=== PATIENT | male | born 1955 | race Caucasian/White ===

== ENCOUNTER 2017-08-23 06:45 | Emergency (ER) | payer MEDICARE, MEDICAID ==
[~2017-08-23] VITALS: Ht 172.7 cm; Wt 96.6 kg
[~2017-08-23 06:45] MED LIST: CLOPIDOGREL 75 MG TABLET; HYDROCODONE-ACETAMIN 7.5-325; LORAZEPAM 1 MG TABLET
[2017-08-23] MEDS ORDERED: TETANUS,DIPTH,PERTUSS P/F (BOOSTRIX) 0.5 ML VIAL IM STA (07:02)
--- NOTE | 2017-08-23 07:38 | ED Fall/Injury ---
General Chief Complaint: Trauma-Non Activation Stated Complaint: FALL Nursing Triage Note: FALL Source: patient Exam Limitations: no limitations History of Present Illness Date Seen by Provider: Aug 23, 2017 Time Seen by Provider: 06:55 Initial Comments Here with abrasions to the forehead after falling forward out of his chair and hitting his head. Unsure of loss of consciousness. Patient is on Coumadin. jail staff were able to get him back up. He complained of some left leg pain initially but is doing better afterwards. Denies nausea or vomiting. Unsure of tetanus status. Location Injury Occurred: VCV Occurred: this morning Severity: moderate Injuries/Pain Location: head, lower extremity Context: lost balance Loss of Consciousness: unsure Associated Symptoms (Fall): No Chest Pain, No Lightheadedness, No Nausea/ Vomiting; Neck Pain; No Shortness of Air, No Slurred Speech Allergies and Home Medications Allergies Coded Allergies: No Known Drug Allergies (Unverified , 08/01/17) Patient Home Medication List Home Medication List Reviewed: Yes Review of Systems Constitutional: see HPI; No chills, No fever Eyes: No Symptoms Reported Ears, Nose, Mouth, Throat: no symptoms reported Respiratory: no symptoms reported; No cough, No short of breath Cardiovascular: No chest pain, No edema Gastrointestinal: No abdominal pain, No nausea, No vomiting Musculoskeletal: No joint pain, No joint swelling; neck pain Skin: change in color (bruising to the top of the head), lesions (abrasions to forehead) Psychiatric/Neurological: Denies Headache, Denies Numbness, Denies Paresthesia Past Lnqoygy-Bhjrmc-Hksalg Hx Past Med/Social Hx: Reviewed Nursing Past Med/Soc Hx Patient Social History Alcohol Use: Denies Use Recreational Drug Use: No Smoking Status: Never a Smoker Type Used: Smokeless Tobacco Recent Foreign Travel: No Contact w/Someone Who Travel: No Recent Infectious Disease Expo: No Recent Hopitalizations: No Immunizations Up To Date Tetanus Booster (TDap): Unknown Seasonal Allergies Seasonal Allergies: No Past Medical History Surgeries: Yes Arteriovenous Shunt, Cardiac, CABG, Dialysis, Eye Surgery (right eye enucleation ), Orthopedic, Vascular Surgery Respiratory: No Cardiac: Yes Chronic Edema/Swelling, Coronary Artery Disease, Heart Attack, High Cholesterol , Hypertension Neurological: Yes Neuropathy Genitourinary: Yes Renal Failure, Dialysis Gastrointestinal: Yes Gastroesophageal Reflux Musculoskeletal: Yes (BILATERAL SHOULDER SURGERIES) Arthritis Endocrine: Yes (IDDM --DX AGE 38, ON DIALYSIS SINCE 2016) Diabetes, Non-Insulin dep HEENT: Yes (RIGHT EYE REMOVED FOR CANCER) Cancer: Yes (RIGHT EYE REMOVED FOR CANCER) Did You Recieve Any Treatments: Yes What Type of Treatment Did You: Surgical Intervention Psychosocial: Yes Anxiety, Depression Integumentary: No Blood Disorders: Yes (ANEMIA) Family Medical History Reviewed Nursing Family Hx Physical Exam Vital Signs Vital Signs - First Documented 08/23/17 06:50 Temp 97.9 Pulse 81 Resp 18 B/P (MAP) 157/91 (113) Pulse Ox 95 O2 Delivery Room Air Capillary Refill : Less Than 3 Seconds Height, Weight, BMI Height: 5'8.00" Weight: 213lbs. oz. 96.443385xf; BMI Method:Stated General Appearance: WD/WN, no apparent distress HEENT: TMs normal, pharynx normal, other (of pupil reactive. Right eye enucleation.) Neck: non-tender, full range of motion, supple Cardiovascular: regular rate, rhythm, no murmur Respiratory: lungs clear, normal breath sounds Gastrointestinal: non tender, soft Back: normal inspection, no CVA tenderness, no vertebral tenderness Extremities: non-tender, normal inspection Neurologic/Psychiatric: alert, oriented x 3 Skin: warm/dry, other (ecchymosis and abrasion to the top of the head and to the right side of the forehead. Superficial wounds that do not require laceration repair.) [place] Coma Score Best Eye Response: (4) Open Spontaneously Best Verbal Response: (5) Oriented Best Motor Response: (6) Obeys Commands Progress/Results/Core Measures Results/Orders Lab Results Laboratory Tests Test 08/23/17 07:25 08/23/17 08:31 Range/Units Prothrombin Time 24.3 H 12.2-14.7 SEC INR Comment 2.2 H 0.8-1.4 White Blood Count 7.6 4.3-11.0 10^3/uL Red Blood Count 3.50 L 4.35-5.85 10^6/uL Hemoglobin 10.6 L 13.3-17.7 G/DL Hematocrit 33 L 40-54 % Mean Corpuscular Volume 94 80-99 FL Mean Corpuscular Hemoglobin 30 25-34 PG Mean Corpuscular Hemoglobin Concent 32 32-36 G/DL Red Cell Distribution Width 16.4 H 10.0-14.5 % Platelet Count 175 130-400 10^3/uL Mean Platelet Volume 9.1 7.4-10.4 FL Neutrophils (%) (Auto) 64 42-75 % Lymphocytes (%) (Auto) 15 12-44 % Monocytes (%) (Auto) 17 H 0-12 % Eosinophils (%) (Auto) 3 0-10 % Basophils (%) (Auto) 0 0-10 % Neutrophils # (Auto) 4.9 1.8-7.8 X 10^3 Lymphocytes # (Auto) 1.2 1.0-4.0 X 10^3 Monocytes # (Auto) 1.3 H 0.0-1.0 X 10^3 Eosinophils # (Auto) 0.2 0.0-0.3 10^3/uL Basophils # (Auto) 0.0 0.0-0.1 10^3/uL Sodium Level 136 135-145 MMOL/L Potassium Level 4.3 3.6-5.0 MMOL/L Chloride Level 95 L 98-107 MMOL/L Carbon Dioxide Level 29 21-32 MMOL/L Anion Gap 12 5-14 MMOL/L Blood Urea Nitrogen 47 H 7-18 MG/DL Creatinine 6.17 H 0.60-1.30 MG/DL Estimat Glomerular Filtration Rate 9 BUN/Creatinine Ratio 8 Glucose Level 153 H 70-105 MG/DL Calcium Level 9.4 8.5-10.1 MG/DL Total Bilirubin 0.6 0.1-1.0 MG/DL Aspartate Amino Transf (AST/SGOT) 23 5-34 U/L Alanine Aminotransferase (ALT/SGPT) 27 0-55 U/L Alkaline Phosphatase 200 H 40-136 U/L Total Protein 6.4 6.4-8.2 GM/DL Albumin 3.1 L 3.2-4.5 GM/DL My Orders Orders - SUBHASH BARRY MD Dipht,Hannah(Acell),Tet Adult (Boostrix (08/23/17 07:02) Ct Head/Cervical Spine Wo (08/23/17 07:02) Protime With Inr (08/23/17 07:02) Ct Chest Wo (08/23/17 08:23) Cbc With Automated Diff (08/23/17 08:23) Comprehensive Metabolic Panel (08/23/17 08:23) Vital Signs/I&O 08/23/17 08/23/17 08/23/17 06:50 08:42 09:11 Temp 97.9 Pulse 81 81 81 Resp 18 18 18 B/P (MAP) 157/91 (113) 129/114 (119) 130/80 (97) Pulse Ox 95 93 94 O2 Delivery Room Air Room Air Room Air Blood Pressure Mean: 113 Progress Progress Note : Progress Note Seen and evaluated. CT head and neck ordered. Tetanus updated. We will check , supple. Wound cleaned by nursing. Covered with antibiotic ointment and dressing. 0820: I did discuss the CT findings with the radiologist regarding the head and neck. These do not show any areas specifically of concern but on the C-spine films you can visualize left pleural effusion and question of first , second and third rib fractures bring up concern for hemothorax. Is recommending CT of the chest. We would like to do that with contrast the patient is a dialysis patient and has significant kidney dysfunction. We will do a noncontrast scan at this point. IV and labs ordered. Findings and concerns discussed with the patient he agrees with plan to this point. Monitor patient. 1014: Have discussed the case with Dr. Dos Santos at [facility] in [facility]. Patient does have findings of first through fifth rib fractures as noted on the CT below with acute fractures on the first and second rib. This would require monitoring. Patient also has findings of the need for dialysis and volume overload. We do not have dialysis capabilities here and will require transfer to a center with that capability. Patient usually goes to [facility]. They have accepted the patient for transfer. Patient agrees to transfer. Current vital signs heart rate 78 with O2 sat of 93 percent on room air and blood pressure 142/78. Patient will go by ground ambulance. Patient agrees to plan. Diagnostic Imaging Diagonstic Imaging: CT Plain Films/CT/US/NM/MRI: c-spine, head Comments VIA [facility]. [place], [place] NAME: GRACE ORELLANA Kyler [facility] REC#: [id number] PT STATUS: REG ER : 1955 PHYSICIAN: SUBHASH BARRY MD ADMIT DATE: 08/23/17/ER Draft Date of Exam:08/23/17 CT HEAD/CERVICAL SPINE WO PROCEDURE: CT head and CT cervical spine without contrast. TECHNIQUE: Multiple contiguous axial images were obtained through the brain and cervical spine without the use of intravenous contrast. Sagittal and coronal reformations through the cervical spine were then performed. INDICATION: Fall, striking the head. No priors. FINDINGS: There is supraorbital right frontal scalp soft tissue swelling and soft tissue hematoma present. The underlying calvarium revealed no fracture deformity. There is no hemo-sinus. Chronic findings to the right globe noted. The left orbit unremarkable. There is no paranasal sinus air-fluid level. There is intracranial atherosclerotic vascular calcifications. There is chronic cerebral cortical atrophy and periventricular white matter small vessel sequelae. There is an old infarct and encephalomalacia in the posterior medial left occipital lobe. There is no acute extra-axial fluid collection. There is no intracranial hemorrhage. No focal or generalized cerebral edema. No mass or mass effect. Incidental vascular and soft tissue calcifications in the scalp, chronic. CT cervical spine: There is straightening of cervical lordosis but no perching or dislocation of the facets. Vertebral statures are within normal limits. No acute or suspicious endplate irregularity. There is a fracture of the left first and second rib at the costovertebral junction which showed no evidence for healing presumed acute. There is some new bone formation associated with likely subacute fracture to the left third posterior rib just lateral to its costovertebral junction. There is a moderate to large amount of left-sided pleural fluid partially visualized and at least a small amount of right apical dependent posterior pleural fluid. In the setting of trauma the presence of pleural fluid and acute rib fractures superiorly warrants a chest CT as further evaluation. Skull base appeared intact and no cervical spinal fracture is evident. There are degenerative changes involving the distant endplates, uncovertebral joints and facets. IMPRESSION: CT head: A scalp hematoma, chronic senescent changes with atrophy, atherosclerotic disease and old encephalomalacia in the left occipital lobe. However, no intracranial hemorrhage or acute-appearing intracerebral pathology. No hemo-sinus. CT cervical spine: Spondylosis and facet arthrosis without cervical spinal fracture or dislocation. Note is made of acute appearing left first and second rib fractures and likely subacute left third rib fracture. Left greater than right pleural fluid volumes of uncertain etiology but in the setting of trauma, upper rib fractures warrants further evaluation with chest CT. Pneumothoraces could not be excluded. Results phoned to the ER physician. Dictated on workstation # [id number] Dict: 08/23/17 0813 Trans: 08/23/17 0836 [facility] [id number] Interpreted by: NEHEMIAS MARTINEZ Electronically signed by: [place] Imaging: CT Plain Films/CT/US/NM/MRI: chest Comments Date of Exam:08/23/17 CT CHEST WO PROCEDURE: CT chest without contrast. TECHNIQUE: Multiple contiguous axial images were obtained through the chest without the use of intravenous contrast. INDICATION: Fall, chest pain. When correlated with earlier CT cervical spine, there has been likely redistribution of the left-sided pleural fluid now predominantly at the posterior sulcus and subpulmonic base. Left pleural fluid has a homogenous low density and Hounsfield units consistent with serous fluid without a fluid/fluid level obvious complexity or convincing features of a hemothorax. There is a tiny right pleural effusion without loculation or evidence for its complexity. There are postsurgical changes of likely recent sternotomy without evidence for a dehiscence. There is some presternal subcutaneous edema which may reflect recent postsurgical changes or a soft tissue contusion. No discrete fluid collection or abscess. No retrosternal fluid collection. Coronary arterial atherosclerosis and bypass vascular patency cannot be addressed owing to the absence of contrast media. There are acute fractures of the left first and second ribs posteriorly and subacute healing fractures of the left third, fourth and fifth ribs at their costovertebral junctions. The right ribs appeared intact. Reconstruction views revealed thoracic spondylosis without fracture deformity or traumatic malalignment. There is no pneumothorax. There is no pneumomediastinum. Some very mild curvilinear discoid subsegmental atelectasis in the left upper lobe as well as perifissural atelectasis, dependent lingula and moderate to dependent atelectasis in the left lower lobe posteriorly adjacent to the predominance of the of nonloculated pleural fluid. Evaluation for adenopathy limited by the absence of vascular contrast no suspicious hilar abnormality, shotty small paratracheal and pericarinal mediastinal nodes likely incidental. Visualized upper abdomen reveals a least trace free fluid with extensive atherosclerotic disease, no upper abdominal free air. Impression: Acute left first and second rib fractures posteriorly at the costovertebral junction. Third, fourth and fifth posterior left rib fractures are healing and are nonacute. Left pleural fluid shows no evidence for its loculation and shows no complexity or suggestion of hemothorax. Its predominately posteriorly and at the subpulmonic base and accompanied by subjacent atelectasis. There is no pneumothorax. Likely recent sternotomy without dehiscence. No parasternal fluid collection. Trace abdominal free fluid in the visualized upper abdomen. No other significant finding. Dictated on workstation # [id number] Dict: 08/23/17 0926 Trans: 08/23/17 0944 [facility] [phone] Interpreted by: NEHEMIAS MARTINEZ Electronically signed by: Departure Impression Primary Impression: Head injury due to trauma Qualified Codes: S09.90XA - Unspecified injury of head, initial encounter Additional Impressions: Multiple fractures of ribs, left side, initial encounter for closed fracture End stage renal disease on dialysis Volume overload Qualified Codes: E87.79 - Other fluid overload Disposition: 02 XFER SHT-TRM HOSP Condition: Stable Transfer Transfer Time: 10:14 Transfer Facility: [place], [place], Dr. Dos Santos accepting. Method of Transfer: EMS Departure-Patient Inst. Referrals: NO,LOCAL PHYSICIAN (PCP/Family) Primary Care Physician Images Head/Face 1 - Mild, Abrasion, Contusion 2 - Mild, Abrasion SUBHASH BARRY MD Aug 23, 2017 07:38
[2017-08-23 07:56] LABS: INR 2.2 (0.8-1.4); PROTHROMBIN TIME PATIENT 24.3 SEC (12.2-14.7)
--- NOTE | 2017-08-23 08:36 | Diagnostic Imaging Report ---
PROCEDURE: CT head and CT cervical spine without contrast. TECHNIQUE: Multiple contiguous axial images were obtained through the brain and cervical spine without the use of intravenous contrast. Sagittal and coronal reformations through the cervical spine were then performed. INDICATION: Fall, striking the head. No priors. FINDINGS: There is supraorbital right frontal scalp soft tissue swelling and soft tissue hematoma present. The underlying calvarium revealed no fracture deformity. There is no hemo-sinus. Chronic findings to the right globe noted. The left orbit unremarkable. There is no paranasal sinus air-fluid level. There is intracranial atherosclerotic vascular calcifications. There is chronic cerebral cortical atrophy and periventricular white matter small vessel sequelae. There is an old infarct and encephalomalacia in the posterior medial left occipital lobe. There is no acute extra-axial fluid collection. There is no intracranial hemorrhage. No focal or generalized cerebral edema. No mass or mass effect. Incidental vascular and soft tissue calcifications in the scalp, chronic. CT cervical spine: There is straightening of cervical lordosis but no perching or dislocation of the facets. Vertebral statures are within normal limits. No acute or suspicious endplate irregularity. There is a fracture of the left first and second rib at the costovertebral junction which showed no evidence for healing presumed acute. There is some new bone formation associated with likely subacute fracture to the left third posterior rib just lateral to its costovertebral junction. There is a moderate to large amount of left-sided pleural fluid partially visualized and at least a small amount of right apical dependent posterior pleural fluid. In the setting of trauma the presence of pleural fluid and acute rib fractures superiorly warrants a chest CT as further evaluation. Skull base appeared intact and no cervical spinal fracture is evident. There are degenerative changes involving the distant endplates, uncovertebral joints and facets. IMPRESSION: CT head: A scalp hematoma, chronic senescent changes with atrophy, atherosclerotic disease and old encephalomalacia in the left occipital lobe. However, no intracranial hemorrhage or acute-appearing intracerebral pathology. No hemo-sinus. CT cervical spine: Spondylosis and facet arthrosis without cervical spinal fracture or dislocation. Note is made of acute appearing left first and second rib fractures and likely subacute left third rib fracture. Left greater than right pleural fluid volumes of uncertain etiology but in the setting of trauma, upper rib fractures warrants further evaluation with chest CT. Pneumothoraces could not be excluded. Results phoned to the ER physician. Dictated by: Dictated on workstation # [id number]
[2017-08-23 08:37] LABS: BASOPHILS % (AUTO) 0 % (0-10); EOSINOPHILS # (AUTO) 0.2 10^3/uL (0.0-0.3); EOSINOPHILS % (AUTO) 3 % (0-10); HEMATOCRIT 33 % (40-54); HEMOGLOBIN 10.6 G/DL (13.3-17.7); LYMPHOCYTES # (AUTO) 1.2 X 10^3 (1.0-4.0); LYMPHOCYTES % (AUTO) 15 % (12-44); MEAN CORPUSCULAR HEMOGLOBIN 30 PG (25-34); MEAN CORPUSCULAR HGB CONC 32 G/DL (32-36); MEAN CORPUSCULAR VOLUME 94 FL (80-99); MEAN PLATELET VOLUME 9.1 FL (7.4-10.4); MONOCYTES # (AUTO) 1.3 X 10^3 (0.0-1.0); MONOCYTES % (AUTO) 17 % (0-12); NEUTROPHILS # (AUTO) 4.9 X 10^3 (1.8-7.8); NEUTROPHILS % (AUTO) 64 % (42-75); PLATELET COUNT 175 10^3/uL (130-400); RED CELL DISTRIBUTION WIDTH 16.4 % (10.0-14.5); WHITE BLOOD COUNT 7.6 10^3/uL (4.3-11.0)
[2017-08-23 08:42] VITALS: BP 129/114
[2017-08-23] MEDS ORDERED: FLDR.1T (08:52)
[2017-08-23] MEDS ORDERED: GABA-486 (08:52)
[2017-08-23] MEDS ORDERED: AMIO200T4 (08:52)
[2017-08-23] MEDS ORDERED: INSU100I14 (08:52)
[2017-08-23] MEDS ORDERED: LORA1TAB (08:52)
[2017-08-23 08:57] LABS: ALBUMIN 3.1 GM/DL (3.2-4.5); BILIRUBIN,TOTAL 0.6 MG/DL (0.1-1.0); CALCIUM 9.4 MG/DL (8.5-10.1); CREATININE SERUM 6.17 MG/DL (0.60-1.30); POTASSIUM 4.3 MMOL/L (3.6-5.0); TOTAL PROTEIN 6.4 GM/DL (6.4-8.2)
[2017-08-23 09:11] VITALS: BP 130/80
--- NOTE | 2017-08-23 09:44 | Diagnostic Imaging Report ---
PROCEDURE: CT chest without contrast. TECHNIQUE: Multiple contiguous axial images were obtained through the chest without the use of intravenous contrast. INDICATION: Fall, chest pain. When correlated with earlier CT cervical spine, there has been likely redistribution of the left-sided pleural fluid now predominantly at the posterior sulcus and subpulmonic base. Left pleural fluid has a homogenous low density and Hounsfield units consistent with serous fluid without a fluid/fluid level obvious complexity or convincing features of a hemothorax. There is a tiny right pleural effusion without loculation or evidence for its complexity. There are postsurgical changes of likely recent sternotomy without evidence for a dehiscence. There is some presternal subcutaneous edema which may reflect recent postsurgical changes or a soft tissue contusion. No discrete fluid collection or abscess. No retrosternal fluid collection. Coronary arterial atherosclerosis and bypass vascular patency cannot be addressed owing to the absence of contrast media. There are acute fractures of the left first and second ribs posteriorly and subacute healing fractures of the left third, fourth and fifth ribs at their costovertebral junctions. The right ribs appeared intact. Reconstruction views revealed thoracic spondylosis without fracture deformity or traumatic malalignment. There is no pneumothorax. There is no pneumomediastinum. Some very mild curvilinear discoid subsegmental atelectasis in the left upper lobe as well as perifissural atelectasis, dependent lingula and moderate to dependent atelectasis in the left lower lobe posteriorly adjacent to the predominance of the of nonloculated pleural fluid. Evaluation for adenopathy limited by the absence of vascular contrast no suspicious hilar abnormality, shotty small paratracheal and pericarinal mediastinal nodes likely incidental. Visualized upper abdomen reveals a least trace free fluid with extensive atherosclerotic disease, no upper abdominal free air. Impression: Acute left first and second rib fractures posteriorly at the costovertebral junction. Third, fourth and fifth posterior left rib fractures are healing and are nonacute. Left pleural fluid shows no evidence for its loculation and shows no complexity or suggestion of hemothorax. Its predominately posteriorly and at the subpulmonic base and accompanied by subjacent atelectasis. There is no pneumothorax. Likely recent sternotomy without dehiscence. No parasternal fluid collection. Trace abdominal free fluid in the visualized upper abdomen. No other significant finding. Dictated by: Dictated on workstation # [id number]
[2017-08-23 10:35] VITALS: BP 154/78
[2017-08-23 10:57] VITALS: BP 149/76
== END 2017-08-23 11:14 | disposition short-term general hospital (02) ==
LOC: EDUNIT# 06:45 → ER 06:48
DX: S09.90XA Unspecified injury of head, initial encounter (principal); S22.42XA Multiple fractures of ribs, left side, initial encounter for closed fracture; N18.6 End stage renal disease; E87.79 Other fluid overload; I25.10 Atherosclerotic heart disease of native coronary artery without angina pectoris; I25.2 Old myocardial infarction; E78.00 Pure hypercholesterolemia, unspecified; I12.0 Hypertensive chronic kidney disease with stage 5 chronic kidney disease or end stage renal disease; E11.40 Type 2 diabetes mellitus with diabetic neuropathy, unspecified; K21.9 Gastro-esophageal reflux disease without esophagitis; E11.22 Type 2 diabetes mellitus with diabetic chronic kidney disease; F41.9 Anxiety disorder, unspecified; F32.9 Major depressive disorder, single episode, unspecified; Z99.2 Dependence on renal dialysis; Z95.1 Presence of aortocoronary bypass graft; Z79.01 Long term (current) use of anticoagulants; W07.XXXA Fall from chair, initial encounter
CPT/HCPCS: 36415; 70450; 71250; 72125; 80053; 85025; 85610; 90471; 90715

== ENCOUNTER → 2017-09-02 | Outpatient (CLI) | payer MEDICARE, MEDICAID ==
[~2017-09-02] MED LIST changes: +AMIO200T4; +FLDR.1T; +GABA-486; +INSU100I14; +LORA1TAB
[2017-09-02 18:39] LABS: BILIRUBIN,URINE NEGATIVE (NEGATIVE); CLARITY,URINE VERY CLOUDY; COLOR,URINE RED; GLUCOSE, URINE (UA) 1+ (NEGATIVE); KETONES,URINE 1+ (NEGATIVE); LEUKOCYTE ESTERASE ,URINE 3+ (NEGATIVE); NITRITE,URINE NEGATIVE (NEGATIVE); PH,URINE 5 (5-9); PROTEIN,URINE 4+ (NEGATIVE); UROBILINOGEN,URINE NORMAL (NORMAL)
[2017-09-02 18:51] LABS: BACTERIA,URINE MODERATE /HPF; RBC,URINE TNTC /HPF; WBC,URINE TNTC /HPF
== END ==
LOC: CVS 18:32
PROVIDERS: ATTEND Internal Medicine
DX: N18.6 End stage renal disease (principal); R31.9 Hematuria, unspecified; Z99.2 Dependence on renal dialysis; Z79.01 Long term (current) use of anticoagulants
CPT/HCPCS: 81000; 87077; 87088; 87186

== ENCOUNTER → 2017-09-11 | Outpatient (CLI) | payer MEDICARE, MEDICAID ==
[2017-09-11 11:57] LABS: CLARITY,URINE BLOODY; COLOR,URINE RED; GLUCOSE, URINE (UA) 1+ (NEGATIVE); KETONES,URINE 1+ (NEGATIVE); LEUKOCYTE ESTERASE ,URINE 2+ (NEGATIVE); NITRITE,URINE NEGATIVE (NEGATIVE); PH,URINE 5 (5-9); PROTEIN,URINE 4+ (NEGATIVE); UROBILINOGEN,URINE NORMAL (NORMAL)
[2017-09-11 12:08] LABS: BACTERIA,URINE TRACE /HPF; BILIRUBIN,URINE 1+ (NEGATIVE); RBC,URINE TNTC /HPF
== END ==
LOC: LABNPT 11:52 → MERGE 11:52
PROVIDERS: ATTEND Internal Medicine
DX: N39.0 Urinary tract infection, site not specified (principal); R31.9 Hematuria, unspecified
CPT/HCPCS: 81000; 87088

== ENCOUNTER → 2017-09-19 | Outpatient (CLI) | payer MEDICARE, MEDICAID ==
--- NOTE | 2017-09-19 14:25 | Diagnostic Imaging Report ---
PROCEDURE: CT abdomen and pelvis without contrast. TECHNIQUE: Multiple contiguous axial images were obtained through the abdomen and pelvis without the use of intravenous contrast. INDICATION: Gross hematuria. COMPARISON: No prior studies are available for comparison. FINDINGS: Imaging through the lung bases does show [id number] left pleural effusion with some associated left basilar consolidation. The right lung base is clear. No discrete liver mass is identified. The gallbladder is unremarkable. Pancreas appears atrophic. The spleen is unremarkable. No adrenal mass is identified. There are extensive vascular calcifications throughout the abdomen including the aorta, renal arteries, as well as the hepatic and splenic arteries. No hydronephrosis is seen. No central retroperitoneal or mesenteric lymphadenopathy is seen. The small and large bowel loops are normal in caliber. There is no ascites apart from trace fluid in the pelvis. Partially filled urinary bladder is unremarkable. There is some air within the bladder, perhaps owing to recent instrumentation. Clinical correlation is recommended. Prostate gland is unremarkable. Bony structures are nonacute. IMPRESSION: 1. Moderate left pleural effusion with left basilar infiltrate or atelectasis. 2. Extensive vascular calcifications throughout the abdomen and pelvis, perhaps owing to diabetes. Clinical correlation is recommended. No urinary tract calculi or obstruction is seen. Dictated by: Dictated on workstation # [id number]
== END ==
LOC: RAD 13:50 → MERGE 14:15
PROVIDERS: ATTEND Urology
DX: J90 Pleural effusion, not elsewhere classified (principal); R31.0 Gross hematuria
CPT/HCPCS: 74176

== ENCOUNTER 2017-11-03 13:11 | Emergency (ER) | payer MEDICARE, MEDICAID ==
[~2017-11-03] VITALS: Ht 172.7 cm; Wt 96.6 kg
[2017-11-03] MEDS ORDERED: fentaNYL INJECTION 100 MCG/2 ML AMP IVP STA ×2 (13:28→15:23)
--- NOTE | 2017-11-03 14:21 | Diagnostic Imaging Report ---
INDICATION: Fall with pelvic and left hip pain. AP view of the pelvis is obtained with coned AP and frog-leg views of the left hip. FINDINGS: There is mildly displaced fracture through the left femoral neck. There is no associated dislocation. Remainder of the pelvis is intact. There is atherosclerotic calcification noted. Very mild lower lumbar spondylosis is present. IMPRESSION: Mildly displaced fracture through the left femoral neck without dislocation or other acute abnormality seen in the pelvis. Dictated by: Dictated on workstation # [id number]
--- NOTE | 2017-11-03 14:26 | ED Lower Extremity ---
General Chief Complaint: Trauma-Non Activation Stated Complaint: FALL;L HIP Nursing Triage Note: TO ED PER EMS FROM [facility] HAD DIALYSIS TODAY FELL GETTING INTO W/C WAS TAKEN BACK TO [facility] C/O L HIP PAIN ON ADMIT. Nursing Sepsis Screen: No Definite Risk History of Present Illness Date Seen by Provider: Nov 03, 2017 Time Seen by Provider: 13:20 Initial Comments 62-year-old male fell getting into his wheelchair after dialysis. He is now complaining of left hip pain. He denies any other injuries at the time of the fall, no loss of consciousness or head trauma. Onset: just prior to arrival Pain/Injury Location: left hip Method of Injury: fell Modifying Factors: Improves With Rest Allergies and Home Medications Allergies Coded Allergies: No Known Drug Allergies (Unverified , 08/01/17) Patient Home Medication List Home Medication List Reviewed: Yes Review of Systems Constitutional: no symptoms reported, see HPI Musculoskeletal: see HPI, joint pain (Left hip pain) All Other Systems Reviewed Negative Unless Noted: Yes Past Edsalxa-Gmkisy-Jrnhsu Hx Past Med/Social Hx: Reviewed Nursing Past Med/Soc Hx Patient Social History Alcohol Use: Denies Use Recreational Drug Use: No Type Used: Smokeless Tobacco Recent Foreign Travel: No Contact w/Someone Who Travel: No Recent Infectious Disease Expo: No Recent Hopitalizations: No Immunizations Up To Date Tetanus Booster (TDap): Unknown Seasonal Allergies Seasonal Allergies: No Past Medical History Surgeries: Yes Arteriovenous Shunt, Cardiac, CABG, Dialysis, Eye Surgery, Orthopedic, Vascular Surgery Respiratory: No Cardiac: Yes Chronic Edema/Swelling, Coronary Artery Disease, Heart Attack, High Cholesterol , Hypertension Neurological: Yes Neuropathy Genitourinary: Yes Renal Failure, Dialysis Gastrointestinal: Yes Gastroesophageal Reflux Musculoskeletal: Yes (BILATERAL SHOULDER SURGERIES) Arthritis Endocrine: Yes (IDDM --DX AGE 38, ON DIALYSIS SINCE 2016) Diabetes, Non-Insulin dep HEENT: Yes (RIGHT EYE REMOVED FOR CANCER) Cancer: Yes (RIGHT EYE REMOVED FOR CANCER) Did You Recieve Any Treatments: Yes What Type of Treatment Did You: Surgical Intervention Psychosocial: Yes Anxiety, Depression Integumentary: No Blood Disorders: Yes (ANEMIA) Physical Exam Vital Signs Vital Signs - First Documented 11/03/17 13:14 Temp 98.0 Pulse 87 Resp 18 B/P (MAP) 161/86 (111) Pulse Ox 98 O2 Delivery Room Air Capillary Refill : Less Than 3 Seconds Height, Weight, BMI Height: 5'8.00" Weight: 213lbs. oz. 96.296660xs; BMI Method:Stated General Appearance: WD/WN, no apparent distress HEENT: TMs normal, pharynx normal Neck: non-tender, full range of motion, supple, normal inspection Cardiovascular: normal peripheral pulses, regular rate, rhythm, other (Pedal pulses 2+ and symmetric. Neurovascular status intact left lower extremity symmetric with the right.) Respiratory: chest non-tender, lungs clear, normal breath sounds Gastrointestinal: normal bowel sounds, non tender, soft Hips: right hip non-tender, right hip normal inspection, right hip normal range of motion; left hip bone tenderness, left hip limited range of motion ( Secondary to pain, mild external rotation and shortening of the left leg. Unable to perform straight leg raise.), left hip pain, left hip soft tissue tenderness Ankles: bilateral ankle non-tender, bilateral ankle normal inspection, bilateral ankle normal range of motion Neurologic/Tendon: normal sensation, normal motor functions, normal tendon functions Neurologic/Psychiatric: no motor/sensory deficits, alert, normal mood/affect, oriented x 3 Skin: normal color, warm/dry Progress/Results/Core Measures Results/Orders My Orders Orders - MARQUITA VIDAL Pelvis With Left Hip 2-3 Views (11/03/17 13:28) Fentanyl Injection (Sublimaze Injection (11/03/17 13:28) Fentanyl Injection (Sublimaze Injection (11/03/17 15:23) Vital Signs/I&O 11/03/17 11/03/17 13:14 15:55 Temp 98.0 Pulse 87 86 Resp 18 18 B/P (MAP) 161/86 (111) 150/82 Pulse Ox 98 98 O2 Delivery Room Air Blood Pressure Mean: 111 Progress Progress Note : Time: 13:20 Progress Note Patient seen and evaluated. Recommended fentanyl 50 g for pain and x-ray of the pelvis and left hip. 1430 patient reports pain has improved. Discussed findings of his x-ray. Explained that his dialysis needs will necessitate transfer to a facility that can complete this. He understands this and wishes to go to [place]. [address] White at [facility] emergency department he accepts the patient for transfer. 1530 patient reports pain /10, will repeat fentanyl 50 g for pain. Transfer planning in progress. Diagnostic Imaging Diagonstic Imaging: Xray Plain Films/CT/US/NM/MRI: pelvis, hip Comments NAME: GRACE ORELLANA [facility] REC#: [id number] PT STATUS: REG ER : 1955 PHYSICIAN: MARQUITA VDIAL ADMIT DATE: 11/03/17/ER Draft Date of Exam:11/03/17 PELVIS WITH LEFT HIP 2-3 VIEWS INDICATION: Fall with pelvic and left hip pain. AP view of the pelvis is obtained with coned AP and frog-leg views of the left hip. FINDINGS: There is mildly displaced fracture through the left femoral neck. There is no associated dislocation. Remainder of the pelvis is intact. There is atherosclerotic calcification noted. Very mild lower lumbar spondylosis is present. IMPRESSION: Mildly displaced fracture through the left femoral neck without dislocation or other acute abnormality seen in the pelvis. Dictated on workstation # [id number] Dict: 11/03/17 1417 Trans: 11/03/17 1420 [facility] [id number] Interpreted by: NEHEMIAS BECKMAN MD Electronically signed by: Reviewed: Reviewed by Me Departure Impression Primary Impression: Fracture of femoral neck, left, closed Qualified Codes: S72.002A - Fracture of unspecified part of neck of left femur , initial encounter for closed fracture Additional Impression: Chronic kidney disease Qualified Codes: N18.6 - End stage renal disease; Z99.2 - Dependence on renal dialysis Disposition: 02 XFER SHT-TRM HOSP Condition: Stable Transfer Time Spoke to Accepting Phy: 15:10 Transfer Progress Notes Spoke to Chucho Adams, [facility]. will accept patient for transfer to ED. Method of Transfer: EMS Departure-Patient Inst. Decision time for Depature: 15:15 Referrals: CHERYL LANDRY MD (PCP/Family) Primary Care Physician Add. Discharge Instructions: All discharge instructions reviewed with patient and/or family. Voiced understanding. Copy Copies To 1: CHERYL LANDRY MD, AMY ARNP Nov 03, 2017 14:26
[2017-11-03 15:55] VITALS: BP 150/82
--- OUTSIDE RECORDS SUMMARY | 2017-11-03 17:07 | XMS REPORT ---
Author Author SHERWIN CARVAJAL [facility] Address [address] [place] [address] Care Team Providers Care Belt Knife Feeder Name Role Phone SHERWIN CARVAJAL Unavailable PROBLEMS Type Condition ICD9-CM Code IJD10-AP Code Onset Dates Condition Status SNOMED Code Problem Anxiety F41.9 Active 73813410 Problem Rheumatoid arthritis, involving unspecified site, unspecified rheumatoid factor presence M06.9 Active 71743772 Problem Dialysis patient Z99.2 Active 396047721 Problem Gastroesophageal reflux disease without esophagitis K21.9 Active 468716975 Problem Essential hypertension I10 Active 72299364 Problem Type 2 diabetes mellitus with hyperglycemia, without long-term current use of insulin E11.65 Active 07569729 Problem End stage kidney disease N18.6 Active 91334668 Problem Coronary artery disease involving coronary bypass graft of [place] heart without angina 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 Active 374435176 Problem Hyperlipidemia, unspecified hyperlipidemia type E78.5 Active 60582882 ALLERGIES No Information ENCOUNTERS Encounter Location Date Diagnosis [place] [address] [place] [address] Oct, Encounter for examination for admission to correction Z02.2 [address] [place] [address] [place] [id number] Oct, Weakness R53.1 ; Dialysis patient Z99.2 ; Essential hypertension I10 ; Rheumatoid arthritis, involving unspecified site, unspecified rheumatoid factor presence M06.9 and Gastroesophageal reflux disease without esophagitis K21.9 [place] [address] [place] [address]- 8520 Sep, [place] [address] [place] [address] 80905- 7838 Sep, [place] [address] [place] [id number] [place] [address]25[address] Sep, [facility] [address] [id number] [address] Sep, Encounter for examination for admission to correction Z02.2 and Anxiety F41.9 Via [facility] [address] [place] [id number] Sep, Gross hematuria R31.0 ; Coronary artery disease involving coronary bypass graft of [place] heart without angina 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 ; Arthralgia, unspecified joint M25.50 ; Essential hypertension I10 ; Rheumatoid arthritis, involving unspecified site, unspecified rheumatoid factor presence M06.9 ; Type 2 diabetes mellitus with hyperglycemia, without long-term current use of insulin E11.65 and Dialysis patient Z99.2 [place] [address] [id number] [address] Sep, [place] [address] [id number] [address] Sep, Encounter for examination for admission to correction Z02.2 Via [employer] [facility] [address] [place] [id number] Sep, Gross hematuria R31.0 [facility] [address] [id number] [place] [address] Aug, [facility] [address] [facility] [id number] [address] Aug, [facility] [address] [place] [id number] Aug, Fall, subsequent encounter W19.XXXD and Dialysis patient Z99.2 [facility] [address] [id number] [place] [address] Aug, [place] [address] [facility] [id number] [address] Aug, [facility] [employer] [address] [place] [id number] Aug, Encounter for examination for admission to correction Z02.2 ; Other acute pulmonary embolism without acute cor pulmonale I26.99 ; Arthralgia, unspecified joint M25.50 ; Coronary artery disease involving coronary bypass graft of [place] heart without angina 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 ; Essential hypertension I10 and Hyperlipidemia, unspecified hyperlipidemia type E78.5 [place] [address] [address] [place] [id number] [place] [address] Aug, Rheumatoid arthritis, involving unspecified site, unspecified rheumatoid factor presence M06.9 [place] [address] [address] [place] [id number] [place] [address] 6[address]- [address] Aug, [place] [address] [address] Aug, Encounter for examination for admission to correction Z02.2 [place] [address] [place] [id number] [place] [address] Jul, [place] [address] [place] [id number] [place] [address] 98529- 2533 Jul, [place] [address] [place] [id number] [place] [address] 96[address] Jul, Anxiety F41.9 [place] [address] [address] Jul, IMMUNIZATIONS No Known Immunizations SOCIAL HISTORY Never Assessed REASON FOR VISIT Long-Term PLAN OF CARE Activity Details Follow Up prn Reason: VITAL SIGNS MEDICATIONS Medication Instructions Dosage Frequency Start Date End Date Duration Status Senna Plus 8.6-50 MG Orally twice a day 1 tablet as needed 12h Active Plavix 75 MG Orally Once a day 1 tablet 24h Active Gabapentin 100 MG Orally Three times a day 1 capsule 8h Active Coumadin 4 MG Orally Once a day 1 tablet 24h Active Prevacid 30 MG Orally Once a day 1 capsule 24h Active Lasix 80 MG Orally twice a day 1 tablet 12h Active Hydrocodone-Acetaminophen 5-325 MG Orally every 8 hrs 1 tablet as needed 8h Sep, Active Sodium Bicarbonate 325 MG Orally 2 times a day 1 tablet 12h Active Artificial Tear to right eye 3 times a day 2 gtts 8h Active Dulaglutide 0.75 MG/0.5ML Subcutaneous once weekly 0.75mg Jul, Active Ativan 0.5 MG Orally 3 times a day 1 tablet 8h Jul, 28 days Active Ipratropium-Albuterol 0.5-2.5 (3) MG/3ML Inhalation every 6 hrs 3 ml as needed 6h Active Fludrocortisone Acetate 0.1 MG Orally Three times a Week 1 tablet Active Aspirin EC 81 MG Orally Once a day 1 tablet 24h Active Isosorbide Mononitrate ER 30 MG Orally Once a day 1 tablet in the morning 24h Active Carvedilol 12.5 MG Orally 2 times a day 1 tablet 12h Active Renvela 800 MG Orally Three times a day 1 tablet with meals 8h Active Venlafaxine HCl ER 150 MG Orally Once a day 1 capsule with food 24h Active Dulcolax 10 MG Rectal Once a day 1 suppository as needed 24h Active Aricept 10 MG Orally Once a day 1 tablet at bedtime 24h Active Amiodarone HCl 200 MG Orally Once a day 1 tablet 24h Active Depakote 250 MG Orally 3 times a day 1 tablet 8h Active Dextromethorphan-Guaifenesin 10-100 MG/5ML Orally every 4 hrs 10 ml as needed 4h Active Lisinopril 10 MG Orally Once a day 1 tablet 24h Active Lantus 100 UNIT/ML Subcutaneous Once a day 12 units 24h Active Nitrostat 0.4 MG Active Humalog 100 UNIT/ML Subcutaneous 3 times a day 5 units 8h Active Tums Ultra by oral route every 6 hrs 1 tablet as needed 6h Active Trazodone HCl 50 mg Orally Once a day 1 tablet at bedtime 24h Active RESULTS No Results PROCEDURES Procedure Date Ordered Result Body Site [facility] VISIT ESTABLISHED PATIENT Sep 20, 2017 INSTRUCTIONS MEDICATIONS ADMINISTERED No Known Medications MEDICAL (GENERAL) HISTORY Type Description Date Medical History Chronic Kidney disease state V Medical History Coronary Artery Disease Medical History Hyperlipidemia Medical History Hypertension Medical History Obesity Medical History Arthritis Medical History Atrial Fibrillation Medical History Depression Medical History Diabetes Surgical History Heart Cath Surgical History hernia repair Surgical History Shoulder surgery Surgical History Tonsillectomy Surgical History Wrist ganglion excision
--- OUTSIDE RECORDS SUMMARY | 2017-11-03 17:07 | XMS REPORT ---
Author Author SHERWIN CARVAJAL [facility] Address [address] [place] [address] Care Team Providers Care Battalion Fire Chief Name Role Phone SHERWIN CARVAJAL Unavailable PROBLEMS Type Condition ICD9-CM Code IUO43-BN Code Onset Dates Condition Status SNOMED Code Problem Anxiety F41.9 Active 85234711 Problem Rheumatoid arthritis, involving unspecified site, unspecified rheumatoid factor presence M06.9 Active 59936507 Problem Dialysis patient Z99.2 Active 346363742 Problem Gastroesophageal reflux disease without esophagitis K21.9 Active 411269183 Problem Essential hypertension I10 Active 31131534 Problem Type 2 diabetes mellitus with hyperglycemia, without long-term current use of insulin E11.65 Active 14140940 Problem End stage kidney disease N18.6 Active 95096945 Problem Coronary artery disease involving coronary bypass graft of [place] heart without angina 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 Active 146868045 Problem Hyperlipidemia, unspecified hyperlipidemia type E78.5 Active 52620613 ALLERGIES No Information ENCOUNTERS Encounter Location Date Diagnosis [place] [address] [place] [address] Oct, Encounter for examination for admission to jail Z02.2 Via [place] [address] [place] [id number] Oct, Weakness R53.1 ; Dialysis patient Z99.2 ; Essential hypertension I10 ; Rheumatoid arthritis, involving unspecified site, unspecified rheumatoid factor presence M06.9 and Gastroesophageal reflux disease without esophagitis K21.9 [place] [address] [place] [address]- 3920 Sep, [place] [address] [place] [address]00- [address] Sep, [place] [address] [address] [place] [id number] [place] [address] Sep, [facility] [address] [id number] [address] Sep, Encounter for examination for admission to jail Z02.2 and Anxiety F41.9 Via [employer] [facility] [address] [place] [id number] Sep, Gross hematuria R31.0 ; Coronary artery disease involving coronary bypass graft of [place] heart without angina 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 ; Arthralgia, unspecified joint M25.50 ; Essential hypertension I10 ; Rheumatoid arthritis, involving unspecified site, unspecified rheumatoid factor presence M06.9 ; Type 2 diabetes mellitus with hyperglycemia, without long-term current use of insulin E11.65 and Dialysis patient Z99.2 [place] [address] [id number] [address] Sep, [place] [address] [id number] [address] Sep, Encounter for examination for admission to jail Z02.2 [facility] [employer] [address] [place] [id number] Sep, Gross hematuria R31.0 [facility] [address] [id number] [address] Aug, [facility] [address] [facility] [id number] [address] Aug, [facility] [address] [place] [id number] Aug, Fall, subsequent encounter W19.XXXD and Dialysis patient Z99.2 [facility] [address] [id number] [address] Aug, [place] [address] [facility] [id number] [address] Aug, [facility] [employer] [address] [place] [id number] Aug, Encounter for examination for admission to jail Z02.2 ; Other acute pulmonary embolism without acute cor pulmonale I26.99 ; Arthralgia, unspecified joint M25.50 ; Coronary artery disease involving coronary bypass graft of [place] heart without angina 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 ; Essential hypertension I10 and Hyperlipidemia, unspecified hyperlipidemia type E78.5 [place] [address] [place] [address]157- [address] Aug, Rheumatoid arthritis, involving unspecified site, unspecified rheumatoid factor presence M06.9 [place] [address] [place] [id number] [place] [address]34- [address] Aug, [place] [address] [address] Aug, Encounter for examination for admission to jail Z02.2 [place] [address] [place] [id number] [place] [address]99- 8258 Jul, [place] [address] [place] [id number] [place] [address] 82211- 0193 Jul, [place] [address] [place] [id number] [place] [address] 0[address]18- 6[address] Jul, Anxiety F41.9 [place] [address] [place] [id number] [place] [address] 05692- 1164 Jul, IMMUNIZATIONS No Known Immunizations SOCIAL HISTORY Never Assessed REASON FOR VISIT Requests return call PLAN OF CARE VITAL SIGNS MEDICATIONS Unknown Medications RESULTS No Results PROCEDURES No Known procedures INSTRUCTIONS MEDICATIONS ADMINISTERED No Known Medications MEDICAL [...]
--- OUTSIDE RECORDS SUMMARY | 2017-11-03 17:07 | XMS REPORT ---
Author Author SHERWIN CARVAJAL [facility] Address [address] [place] [address] Care Team Providers Care Waitstaff Name Role Phone SHERWIN CARVAJAL Unavailable PROBLEMS Type Condition ICD9-CM Code APP75-CB Code Onset Dates Condition Status SNOMED Code Problem Anxiety F41.9 Active 38212052 Problem Rheumatoid arthritis, involving unspecified site, unspecified rheumatoid factor presence M06.9 Active 04824613 Problem Dialysis patient Z99.2 Active 852700259 Problem Gastroesophageal reflux disease without esophagitis K21.9 Active 907264266 Problem Essential hypertension I10 Active 30445339 Problem Type 2 diabetes mellitus with hyperglycemia, without long-term current use of insulin E11.65 Active 81259242 Problem End stage kidney disease N18.6 Active 38183801 Problem Coronary artery disease involving coronary bypass graft of [place] heart without angina 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 Active 391905159 Problem Hyperlipidemia, unspecified hyperlipidemia type E78.5 Active 96312601 ALLERGIES No Information ENCOUNTERS Encounter Location Date Diagnosis [place] [address] [address] [place] [address] Oct, Encounter for examination for admission to long-term Z02.2 [address] [place] [address] [place] [id number] Oct, Weakness R53.1 ; Dialysis patient Z99.2 ; Essential hypertension I10 ; Rheumatoid arthritis, involving unspecified site, unspecified rheumatoid factor presence M06.9 and Gastroesophageal reflux disease without esophagitis K21.9 [place] [address] [place] [address] 99082- 7317 Sep, [place] [address] [place] [address] 08544- 5391 Sep, [place] [address] [address] [place] [id number] [place] [address]46- 29[address] Sep, [facility] [address] [id number], [place] [address] Sep, Encounter for examination for admission to long-term Z02.2 and Anxiety F41.9 [facility] [address] [place] [id number] Sep, Gross hematuria R31.0 ; Coronary artery disease involving coronary bypass graft of [place] heart without angina 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 ; Arthralgia, unspecified joint M25.50 ; Essential hypertension I10 ; Rheumatoid arthritis, involving unspecified site, unspecified rheumatoid factor presence M06.9 ; Type 2 diabetes mellitus with hyperglycemia, without long-term current use of insulin E11.65 and Dialysis patient Z99.2 [place] [address] [id number], [place] [address] Sep, [place] [address] [id number], [place] [address] Sep, Encounter for examination for admission to long-term Z02.2 Via [facility] [address] [place] [id number] Sep, Gross hematuria R31.0 [facility] [address] [id number], [place] [address] Aug, [facility] [address] [facility] [id number], [place] [address] Aug, [facility] [facility] [address] [place] [id number] Aug, Fall, subsequent encounter W19.XXXD and Dialysis patient Z99.2 [facility] [address] [id number], [place] [address] Aug, [place] [address] [facility] [id number], [place] [address] Aug, [facility] [address] [place] [id number] Aug, Encounter for examination for admission to long-term Z02.2 ; Other acute pulmonary embolism without acute cor pulmonale I26.99 ; Arthralgia, unspecified joint M25.50 ; Coronary artery disease involving coronary bypass graft of [place] heart without angina 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 ; Essential hypertension I10 and Hyperlipidemia, unspecified hyperlipidemia type E78.5 [place] [address] [place] [address]- [address] Aug, Rheumatoid arthritis, involving unspecified site, unspecified rheumatoid factor presence M06.9 [place] [address] [address] [place] [id number] [place] [address] 75852- 5[address] Aug, [place] [address] [address]- [address] Aug, Encounter for examination for admission to long-term Z02.2 [place] [address] [place] [id number] [place] [address] 63763- 6753 Jul, [place] [address] [place] [id number] [place] [address] 54349- 9655 Jul, [place] [address] [place] [id number] [place] [address] 66606- 0925 Jul, Anxiety F41.9 [place] [address] [place] [id number] [place] [address] 70994- 1444 Jul, IMMUNIZATIONS No Known Immunizations SOCIAL HISTORY Never Assessed REASON FOR VISIT Call to patient PLAN OF CARE VITAL SIGNS MEDICATIONS Unknown [...]
--- OUTSIDE RECORDS SUMMARY | 2017-11-03 17:07 | XMS REPORT ---
Author Author SHERWIN CARVAJAL [facility] Address [address] [place] [address] Care Team Providers Care Security Professional Name Role Phone SHERWIN CARVAJAL Unavailable PROBLEMS Type Condition ICD9-CM Code ZLN42-XZ Code Onset Dates Condition Status SNOMED Code Problem Anxiety F41.9 Active 40415514 Problem Rheumatoid arthritis, involving unspecified site, unspecified rheumatoid factor presence M06.9 Active 14937344 Problem Dialysis patient Z99.2 Active 321443991 Problem Gastroesophageal reflux disease without esophagitis K21.9 Active 774011540 Problem Essential hypertension I10 Active 55097691 Problem Type 2 diabetes mellitus with hyperglycemia, without long-term current use of insulin E11.65 Active 35063797 Problem End stage kidney disease N18.6 Active 78521673 Problem 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 Active 948449935 Problem Hyperlipidemia, unspecified hyperlipidemia type E78.5 Active 54804352 ALLERGIES No Information ENCOUNTERS Encounter Location Date Diagnosis [place] [address] [place] [address] 48092- 1541 Oct, Encounter for examination for admission to care home Z02.2 [address] [place] [address] [place] [id number] Oct, Weakness R53.1 ; Dialysis patient Z99.2 ; Essential hypertension I10 ; Rheumatoid arthritis, involving unspecified site, unspecified rheumatoid factor presence M06.9 and Gastroesophageal reflux disease without esophagitis K21.9 [place] [address] [place] [address] 22934- 9402 Sep, [place] [address] [place] [address] 13854- 9488 Sep, [place] [address] [place] [id number] [place] [address] 04159- 8636 Sep, 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 ; Arthralgia, unspecified joint M25.50 ; Essential hypertension I10 ; Rheumatoid arthritis, involving unspecified site, unspecified rheumatoid factor presence M06.9 ; Type 2 diabetes mellitus with hyperglycemia, without long-term current use of insulin E11.65 and Dialysis patient Z99.2 [place] [address] [id number] [address] Sep, [place] [address] [id number], [place] [address] Sep, Encounter for examination for admission to care home Z02.2 Via [employer] [address] [place] [id number] Sep, Gross hematuria R31.0 [facility] [address] [id number][place] [address] Aug, [facility] [address] [facility] [id number], [place] [address] Aug, Via [employer] [address] [place] [id number] Aug, Fall, subsequent encounter W19.XXXD and Dialysis patient Z99.2 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 ; Essential hypertension I10 and Hyperlipidemia, unspecified hyperlipidemia type E78.5 [place] [address] [place] [address] 30992- 0867 Aug, Rheumatoid arthritis, involving unspecified site, unspecified rheumatoid factor presence M06.9 [place] [address] [place] [id number] [place] [address] 75832- 8970 Aug, [place] [address] [address]- 5205 Aug, Encounter for examination for admission to care home Z02.2 [place] [address] [place] [id number] [place] [address] 14110- 3575 Jul, [place] [address] [place] [id number] [place] [address] 83295- 1506 Jul, [place] [address] [place] [id number] [place] [address] 50423- 7705 Jul, Anxiety F41.9 [place] [address] [place] [id number] [place] [address] 11985- 0484 Jul, IMMUNIZATIONS No Known Immunizations SOCIAL HISTORY Never Assessed REASON FOR VISIT Readmit to [facility] PLAN OF CARE VITAL SIGNS MEDICATIONS Unknown [...]
--- OUTSIDE RECORDS SUMMARY | 2017-11-03 17:08 | XMS REPORT ---
Author Author SHERWIN CARVAJAL [facility] Address [address] [place] [address] Care Team Providers Care Pitting Machine Operator Name Role Phone SHERWIN CARVAJAL Unavailable PROBLEMS Type Condition ICD9-CM Code EKY49-EU Code Onset Dates Condition Status SNOMED Code Problem Anxiety F41.9 Active 22804219 Problem Rheumatoid arthritis, involving unspecified site, unspecified rheumatoid factor presence M06.9 Active 67382608 Problem Dialysis patient Z99.2 Active 820631282 Problem Gastroesophageal reflux disease without esophagitis K21.9 Active 507067604 Problem Essential hypertension I10 Active 86468640 Problem Type 2 diabetes mellitus with hyperglycemia, without long-term current use of insulin E11.65 Active 46493891 Problem End stage kidney disease N18.6 Active 30665766 Problem Coronary artery disease involving coronary bypass 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 Active 362477936 Problem Hyperlipidemia, unspecified hyperlipidemia type E78.5 Active 02381420 ALLERGIES No Information ENCOUNTERS Encounter Location Date Diagnosis [address] [place] [address] [place] [id number] Oct, Weakness R53.1 ; Dialysis patient Z99.2 ; Essential hypertension I10 ; Rheumatoid arthritis, involving unspecified site, unspecified rheumatoid factor presence M06.9 and Gastroesophageal reflux disease without esophagitis K21.9 [facility] [address] [facility] [id number] [address] 0[address] Sep, [facility] [address] [facility] [id number], [place] [address] 5855 Sep, [facility] [address] [address] 7[address] Sep, [facility] [address] [place] [id number] [address] 34[address] Sep, Encounter for examination for admission to snf Z02.2 and Anxiety F41.9 Via [facility] [address] [place] [id number] Sep, Gross hematuria R31.0 ; Coronary artery disease involving coronary bypass 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0 [facility] [address] [id number], [place] [address] 76[address] Aug, [facility] [address] [id number], [place] [address] Aug, Via [facility] [address] [place] [id number] Aug, Fall, subsequent encounter W19.XXXD and Dialysis patient Z99.2 [facility] [address] [id number], [place] [address] 0752 Aug, [place] [address] [facility] [id number], [place] [address] Aug, Via [facility] [address] [place] [id number] Aug, Encounter for examination for admission to snf Z02.2 ; Other acute pulmonary embolism without acute cor pulmonale I26.99 ; Arthralgia, unspecified joint M25.50 ; Coronary artery disease involving coronary bypass 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 ; Essential hypertension I10 and Hyperlipidemia, unspecified hyperlipidemia type E78.5 [place] [address] [address] Aug, Rheumatoid arthritis, involving unspecified site, unspecified rheumatoid factor presence M06.9 [facility] [address] [place] [id number], [place] [address]- 8294 Aug, [place] [address] [place] [id number] [place] [address] 79115- 1135 Aug, Encounter for examination for admission to snf Z02.2 [place] [address] [place] [id number] [place] [address] 40597- 7174 Jul, [place] [address] [place] [id number] [place] [address] 24970- 8386 Jul, [place] [address] [place] [id number] [place] [address] 90742- 9377 Jul, Anxiety F41.9 [place] [address] [place] [address] 80099- 3344 Jul, IMMUNIZATIONS No Known Immunizations SOCIAL HISTORY Never Assessed REASON FOR VISIT PLAN OF CARE VITAL SIGNS MEDICATIONS Unknown [...]
--- OUTSIDE RECORDS SUMMARY | 2017-11-03 17:08 | XMS REPORT ---
Author Author SHERWIN CARVAJAL [facility] Address [address] [place] [address] Care Team Providers Care Wader Boot Top Assembler Name Role Phone SHERWIN CARVAJAL Unavailable PROBLEMS Type Condition ICD9-CM Code WHG13-GO Code Onset Dates Condition Status SNOMED Code Problem Anxiety F41.9 Active 67495804 Problem Rheumatoid arthritis, involving unspecified site, unspecified rheumatoid factor presence M06.9 Active 13073322 Problem Dialysis patient Z99.2 Active 663862080 Problem Gastroesophageal reflux disease without esophagitis K21.9 Active 818099541 Problem Essential hypertension I10 Active 62526373 Problem Type 2 diabetes mellitus with hyperglycemia, without long-term current use of insulin E11.65 Active 40874187 Problem End stage kidney disease N18.6 Active 91083682 Problem Coronary artery disease involving coronary bypass 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 Active 899983054 Problem Hyperlipidemia, unspecified hyperlipidemia type E78.5 Active 24286056 ALLERGIES No Information ENCOUNTERS Encounter Location Date Diagnosis [place] [address] [place] [address] 36637- 5402 Oct, Encounter for examination for admission to fdc Z02.2 [address] [place] [address] [place] [id number] Oct, Weakness R53.1 ; Dialysis patient Z99.2 ; Essential hypertension I10 ; Rheumatoid arthritis, involving unspecified site, unspecified rheumatoid factor presence M06.9 and Gastroesophageal reflux disease without esophagitis K21.9 [place] [address] [place] [address] 02783- 4980 Sep, [place] [address] [place] [address] 55336- 3778 Sep, [place] [address] [place] [id number] [place] [address] 47489- 6586 Sep, [facility] [address] [id number] [address]- 3075 Sep, Encounter for examination for admission to fdc Z02.2 and Anxiety F41.9 Via [facility] [employer] [facility] [address] [place] [id number] Sep, Gross hematuria R31.0 ; Coronary artery disease involving coronary bypass 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 ; Arthralgia, unspecified joint M25.50 ; Essential hypertension I10 ; Rheumatoid arthritis, involving unspecified site, unspecified rheumatoid factor presence M06.9 ; Type 2 diabetes mellitus with hyperglycemia, without long-term current use of insulin E11.65 and Dialysis patient Z99.2 [place] [address] [id number], [place] [address]- 1215 Sep, [place] [address] [id number] [address]- 5430 Sep, Encounter for examination for admission to fdc Z02.2 Via [employer] [address] [place] [id number] Sep, Gross hematuria R31.0 [facility] [address] [id number], [place] [address]- 1569 Aug, [facility] [address] [facility] [id number], [place] [address]- 3653 Aug, Via [employer] [address] [place] [id number] Aug, Fall, subsequent encounter W19.XXXD and Dialysis patient Z99.2 [facility] [address] [id number], [place] [address]- 3092 Aug, [place] [address] 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 ; Essential hypertension I10 and Hyperlipidemia, unspecified hyperlipidemia type E78.5 [place] [address] [place] [address] 65948- 0369 Aug, Rheumatoid arthritis, involving unspecified site, unspecified rheumatoid factor presence M06.9 [place] [address] [place] [id number] [place] [address] 93892- 5754 Aug, [place] [address] [place] [id number] [place] [address] 98548- 4932 Aug, Encounter for examination for admission to fdc Z02.2 [place] [address] [place] [id number] [place] [address] 09036- 8155 Jul, [place] [address] [place] [id number] [place] [address] 76648- 2183 Jul, [place] [address] [place] [id number] [place] [address] 41042- 2432 Jul, Anxiety F41.9 [place] [address] [place] [id number] [place] [address] 51523- 4130 Jul, IMMUNIZATIONS No Known Immunizations SOCIAL HISTORY Never Assessed REASON FOR VISIT Controlled Med Refill PLAN OF CARE VITAL SIGNS MEDICATIONS Medication Instructions Dosage Frequency Start Date End Date Duration Status Hydrocodone-Acetaminophen 5-325 MG Orally every 8 hrs 1 tablet as needed 8h Sep, Active RESULTS No Results PROCEDURES No Known procedures [...]
--- OUTSIDE RECORDS SUMMARY | 2017-11-03 17:08 | XMS REPORT ---
Author Author SHERWIN CARVAJAL [facility] Address [address] [place] [address] Care Team Providers Care Orientation & Mobility Specialist Name Role Phone SHERWIN CARVAJAL Unavailable PROBLEMS Type Condition ICD9-CM Code KNL02-AX Code Onset Dates Condition Status SNOMED Code Problem Anxiety F41.9 Active 03953891 Problem Rheumatoid arthritis, involving unspecified site, unspecified rheumatoid factor presence M06.9 Active 06230384 Problem Dialysis patient Z99.2 Active 333555862 Problem Gastroesophageal reflux disease without esophagitis K21.9 Active 273117855 Problem Essential hypertension I10 Active 21254164 Problem Type 2 diabetes mellitus with hyperglycemia, without long-term current use of insulin E11.65 Active 17927193 Problem End stage kidney disease N18.6 Active 79582679 Problem 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 Active 344201968 Problem Hyperlipidemia, unspecified hyperlipidemia type E78.5 Active 64706065 ALLERGIES No Information ENCOUNTERS Encounter Location Date Diagnosis [address] [place] [address] [place] [id number] Oct, Weakness R53.1 ; Dialysis patient Z99.2 ; Essential hypertension I10 ; Rheumatoid arthritis, involving unspecified site, unspecified rheumatoid factor presence M06.9 and Gastroesophageal reflux disease without esophagitis K21.9 [facility] [address] [facility] [id number] [place] [address]- 7711 Sep, [facility] [address] [facility] [id number] [place] [address]- 7288 Sep, [facility] [address] [address]- 5113 Sep, [facility] [address] [place] [id number] [address]- 8687 Sep, Encounter for examination for admission to long term Z02.2 and Anxiety F41.9 [facility] [address] [place] [id number] Sep, Gross hematuria R31.0 ; 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 ; Arthralgia, unspecified joint M25.50 ; Essential hypertension I10 ; Rheumatoid arthritis, involving unspecified site, unspecified rheumatoid factor presence M06.9 ; Type 2 diabetes mellitus with hyperglycemia, without long-term current use of insulin E11.65 and Dialysis patient Z99.2 [place] [address] [id number] [place] [address]- 3781 Sep, [place] [id number] [place] [address] 86329- 5150 Sep, Encounter for examination for admission to long term Z02.2 [facility] [address] [place] [id number] Sep, Gross hematuria R31.0 [facility] [address] [id number] [place] [address]- 9631 Aug, [facility] [address] [id number] [place] [address]- 8475 Aug, [facility] [address] [place] [id number] Aug, Fall, subsequent encounter W19.XXXD and Dialysis patient Z99.2 [facility] [address] [id number] [place] [address]- 6404 Aug, [place] [address] [facility] [id number] [place] [address]- 2800 Aug, [facility] [address] [place] [id number] Aug, Encounter for examination for admission to long term Z02.2 ; Other acute pulmonary embolism without acute cor pulmonale I26.99 ; Arthralgia, unspecified joint M25.50 ; 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 ; Essential hypertension I10 and Hyperlipidemia, unspecified hyperlipidemia type E78.5 [facility] [address] [address]- 8314 Aug, Rheumatoid arthritis, involving unspecified site, unspecified rheumatoid factor presence M06.9 [facility] [address]100[place] [address]- 9218 Aug, [place] [address] [place] [id number] [place] [address] 93803- 8718 Aug, Encounter for examination for admission to long term Z02.2 [place] [address] [place] [id number] [place] [address] 86750- 4037 Jul, [place] [address] [place] [id number] [place] [address] 99944- 0817 Jul, [place] [address] [place] [id number] [place] [address] 31674- 6080 Jul, Anxiety F41.9 [place] [address] [place] [address] 32648- 9405 Jul, IMMUNIZATIONS No Known Immunizations SOCIAL HISTORY Never Assessed REASON FOR VISIT readmit from [facility] PLAN OF CARE Activity Details Follow Up prn Reason: VITAL SIGNS MEDICATIONS Unknown Medications RESULTS No Results PROCEDURES Procedure Date Ordered Result Body Site Minor complication (15 mins) August 30, 2017 INSTRUCTIONS MEDICATIONS ADMINISTERED No Known Medications [...]
--- OUTSIDE RECORDS SUMMARY | 2017-11-03 17:08 | XMS REPORT ---
Author Author SHERWIN CARVAJAL [facility] Address [address] [place] [address] Care Team Providers Care Associate Artistic Director Name Role Phone SHERWIN CARVAJAL Unavailable PROBLEMS Type Condition ICD9-CM Code YRA16-NB Code Onset Dates Condition Status SNOMED Code Problem Anxiety F41.9 Active 79163867 Problem Rheumatoid arthritis, involving unspecified site, unspecified rheumatoid factor presence M06.9 Active 68045037 Problem Dialysis patient Z99.2 Active 811417562 Problem Gastroesophageal reflux disease without esophagitis K21.9 Active 645513406 Problem Essential hypertension I10 Active 90811213 Problem Type 2 diabetes mellitus with hyperglycemia, without long-term current use of insulin E11.65 Active 97373592 Problem End stage kidney disease N18.6 Active 31724491 Problem Coronary artery disease involving coronary bypass 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 without angina 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 Active 330593759 Problem Hyperlipidemia, unspecified hyperlipidemia type E78.5 Active 78457959 ALLERGIES No Information ENCOUNTERS Encounter Location Date Diagnosis [place] [address] [place] [address] Oct, Encounter for examination for admission to senior living Z02.2 Via [place] [address] [place] [address] Oct, Weakness R53.1 ; Dialysis patient Z99.2 ; Essential hypertension I10 ; Rheumatoid arthritis, involving unspecified site, unspecified rheumatoid factor presence M06.9 and Gastroesophageal reflux disease without esophagitis K21.9 [place] [address] [place] [address] 29864- 9746 Sep, [place] [address] [place] [address] 37000- 3098 Sep, [place] [address] [place] [id number] [place] [address]80- [address]92 Sep, [facility] [address] [id number], [place] [address] Sep, Encounter for examination for admission to senior living Z02.2 and Anxiety F41.9 Via [employer] [employer] [address] [place] [id number] Sep, Gross hematuria R31.0 ; Coronary artery disease involving coronary bypass 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 without angina 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 ; Arthralgia, unspecified joint M25.50 ; Essential hypertension I10 ; Rheumatoid arthritis, involving unspecified site, unspecified rheumatoid factor presence M06.9 ; Type 2 diabetes mellitus with hyperglycemia, without long-term current use of insulin E11.65 and Dialysis patient Z99.2 [place] [address] [id number], [place] [address] Sep, [place] [address] [id number], [place] [address] Sep, Encounter for examination for admission to senior living Z02.2 Via [employer] [address] [place] [id number] Sep, Gross hematuria R31.0 [facility] [address] [id number], [place] [address] Aug, [facility] [address] [facility] [id number], [place] [address] Aug, [facility] [employer] [address] [place] [id number] Aug, Fall, subsequent encounter W19.XXXD and Dialysis patient Z99.2 [facility] [address] [id number], [place] [address] Aug, [place] [address] [facility] [id number], [place] [address] Aug, [facility] [employer] [address] [place] [id number] Aug, Encounter for examination for admission to senior living Z02.2 ; Other acute pulmonary embolism without acute cor pulmonale I26.99 ; Arthralgia, unspecified joint M25.50 ; Coronary artery disease involving coronary bypass 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 without angina 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 ; Essential hypertension I10 and Hyperlipidemia, unspecified hyperlipidemia type E78.5 [place] [address] [place] [address] 73558- 0084 Aug, Rheumatoid arthritis, involving unspecified site, unspecified rheumatoid factor presence M06.9 [place] [address] [place] [id number] [place] [address] 57890- 5599 Aug, [place] [address] [address]25- 8977 Aug, Encounter for examination for admission to senior living Z02.2 [place] [address] [place] [id number] [place] [address] 61312- 4960 Jul, [place] [address] [place] [id number] [place] [address] 55666- 4899 Jul, [place] [address] [place] [id number] [place] [address] 26633- 0769 Jul, Anxiety F41.9 [place] [address] [place] [id number] [place] [address] 32121- 1244 Jul, IMMUNIZATIONS No Known Immunizations SOCIAL HISTORY Never Assessed REASON FOR VISIT Order request PLAN OF CARE VITAL SIGNS MEDICATIONS Unknown [...]
--- OUTSIDE RECORDS SUMMARY | 2017-11-03 17:08 | XMS REPORT ---
Author Author SHERWIN CARVAJAL [facility] Address [address] [place] [address] Care Team Providers Care Cook Fish Eggs Name Role Phone SHERWIN CARVAJAL Unavailable PROBLEMS Type Condition ICD9-CM Code [id number] Code Onset Dates Condition Status SNOMED Code Problem Anxiety F41.9 Active 66169756 Problem Rheumatoid arthritis, involving unspecified site, unspecified rheumatoid factor presence M06.9 Active 22241448 Problem Dialysis patient Z99.2 Active 002830394 Problem Gastroesophageal reflux disease without esophagitis K21.9 Active 709255691 Problem Essential hypertension I10 Active 85932289 Problem Type 2 diabetes mellitus with hyperglycemia, without long-term current use of insulin E11.65 Active 37459515 Problem End stage kidney disease N18.6 Active 55030938 Problem 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 Active 883172459 Problem Hyperlipidemia, unspecified hyperlipidemia type E78.5 Active 40258613 ALLERGIES No Information ENCOUNTERS Encounter Location Date Diagnosis [place] [address] [place] [address] 31706- 4945 Oct, Encounter for examination for admission to correction Z02.2 [address] [place] [address] [place] [address] Oct, Weakness R53.1 ; Dialysis patient Z99.2 ; Essential hypertension I10 ; Rheumatoid arthritis, involving unspecified site, unspecified rheumatoid factor presence M06.9 and Gastroesophageal reflux disease without esophagitis K21.9 [place] [address] [place] [address] 50885- 5101 Sep, [place] [address] [place] [address] 59265- 1458 Sep, [place] [address] [place] [id number] [place] [address] 31623- 0716 Sep, [facility] [address] [id number], [place] [address] Sep, Encounter for examination for admission to correction Z02.2 and Anxiety F41.9 Via [employer] [employer] [address] [place] [id number] Sep, Gross hematuria R31.0 ; 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 ; Arthralgia, unspecified joint M25.50 ; Essential hypertension I10 ; Rheumatoid arthritis, involving unspecified site, unspecified rheumatoid factor presence M06.9 ; Type 2 diabetes mellitus with hyperglycemia, without long-term current use of insulin E11.65 and Dialysis patient Z99.2 [place] [address] [id number], [place] [address] 6[address] Sep, [place] [address] [id number], [place] [address] 7[address] Sep, Encounter for examination for admission to correction Z02.2 [facility] [employer] [address] [place] [id number] Sep, Gross hematuria R31.0 [facility] [address] [id number], [place] [address] Aug, [facility] [address] [facility] [id number], [place] [address] Aug, [facility] [employer] [address] [place] [id number] Aug, Fall, subsequent encounter W19.XXXD and Dialysis patient Z99.2 [facility] [address] [id number], [place] [address]- 4860 Aug, [place] [address] 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 ; Essential hypertension I10 and Hyperlipidemia, unspecified hyperlipidemia type E78.5 [place] [address] [place] [id number] [place] [address] 08546- 5143 Aug, Rheumatoid arthritis, involving unspecified site, unspecified rheumatoid factor presence M06.9 [place] [address] [place] [id number] [place] [address] 35397- 9919 Aug, [place] [address] [address]46- 2229 Aug, Encounter for examination for admission to correction Z02.2 [place] [address] [place] [id number] [place] [address] 13217- 0504 Jul, [place] [address] [place] [id number] [place] [address] 87002- 2248 Jul, [place] [address] [place] [id number] [place] [address] 84675- 8649 Jul, Anxiety F41.9 [place] [address] 77346- 9645 Jul, IMMUNIZATIONS No Known Immunizations SOCIAL HISTORY Never Assessed REASON FOR VISIT UTI follow up PLAN OF CARE Activity Details Follow Up prn Reason: VITAL SIGNS MEDICATIONS Unknown Medications RESULTS No Results PROCEDURES Procedure Date Ordered Result Body Site Minor complication (15 mins) Sep 13, 2017 INSTRUCTIONS MEDICATIONS ADMINISTERED No Known Medications [...]
--- OUTSIDE RECORDS SUMMARY | 2017-11-03 17:08 | XMS REPORT ---
Author Author SHERWIN CARVAJAL [facility] Address [address] [place] [address] Care Team Providers Care Electric Cutter Operator Name Role Phone SHERWIN CARVAJAL Unavailable PROBLEMS Type Condition ICD9-CM Code BIP14-LE Code Onset Dates Condition Status SNOMED Code Problem Anxiety F41.9 Active 39344112 Problem Rheumatoid arthritis, involving unspecified site, unspecified rheumatoid factor presence M06.9 Active 88261024 Problem Dialysis patient Z99.2 Active 404094382 Problem Gastroesophageal reflux disease without esophagitis K21.9 Active 717621014 Problem Essential hypertension I10 Active 62642233 Problem Type 2 diabetes mellitus with hyperglycemia, without long-term current use of insulin E11.65 Active 91662310 Problem End stage kidney disease N18.6 Active 11861752 Problem 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 Active 845928882 Problem Hyperlipidemia, unspecified hyperlipidemia type E78.5 Active 64963189 ALLERGIES No Information ENCOUNTERS Encounter Location Date Diagnosis [place] [address] [place] [address] 73274- 4325 Oct, Encounter for examination for admission to skilled nursing Z02.2 Via [place] [address] [place] [address] Oct, Weakness R53.1 ; Dialysis patient Z99.2 ; Essential hypertension I10 ; Rheumatoid arthritis, involving unspecified site, unspecified rheumatoid factor presence M06.9 and Gastroesophageal reflux disease without esophagitis K21.9 [place] [address] [place] [address] 01312- 3055 Sep, [place] [address] [place] [address] 94887- 2173 Sep, [place] [address] [place] [id number] [place] [address] 96004- 0377 Sep, [facility] [address] [id number], [place] [address]- 1670 Sep, Encounter for examination for admission to skilled nursing Z02.2 and Anxiety F41.9 Via [employer] [employer] [address] [place] [id number] Sep, Gross hematuria R31.0 ; 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 ; Arthralgia, unspecified joint M25.50 ; Essential hypertension I10 ; Rheumatoid arthritis, involving unspecified site, unspecified rheumatoid factor presence M06.9 ; Type 2 diabetes mellitus with hyperglycemia, without long-term current use of insulin E11.65 and Dialysis patient Z99.2 [place] [address] [id number], [place] [address]- 4439 Sep, [place] [address] [id number], [place] [address]- 9231 Sep, Encounter for examination for admission to skilled nursing Z02.2 [facility] [employer] [address] [place] [id number] Sep, Gross hematuria R31.0 [facility] [address] [id number], [place] [address]- 2686 Aug, [facility] [address] [facility] [id number], [place] [address]- 5674 Aug, [facility] [employer] [address] [place] [id number] Aug, Fall, subsequent encounter W19.XXXD and Dialysis patient Z99.2 [facility] [address] [id number], [place] [address]- 8062 Aug, [place] [address] N 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 ; Essential hypertension I10 and Hyperlipidemia, unspecified hyperlipidemia type E78.5 [place] [address] [place] [id number] [place] [address] 65912- 0243 Aug, Rheumatoid arthritis, involving unspecified site, unspecified rheumatoid factor presence M06.9 [place] [address] [place] [id number] [place] [address] 20586- 2490 Aug, [place] [address] 89302- 9558 Aug, Encounter for examination for admission to skilled nursing Z02.2 [place] [address] [place] [id number] [place] [address] 13582- 4633 Jul, [place] [address] [place] [id number] [place] [address] 19890- 8829 Jul, [place] [address] [place] [id number] [place] [address] 49357- 7304 Jul, Anxiety F41.9 [place] [address] 44266- 0918 Jul, IMMUNIZATIONS No Known Immunizations SOCIAL HISTORY Never Assessed REASON FOR VISIT DC to home PLAN OF CARE VITAL SIGNS MEDICATIONS Medication Instructions Dosage Frequency Start Date End Date Duration Status Insulin Syringe 28G X 1/2" 1 ML as directed 24h Sep, Active Humalog KwikPen 100 UNIT/ML Subcutaneous 3 times a day 5 unit 8h Sep, Active Depakote 250 MG Orally 3 times a day 1 tablet 8h 30 days Active Atorvastatin Calcium 80 MG Orally Once a day 1 tablet 24h Sep, 30 day(s) Active Trazodone HCl 50 mg Orally Once a day 1 tablet at bedtime 24h 30 days Active Hydrocodone-Acetaminophen 5-325 MG Orally 3 times a day 1 tablet 8h Sep Active Fludrocortisone Acetate 0.1 MG Orally Once a day 1 tablet 24h Nov, 30 days Active Aricept 10 mg Orally Once a day 1 tablet at bedtime 24h 30 days Active Lantus 100 UNIT/ML Subcutaneous Once a day 12 units 24h Active Lisinopril 10 mg Orally Once a day 1 tablet 24h Active Venlafaxine HCl ER 150 MG Orally Once a day 1 capsule with food 24h 30 days Active Ativan 0.5 MG Orally 3 times a day 1 tablet as needed 8h Jul, Active Plavix 75 MG Orally Once a day 1 tablet 24h Active Gabapentin 100 mg Orally Three times a day 1 capsule 8h 30 days Active Lasix 80 MG Orally twice a day 1 tablet 12h 30 days Active Isosorbide Mononitrate ER 30 MG Orally Once a day 1 tablet in the morning 24h 30 days Active Sodium Bicarbonate 325 MG Orally 2 times a day 1 tablet 12h 30 days Active Coumadin 3 MG Orally Once a day 1 tablet 24h Active Blood Glucose Test Strip as directed 8h Sep, Active Prevacid 30 MG Orally Once a day 1 capsule 24h Active Lancets - as directed 8h Sep, Active Dulaglutide 0.75 MG/0.5ML Subcutaneous once weekly 0.75mg Jul, Active Amiodarone HCl 200 mg Orally Once a day 1 tablet 24h 30 days Active Renvela 800 MG Orally Three times a day 1 tablet with meals 8h Nov, 30 days Active RESULTS No Results PROCEDURES No Known [...]
--- OUTSIDE RECORDS SUMMARY | 2017-11-03 17:08 | XMS REPORT ---
Author Author SHERWIN CARVAJAL [facility] Address [address] [place] [address] Care Team Providers Care Securities Attorney Name Role Phone SHERWIN CARVAJAL Unavailable PROBLEMS Type Condition ICD9-CM Code CYN13-PJ Code Onset Dates Condition Status SNOMED Code Problem Anxiety F41.9 Active 24279276 Problem Rheumatoid arthritis, involving unspecified site, unspecified rheumatoid factor presence M06.9 Active 05828299 Problem Dialysis patient Z99.2 Active 809515740 Problem Gastroesophageal reflux disease without esophagitis K21.9 Active 516150565 Problem Essential hypertension I10 Active 81414382 Problem Type 2 diabetes mellitus with hyperglycemia, without long-term current use of insulin E11.65 Active 74076785 Problem End stage kidney disease N18.6 Active 06441288 Problem 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 Active 935277425 Problem Hyperlipidemia, unspecified hyperlipidemia type E78.5 Active 92663502 ALLERGIES No Information ENCOUNTERS Encounter Location Date Diagnosis [place] [address] [place] [address] 17851- 9655 Oct, Encounter for examination for admission to senior living Z02.2 [address] [place] [address] [place] [address] Oct, Weakness R53.1 ; Dialysis patient Z99.2 ; Essential hypertension I10 ; Rheumatoid arthritis, involving unspecified site, unspecified rheumatoid factor presence M06.9 and Gastroesophageal reflux disease without esophagitis K21.9 [place] [address] [place] [address] 76283- 4256 Sep, [place] [address] [place] [address] 92838- 6846 Sep, [place] [address] [place] [id number] [place] [address] 96031- 4704 Sep, [facility] [address] [id number], [place] [address]- 0851 Sep, Encounter for examination for admission to senior living Z02.2 and Anxiety F41.9 [facility] [employer] [address] [place] [id number] Sep, Gross hematuria R31.0 ; 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 ; Arthralgia, unspecified joint M25.50 ; Essential hypertension I10 ; Rheumatoid arthritis, involving unspecified site, unspecified rheumatoid factor presence M06.9 ; Type 2 diabetes mellitus with hyperglycemia, without long-term current use of insulin E11.65 and Dialysis patient Z99.2 [place] [address] [id number], [place] [address]- 9277 Sep, [place] [address] [id number], [place] [address]- 5615 Sep, Encounter for examination for admission to senior living Z02.2 Via [employer] [address] [place] [id number] Sep, Gross hematuria R31.0 [facility] [address] [id number], [place] [address]- 4090 Aug, [facility] [address] [facility] [id number] [address]- 6[address] Aug, [facility] [employer] [address] [place] [id number] Aug, Fall, subsequent encounter W19.XXXD and Dialysis patient Z99.2 [facility] [address] [id number], [place] [address]- 8857 Aug, [place] [address] [facility] [id number], [place] [address]- 7206 Aug, [facility] [employer] [address] [place] [id number] Aug, Encounter for examination for admission to senior living Z02.2 ; Other acute pulmonary embolism without acute cor pulmonale I26.99 ; Arthralgia, unspecified joint M25.50 ; 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 ; Essential hypertension I10 and Hyperlipidemia, unspecified hyperlipidemia type E78.5 [place] [address] [place] [address] 49980- 9563 Aug, Rheumatoid arthritis, involving unspecified site, unspecified rheumatoid factor presence M06.9 [place] [address] [place] [id number] [place] [address] 11934- 5054 Aug, [place] [address] [address]- 2013 Aug, Encounter for examination for admission to senior living Z02.2 [place] [address] [place] [id number] [place] [address] 89516- 5422 Jul, [place] [address] [place] [id number] [place] [address] 86090- 4716 Jul, [place] [address] [place] [id number] [place] [address] 61788- 5496 Jul, Anxiety F41.9 [place] [address] [place] [id number] [place] [address] 13394- 2872 Jul, IMMUNIZATIONS No Known Immunizations SOCIAL HISTORY Never Assessed REASON FOR VISIT Request for dismissal home PLAN OF CARE VITAL SIGNS MEDICATIONS Unknown [...]
--- OUTSIDE RECORDS SUMMARY | 2017-11-03 17:09 | XMS REPORT ---
Author Author SHERWIN CARVAJAL [facility] Address [address] [place] [address] Care Team Providers Care Peer Financial Counselor Name Role Phone SHERWIN CARVAJAL Unavailable PROBLEMS Type Condition ICD9-CM Code JII34-VV Code Onset Dates Condition Status SNOMED Code Problem Anxiety F41.9 Active 82653491 Problem Rheumatoid arthritis, involving unspecified site, unspecified rheumatoid factor presence M06.9 Active 17725516 Problem Dialysis patient Z99.2 Active 396676747 Problem Gastroesophageal reflux disease without esophagitis K21.9 Active 915502650 Problem Essential hypertension I10 Active 74539100 Problem Type 2 diabetes mellitus with hyperglycemia, without long-term current use of insulin E11.65 Active 44691891 Problem End stage kidney disease N18.6 Active 02937083 Problem 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 Active 355881851 Problem Hyperlipidemia, unspecified hyperlipidemia type E78.5 Active 39942663 ALLERGIES No Information ENCOUNTERS Encounter Location Date Diagnosis [address] [place] [address] [place] [id number] Oct, Weakness R53.1 ; Dialysis patient Z99.2 ; Essential hypertension I10 ; Rheumatoid arthritis, involving unspecified site, unspecified rheumatoid factor presence M06.9 and Gastroesophageal reflux disease without esophagitis K21.9 [facility] [address] [facility] [id number], [place] [address] Sep, [facility] [address] [facility] [id number], [place] [address] Sep, [facility] [address], [place] [address] Sep, [facility] [address] [id number], [place] [address] Sep, Encounter for examination for admission to correction Z02.2 and Anxiety F41.9 [facility] [address] [place] [id number] Sep, Gross hematuria R31.0 ; 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 ; Arthralgia, unspecified joint M25.50 ; Essential hypertension I10 ; Rheumatoid arthritis, involving unspecified site, unspecified rheumatoid factor presence M06.9 ; Type 2 diabetes mellitus with hyperglycemia, without long-term current use of insulin E11.65 and Dialysis patient Z99.2 [place] [address] [id number], [place] [address] Sep, [place] [id number] [place] [address] Sep, Encounter for examination for admission to correction Z02.2 [facility] [address] [place] [id number] Sep, Gross hematuria R31.0 [facility] [address] [id number], [place] [address] Aug, [facility] [address] [id number], [place] [address] Aug, [facility] [address] [place] [id number] Aug, Fall, subsequent encounter W19.XXXD and Dialysis patient Z99.2 [facility] [address] [id number], [place] [address] Aug, [place] [address] [facility] [id number], [place] [address] Aug, [facility] [address] [place] [id number] Aug, Encounter for examination for admission to correction Z02.2 ; Other acute pulmonary embolism without acute cor pulmonale I26.99 ; Arthralgia, unspecified joint M25.50 ; 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 ; Essential hypertension I10 and Hyperlipidemia, unspecified hyperlipidemia type E78.5 [facility] [address], [place] [address] Aug, Rheumatoid arthritis, involving unspecified site, unspecified rheumatoid factor presence M06.9 [facility] [address], [place] [address] Aug, [place] [address] [place] [id number] [place] [address]- 2210 Aug, Encounter for examination for admission to correction Z02.2 [place] [id number] [place] [address] 5275 Jul, [place] [id number] [place] [address]- 6335 Jul, [place] [id number] [place] [address]- 6979 Jul, Anxiety F41.9 [place] [address] [place] [address]- 4670 Jul, IMMUNIZATIONS No Known Immunizations SOCIAL HISTORY Never Assessed REASON FOR VISIT Requests return call PLAN OF CARE VITAL SIGNS MEDICATIONS Medication Instructions Dosage Frequency Start Date End Date Duration Status Hydrocodone-Acetaminophen 5-325 MG Orally every 8 hrs 1 tablet as needed 8h Aug, Active RESULTS No Results PROCEDURES No Known [...]
--- OUTSIDE RECORDS SUMMARY | 2017-11-03 17:09 | XMS REPORT ---
Author Author SHERWIN CARVAJAL [facility] Address [address] [place] [address] Care Team Providers Care Firefighter Type One Name Role Phone SHERWIN CARVAJAL Unavailable PROBLEMS Type Condition ICD9-CM Code ZWL42-VL Code Onset Dates Condition Status SNOMED Code Problem Anxiety F41.9 Active 55001173 Problem Rheumatoid arthritis, involving unspecified site, unspecified rheumatoid factor presence M06.9 Active 92616330 Problem Dialysis patient Z99.2 Active 964091144 Problem Gastroesophageal reflux disease without esophagitis K21.9 Active 925613485 Problem Essential hypertension I10 Active 79150355 Problem Type 2 diabetes mellitus with hyperglycemia, without long-term current use of insulin E11.65 Active 59300130 Problem End stage kidney disease N18.6 Active 10373378 Problem Coronary artery disease involving coronary bypass graft of jackson heart without angina 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 Active 596291714 Problem Hyperlipidemia, unspecified hyperlipidemia type E78.5 Active 14654003 ALLERGIES No Information ENCOUNTERS Encounter Location Date Diagnosis Via [place] [address] [place] [id number] Oct, Weakness R53.1 ; Dialysis patient Z99.2 ; Essential hypertension I10 ; Rheumatoid arthritis, involving unspecified site, unspecified rheumatoid factor presence M06.9 and Gastroesophageal reflux disease without esophagitis K21.9 [facility] [address] [facility] [id number] [address] Sep, [facility] [address] [facility] [id number], [place] [address] Sep, [facility] [address]00565100[place] [address] Sep, [facility] [address] [id number] [address] Sep, Encounter for examination for admission to [facility] Z02.2 and Anxiety F41.9 [address] [facility] [address] [place] [id number] Sep, Gross hematuria R31.0 ; Coronary artery disease involving coronary bypass graft of jackson heart without angina 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 ; Arthralgia, unspecified joint M25.50 ; Essential hypertension I10 ; Rheumatoid arthritis, involving unspecified site, unspecified rheumatoid factor presence M06.9 ; Type 2 diabetes mellitus with hyperglycemia, without long-term current use of insulin E11.65 and Dialysis patient Z99.2 [place] [address] [id number] [address] Sep, [place] [id number] [place] [address] Sep, Encounter for examination for admission to [facility] Z02.2 [facility] [address] [place] [id number] Sep, Gross hematuria R31.0 [facility] [address] [id number] [address] Aug, [facility] [address] [id number] [address] Aug, [facility] [address] [place] [id number] Aug, Fall, subsequent encounter W19.XXXD and Dialysis patient Z99.2 [facility] [address] [id number] [address] Aug, [place] [address] [facility] [id number] [address] Aug, [facility] [address] [place] [id number] Aug, Encounter for examination for admission to [facility] Z02.2 ; Other acute pulmonary embolism without acute cor pulmonale I26.99 ; Arthralgia, unspecified joint M25.50 ; Coronary artery disease involving coronary bypass graft of jackson heart without angina 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 ; Essential hypertension I10 and Hyperlipidemia, unspecified hyperlipidemia type E78.5 [facility] [address]00565100[place] [address] Aug, Rheumatoid arthritis, involving unspecified site, unspecified rheumatoid factor presence M06.9 [facility] [address]00565100[place] [address] Aug, [facility] [address] [place] [id number] [place] [address]- 5793 Aug, Encounter for examination for admission to [facility] Z02.2 [place] [address] [place] [id number] [place] [address]- 4762 Jul, [place] [address] [address] [id number] [place] [address]- 3696 Jul, [place] [address] [place] [address] [id number] [place] [address] 29[address]- 5486 Jul, Anxiety F41.9 [place] [address]65100[place] [address] Jul, IMMUNIZATIONS No Known Immunizations SOCIAL HISTORY Never Assessed REASON FOR VISIT MA Admission PLAN OF CARE Activity Details Follow Up prn Reason: VITAL SIGNS MEDICATIONS Medication Instructions Dosage Frequency Start Date End Date Duration Status Dulaglutide 0.75 MG/0.5ML Subcutaneous once weekly 0.75mg Jul, Unknown Hydrocodone-Acetaminophen 5-325 MG Orally every 8 hrs 1 tablet as needed 8h Aug, Active Ativan 0.5 MG Orally 3 times a day 1 tablet 8h Jul, 28 days Unknown RESULTS No Results PROCEDURES Procedure Date Ordered Result Body Site [facility] VISIT ESTABLISHED PATIENT August 18, 2017 INSTRUCTIONS MEDICATIONS ADMINISTERED No Known Medications [...]
--- OUTSIDE RECORDS SUMMARY | 2017-11-03 17:09 | XMS REPORT ---
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 Active 303292385 Problem End stage kidney disease N18.6 Active 58649405 Problem Rheumatoid arthritis, involving unspecified site, unspecified rheumatoid factor presence M06.9 Active 80076237 Problem Hyperlipidemia, unspecified hyperlipidemia type E78.5 Active 20827199 Problem Type 2 diabetes mellitus with hyperglycemia, without long-term current use of insulin E11.65 Active 23644368 ALLERGIES No Known Allergies ENCOUNTERS Encounter Location Date Diagnosis [place] [address] [place] [address] Sep, [facility] [id number] [place] [address] 15461- 2335 Sep, [place] [id number] [place] [address] 46913- 7349 Sep, [place] [id number] [place] [address]35- 4220 Sep, Encounter for examination for admission to long-term Z02.2 and Anxiety F41.9 Via [facility] [address] [place] [id number] Sep, Gross hematuria R31.0 ; 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 ; Arthralgia, unspecified joint M25.50 ; Essential hypertension I10 ; Rheumatoid arthritis, involving unspecified site, unspecified rheumatoid factor presence M06.9 ; Type 2 diabetes mellitus with hyperglycemia, without long-term current use of insulin E11.65 and Dialysis patient Z99.2 [facility] [address] [facility] [id number] [address] Sep, [place] [address] [facility] [id number] [address]- 9417 Sep, Encounter for examination for admission to long-term Z02.2 [facility] [facility] [address] [place] [id number] Sep, Gross hematuria R31.0 [place] [address] [address]15 Aug, [place] [address] [address]- 2716 Aug, Via [facility] [address] [place] [id number] Aug, Fall, subsequent encounter W19.XXXD and Dialysis patient Z99.2 [place] [address] [address]- 8772 Aug, [place] [address] [address]- [address] Aug, Via [facility] [address] [place] [id number] Aug, Encounter for examination for admission to long-term Z02.2 ; Other acute pulmonary embolism without acute cor pulmonale I26.99 ; Arthralgia, unspecified joint M25.50 ; 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 ; Essential hypertension I10 and Hyperlipidemia, unspecified hyperlipidemia type E78.5 [place] [address] [place] [address] [id number] [address]- 9535 Aug, Rheumatoid arthritis, involving unspecified site, unspecified rheumatoid factor presence M06.9 [place] [address] [place] [address] [id number] [address]- 0711 Aug, [facility] [address] [facility] [id number] [address]- 2555 Aug, Encounter for examination for admission to long-term Z02.2 [facility] [address] [place] [id number] [address]- 6496 Jul, [facility] [address] [place] [address] [id number] [address]- 4808 Jul, [facility] [address] [address]- 5811 Jul, Anxiety F41.9 [facility] [address] [address]- 7741 Jul, IMMUNIZATIONS No Known Immunizations SOCIAL HISTORY Never Assessed REASON FOR VISIT [facility] admission PLAN OF CARE VITAL SIGNS MEDICATIONS Unknown [...]
--- OUTSIDE RECORDS SUMMARY | 2017-11-03 17:09 | XMS REPORT ---
Author Author SHERWIN CARVAJAL Organization [facility] Address [address] [place] [address] Care Team Providers Care Ship'S Master Name Role Phone SHERWIN CARVAJAL Unavailable PROBLEMS Type Condition ICD9-CM Code HYL39-RI Code Onset Dates Condition Status SNOMED Code Problem Dialysis patient Z99.2 Active 864510674 Problem Anxiety F41.9 Active 99782836 Problem Essential hypertension I10 Active 34904280 Problem Coronary artery disease involving coronary bypass graft of squax[place] heart without angina 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 Active 592809364 Problem End stage kidney disease N18.6 Active 21104898 Problem Rheumatoid arthritis, involving unspecified site, unspecified rheumatoid factor presence M06.9 Active 22345228 Problem Hyperlipidemia, unspecified hyperlipidemia type E78.5 Active 85759087 Problem Type 2 diabetes mellitus with hyperglycemia, without long-term current use of insulin E11.65 Active 66445130 ALLERGIES No Information ENCOUNTERS Encounter Location Date Diagnosis [place] [address] [place] [address]- 8797 Sep, [place] [address] [address] [id number] [place] [address] 73194- 7575 Sep, [place] [address] [place] [address] 04131- 6967 Sep, [place] [id number] [place] [address] 33796- 9159 Sep, Encounter for examination for admission to prison Z02.2 and Anxiety F41.9 Via [facility] [address] [place] [address] Sep, Gross hematuria R31.0 ; Coronary artery disease involving coronary bypass graft of squax[place] heart without angina 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 ; Arthralgia, unspecified joint M25.50 ; Essential hypertension I10 ; Rheumatoid arthritis, involving unspecified site, unspecified rheumatoid factor presence M06.9 ; Type 2 diabetes mellitus with hyperglycemia, without long-term current use of insulin E11.65 and Dialysis patient Z99.2 [place] [address] [facility] [id number] [address]- 1302 Sep, [place] [address] [facility] [id number] [address]- 2229 Sep, Encounter for examination for admission to prison Z02.2 Via [facility] [address] [place] [id number] Sep, Gross hematuria R31.0 [place] [address] [facility] [id number] [address]- 5134 Aug, [place] [address]00565100[place] [address]- 0[address] Aug, Via [facility] [address] [place] [id number] Aug, Fall, subsequent encounter W19.XXXD and Dialysis patient Z99.2 [place] [address]00565100[place] [address]- 2186 Aug, [place] [address] [place] [id number] [address]- 6[address] Aug, Via [facility] [address] [place] [id number] Aug, Encounter for examination for admission to prison Z02.2 ; Other acute pulmonary embolism without acute cor pulmonale I26.99 ; Arthralgia, unspecified joint M25.50 ; Coronary artery disease involving coronary bypass graft of squax[place] heart without angina 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 ; Essential hypertension I10 and Hyperlipidemia, unspecified hyperlipidemia type E78.5 [place] [address] [place] [address] [id number] [address]- 5604 Aug, Rheumatoid arthritis, involving unspecified site, unspecified rheumatoid factor presence M06.9 [place] [address] [place] [address] [id number] [address]- 1374 Aug, [facility] [address] [facility] [id number] [address]- 8737 Aug, Encounter for examination for admission to prison Z02.2 [facility] [address] [id number] [address]- 8287 Jul, [facility] [address] [id number] [address]- 1277 Jul, [facility] [address]00565100[place] [address]- 0756 Jul, Anxiety F41.9 [place] [address]00565100[place] [address]- 7578 Jul, IMMUNIZATIONS No Known Immunizations SOCIAL HISTORY Never Assessed REASON FOR VISIT Effexor ER changed to Effexor SR per insurance PLAN OF CARE VITAL SIGNS MEDICATIONS Medication Instructions Dosage Frequency Start Date End Date Duration Status Venlafaxine HCl ER 150 MG Orally Once a day 1 capsule with food 24h Aug Active RESULTS No Results PROCEDURES No Known [...]
--- OUTSIDE RECORDS SUMMARY | 2017-11-03 17:09 | XMS REPORT ---
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 Active 524322420 Problem End stage kidney disease N18.6 Active 36735209 Problem Rheumatoid arthritis, involving unspecified site, unspecified rheumatoid factor presence M06.9 Active 13032008 Problem Hyperlipidemia, unspecified hyperlipidemia type E78.5 Active 27317821 Problem Type 2 diabetes mellitus with hyperglycemia, without long-term current use of insulin E11.65 Active 93250684 ALLERGIES No Information ENCOUNTERS Encounter Location Date Diagnosis [place] [address] [place] [address]21- 5149 Sep, [place] [address] [place] [address] [id number] [place] [address] 14092- 0841 Sep, [place] [address] [place] [address] 30545- 3741 Sep, [place] [address] [address] [id number] [place] [address] 86370- 3745 Sep, Encounter for examination for admission to [facility] Z02.2 and Anxiety F41.9 Via [facility] [address] [place] [address] Sep, Gross hematuria R31.0 ; 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 ; Arthralgia, unspecified joint M25.50 ; Essential hypertension I10 ; Rheumatoid arthritis, involving unspecified site, unspecified rheumatoid factor presence M06.9 ; Type 2 diabetes mellitus with hyperglycemia, without long-term current use of insulin E11.65 and Dialysis patient Z99.2 [place] [address] [facility] [id number], [place] [address]- 7498 Sep, [place] [address] [facility] [id number], [place] [address]- 2819 Sep, Encounter for examination for admission to [facility] Z02.2 Via [facility] [address] [place] [id number] Sep, Gross hematuria R31.0 [place] [address] [facility] [id number], [place] [address]- 4730 Aug, [place] [address], [place] [address]- 0[address] Aug, Via [employer] [facility] [facility] [address] [place] [id number] Aug, Fall, subsequent encounter W19.XXXD and Dialysis patient Z99.2 [place] [address], [place] [address]- 8898 Aug, [place] [address] [place] [id number], [place] [address]- 3348 Aug, Via [employer] [facility] [facility] [address] [place] [id number] Aug, Encounter for examination for admission to [facility] Z02.2 ; Other acute pulmonary embolism without acute cor pulmonale I26.99 ; Arthralgia, unspecified joint M25.50 ; 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 ; Essential hypertension I10 and Hyperlipidemia, unspecified hyperlipidemia type E78.5 [place] [address] [place] [id number] [address]- 3398 Aug, Rheumatoid arthritis, involving unspecified site, unspecified rheumatoid factor presence M06.9 [place] [address] [place] [id number] [address]- 5255 Aug, [facility] [address] [facility] [id number], [place] [address]- 2117 Aug, Encounter for examination for admission to [facility] Z02.2 [facility] [address] [place] [address] [id number], [place] [address]- 5094 Jul, [facility] [address], [place] [address]- 2273 Jul, [facility] [address], [place] [address]- 6245 Jul, Anxiety F41.9 [place] [address], [place] [address]- 8536 Jul, IMMUNIZATIONS No Known Immunizations SOCIAL HISTORY Never Assessed REASON FOR VISIT clarify Trulicity order PLAN OF CARE VITAL SIGNS MEDICATIONS Medication Instructions Dosage Frequency Start Date End Date Duration Status Dulaglutide 0.75 MG/0.5ML Subcutaneous once weekly 0.75mg Jul, Active RESULTS No Results PROCEDURES No Known [...]
--- OUTSIDE RECORDS SUMMARY | 2017-11-03 17:09 | XMS REPORT ---
Author Author SHERWIN CARVAJAL [facility] Address [address] [place] [address] Care Team Providers Care Revit Drafter Name Role Phone SHERWIN CARVAJAL Unavailable PROBLEMS Type Condition ICD9-CM Code MYZ28-ET Code Onset Dates Condition Status SNOMED Code Problem Anxiety F41.9 Active 54979702 Problem Rheumatoid arthritis, involving unspecified site, unspecified rheumatoid factor presence M06.9 Active 94850065 Problem Dialysis patient Z99.2 Active 301159302 Problem Gastroesophageal reflux disease without esophagitis K21.9 Active 607476027 Problem Essential hypertension I10 Active 49955808 Problem Type 2 diabetes mellitus with hyperglycemia, without long-term current use of insulin E11.65 Active 18981616 Problem End stage kidney disease N18.6 Active 89733115 Problem 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 [address] [id number], [place] [address] Sep, [facility] [address] [id number] [address] Sep, [facility] [address] [address] Sep, 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 ; Arthralgia, unspecified joint M25.50 ; Essential hypertension I10 ; Rheumatoid arthritis, involving unspecified site, unspecified rheumatoid factor presence M06.9 ; Type 2 diabetes mellitus with hyperglycemia, without long-term current use of insulin E11.65 and Dialysis patient Z99.2 [place] [address] [id number], [place] [address] Sep, [place] [id number] [place] [address] Sep, Encounter for examination for admission to care home Z02.2 [facility] [address] [place] [id number] Sep, Gross hematuria R31.0 [facility] [address] [id number], [place] [address] Aug, [facility] [address] [id number], [place] [address] Aug, Via [facility] [address] [place] [id number] Aug, Fall, subsequent encounter W19.XXXD and Dialysis patient Z99.2 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 [address], [place] [address] Aug, Rheumatoid arthritis, involving unspecified site, unspecified rheumatoid factor presence M06.9 [facility] [address], [place] [address] Aug, [place] [address] [place] [address] [id number] [place] [address] Aug, Encounter for examination for admission to care home Z02.2 [place] [id number] [place] [address]- 72[address] Jul, [place] [address] [id number] [place] [address]- 6[address] Jul, [place] [id number] [place] [address]- 48[address] Jul, Anxiety F41.9 [place] [address] [place] [address]- [address] Jul, IMMUNIZATIONS No Known Immunizations SOCIAL HISTORY [...]
--- OUTSIDE RECORDS SUMMARY | 2017-11-03 17:09 | XMS REPORT ---
Author Author SHERWIN CARVAJAL [facility] Address [address] [place] [address] Care Team Providers Care Bottle Cleaner Name Role Phone SHERWIN CARVAJAL Unavailable PROBLEMS Type Condition ICD9-CM Code SNM86-UZ Code Onset Dates Condition Status SNOMED Code Problem Anxiety F41.9 Active 09879435 Problem Rheumatoid arthritis, involving unspecified site, unspecified rheumatoid factor presence M06.9 Active 53930304 Problem Dialysis patient Z99.2 Active 736541719 Problem Gastroesophageal reflux disease without esophagitis K21.9 Active 654254494 Problem Essential hypertension I10 Active 86495866 Problem Type 2 diabetes mellitus with hyperglycemia, without long-term current use of insulin E11.65 Active 88026172 Problem End stage kidney disease N18.6 Active 59520755 Problem 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 Active 996112327 Problem Hyperlipidemia, unspecified hyperlipidemia type E78.5 Active 63874657 ALLERGIES No Information ENCOUNTERS Encounter Location Date Diagnosis [address] [place] [address] [place] [id number] Oct, Weakness R53.1 ; Dialysis patient Z99.2 ; Essential hypertension I10 ; Rheumatoid arthritis, involving unspecified site, unspecified rheumatoid factor presence M06.9 and Gastroesophageal reflux disease without esophagitis K21.9 [facility] [address] [facility] [id number], [place] [address] Sep, [facility] [address] [facility] [id number], [place] [address] Sep, [facility] [address], [place] [address] Sep, [facility] [address] [id number], [place] [address] Sep, Encounter for examination for admission to prison Z02.2 and Anxiety F41.9 [address] [facility] [address] [place] [id number] Sep, Gross hematuria R31.0 ; 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 ; Arthralgia, unspecified joint M25.50 ; Essential hypertension I10 ; Rheumatoid arthritis, involving unspecified site, unspecified rheumatoid factor presence M06.9 ; Type 2 diabetes mellitus with hyperglycemia, without long-term current use of insulin E11.65 and Dialysis patient Z99.2 [place] [address] [id number], [place] [address] Sep, [place] [id number] [place] [address] Sep, Encounter for examination for admission to prison Z02.2 [facility] [address] [place] [id number] Sep, Gross hematuria R31.0 [facility] [address] [id number], [place] [address] Aug, [facility] [address] [id number], [place] [address] Aug, Via [facility] [address] [place] [id number] Aug, Fall, subsequent encounter W19.XXXD and Dialysis patient Z99.2 [facility] [address] [id number], [place] [address] Aug, [place] [address] [facility] [id number], [place] [address] Aug, [facility] [address] [place] [id number] Aug, Encounter for examination for admission to prison Z02.2 ; Other acute pulmonary embolism without acute cor pulmonale I26.99 ; Arthralgia, unspecified joint M25.50 ; 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 ; Essential hypertension I10 and Hyperlipidemia, unspecified hyperlipidemia type E78.5 [place] [address], [place] [address] Aug, Rheumatoid arthritis, involving unspecified site, unspecified rheumatoid factor presence M06.9 [place] [address] [id number], [place] [address] Aug, [place] [id number] [place] [address] Aug, Encounter for examination for admission to prison Z02.2 [place] [id number] [place] [address] 49[address] Jul, [place] [id number] [place] [address]- 00[address] Jul, [place] [id number] [place] [address]- 6[address] Jul, Anxiety F41.9 [place] [id number] [place] [address]- 9[address] Jul, IMMUNIZATIONS No Known Immunizations SOCIAL HISTORY Never Assessed REASON FOR VISIT Med list update PLAN OF CARE VITAL SIGNS MEDICATIONS Medication Instructions Dosage Frequency Start Date End Date Duration Status Renvela 800 MG Orally Three times a day 1 tablet with meals 8h Active Gabapentin 100 MG Orally Three times a day 1 capsule 8h Active Trazodone HCl 50 mg Orally Once a day 1 tablet at bedtime 24h Active Aricept 10 MG Orally Once a day 1 tablet at bedtime 24h Active Sodium Bicarbonate 325 MG Orally 2 times a day 1 tablet 12h Active Amiodarone HCl 200 MG Orally Once a day 1 tablet 24h Active Coumadin 4 MG Orally Once a day 1 tablet 24h Active Ativan 0.5 MG Orally 3 times a day 1 tablet 8h Jul, 28 days Active Isosorbide Mononitrate ER 30 MG Orally Once a day 1 tablet in the morning 24h Active Lantus 100 UNIT/ML Subcutaneous Once a day 12 units 24h Active Artificial Tear to right eye 3 times a day 2 gtts 8h Active Hydrocodone-Acetaminophen 5-325 MG Orally every 8 hrs 1 tablet as needed 8h Aug, Active Dextromethorphan-Guaifenesin 10-100 MG/5ML Orally every 4 hrs 10 ml as needed 4h Active Fludrocortisone Acetate 0.1 MG Orally Three times a Week 1 tablet Active Plavix 75 MG Orally Once a day 1 tablet 24h Active Dulcolax 10 MG Rectal Once a day 1 suppository as needed 24h Active Carvedilol 12.5 MG Orally 2 times a day 1 tablet 12h Active Ipratropium-Albuterol 0.5-2.5 (3) MG/3ML Inhalation every 6 hrs 3 ml as needed 6h Active Lisinopril 10 MG Orally Once a day 1 tablet 24h Active Prevacid 30 MG Orally Once a day 1 capsule 24h Active Humalog 100 UNIT/ML Subcutaneous 3 times a day 5 units 8h Active Nitrostat 0.4 MG Active Dulaglutide 0.75 MG/0.5ML Subcutaneous once weekly 0.75mg Jul, Active Venlafaxine HCl ER 150 MG Orally Once a day 1 capsule with food 24h Active Aspirin EC 81 MG Orally Once a day 1 tablet 24h Active Senna Plus 8.6-50 MG Orally twice a day 1 tablet as needed 12h Active Depakote 250 MG Orally 3 times a day 1 tablet 8h Active Lasix 80 MG Orally twice a day 1 tablet 12h Active Tums Ultra by oral route every 6 hrs 1 tablet as needed 6h Active RESULTS No Results PROCEDURES No Known [...]
--- OUTSIDE RECORDS SUMMARY | 2017-11-03 17:10 | XMS REPORT ---
Author Author SHERWIN CARVAJAL Organization [facility] Address [address] [place] [address] Care Team Providers Care Radio Communications Mechanician Name Role Phone SHERWIN CARVAJAL Unavailable PROBLEMS Type Condition ICD9-CM Code TOQ52-XM Code Onset Dates Condition Status SNOMED Code Problem Dialysis patient Z99.2 Active 696667483 Problem Anxiety F41.9 Active 13129605 Problem Essential hypertension I10 Active 66041631 Problem Coronary artery disease involving coronary bypass graft of [place] heart without angina 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 Active 996888045 Problem End stage kidney disease N18.6 Active 77287437 Problem Rheumatoid arthritis, involving unspecified site, unspecified rheumatoid factor presence M06.9 Active 26128897 Problem Hyperlipidemia, unspecified hyperlipidemia type E78.5 Active 83825520 Problem Type 2 diabetes mellitus with hyperglycemia, without long-term current use of insulin E11.65 Active 27050236 ALLERGIES No Information ENCOUNTERS Encounter Location Date Diagnosis [place] [address] [place] [address]00 Sep, [place] [address] [place] [address]80- 6087 Sep, [place] [address] [place] [address]54- 6705 Sep, Encounter for examination for admission to snf Z02.2 and Anxiety F41.9 Via [facility] [place] [address] [place] [id number] Sep, Gross hematuria R31.0 ; Coronary artery disease involving coronary bypass graft of [place] heart without angina 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 ; Arthralgia, unspecified joint M25.50 ; Essential hypertension I10 ; Rheumatoid arthritis, involving unspecified site, unspecified rheumatoid factor presence M06.9 ; Type 2 diabetes mellitus with hyperglycemia, without long-term current use of insulin E11.65 and Dialysis patient Z99.2 [facility] [address] [id number], [place] [address] Sep, [facility] [address] [id number], [place] [address] Sep, Encounter for examination for admission to snf Z02.2 Via [facility] [employer] [address] [place] [id number] Sep, Gross hematuria R31.0 [place] [address] [id number], [place] [address] Aug, [place] [address], [place] [address] Aug, Via [facility] [address] [place] [id number] Aug, Fall, subsequent encounter W19.XXXD and Dialysis patient Z99.2 [place] [address], [place] [address]- 9[address] Aug, [place] [address] [address] [id number], [place] [address] Aug, Via [facility] [address] [place] [id number] Aug, Encounter for examination for admission to snf Z02.2 ; Other acute pulmonary embolism without acute cor pulmonale I26.99 ; Arthralgia, unspecified joint M25.50 ; Coronary artery disease involving coronary bypass graft of [place] heart without angina 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 ; Essential hypertension I10 and Hyperlipidemia, unspecified hyperlipidemia type E78.5 [place] [address] [id number], [place] [address]- 74[address] Aug, Rheumatoid arthritis, involving unspecified site, unspecified rheumatoid factor presence M06.9 [place] [address], [place] [address]- 47[address] Aug, [place] [address] [id number], [place] [address]- 4[address] Aug, Encounter for examination for admission to snf Z02.2 [facility] [address] [id number], [place] [address] Jul, [facility] [address] [id number], [place] [address]- [address] Jul, [facility] [address] [id number], [place] [address]- [address] Jul, Anxiety F41.9 [facility] [address] [id number], [place] [address]- 2260 Jul, IMMUNIZATIONS No Known Immunizations SOCIAL HISTORY [...]
--- OUTSIDE RECORDS SUMMARY | 2017-11-03 17:10 | XMS REPORT ---
Author Author SHERWIN CARVAJAL Organization [facility] Address [address] [place] [address] Care Team Providers Care Supervisor Mold Shop Name Role Phone SHERWIN CARVAJAL Unavailable PROBLEMS Type Condition ICD9-CM Code JEA66-WD Code Onset Dates Condition Status SNOMED Code Problem Dialysis patient Z99.2 Active 137145045 Problem Anxiety F41.9 Active 86868925 Problem Essential hypertension I10 Active 03968880 Problem Coronary artery disease involving coronary bypass graft of [place] heart without angina 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 Active 892957282 Problem End stage kidney disease N18.6 Active 90405745 Problem Rheumatoid arthritis, involving unspecified site, unspecified rheumatoid factor presence M06.9 Active 67279179 Problem Hyperlipidemia, unspecified hyperlipidemia type E78.5 Active 92395381 Problem Type 2 diabetes mellitus with hyperglycemia, without long-term current use of insulin E11.65 Active 66120263 ALLERGIES No Information ENCOUNTERS Encounter Location Date Diagnosis [address] [place] [address]- [address] Sep, [place] [id number] [place] [address]489- 9095 Sep, Encounter for examination for admission to detention Z02.2 and Anxiety F41.9 Via [facility] [address] [place] [address] Sep, Gross hematuria R31.0 ; Coronary artery disease involving coronary bypass graft of [place] heart without angina 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 ; Arthralgia, unspecified joint M25.50 ; Essential hypertension I10 ; Rheumatoid arthritis, involving unspecified site, unspecified rheumatoid factor presence M06.9 ; Type 2 diabetes mellitus with hyperglycemia, without long-term current use of insulin E11.65 and Dialysis patient Z99.2 [place] [id number] [place] [address]34- 3277 Sep, [facility] [address] [id number] [address]- [address] Sep, Encounter for examination for admission to detention Z02.2 Via [facility] [address] [place] [id number] Sep, Gross hematuria R31.0 [facility] [address]100[place] [address] Aug, [facility] [address]100[place] [address] Aug, Via [facility] [address] [place] [id number] Aug, Fall, subsequent encounter W19.XXXD and Dialysis patient Z99.2 [place] [address] [address]- [address] Aug, [place] [address] [place] [address]28[address]- 5883 Aug, Via [facility] [address] [place] [id number] Aug, Encounter for examination for admission to detention Z02.2 ; Other acute pulmonary embolism without acute cor pulmonale I26.99 ; Arthralgia, unspecified joint M25.50 ; Coronary artery disease involving coronary bypass graft of [place] heart without angina 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 ; Essential hypertension I10 and Hyperlipidemia, unspecified hyperlipidemia type E78.5 [facility] [address] [address]- [address] Aug, Rheumatoid arthritis, involving unspecified site, unspecified rheumatoid factor presence M06.9 [place] [address] [address]- 9584 Aug, [facility] [address] [id number] [address]- [address] 03 Aug, 2017 Encounter for examination for admission to detention Z02.2 [place] [address] [address]- 4705 Jul, [facility] [address] [facility] [id number] [address]- 9[address] Jul, [facility] [address] [facility] [id number] [address]- 4970 Jul, Anxiety F41.9 [facility] [address] [facility] [id number] [address]- 5[address] Jul, IMMUNIZATIONS No Known Immunizations SOCIAL HISTORY Never Assessed REASON FOR VISIT Needs Rx for Ativan before he arrives PLAN OF CARE VITAL SIGNS MEDICATIONS Medication Instructions Dosage Frequency Start Date End Date Duration Status Ativan 0.5 MG Orally 3 times a day 1 tablet 8h Jul, 28 days Active RESULTS No Results PROCEDURES No [...]
--- OUTSIDE RECORDS SUMMARY | 2017-11-03 17:10 | XMS REPORT ---
Author Author SHERWIN CARVAJAL Organization [facility] Address [address] [place] [address] Care Team Providers Care Sanitarian Aide Name Role Phone SHERWIN CARVAJAL Unavailable PROBLEMS Type Condition ICD9-CM Code CVW51-EW Code Onset Dates Condition Status SNOMED Code Problem Dialysis patient Z99.2 Active 373292341 Problem Anxiety F41.9 Active 80527742 Problem Essential hypertension I10 Active 70964449 Problem Coronary artery disease involving coronary bypass graft of [place] heart without angina 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 Active 247586163 Problem End stage kidney disease N18.6 Active 96012360 Problem Rheumatoid arthritis, involving unspecified site, unspecified rheumatoid factor presence M06.9 Active 49891898 Problem Hyperlipidemia, unspecified hyperlipidemia type E78.5 Active 72642168 Problem Type 2 diabetes mellitus with hyperglycemia, without long-term current use of insulin E11.65 Active 06287978 ALLERGIES No Information ENCOUNTERS Encounter Location Date Diagnosis [place] [address] [place] [address]- 7508 Sep, [place] [address] [place] [address] 19270- 2637 Sep, [place] [address] [place] [address] 14093- 6305 Sep, Encounter for examination for admission to assisted Z02.2 and Anxiety F41.9 Via [facility] [place] [address] [place] [id number] Sep, Gross hematuria R31.0 ; Coronary artery disease involving coronary bypass graft of [place] heart without angina 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 ; Arthralgia, unspecified joint M25.50 ; Essential hypertension I10 ; Rheumatoid arthritis, involving unspecified site, unspecified rheumatoid factor presence M06.9 ; Type 2 diabetes mellitus with hyperglycemia, without long-term current use of insulin E11.65 and Dialysis patient Z99.2 [facility] [address] [facility] [id number], [place] [address] Sep, [facility] [address] [facility] [id number], [place] [address]- 3614 Sep, Encounter for examination for admission to assisted Z02.2 Via [facility] [employer] [address] [place] [id number] Sep, Gross hematuria R31.0 [place] [address] [facility] [id number], [place] [address]- 3527 Aug, [place] [address], [place] [address]- [address] Aug, Via [employer] [address] [place] [id number] Aug, Fall, subsequent encounter W19.XXXD and Dialysis patient Z99.2 [place] [address], [place] [address]- 7[address] Aug, [place] [address] [place] [address] [id number], [place] [address]- [address] Aug, Via [employer] [address] [place] [id number] Aug, Encounter for examination for admission to assisted Z02.2 ; Other acute pulmonary embolism without acute cor pulmonale I26.99 ; Arthralgia, unspecified joint M25.50 ; Coronary artery disease involving coronary bypass graft of [place] heart without angina 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 ; Essential hypertension I10 and Hyperlipidemia, unspecified hyperlipidemia type E78.5 [place] [address] [place] [address] [id number], [place] [address]- 7[address] Aug, Rheumatoid arthritis, involving unspecified site, unspecified rheumatoid factor presence M06.9 [place] [address], [place] [address]- 2552 Aug, [place] [address] [place] [address] [id number], [place] [address]- 7616 Aug, Encounter for examination for admission to assisted Z02.2 [facility] [address] [facility] [id number], [place] [address]- 4[address] Jul, [facility] [address] [id number], [place] [address]- 2312 Jul, [facility] [address] [facility] [id number], [place] [address]- 7427 Jul, Anxiety F41.9 [facility] [address] [place] [address] [id number], [place] [address]- 5835 Jul, IMMUNIZATIONS No Known Immunizations SOCIAL HISTORY Never Assessed REASON FOR VISIT Lorazepam PLAN OF CARE VITAL SIGNS MEDICATIONS Unknown [...]
== END 2017-11-03 16:00 | disposition short-term general hospital (02) ==
LOC: EDUNIT# 13:11 → ER 13:12
DX: S72.002A Fracture of unspecified part of neck of left femur, initial encounter for closed fracture (principal); E11.22 Type 2 diabetes mellitus with diabetic chronic kidney disease; I12.0 Hypertensive chronic kidney disease with stage 5 chronic kidney disease or end stage renal disease; N18.6 End stage renal disease; I25.10 Atherosclerotic heart disease of native coronary artery without angina pectoris; E78.00 Pure hypercholesterolemia, unspecified; E11.42 Type 2 diabetes mellitus with diabetic polyneuropathy; K21.9 Gastro-esophageal reflux disease without esophagitis; F41.9 Anxiety disorder, unspecified; F32.9 Major depressive disorder, single episode, unspecified; D64.9 Anemia, unspecified; I25.2 Old myocardial infarction; Z99.2 Dependence on renal dialysis; Z95.1 Presence of aortocoronary bypass graft; Z90.89 Acquired absence of other organs; V00.811A Fall from moving wheelchair (powered), initial encounter

== ENCOUNTER → 2017-11-11 | Outpatient (CLI) | payer MEDICARE, MEDICAID ==
[2017-11-11 18:12] LABS: INR 5.3 (0.8-1.4); PROTHROMBIN TIME PATIENT 49.1 SEC (12.2-14.7)
== END ==
LOC: LAB 17:18
PROVIDERS: ATTEND Family Medicine
DX: Z51.81 Encounter for therapeutic drug level monitoring (principal); Z79.01 Long term (current) use of anticoagulants
CPT/HCPCS: 36415; 85610

== ENCOUNTER 2017-11-18 11:16 | Inpatient (IN) | payer MEDICARE, MEDICAID ==
[~2017-11-18] VITALS: Ht 170.2 cm; Wt 91.7 kg
[~2017-11-18 11:16] MED LIST changes: -AMIO200T4; +AMIO200T4 PO; -FLDR.1T; +FLDR.1T PO; -GABA-486; +GABA-486 PO; +NITROGLYCERIN 0.4 MG SL TABS BTL 25'S SL PRN
--- NOTE | 2017-11-18 11:48 | PM&R Post Admission Assessment ---
Post Admission Physician Asses Date seen by provider: Nov 18, 2017 Time seen by provider: 11:15 The preadmission screen agrees with the post admission assessment that the patient is a good candidate for inpatient rehabilitation. The patient will have a comprehensive program of inpatient rehabilitation with a goal of maximizing level of functional independence prior to discharge home with spouse. The patient will have PT/OT ninety minutes per day, each discipline, five days a week for 2 weeks for gait, strengthening, conditioning, balance, ADLs, any patient/family/caregiver training as necessary. Speech therapy to do cognitive assessment and treat as indicated. Rehabilitation nursing to assist with bowel, bladder, skin, wound care, medication administration, pain management. [employer] to assist with discharge planning, community reentry. SCD's and Coumadin for DVT prophylaxis. He appears to be well motivated to participate in three hours of therapy a day. He should be able to tolerate three hours of therapy a day from a medical and surgical standpoint. He should benefit from the three hours of therapy a day. He has a reasonable discharge plan, reasonable discharge rehabilitation goals and a supportive family. He has various comorbidities that need to be closely monitored with medications and treatments adjusted on a daily basis as needed. These include: ESRD Chronic anticoagulation DM Insulin dependent CAD s/p CABG Blindness rt eye Barriers to discharge for this patient who had been independent prior to this are for him to be modified independent to supervision for ADLs and mobility skills prior to discharge home with spouse, so as to lessen the burden of the caregivers. Risks for this patient include: 1. Fall 2. Fracture 3. DVT 4. Pulmonary embolism 5. Wound infection 6. Skin breakdown 7. Contractures 8. Poorly controlled pain 9. Urinary retention 10. UTI 11. Respiratory infection 12. Aspiration 13.poorly controlled DM 14.poorly controlled HTN 15.Supra or subtherapeutic INR IGC code 08.11 Etiologic DX S/P unilateral hip fracture Estimated Length of Stay: 14 days Prognosis: Rehab prognosis appears good for goal of discharge home with spouse modified independent to supervision for ADLs and mobility skills. Date Identified: Nov 18, 2017 Time Identified: 11:00 Action Plan to Resolve CSMI: shelter meds reconciled and ordered General: Alert, Oriented X3, Cooperative, No Acute Distress HEENT: Mucous Memb Moist/[place], Other (enucleation rt eye due to CA) Neck: Supple, No JVD Lungs: Clear to Auscultation Heart: Regular Rate Abdomen: Normal Bowel Sounds, Soft, No Tenderness Extremities: No Edema Neuro: Other (Generalized weakness more so left hip) Psych/Mental Status: Mental Status NL LUCA SORIA MD Nov 18, 2017 11:48
--- NOTE | 2017-11-18 12:12 | HISTORY AND PHYSICAL ---
DATE OF SERVICE: 11-18-17 ADMISSION HISTORY AND PHYSICAL CHIEF COMPLAINT: Difficulty with walking. HISTORY OF PRESENT ILLNESS: The patient is a 62-year-old male, who is a resident of a local snf, who fell while being transferred from dialysis center back to snf sustaining a displaced left femoral neck fracture. The patient was transferred to [facility] in [facility] and had a left hip hemiarthroplasty on 11/04. The patient was then transferred back to a local snf for ongoing therapies; however, he had been independent until recently prior to an ID and goals are for him to return home with his spouse in [facility]. PCP is Dr. Conway at [facility]. Currently, he requires assistance for his ADLs and mobility skills. 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 He has been on dialysis three times a week since 2015.Currently he is Mod assist for transfers and min assist for gait with WW.He is min assist for Upper body dressing and Max assist for lower body dressing.He is Mod Independent for eating and setup for Grooming. PAST MEDICAL HISTORY: Chronic end-stage renal disease, hyperlipidemia, hypertension, right eye cancer, malignant melanoma, diabetes mellitus, depression and GERD. PAST SURGICAL HISTORY: CABG, hernia repair, tonsillectomy, colonoscopy, vasectomy, right wrist surgery, right shoulder arthroscopy, right shoulder pin. Excision of skin cancer. Right eye enucleation in 2004. Back excision in 2010. ALLERGIES: No known medication allergies. SOCIAL HISTORY: Smokeless tobacco and no alcohol. Disabled. REVIEW OF SYSTEMS: A 10-point review of systems is significant for fall, difficulty with walking and blindness to right eye. MEDICATIONS: Amiodarone 200 mg p.o. daily, Florinef 0.1 mg p.o. daily, gabapentin 100 mg p.o. t.i.d. FlexPen as per regimen. Lorazepam 1 mg p.o. daily. Plavix 75 mg p.o. daily. Hydrocodone APAP 7.5 one tablet p.o. every 4 hours p.r.n. pain. PHYSICAL EXAMINATION: GENERAL: Significant for a male appearing his stated age, sitting in chair in no acute distress. VITAL SIGNS: Stable. He is afebrile. HEENT: He has an enucleated right eye with lids sewn shut. His vision in the left eye is functional. Speech and hearing grossly intact. No oral lesion is noted. NECK: Supple without mass. HEART: Regular rhythm. CHEST: Clear. ABDOMEN: Soft and nontender. Bowel sounds are present. EXTREMITIES: No leg edema and no calf tenderness. MUSCULOSKELETAL: He has functional active range of motion both upper limbs and right lower limb and left lower limb limited at the hip. NEUROLOGIC: Sensation is diminished to touch in feet. Cognition is intact. Strength good (4) overall with the exception of left hip, which is 3+/5. IMPRESSION: 1. Ambulatory dysfunction secondary to fall with resulting left hip fracture, displaced left femoral neck fracture status post left hip hemiarthroplasty at [facility] per Dr. Harris on 11/04/2017. 2. End-stage renal disease, on dialysis three times a week. 3. Insulin-dependent diabetes mellitus. 4. Coronary artery disease status post ID status post CABG. 5. Status post enucleation of right eye for cancer. PLAN: This patient will have a comprehensive program of inpatient rehabilitation with goal of maximizing level of functional independence prior to discharge home hopefully with spouse. The patient will have PT, OT 90 minutes per day for 5 days a week for 2 weeks for gait strengthening and conditioning, ADLs. Please see post admission physician evaluation, which is a separate document for details of plan of care. Rehabilitation nursing to assist with bowel, bladder, skin care, medication administration, pain management and socially responsible investment adviser for discharge planning, community reentry. Speech therapy to do cognitive eval and treat as indicated. Follow up with [facility] as per their schedule. Follow up with textile worker at dialysis center three times a week as necessary. ESTIMATED LENGTH OF STAY: Two weeks. PROGNOSIS: Rehab prognosis appears good for goal of discharging home with spouse, modified independent to supervision for ADLs and mobility skills. DIET: Carb consistent. CODE STATUS: Full code. Job ID: [id number] DocumentID: [id number] Dictated Date: 11/18/2017 10:57:32 Activity Therapy Teacher Date: 11/18/2017 12:12:13 Dictated By: LUCA SORIA MD [facility]
[2017-11-18] MEDS ORDERED: FLU QUADRIvalent (5+ YOA) 2018-2019 (AFLURIA) 0.5 ML IM ONE (12:45)
--- NOTE | 2017-11-18 13:17 | Physical Therapy Evaluation ---
PT Evaluation-General Medical Diagnosis Admission Date Nov 18, 2017 at 11:16 Medical Diagnosis: femoral neck fx, L hip hemiarthroplasty Onset Date: Nov 04, 2017 Therapy Diagnosis Therapy Diagnosis: impaire mobility, strength, and endurance Height/Weight Height (Feet): 5 Height (Inches): 7.00 Weight (Pounds): 199 Weight (Ounces): 0.0 Precautions Precautions/Isolations: Fall Prevention, Standard Precautions, Pressure Ulcer Weight Bear Status Right Lower Extremity: Right Full Weight Bearing Left Lower Extremity: Left Weight Bearing/Tolerated Referral Physician: Zander Reason for Referral: Evaluation/Treatment Medical History Pertinent Medical History: CAD, DM, GERD, HTN, Renal Insufficiency Additional Medical History depression, hyperlipidemia, R eye loss, skin CA, CABG, hernia repair, tonsillectomy, colonoscopy, vasectomy, R wrist sx, R shoulder sx Current History L fractured femoral neck, L hip hemiarthroplasty Reviewed History: Yes Social History Home: Senior Living Current Living Status: Alone Entry Into Home: Level Entry Prior/Core FIM Prior Level of Function Functional [place] Measure 0=Not Assessed/NA 4=Minimal Assistance 1=Total Assistance 5=Supervision or Setup 2=Maximal Assistance 6=Modified [place] 3=Moderate Assistance 7=Complete [place] Bed Mobility: 6 Transfers (B,C,W/C) (FIM): 6 Gait: 6 used FWW and was almost to point where he could use SPC PT Evaluation-Current Subjective pt in w/c pre tx, agrees to PT, reports pain 10/10 left hip. Pt/Family Goals to be independent at home Objective Patient Orientation: Normal For Age ROM/Strength ROM Lower Extremities WFL Strenght Lower Extremities grossly 4/5 bilaterally Neuromuscular (Tone, Coordination, Reflexes) NT Sensory Vision: Functional Hearing: Functional Sensation Right Lower Extremit: Intact Sensation Left Lower Extremity: Intact Transfers Functional [place] Measure 0=Not Assessed/NA 4=Minimal Assistance 1=Total Assistance 5=Supervision or Setup 2=Maximal Assistance 6=Modified [place] 3=Moderate Assistance 7=Complete IndependenceIRFPAI Quality Coding Scale 6 Independent with activity with or without an assistive device 5 Patient requires set up or clean up by helper. Patient completes activity by themselves 4 Supervision or touching assist (CGA). [place] provide cues , steadying assist 3 The helper provides less than half the effort to complete the activity 2 The helper provides more than half the effort to complete the activity 1 Dependent. The helper does all the effort to complete an activity 7 Patient refused to complete or attempt activity 9 The patient did not perform the activity before the current illness or injury 88 Not attempted due to Medical conditions or safety concerns Transfers (B, C, W/C) (FIM): 4 Scootin Rollin Roll Left to Right (QC): 4 Supine to/from Sit: 4 Sit to/from Stand: 4 bed t/f WC(FIM only if WC use): 4 Sit to Lying (QC): 3 Lying to Sitting/Side of Bed(Q: 3 Sit to Stand (QC): 3 Chair/Iaj-ih-Gwudt Xfer(QC): 4 Car Transfer (QC): 4 supine<->sit Gabriela getting LLE into bed, assistance sitting up, sit<->stand Gabriela , bed<->chair CGA, car transfer CGA. Patient needs cues for positioning, safety , and hand placement. Gait Does the Patient Walk?: Yes Mode of Locomotion: Walk Anticipated Mode of Locomotion: Walk Gait (FIM): 1 Distance (FIM): 1=up to 49 ft Walk 10 feet (QC): 4 Walk 50 ft with 2 Turns(QC): 9 Walk 150 ft (QC): 9 Walking 10ft/uneven surface-QC: 88 Distance: 40' Gait Level of Assist: 4 Gait Persons Needed: 1 Gait Assistive Device: FWW Comments/Gait Description ambulates using FWW w/ CGA, very slowly w/ short steps, steady, no LOB Wheelchair Training Does the Pt Use a Wheelchair?: Yes Wheelchair (FIM): 2 Wheelchair Distance (FIM): 5=880-99 ft Distance: 100'x2 Wheelchair Level of Assist: 5 Wheel 50 ft with 2 turns (QC): 4 Wheel 150 ft (QC): 9 Type of Wheelchair: Manual very slow w/ short strokes and slow turns, pt fatigues easily Stairs If not tested on admit;explain Stairs not performed due to patient LE weakness, poor endurance, and patient reluctance. Balance Sitting Static: Normal Sitting Dynamic: Normal Standing Static: Fair Standing Dynamic: Fair Picking up an Object (QC): 88 Treatment supine exercises: SAQs 3x15, HS 2x15, bridges 2x10 Assessment/Needs impaired mobility, strength, and endurance, pt fatigues very easily and consistently asks for more time to rest, pt reluctant to perform any activity. Patient tried to get therapist to stop therapy senior care through and was very disappointed when he was encouraged to continue. Patient continuously exhibits delay tactics to postpone therapy. Rehab Potential: Fair PT Short Term Goals Short Term Goals Time Frame: Nov 25, 2017 Transfers (B,C,W/C) (FIM): 4 Gait (FIM): 2 Gait Distance Comment: 75' Gait Level of Assist: 4 Gait Assistive Device: FWW PT Home Energy Auditor Goals Home Energy Auditor Goals PT Home Energy Auditor Goals Time Frame: Dec 09, 2017 Transfers (B,C,W/C) (FIM): 5 Sit to Lying (QC): 4 Lying-Sitting on Side/Bed(QC): 4 Sit to Stand (QC): 4 Rollin Roll Left to Right (QC): 4 Chair/Qac-mt-Gufwp Xfer(QC): 4 Car Transfer (QC): 4 Does the Patient Walk: Yes Gait (FIM): 5 Distance: 150' Walk 10 feet (QC): 4 Walk 10ft-Uneven Surface(QC): 4 Walk 50ft with 2 Turns (QC): 4 Walk 150 ft (QC): 4 Gait Level of Assist: 5 Gait Assistive Device: FWW Stairs (FIM): 4 # of Steps: 12 1 Step (curb) (QC): 4 4 Steps (QC): 4 12 Steps (QC): 4 Stairs Level Of Assist: 4 Picking up an Object (QC): 4 PT Plan Problem List Problem List: Activity Tolerance, Functional Strength, Safety, Balance, Gait, Transfer, Bed Mobility, ROM Treatment/Plan Treatment Plan: Continue Plan of Care Treatment Plan: Bed Mobility, Concurrent Therapy, Education, Functional Activity Garcia, Functional Strength, Group Therapy, Gait, Safety, Therapeutic Exercise, Transfers Treatment Duration: Dec 09, 2017 Frequency: At least 5 of 7 days/Wk (IRF) Estimated Hrs Per Day: 1.5 hours per day Patient and/or Family Agrees t: Yes Safety Risks/Education Patient Education: Gait Training, Transfer Techniques, Reviewed Precautions, Correct Positioning, Disease Process, Safety Issues Teaching Recipient: Patient Teaching Methods: Demonstration, Discussion Response to Teaching: Reinforcement Needed Discharge Recommendations Plan Pt will perform bed mobility, transfers, stair training, gait training, functional strengthening, balance training, endurance training, and education to improve independence at home. Therapy D/C Recommendations: Assisted Living, Home w/ Family Support, Penitentiary (TCU/NH) Time/GCodes Time In: 1100 Time Out: 1200 Total Billed Treatment Time: 60 Total Billed Treatment 1 visit EVM 30' EX 30' CHAVA JACKMAN PT Nov 18, 2017 13:17
[2017-11-18] MEDS ORDERED: SEVE800T7 PO (13:38)
[2017-11-18] MEDS ORDERED: INSU100V SQ (13:38)
[2017-11-18] MEDS ORDERED: BISA10SU58 RC (13:38)
[2017-11-18] MEDS ORDERED: DONE10TA12 PO (13:38)
[2017-11-18] MEDS ORDERED: ASPI-983 PO (13:38)
[2017-11-18] MEDS ORDERED: TRAM50TA2 PO (13:38)
[2017-11-18] MEDS ORDERED: HYDR-4226 PO (13:38)
[2017-11-18] MEDS ORDERED: LOPE2TAB34 PO (13:38)
[2017-11-18] MEDS ORDERED: NITR0.3T SL (13:38)
[2017-11-18] MEDS ORDERED: DULA0.75 SQ (13:38)
[2017-11-18] MEDS ORDERED: LISI10TA2 PO (13:38)
[2017-11-18] MEDS ORDERED: DIVA250T2 PO (13:38)
[2017-11-18] MEDS ORDERED: ATOR80TA64 PO (13:38)
[2017-11-18] MEDS ORDERED: CLOP75TA69 PO (13:38)
[2017-11-18] MEDS ORDERED: OXYC-529 PO (13:38)
[2017-11-18] MEDS ORDERED: TRAZ-189 PO (13:38)
[2017-11-18] MEDS ORDERED: LORA0.5T PO (13:38)
[2017-11-18] MEDS ORDERED: AMLO5TAB7 PO (13:38)
[2017-11-18] MEDS ORDERED: SENN-140 PO (13:38)
[2017-11-18] MEDS ORDERED: INSU100V6 SQ (13:38)
[2017-11-18] MEDS ORDERED: SODI325T PO (13:38)
[2017-11-18] MEDS ORDERED: LANS30CA43 PO (13:38)
[2017-11-18] MEDS ORDERED: POLY15DR14 OU (13:38)
[2017-11-18] MEDS ORDERED: WARF3TAB56 PO (13:38)
[2017-11-18] MEDS ORDERED: VENL150C98 PO (13:38)
[2017-11-18] MEDS ORDERED: MAG30ORA2 PO (13:38)
[2017-11-18] MEDS ORDERED: FURO80TA3 PO (13:38)
[2017-11-18] MEDS ORDERED: ACET-2267 PO (13:38)
[2017-11-18] MEDS ORDERED: IPRA3AMP31 IH (13:38)
[2017-11-18] MEDS: SEVELAMER CARBONATE 800 MG TAB (RENVELA) NON-FORMULARY PO SCH ×2 (13:40→17:47)
[2017-11-18 13:44] VITALS: BP 146/68
--- NOTE | 2017-11-18 13:51 | Occupational Therapy Eval ---
OT Evaluation-General/PLF Medical Diagnosis Admission Date Nov 18, 2017 at 11:16 Medical Diagnosis: femoral neck fx, L hip hemiarthroplasty Onset Date: Nov 04, 2017 Therapy Diagnosis Therapy Diagnosis: Impaired self care skills Height/Weight Height (Feet): 5 Height (Inches): 7.00 Weight (Pounds): 199 Weight (Ounces): 0.0 Precautions Precautions/Isolations: Fall Prevention, Standard Precautions, Pressure Ulcer Referral Physician: Zander Medical History Pertinent Medical History: CABG, CAD, DM, GERD, HTN, Renal Insufficiency Additional Medical History depression, hyperlipidemia, melanoma, right eye cancer, PE Current History Pt had fall with left hip fracture. Now s/p dyana arthroplasty Reviewed History: Yes Social History Home: Skilled Nursing Current Living Status: Spouse Entry Into Home: Level Entry ADL-Prior Level of Function ADL PLOF Comments Pt has been at [facility], states he was starting to use cane before his fall. Receives assist as needed for ADLs. DME/Equipment: Bath Chair, Tall Toilet, Tub/Shower OT Current Status Subjective Pt sitting in w/c, agrees to therapy. Pt reports 9/10 pain in left hip, requests pain meds. RN notified. Mental Status/Objective Patient Orientation: Person, Place Current Glasses/Contacts: No Hearing Aids: No Dentures/Partials: No Hand Dominance: Right Upper Extremity ROM Grossly WFL Upper Extremity Coordination Intact Upper Extremity Sensation Intact per pt report. ADL-Treatment ADL-Current Pt completed sponge bath while seated. Doff shirt with SBA. Pt completed upper body bathing with SBA. Pt able to wash bilateral upper legs and sophia area. Assist for lower legs/feet and buttocks. Will require adaptive equipment for LE ADLs secondary to hip precautions. Don pullover shirt with SBA. Pt required assist to thread bilateral LE into pant legs. Sit to stand with minimal assistance. Pt requires assist to pull pants up all the way. Total assist to doff/don socks and shoes. Will need adaptive equipment. Pt completed oral care with set up, but states he normally does not brush teeth or use mouthwash. Combed hair with set up. Pt transferred w/c <-> BS with minimal assistance. Pt able to pull pants down. Unable to void. Pt required assist to pull pants up. Pt fatigues easily during functional tasks and requires rest breaks throughout treatment. Pt sitting in w/c with needs met and PT present after session. Functional [place] Measure 0=Not Assessed/NA 4=Minimal Assistance 1=Total Assistance 5=Supervision or Setup 2=Maximal Assistance 6=Modified [place] 3=Moderate Assistance 7=Complete IndependenceIRFPAI Quality Coding Scale 6 Independent with activity with or without an assistive device 5 Patient requires set up or clean up by helper. Patient completes activity by themselves 4 Supervision or touching assist (CGA). [place] provide cues , steadying assist 3 The helper provides less than half the effort to complete the activity 2 The helper provides more than half the effort to complete the activity 1 Dependent. The helper does all the effort to complete an activity 7 Patient refused to complete or attempt activity 9 The patient did not perform the activity before the current illness or injury 88 Not attempted due to Medical conditions or safety concerns Grooming (FIM): 5 Oral Hygiene (QC): 4 Bathing (FIM): 3 Shower/Bathe Self (QC): 3 Upper Body Dressing (FIM): 5 Upper Body Dressing (QC): 4 Lower Body Dressing (FIM): 2 Lower Body Dressing (QC): 2 On/Off Footwear (QC): 1 Toilet/Commode Transfer (FIM): 4 Toilet Transfer (QC): 3 Education OT Patient Education: Rehab process Teaching Recipient: Patient Teaching Methods: Discussion Response to Teaching: Verbalize Understanding OT Short Term Goals Short Term Goals Transfers (B,C,W/C) (FIM): 4 1=Demonstrate adherence to instructed precautions during ADL tasks. 2=Patient will verbalize/demonstrate understanding of assistive devices/ modifications for ADL. 3=Patient will improve strength/tolerance for activity to enable patient to perform ADL's. OT [facility] Goals Tool Grinder Operator Goals Time Frame: Dec 09, 2017 Eating (FIM): 7 Eating (QC): 6 Groomin Oral Hygiene (QC): 6 Bathing(FIM): 5 Shower/Bathe Self (QC): 4 Upper Body Dressing(FIM): 6 Upper Body Dressing (QC): 6 Lower Body Dressing(FIM): 5 Lower Body Dressing (QC): 5 On/Off Footwear (QC): 5 Toileting(FIM): 5 Toileting Hygiene (QC): 4 Toilet/Commode Transfer(FIM): 5 Toilet/Commode Transfer (QC): 5 Shower Transfer(FIM): 5 Additional Goals: 1-Demonstrate ADL Tasks, 2-Verbalize Understanding, 3- ImproveStrength/Garcia 1=Demonstrate adherence to instructed precautions during ADL tasks. 2=Patient will verbalize/demonstrate understanding of assistive devices/ modifications for ADL. 3=Patient will improve strength/tolerance for activity to enable patient to perform ADL's. OT Education/Plan Problem List/Assessment Assessment: Decreased Activ Tolerance, Decreased UE Strength, Dependent Transfers, Impaired Funct Balance, Impaired Self-Care Skills Pt admitted to ARU following left hip hemiarthroplasty. Pt demonstrates decreased ADL functioning, mobility, strength, and activity tolerance. Pt to benefit from skilled OT intervention for ADL training, transfers, strengthening , adaptive equipment training, and safety education to increase functional independence and allow safe discharge plan. Discharge Recommendations Plan/Recommendations: Continue POC Treatment Plan/Plan of Care Treatment,Training & Education: Yes Patient would benefit from OT for education, treatment and training to promote independence in ADL's, mobility, safety and/or upper extremity function for ADL' s. Plan of Care: ADL Retraining, Functional Mobility, Group Exercise/Act as Ind, UE Funct Exercise/Act Treatment Duration: Dec 09, 2017 Frequency: Modified Program (IRF) (21/08) Estimated Hrs Per Day: 1.5 hours per day Agreement: Yes Rehab Potential: Fair Time/GCodes Start Time: 10:00 Stop Time: 11:00 Total Time Billed (hr/min): 60 Billed Treatment Time 1 visit, EVM(15minutes), ADLx3(45minutes) REGINA SIDHU OT Nov 18, 2017 13:51
[2017-11-18] MEDS: GABAPENTIN 100 MG (NEURONTIN) CAP PO SCH ×2 (14:14→20:49)
[2017-11-18] MEDS: DIVALPROEX 250 MG DELAYED RELEASE (DEPAKOTE) TAB PO SCH ×2 (14:14→20:49)
[2017-11-18] MEDS: HYDROcodone/APAP 5 MG/325 MG (LORTAB) TAB PO PRN ×3 (14:14→22:15)
--- NOTE | 2017-11-18 14:14 | Occupational Ther Daily Note ---
OT Current Status-Daily Note Subjective Pt in bed, requires encouragement to participate. Mental Status/Objective Functional [place] Measure 0=Not Assessed/NA 4=Minimal Assistance 1=Total Assistance 5=Supervision or Setup 2=Maximal Assistance 6=Modified [place] 3=Moderate Assistance 7=Complete [place] ADL-Treatment Pt supine to sit with assist for left LE. Pt sat EOB with good balance during ADL activity. Pt instructed in use of adaptive equipment for LE dressing. Pt doffed socks with SBA using dressing stick. Pt donned right sock with minimal assistance using sock aid. Did not use sock aid for left foot secondary to sore on heel. RN was notified. Pt attempted to use long handled shoe horn to don shoes. Required mod assist to complete task. Pt completed sit to stand x5 during session with minimal to moderate assistance secondary to fatigue. Pt completed sit to supine with assist for LE. Meal tray arrived. Pt able to feed self after set up. Pt in bed with needs met after session. Functional [place] Measure 0=Not Assessed/NA 4=Minimal Assistance 1=Total Assistance 5=Supervision or Setup 2=Maximal Assistance 6=Modified [place] 3=Moderate Assistance 7=Complete IndependenceIRFPAI Quality Coding Scale 6 Independent with activity with or without an assistive device 5 Patient requires set up or clean up by helper. Patient completes activity by themselves 4 Supervision or touching assist (CGA). [place] provide cues , steadying assist 3 The helper provides less than half the effort to complete the activity 2 The helper provides more than half the effort to complete the activity 1 Dependent. The helper does all the effort to complete an activity 7 Patient refused to complete or attempt activity 9 The patient did not perform the activity before the current illness or injury 88 Not attempted due to Medical conditions or safety concerns Eating (FIM): 5 Eating (QC): 5 OT Short Term Goals Short Term Goals Transfers (B,C,W/C) (FIM): 4 1=Demonstrate adherence to instructed precautions during ADL tasks. 2=Patient will verbalize/demonstrate understanding of assistive devices/ modifications for ADL. 3=Patient will improve strength/tolerance for activity to enable patient to perform ADL's. OT Speech Therapy Teacher Goals Shelter Goals Time Frame: Dec 09, 2017 Eating (FIM): 7 Eating (QC): 6 Groomin Oral Hygiene (QC): 6 Bathing(FIM): 5 Shower/Bathe Self (QC): 4 Upper Body Dressing(FIM): 6 Upper Body Dressing (QC): 6 Lower Body Dressing(FIM): 5 Lower Body Dressing (QC): 5 On/Off Footwear (QC): 5 Toileting(FIM): 5 Toileting Hygiene (QC): 4 Toilet/Commode Transfer(FIM): 5 Toilet/Commode Transfer (QC): 5 Shower Transfer(FIM): 5 Additional Goals: 1-Demonstrate ADL Tasks, 2-Verbalize Understanding, 3- ImproveStrength/Garcia 1=Demonstrate adherence to instructed precautions during ADL tasks. 2=Patient will verbalize/demonstrate understanding of assistive devices/ modifications for ADL. 3=Patient will improve strength/tolerance for activity to enable patient to perform ADL's. OT Education/Plan Discharge Recommendations Plan/Recommendations: Continue POC Treatment Plan/Plan of Care Patient would benefit from OT for education, treatment and training to promote independence in ADL's, mobility, safety and/or upper extremity function for ADL' s. Plan of Care: ADL Retraining, Functional Mobility, Group Exercise/Act as Ind, UE Funct Exercise/Act Treatment Duration: Dec 09, 2017 Frequency: Modified Program (IRF) (21/08) Estimated Hrs Per Day: 1.5 hours per day Agreement: Yes Rehab Potential: Fair Time/GCodes Start Time: 13:00 Stop Time: 13:30 Total Time Billed (hr/min): 30 Billed Treatment Time 1 visit, ADLx2(30minutes) REGINA SIDHU OT Nov 18, 2017 14:14
[2017-11-18] MEDS ORDERED: NA P133E22 RC (15:22)
[2017-11-18] MEDS ORDERED: ISOS30TA8 PO (15:22)
[2017-11-18] MEDS ORDERED: ESCI10TA PO (15:22)
[2017-11-18] MEDS ORDERED: MAGN400O7 PO (15:22)
--- NOTE | 2017-11-18 15:31 | Physical Therapy Daily Note ---
PT Daily Note-Current Subjective Pt laying Supine in bed. Pt agrees to PT after some encouragement. Pain Numeric Pain Scale: 10-Worst Possible Pain Location: Left Location Body Site: Foot Pain Description: Throbbing Mental Status Patient Orientation: Person, Place, Situation Transfers Functional [place] Measure 0=Not Assessed/NA 4=Minimal Assistance 1=Total Assistance 5=Supervision or Setup 2=Maximal Assistance 6=Modified [place] 3=Moderate Assistance 7=Complete IndependenceIRFPAI Quality Coding Scale 6 Independent with activity with or without an assistive device 5 Patient requires set up or clean up by helper. Patient completes activity by themselves 4 Supervision or touching assist (CGA). [place] provide cues , steadying assist 3 The helper provides less than half the effort to complete the activity 2 The helper provides more than half the effort to complete the activity 1 Dependent. The helper does all the effort to complete an activity 7 Patient refused to complete or attempt activity 9 The patient did not perform the activity before the current illness or injury 88 Not attempted due to Medical conditions or safety concerns Scootin Rollin Supine to/from Sit: 4 Sit to/from Stand: 4 Sit to Lying (QC): 4 Sit to Stand (QC): 4 Chair/Vpw-bs-Lmfjk Xfer(QC): 4 Bed to/from Chair: 4 Weight Bearing Right Lower Extremity: Right Full Weight Bearing Left Lower Extremity: Left Weight Bearing/Tolerated Wheelchair Training Does the Pt Use a Wheelchair?: Yes Wheelchair Distance: 3=150 ft Distance: 150' Wheelchair Level of Assist: 5 Wheel 50 ft with 2 turns (QC): 5 Wheel 150 ft (QC): 5 Type of Wheelchair: Manual Exercises NuStep Minutes: 10 NuStep Workload: 3 Treatments Strap Cutting Machine Operator & ROOF BOLTING COAL MINER visit with pt about expectations for ARU with pt that have Medicare. Dialysis was also discussed and how that is scheduled in conjunction with the ARU 15 hours of Therapy over 7 day period. Pt transfers from Supine to EOB at BOXER OPERATOR then EOB to Standing using FWW at [facility]. Pt transfers to [facility] then propels WC to Therapy Gym at [facility]. Pt transfers to NuStep & uses for 10m at [facility]. Pt returns to [facility] and propels back to room. Pt transfers back to Supine in bed at Min A to lift BLE into bed. Pt is resting at end of tx with all needs met. Assessment Current Status: Fair Progress Pt has to be encouraged to participate in Therapy. PT Short Term Goals Short Term Goals Time Frame: Nov 25, 2017 Transfers (B,C,W/C) (FIM): 4 Gait (FIM): 2 Gait Distance Comment: 75' Gait Level of Assist: 4 Gait Assistive Device: FWW Wheelchair Distance: 100'x2 PT Solid Waste Truck Driver Goals Solid Waste Truck Driver Goals PT Shelter Goals Time Frame: Dec 09, 2017 Transfers (B,C,W/C) (FIM): 5 Sit to Lying (QC): 4 Lying-Sitting on Side/Bed(QC): 4 Sit to Stand (QC): 4 Rollin Roll Left to Right (QC): 4 Chair/Xur-qc-Mfdgd Xfer(QC): 4 Car Transfer (QC): 4 Does the Patient Walk: Yes Gait (FIM): 5 Distance: 150' Walk 10 feet (QC): 4 Walk 10ft-Uneven Surface(QC): 4 Walk 50ft with 2 Turns (QC): 4 Walk 150 ft (QC): 4 Gait Level of Assist: 5 Gait Assistive Device: FWW Stairs (FIM): 4 # of Steps: 12 1 Step (curb) (QC): 4 4 Steps (QC): 4 12 Steps (QC): 4 Stairs Level Of Assist: 4 Picking up an Object (QC): 4 PT Plan Problem List Problem List: Activity Tolerance, Functional Strength, Safety, Balance, Gait, Transfer, Bed Mobility Treatment/Plan Treatment Plan: Continue Plan of Care Treatment Plan: Bed Mobility, Concurrent Therapy, Education, Functional Activity Garcia, Functional Strength, Group Therapy, Gait, Safety, Therapeutic Exercise, Transfers Treatment Duration: Dec 09, 2017 Frequency: At least 5 of 7 days/Wk (IRF) Estimated Hrs Per Day: 1.5 hours per day Patient and/or Family Agrees t: Yes Safety Risks/Education Patient Education: Transfer Techniques, Correct Positioning, W/C Management, Safety Issues Teaching Recipient: Patient Teaching Methods: Discussion Response to Teaching: Verbalize Understanding Time/GCodes Time In: 1415 Time Out: 1500 Total Billed Treatment Time: 45 Total Billed Treatment 1, WCH (15m), FA (15m) & EX (15m) G Codes Necessary: DONALD Syed ROOF BOLTING COAL MINER Nov 18, 2017 15:31
--- NOTE | 2017-11-18 15:46 | ST Cognitive Linguistic Eval ---
Speech Evaluation-General Medical Diagnosis femoral neck fx, L hip hemiarthroplasty Onset Date: Nov 04, 2017 Therapy Diagnosis Therapy Diagnosis: Cognition Precautions Precautions/Isolations: Fall Prevention, Standard Precautions, Pressure Ulcer Referral Referring Physician: Dr. Fermin Reason for Referral: Evaluation/Treatment Medical History Pertinent Medical History: CABG, CAD, DM, GERD, HTN, Renal Insufficiency Reviewed History: Yes Social History Current Living Status: Spouse Speech PLF-Current Status Prior Level of Function Pt was independent Language Eval: Auditory Comprehends Simple Yes/No Ques: Functional Follows 1-Step Commands: Functional Follows Complex Directions: Functional Follows General Conversations: Functional Language Eval: Verbal Language Completes Spontaneous Greeting: Functional Produces Auto, Serial Info: Functional Word Finding: Functional Requests Basic Needs: Functional States Basic Personal Info: Functional Expresses Complex Ideas: Functional Language Evaluation: Reading NT Cognitive Patient Orientation oriented x 3 Objective Cognitive Domain Attention: WNL Memory: WNL Problem Solving: Functional Objective Results [facility] Cognitive/communication Assessment was administered to assess cognitive-linguistic functioning. Results are: Memory - Recall 3/3 correct for immediate, delayed and remote delay. Organization/sequencing was 2/2 correct. Problem Solving - Simple 4/4 correct; Abstract/complex was 2/2 correct. Oral Motor/Speech Production WNL Impression Functional cognition/communication. Communication/Social Cognition Comprehension: 7 Expression: 7 Social Interaction: 7 Problem Solvin Memory: 7 Speech Patient Assess Expression of Ideas/Wants: Expression (4) Understanding Verbal Content: Understands (4) Brief Interview-Mental Status: Yes Repetition of Three Words: Three (3) Temporal Orientation: Year: Correct (3) Temporal Orientation: Month: Accurate within 5 days(2) Temporal Orientation: Day: Correct (1) Recall : Wear to say "Sock": Yes, no cue required (2) Recall : Color: Yes, no cue required (2) Recall : Bed: Yes, no cue required (2) Speech Short Term Goals Short Term Goals Short Term Goals no STGs established as skilled ST not indicated. Speech Residential Goals Staff Technologist Goals no LTGs established as skilled ST not indicated. Speech-Plan Patient/Family Goals Patient/Family Goals: to return to home Treatment Plan Speech Therapy Treatment Plan: Discontinue ST Skilled ST not indicated Frequency: Modified Program (IRF) (0) Estimated Hrs Per Day: Other (0) Rehab Potential: Good Pt/Family Agrees to Plan: Yes Safety Risks/Education Teaching Recipient: Patient Teaching Methods: Discussion Response to Teaching: Verbalize Understanding Time Speech Therapy Time In: 15:15 Speech Therapy Time Out: 15:30 Total Billed Time: 15 Billed Treatment Time 1, RAYMOND Hernandez Nov 18, 2017 15:46
--- OUTSIDE RECORDS SUMMARY | 2017-11-18 16:20 | XMS REPORT ---
Author Author SHERWIN CARVAJAL [facility] Address [address] [place] [address] Care Team Providers Care Business Services Assistant Name Role Phone SHERWIN CARVAJAL Unavailable PROBLEMS ALLERGIES No Information ENCOUNTERS IMMUNIZATIONS No Known Immunizations SOCIAL HISTORY No smoking Hx information available REASON FOR VISIT PLAN OF CARE VITAL SIGNS MEDICATIONS RESULTS No Results PROCEDURES No Known procedures INSTRUCTIONS MEDICATIONS ADMINISTERED No Known Medications MEDICAL (GENERAL) HISTORY
--- OUTSIDE RECORDS SUMMARY | 2017-11-18 16:21 | XMS REPORT ---
Author Author SHERWIN CARVAJAL Organization [facility] Address [address] [place] [address] Care Team Providers Care Electrotyper Helper Name Role Phone SHERWIN CARVAJAL Unavailable PROBLEMS Type Condition ICD9-CM Code [id number] Code Onset Dates Condition Status SNOMED Code Problem Anxiety F41.9 Active 77473024 Problem Rheumatoid arthritis, involving unspecified site, unspecified rheumatoid factor presence M06.9 Active 30589273 Problem Dialysis patient Z99.2 Active 876779859 Problem Gastroesophageal reflux disease without esophagitis K21.9 Active 912900157 Problem Essential hypertension I10 Active 70256934 Problem Type 2 diabetes mellitus with hyperglycemia, without long-term current use of insulin E11.65 Active 15493950 Problem End stage kidney disease N18.6 Active 88943379 Problem Coronary artery disease involving coronary bypass graft of [place] heart without angina 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 Active 866964301 Problem Hyperlipidemia, unspecified hyperlipidemia type E78.5 Active 90303438 ALLERGIES No Information ENCOUNTERS Encounter Location Date Diagnosis [place] [id number] [place] [address] Oct, [place] [address] [place] [id number] [place] [address] Oct, Encounter for examination for admission to fpc Z02.2 Via [facility] [address] [place] [id number] Oct, Weakness R53.1 ; Dialysis patient Z99.2 ; Essential hypertension I10 ; Rheumatoid arthritis, involving unspecified site, unspecified rheumatoid factor presence M06.9 and Gastroesophageal reflux disease without esophagitis K21.9 [place] [address] [place] [id number] [place] [address] Sep, [place] [address] [place] [id number] [place] [address] Sep, [facility] [address] [address] Sep, [place] [address] [address] Sep, Encounter for examination for admission to fpc Z02.2 and Anxiety F41.9 Via [facility] [address] [place] [id number] Sep, Gross hematuria R31.0 ; Coronary artery disease involving coronary bypass graft of [place] heart without angina 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 ; Arthralgia, unspecified joint M25.50 ; Essential hypertension I10 ; Rheumatoid arthritis, involving unspecified site, unspecified rheumatoid factor presence M06.9 ; Type 2 diabetes mellitus with hyperglycemia, without long-term current use of insulin E11.65 and Dialysis patient Z99.2 [place] [address] [address] Sep, [place] [address] [place] [id number] [address] Sep, Encounter for examination for admission to fpc Z02.2 Via [facility] [address] [id number] Sep, Gross hematuria R31.0 [place] [address] [place] [id number] [address] Aug, [place] [address] [place] [id number] [address] Aug, Via [facility] [address] [place] [id number] Aug, Fall, subsequent encounter W19.XXXD and Dialysis patient Z99.2 [place] [address] [place] [id number], [place] [address] Aug, [place] [address] [place] [id number] [address] Aug, [facility] [address] [place] [id number] Aug, Encounter for examination for admission to fpc Z02.2 ; Other acute pulmonary embolism without acute cor pulmonale I26.99 ; Arthralgia, unspecified joint M25.50 ; Coronary artery disease involving coronary bypass graft of [place] heart without angina 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 ; Essential hypertension I10 and Hyperlipidemia, unspecified hyperlipidemia type E78.5 [place] [address] [place] [address] Aug, Rheumatoid arthritis, involving unspecified site, unspecified rheumatoid factor presence M06.9 [place] [address] [place] [id number] [place] [address] Aug, [place] [address] [place] [id number] [place] [address] Aug, Encounter for examination for admission to fpc Z02.2 [place] [address] [place] [id number] [place] [address] Jul, [place] [address] [place] [id number] [place] [address] Jul, [place] [address] [place] [id number] [place] [address] Jul, Anxiety F41.9 [place] [address] [place] [id number] [place] [address] Jul, IMMUNIZATIONS No Known Immunizations SOCIAL HISTORY Never Assessed REASON FOR VISIT Correction PLAN OF CARE Activity Details Follow Up prn Reason: VITAL SIGNS MEDICATIONS Medication Instructions Dosage Frequency Start Date End Date Duration Status Prevacid 30 MG Orally Once a day 1 capsule 24h Active RESULTS No Results PROCEDURES Procedure Date Ordered Result Body Site [facility] VISIT ESTABLISHED PATIENT Oct 11, 2017 INSTRUCTIONS MEDICATIONS ADMINISTERED No Known Medications [...]
--- OUTSIDE RECORDS SUMMARY | 2017-11-18 16:21 | XMS REPORT ---
Author Author SHERWIN CARVAJAL Organization [facility] Address [address] [place] [address] Care Team Providers Care Reimbursement Representative Name Role Phone SHERWIN CARVAJAL Unavailable PROBLEMS Type Condition ICD9-CM Code [id number] Code Onset Dates Condition Status SNOMED Code Problem Anxiety F41.9 Active 32872001 Problem Rheumatoid arthritis, involving unspecified site, unspecified rheumatoid factor presence M06.9 Active 30160004 Problem Dialysis patient Z99.2 Active 628736197 Problem Gastroesophageal reflux disease without esophagitis K21.9 Active 362050195 Problem Essential hypertension I10 Active 11684544 Problem Type 2 diabetes mellitus with hyperglycemia, without long-term current use of insulin E11.65 Active 24034477 Problem End stage kidney disease N18.6 Active 87948971 Problem Coronary artery disease involving coronary bypass graft of [place] heart without angina 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 Active 024540749 Problem Hyperlipidemia, unspecified hyperlipidemia type E78.5 Active 36468583 ALLERGIES No Information ENCOUNTERS Encounter Location Date Diagnosis [place] [id number] [place] [address] Oct, [place] [address] [place] [id number] [place] [address] Oct, Encounter for examination for admission to prison Z02.2 Via [facility] [address] [place] [id number] Oct, Weakness R53.1 ; Dialysis patient Z99.2 ; Essential hypertension I10 ; Rheumatoid arthritis, involving unspecified site, unspecified rheumatoid factor presence M06.9 and Gastroesophageal reflux disease without esophagitis K21.9 [place] [address] [place] [id number] [place] [address] Sep, [place] [address] [place] [id number] [place] [address] Sep, [facility] [address], [place] [address] Sep, [place] [address], [place] [address] Sep, Encounter for examination for admission to prison Z02.2 and Anxiety F41.9 Via [facility] [address] [place] [id number] Sep, Gross hematuria R31.0 ; Coronary artery disease involving coronary bypass graft of [place] heart without angina 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 ; Arthralgia, unspecified joint M25.50 ; Essential hypertension I10 ; Rheumatoid arthritis, involving unspecified site, unspecified rheumatoid factor presence M06.9 ; Type 2 diabetes mellitus with hyperglycemia, without long-term current use of insulin E11.65 and Dialysis patient Z99.2 [place] [address], [place] [address] Sep, [place] [address] [place] [id number] [address] Sep, Encounter for examination for admission to prison Z02.2 Via [facility] [address] [id number] Sep, Gross hematuria R31.0 [place] [address] [place] [id number] [address] Aug, [place] [address] [place] [id number] [address] Aug, Via [facility] [address] [place] [id number] Aug, Fall, subsequent encounter W19.XXXD and Dialysis patient Z99.2 [place] [address] [place] [id number], [place] [address] Aug, [place] [address] [place] [id number] [address] Aug, Via [facility] [address] [place] [id number] Aug, Encounter for examination for admission to prison Z02.2 ; Other acute pulmonary embolism without acute cor pulmonale I26.99 ; Arthralgia, unspecified joint M25.50 ; Coronary artery disease involving coronary bypass graft of [place] heart without angina 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 ; Essential hypertension I10 and Hyperlipidemia, unspecified hyperlipidemia type E78.5 [place] [address], [place] [address] Aug, Rheumatoid arthritis, involving unspecified site, unspecified rheumatoid factor presence M06.9 [place] [address] [place] [address] Aug, [place] [address] [place] [id number] [place] [address] Aug, Encounter for examination for admission to prison Z02.2 [place] [address] [place] [id number] [place] [address] Jul, [place] [address] [place] [id number] [place] [address] Jul, [place] [address] [place] [id number] [place] [address] Jul, Anxiety F41.9 [place] [address] [place] [address]- [address] Jul, IMMUNIZATIONS No Known Immunizations SOCIAL HISTORY Never Assessed REASON FOR VISIT Controlled Med Refill PLAN OF CARE VITAL SIGNS MEDICATIONS Medication Instructions Dosage Frequency Start Date End Date Duration Status Hydrocodone-Acetaminophen 5-325 MG Orally 3 times a day 1 tablet 8h 12 Oct Active RESULTS No Results PROCEDURES No Known [...]
[2017-11-18] MEDS: FUROSEMIDE 40 MG (LASIX) TAB PO SCH (17:47)
[2017-11-18] MEDS: warFARin 3 MG (COUMADIN) TAB PO SCH (17:47)
[2017-11-18] MEDS: inSUlin ASPART (NovoLOG) 1 UNIT/0.01 ML (CHARGE PER UNIT) SC SCH (17:48)
[2017-11-18 18:10] VITALS: BP 139/74
[2017-11-18] MEDS: DONEPEZIL 10 MG (ARICEPT) TAB PO SCH (20:48)
[2017-11-18] MEDS: ATORVASTATIN 40 MG (LIPITOR) TABLET PO SCH (20:48)
[2017-11-18] MEDS: SODIUM BICARBONATE 650 MG TABLET (NON-FORMULARY) PO SCH (20:49)
[2017-11-18] MEDS: traZODone 50 MG (DESYREL) TAB PO SCH (20:50)
[2017-11-18] MEDS: inSUlin DETERMIR 1 UNIT/0.01 ML (LEVEMIR) CHARGE PER UNIT SQ SCH (20:52)
[2017-11-18] MEDS: LORazepam 0.5 MG (ATIVAN) TABLET PO PRN (23:55)
[2017-11-19] MEDS: HYDROcodone/APAP 5 MG/325 MG (LORTAB) TAB PO PRN ×6 (02:06→23:21)
[2017-11-19 05:17] LABS: INR 2.5 (0.8-1.4); PROTHROMBIN TIME PATIENT 27.2 SEC (12.2-14.7)
[2017-11-19 05:50] VITALS: BP 122/70
[2017-11-19] MEDS: VENlafaxine XR 75 MG (EFFEXOR XR) CAP PO SCH (07:09)
[2017-11-19] MEDS: FUROSEMIDE 40 MG (LASIX) TAB PO SCH ×2 (07:10→17:35)
[2017-11-19] MEDS: PANTOPRAZOLE 40 MG (PROTONIX) TAB PO SCH (07:10)
[2017-11-19] MEDS: SEVELAMER CARBONATE 800 MG TAB (RENVELA) NON-FORMULARY PO SCH ×3 (07:10→19:21)
[2017-11-19] MEDS: inSUlin ASPART (NovoLOG) 1 UNIT/0.01 ML (CHARGE PER UNIT) SC SCH ×3 (07:14→17:36)
--- NOTE | 2017-11-19 08:53 | Occupational Ther Daily Note ---
OT Current Status-Daily Note Subjective Pt in bed, agrees to treatment. Pt requests pain pill, RN notified. Mental Status/Objective Functional [place] Measure 0=Not Assessed/NA 4=Minimal Assistance 1=Total Assistance 5=Supervision or Setup 2=Maximal Assistance 6=Modified [place] 3=Moderate Assistance 7=Complete [place] ADL-Treatment Pt supine to sit with moderate assistance. Pt requests to bathe and change clothes this morning prior to leaving for dialysis. Pt transferred to w/c with minimal assistance. Sponge bath completed seated in w/c. Doff shirt with SBA. Pt bathed upper body with set up. Mod assist to doff pants. Pt able to wash bilateral upper legs and sophia area, but requires assist to wash buttocks and bilateral lower legs. Don pullover shirt with set up. Pt requires assist to thread bilateral LE into pant legs. Sit to stand with minimal assistance. Pt required assist to pull pants up over hips. Pt required total assist to don socks and shoes. Pt sitting in w/c with needs met after session. Functional [place] Measure 0=Not Assessed/NA 4=Minimal Assistance 1=Total Assistance 5=Supervision or Setup 2=Maximal Assistance 6=Modified [place] 3=Moderate Assistance 7=Complete IndependenceIRFPAI Quality Coding Scale 6 Independent with activity with or without an assistive device 5 Patient requires set up or clean up by helper. Patient completes activity by themselves 4 Supervision or touching assist (CGA). [place] provide cues , steadying assist 3 The helper provides less than half the effort to complete the activity 2 The helper provides more than half the effort to complete the activity 1 Dependent. The helper does all the effort to complete an activity 7 Patient refused to complete or attempt activity 9 The patient did not perform the activity before the current illness or injury 88 Not attempted due to Medical conditions or safety concerns Bathing (FIM): 3 Shower/Bathe Self (QC): 3 Upper Body (FIM): 5 Upper Body Dressing (QC): 5 Lower Body Dressing (FIM): 2 Lower Body Dressing (QC): 2 On/Off Footwear (QC): 1 OT Short Term Goals Short Term Goals Transfers (B,C,W/C) (FIM): 4 1=Demonstrate adherence to instructed precautions during ADL tasks. 2=Patient will verbalize/demonstrate understanding of assistive devices/ modifications for ADL. 3=Patient will improve strength/tolerance for activity to enable patient to perform ADL's. OT Residential Goals Pediatric Clinical Dietician Goals Time Frame: Dec 09, 2017 Eating (FIM): 7 Eating (QC): 6 Groomin Oral Hygiene (QC): 6 Bathing(FIM): 5 Shower/Bathe Self (QC): 4 Upper Body Dressing(FIM): 6 Upper Body Dressing (QC): 6 Lower Body Dressing(FIM): 5 Lower Body Dressing (QC): 5 On/Off Footwear (QC): 5 Toileting(FIM): 5 Toileting Hygiene (QC): 4 Toilet/Commode Transfer(FIM): 5 Toilet/Commode Transfer (QC): 5 Shower Transfer(FIM): 5 Additional Goals: 1-Demonstrate ADL Tasks, 2-Verbalize Understanding, 3- ImproveStrength/Garcia 1=Demonstrate adherence to instructed precautions during ADL tasks. 2=Patient will verbalize/demonstrate understanding of assistive devices/ modifications for ADL. 3=Patient will improve strength/tolerance for activity to enable patient to perform ADL's. OT Education/Plan Discharge Recommendations Plan/Recommendations: Continue POC Treatment Plan/Plan of Care Patient would benefit from OT for education, treatment and training to promote independence in ADL's, mobility, safety and/or upper extremity function for ADL' s. Plan of Care: ADL Retraining, Functional Mobility, Group Exercise/Act as Ind, UE Funct Exercise/Act Treatment Duration: Dec 09, 2017 Frequency: Modified Program (IRF) (21/08) Estimated Hrs Per Day: 1.5 hours per day Agreement: Yes Rehab Potential: Fair Time/GCodes Start Time: 08:05 Stop Time: 08:35 Total Time Billed (hr/min): 30 Billed Treatment Time 1 visit, ADLx2(30minutes) REGINA SIDHU OT Nov 19, 2017 08:53
[2017-11-19] MEDS: DIVALPROEX 250 MG DELAYED RELEASE (DEPAKOTE) TAB PO SCH ×3 (08:56→21:24)
[2017-11-19] MEDS: lisINopril 10 MG (PRINIVIL) TABLET PO SCH (08:56)
[2017-11-19] MEDS: CLOPIDOGREL 75 MG (PLAVIX) TABLET PO SCH (08:56)
[2017-11-19] MEDS: SENNOSIDES 8.6 MG (SENOKOT) TAB PO SCH (08:56)
[2017-11-19] MEDS: SODIUM BICARBONATE 650 MG TABLET (NON-FORMULARY) PO SCH ×2 (08:56→21:24)
[2017-11-19] MEDS: AMIODARONE 200 MG (CORDARONE) TAB PO SCH (08:56)
[2017-11-19] MEDS: GABAPENTIN 100 MG (NEURONTIN) CAP PO SCH ×3 (08:56→21:24)
[2017-11-19] MEDS: ISOSORBIDE DINITRATE 20 MG (ISORDIL) TAB PO SCH (08:57)
[2017-11-19] MEDS: ASPIRIN E.C. 81 MG (ECOTRIN) TAB PO SCH (08:57)
--- NOTE | 2017-11-19 10:46 | Physical Therapy Daily Note ---
PT Daily Note-Current Subjective Pt initially hesitant to participate with PT but then agrees. During treatment , pt notes, "I'm just so tired. They did too much yesterday." "My legs are going to give out on me." Mental Status Patient Orientation: Person, Place, Time, Situation Transfers Functional [place] Measure 0=Not Assessed/NA 4=Minimal Assistance 1=Total Assistance 5=Supervision or Setup 2=Maximal Assistance 6=Modified [place] 3=Moderate Assistance 7=Complete IndependenceIRFPAI Quality Coding Scale 6 Independent with activity with or without an assistive device 5 Patient requires set up or clean up by helper. Patient completes activity by themselves 4 Supervision or touching assist (CGA). [place] provide cues , steadying assist 3 The helper provides less than half the effort to complete the activity 2 The helper provides more than half the effort to complete the activity 1 Dependent. The helper does all the effort to complete an activity 7 Patient refused to complete or attempt activity 9 The patient did not perform the activity before the current illness or injury 88 Not attempted due to Medical conditions or safety concerns Transfers (B, C, W/C) (FIM): 3 Sit to/from Stand: 3 (pt required mod assist to sit due to unsafe stand to sit practices.) Sit to Stand (QC): 3 Pt tries to sit down from a 45 degree angle to the chair twisting his hips to turn and sit and on 2 occas nearly missed the chair. He also as he is starting to sit, just drops into the chair noting that his legs are too weak to hold him. However with heavy and firm cuing, he squares up to the chair, reaches back and sits safely. Weight Bearing Right Lower Extremity: Right Full Weight Bearing Left Lower Extremity: Left Weight Bearing/Tolerated Gait Training Does the Patient Walk?: Yes Gait (FIM): 2 Distance (FIM): 2=691-15 ft Distance: 50 ft x 4 reps Gait Assistive Device: FWW Pt walked 50 ft x 4 reps with FWW with close CGA, pt does not walk a consistent pace, he tends to take short shuffled steps and keeps his head down. He often pushes the walker in a fashion that is not smooth and stops often. Pt responds to cues to stand straigth and to take larger steps but quickly returns to the old pattern. Requires constant cues to stay on task and constant encouragement to participate. Assessment Current Status: Fair Progress Pt requires much encouragement to participate and encouragement to give full effort. At times, it seems as though he is not putting forth full effort and this decreases his functional safety. Post treatment, pt apologizes and says he will try harder next time. However, his safety is compromised at times due to unsafe behavior with transfers and gait. PT Short Term Goals Short Term Goals Time Frame: Nov 25, 2017 Transfers (B,C,W/C) (FIM): 4 Gait (FIM): 2 Gait Distance Comment: 75' Gait Level of Assist: 4 Gait Assistive Device: FWW Wheelchair Distance: 150' PT Client Specialist Goals Client Specialist Goals PT Assisted Goals Time Frame: Dec 09, 2017 Transfers (B,C,W/C) (FIM): 5 Sit to Lying (QC): 4 Lying-Sitting on Side/Bed(QC): 4 Sit to Stand (QC): 4 Rollin Roll Left to Right (QC): 4 Chair/Bby-nm-Oiynl Xfer(QC): 4 Car Transfer (QC): 4 Does the Patient Walk: Yes Gait (FIM): 5 Distance: 150' Walk 10 feet (QC): 4 Walk 10ft-Uneven Surface(QC): 4 Walk 50ft with 2 Turns (QC): 4 Walk 150 ft (QC): 4 Gait Level of Assist: 5 Gait Assistive Device: FWW Stairs (FIM): 4 # of Steps: 12 1 Step (curb) (QC): 4 4 Steps (QC): 4 12 Steps (QC): 4 Stairs Level Of Assist: 4 Picking up an Object (QC): 4 PT Plan Problem List Problem List: Activity Tolerance, Functional Strength, Safety, Balance, Gait, Transfer Treatment/Plan Treatment Plan: Continue Plan of Care Treatment Plan: Bed Mobility, Concurrent Therapy, Education, Functional Activity Garcia, Functional Strength, Group Therapy, Gait, Safety, Therapeutic Exercise, Transfers Treatment Duration: Dec 09, 2017 Frequency: At least 5 of 7 days/Wk (IRF) Estimated Hrs Per Day: 1.5 hours per day Patient and/or Family Agrees t: Yes Safety Risks/Education Patient Education: Transfer Techniques, Safety Issues Teaching Recipient: Patient Teaching Methods: Demonstration, Discussion Response to Teaching: Reinforcement Needed Pt continued to attempt to use unsafe stand to sit practices even after heavy and firm cues of the risk of falling. Time/GCodes Time In: 835 Time Out: 904 Total Billed Treatment Time: 29 Total Billed Treatment visit GT 29 TIGRE DRAKE PT Nov 19, 2017 10:46
[2017-11-19 17:26] VITALS: BP 134/71
[2017-11-19] MEDS: warFARin 3 MG (COUMADIN) TAB PO SCH (17:35)
[2017-11-19] MEDS: DONEPEZIL 10 MG (ARICEPT) TAB PO SCH (21:23)
[2017-11-19] MEDS: ATORVASTATIN 40 MG (LIPITOR) TABLET PO SCH (21:24)
[2017-11-19] MEDS: traZODone 50 MG (DESYREL) TAB PO SCH (21:24)
[2017-11-19] MEDS: inSUlin DETERMIR 1 UNIT/0.01 ML (LEVEMIR) CHARGE PER UNIT SQ SCH (21:27)
[2017-11-19] MEDS: LORazepam 0.5 MG (ATIVAN) TABLET PO PRN (21:32)
[2017-11-20] MEDS: HYDROcodone/APAP 5 MG/325 MG (LORTAB) TAB PO PRN ×2 (05:28→23:10)
[2017-11-20 05:46] VITALS: BP 127/75
[2017-11-20] MEDS: FUROSEMIDE 40 MG (LASIX) TAB PO SCH ×2 (06:34→16:38)
[2017-11-20] MEDS: PANTOPRAZOLE 40 MG (PROTONIX) TAB PO SCH (06:34)
[2017-11-20] MEDS: SEVELAMER CARBONATE 800 MG TAB (RENVELA) NON-FORMULARY PO SCH ×3 (06:34→16:38)
[2017-11-20] MEDS: VENlafaxine XR 75 MG (EFFEXOR XR) CAP PO SCH (06:34)
[2017-11-20] MEDS: inSUlin ASPART (NovoLOG) 1 UNIT/0.01 ML (CHARGE PER UNIT) SC SCH ×3 (06:35→16:37)
[2017-11-20 08:03] VITALS: BP 119/69
[2017-11-20] MEDS: DIVALPROEX 250 MG DELAYED RELEASE (DEPAKOTE) TAB PO SCH ×3 (08:04→21:06)
[2017-11-20] MEDS: ISOSORBIDE DINITRATE 20 MG (ISORDIL) TAB PO SCH (08:04)
[2017-11-20] MEDS: CLOPIDOGREL 75 MG (PLAVIX) TABLET PO SCH (08:04)
[2017-11-20] MEDS: SODIUM BICARBONATE 650 MG TABLET (NON-FORMULARY) PO SCH ×2 (08:05→21:07)
[2017-11-20] MEDS: GABAPENTIN 100 MG (NEURONTIN) CAP PO SCH ×3 (08:05→21:06)
[2017-11-20] MEDS: SENNOSIDES 8.6 MG (SENOKOT) TAB PO SCH (08:06)
[2017-11-20] MEDS: lisINopril 10 MG (PRINIVIL) TABLET PO SCH (08:06)
[2017-11-20] MEDS: AMIODARONE 200 MG (CORDARONE) TAB PO SCH (08:06)
[2017-11-20] MEDS: ASPIRIN E.C. 81 MG (ECOTRIN) TAB PO SCH (08:06)
[2017-11-20] MEDS: BISACODYL 10 MG SUPP (DULCOLAX) PR PRN (10:04)
[2017-11-20] MEDS: warFARin 3 MG (COUMADIN) TAB PO SCH (17:12)
[2017-11-20 17:15] VITALS: BP 158/77
[2017-11-20] MEDS: ATORVASTATIN 40 MG (LIPITOR) TABLET PO SCH (21:06)
[2017-11-20] MEDS: DONEPEZIL 10 MG (ARICEPT) TAB PO SCH (21:07)
[2017-11-20] MEDS: traZODone 50 MG (DESYREL) TAB PO SCH (21:07)
[2017-11-20] MEDS: inSUlin DETERMIR 1 UNIT/0.01 ML (LEVEMIR) CHARGE PER UNIT SQ SCH (21:10)
[2017-11-20] MEDS: LORazepam 0.5 MG (ATIVAN) TABLET PO PRN (23:10)
[2017-11-21] MEDS: HYDROcodone/APAP 5 MG/325 MG (LORTAB) TAB PO PRN ×4 (02:35→20:47)
[2017-11-21 05:22] VITALS: BP 147/76
[2017-11-21 05:40] LABS: INR 4.4 (0.8-1.4); PROTHROMBIN TIME PATIENT 42.2 SEC (12.2-14.7)
[2017-11-21] MEDS: SEVELAMER CARBONATE 800 MG TAB (RENVELA) NON-FORMULARY PO SCH ×3 (06:40→18:06)
[2017-11-21] MEDS: VENlafaxine XR 75 MG (EFFEXOR XR) CAP PO SCH (06:41)
[2017-11-21] MEDS: FUROSEMIDE 40 MG (LASIX) TAB PO SCH ×2 (06:41→18:06)
[2017-11-21] MEDS: PANTOPRAZOLE 40 MG (PROTONIX) TAB PO SCH (06:41)
[2017-11-21] MEDS: inSUlin ASPART (NovoLOG) 1 UNIT/0.01 ML (CHARGE PER UNIT) SC SCH ×3 (06:44→18:06)
--- NOTE | 2017-11-21 07:36 | Occupational Ther Daily Note ---
OT Current Status-Daily Note Subjective Pt alert, lying in bed. Pt agrees to therapy. C/o of leg pain, did not rate, reported to nrsg. Mental Status/Objective Patient Orientation: Person, Place, Time, Situation Functional [place] Measure 0=Not Assessed/NA 4=Minimal Assistance 1=Total Assistance 5=Supervision or Setup 2=Maximal Assistance 6=Modified [place] 3=Moderate Assistance 7=Complete [place] ADL-Treatment Supine to sitting with min A using HOB slightly raised and grabbars. LOB backward with sit to stand from recliner. CGA for ambulation using FWW. Pt takes increased time to complete all ADLs due to decreased activity tolerance and moves slowly. Physician in to check wounds, nrsg brought pain meds. After therapy, pt lying in bed on R side to decrease pressure on buttocks. Call light /phone in reach. All needs met in room. Functional [place] Measure 0=Not Assessed/NA 4=Minimal Assistance 1=Total Assistance 5=Supervision or Setup 2=Maximal Assistance 6=Modified [place] 3=Moderate Assistance 7=Complete IndependenceIRFPAI Quality Coding Scale 6 Independent with activity with or without an assistive device 5 Patient requires set up or clean up by helper. Patient completes activity by themselves 4 Supervision or touching assist (CGA). [place] provide cues , steadying assist 3 The helper provides less than half the effort to complete the activity 2 The helper provides more than half the effort to complete the activity 1 Dependent. The helper does all the effort to complete an activity 7 Patient refused to complete or attempt activity 9 The patient did not perform the activity before the current illness or injury 88 Not attempted due to Medical conditions or safety concerns Eating (FIM): 7 (Pt able to open containers/packages by self and use regular utensils.) Eating (QC): 6 Bathing (FIM): 3 (Using shower bench, hand held shower and grabbars pt is able to complete 70% of shower. Assist needed to bath lower legs and buttocks. Decreased standing balance.) Bathing Location: L Arm, R Arm, L Upper Leg, R Upper Leg, Chest, Abdomen, Perineal Area Shower/Bathe Self (QC): 3 Upper Body (FIM): 5 (Setup, completes by self.) Upper Body Dressing (QC): 5 Lower Body Dressing (FIM): 2 (Pt is able to lift feet to assist donning/ doffing lower body clothing. Assist to don/doff over feet, pull up thighs and hike over buttocks. Pt able to pull up in front.) Lower Body Dressing (QC): 2 On/Off Footwear (QC): 2 Toileting (FIM): 2 (Assist to manipulate clothing and cleanse buttocks.) Toileting Hygiene (QC): 2 Transfers (B, C, W/C) (FIM): 4 (Min A due to LOB backwards with sit to stand.) Toilet/Commode Transfer (FIM): 4 (Using grabbars and FWW pt able to transfer with min A.) Toilet Transfer (QC): 3 Shower Transfer(FIM): 4 (Min A for safety using FWW, shower bench and grabbars. ) OT Short Term Goals Short Term Goals Transfers (B,C,W/C) (FIM): 4 1=Demonstrate adherence to instructed precautions during ADL tasks. 2=Patient will verbalize/demonstrate understanding of assistive devices/ modifications for ADL. 3=Patient will improve strength/tolerance for activity to enable patient to perform ADL's. OT Swing Grinder Goals Group Home Goals Time Frame: Dec 09, 2017 Eating (FIM): 7 Eating (QC): 6 Groomin Oral Hygiene (QC): 6 Bathing(FIM): 5 Shower/Bathe Self (QC): 4 Upper Body Dressing(FIM): 6 Upper Body Dressing (QC): 6 Lower Body Dressing(FIM): 5 Lower Body Dressing (QC): 5 On/Off Footwear (QC): 5 Toileting(FIM): 5 Toileting Hygiene (QC): 4 Toilet/Commode Transfer(FIM): 5 Toilet/Commode Transfer (QC): 5 Shower Transfer(FIM): 5 Additional Goals: 1-Demonstrate ADL Tasks, 2-Verbalize Understanding, 3- ImproveStrength/Garcia 1=Demonstrate adherence to instructed precautions during ADL tasks. 2=Patient will verbalize/demonstrate understanding of assistive devices/ modifications for ADL. 3=Patient will improve strength/tolerance for activity to enable patient to perform ADL's. OT Education/Plan Discharge Recommendations Plan/Recommendations: Continue POC Treatment Plan/Plan of Care Patient would benefit from OT for education, treatment and training to promote independence in ADL's, mobility, safety and/or upper extremity function for ADL' s. Plan of Care: ADL Retraining, Functional Mobility, Group Exercise/Act as Ind, UE Funct Exercise/Act Treatment Duration: Dec 09, 2017 Frequency: Modified Program (IRF) (21/08) Estimated Hrs Per Day: 1.5 hours per day Agreement: Yes Rehab Potential: Fair Time/GCodes Start Time: 07:00 Stop Time: 08:30 Total Time Billed (hr/min): 90 Billed Treatment Time 1 visit-ADL 8 (120 min) TIGRE CALDERON Nov 21, 2017 07:36
[2017-11-21] MEDS: DIVALPROEX 250 MG DELAYED RELEASE (DEPAKOTE) TAB PO SCH ×3 (09:41→20:47)
[2017-11-21] MEDS: ISOSORBIDE DINITRATE 20 MG (ISORDIL) TAB PO SCH (09:41)
[2017-11-21] MEDS: SODIUM BICARBONATE 650 MG TABLET (NON-FORMULARY) PO SCH ×2 (09:41→20:48)
[2017-11-21] MEDS: AMIODARONE 200 MG (CORDARONE) TAB PO SCH (09:42)
[2017-11-21] MEDS: ASPIRIN E.C. 81 MG (ECOTRIN) TAB PO SCH (09:42)
[2017-11-21] MEDS: CLOPIDOGREL 75 MG (PLAVIX) TABLET PO SCH (09:42)
[2017-11-21] MEDS: lisINopril 10 MG (PRINIVIL) TABLET PO SCH (09:42)
[2017-11-21] MEDS: GABAPENTIN 100 MG (NEURONTIN) CAP PO SCH ×3 (09:42→20:48)
[2017-11-21] MEDS: SENNOSIDES 8.6 MG (SENOKOT) TAB PO SCH (09:42)
--- NOTE | 2017-11-21 11:54 | Physical Therapy Daily Note ---
PT Daily Note-Current Subjective Patient in bed pre tx, agrees to PT, has 8/10 pain in left hip. Appearance Patient in recliner post tx with nurse call, phone, tray, all needs met. Mental Status Patient Orientation: Person, Place, Situation Transfers Functional [place] Measure 0=Not Assessed/NA 4=Minimal Assistance 1=Total Assistance 5=Supervision or Setup 2=Maximal Assistance 6=Modified [place] 3=Moderate Assistance 7=Complete IndependenceIRFPAI Quality Coding Scale 6 Independent with activity with or without an assistive device 5 Patient requires set up or clean up by helper. Patient completes activity by themselves 4 Supervision or touching assist (CGA). [place] provide cues , steadying assist 3 The helper provides less than half the effort to complete the activity 2 The helper provides more than half the effort to complete the activity 1 Dependent. The helper does all the effort to complete an activity 7 Patient refused to complete or attempt activity 9 The patient did not perform the activity before the current illness or injury 88 Not attempted due to Medical conditions or safety concerns Transfers (B, C, W/C) (FIM): 4 Scootin Rollin Supine to/from Sit: 5 Sit to/from Stand: 4 Bed to/from Chair: 4 Patient performed bed mobility and supine to sit with SBA, it was difficult for him but he did it without assist. Sit to stand CGA and cues for hand placement. Patient has a tendency to not turn completely before sitting. Weight Bearing Right Lower Extremity: Right Full Weight Bearing Left Lower Extremity: Left Weight Bearing/Tolerated Gait Training Gait (FIM): 2 Distance: 120'x2 Gait Level of Assist: 4 Gait Persons Needed: 1 Gait Assistive Device: FWW Patient ambulated 120'x2 with CGA using a rolling walker. He ambulates slowly and his left hip is slightly internally rotated. He may need occasional standing rest break. Exercises Standing: Hip Abduction, Hamstring curls, Heel/toe raises, Mini squats Standing Reps: 15 LAQ left side for 5 min Treatments bed mobility and transfers, ambulation, functional strengthening Assessment Current Status: Fair Progress Improved endurance and bed mobility. Patient needs frequent rest breaks when performing exercises. PT Short Term Goals Short Term Goals Time Frame: Nov 25, 2017 Transfers (B,C,W/C) (FIM): 4 Gait (FIM): 2 Gait Distance Comment: 75' Gait Level of Assist: 4 Gait Assistive Device: FWW Wheelchair Distance: 150' PT Prison Goals Prison Goals PT Prison Goals Time Frame: Dec 09, 2017 Transfers (B,C,W/C) (FIM): 5 Sit to Lying (QC): 4 Lying-Sitting on Side/Bed(QC): 4 Sit to Stand (QC): 4 Rollin Roll Left to Right (QC): 4 Chair/Hsy-en-Kwxnf Xfer(QC): 4 Car Transfer (QC): 4 Does the Patient Walk: Yes Gait (FIM): 5 Distance: 150' Walk 10 feet (QC): 4 Walk 10ft-Uneven Surface(QC): 4 Walk 50ft with 2 Turns (QC): 4 Walk 150 ft (QC): 4 Gait Level of Assist: 5 Gait Assistive Device: FWW Stairs (FIM): 4 # of Steps: 12 1 Step (curb) (QC): 4 4 Steps (QC): 4 12 Steps (QC): 4 Stairs Level Of Assist: 4 Picking up an Object (QC): 4 PT Plan Problem List Problem List: Activity Tolerance, Functional Strength, Safety, Balance, Gait, Transfer, Bed Mobility, ROM Treatment/Plan Treatment Plan: Continue Plan of Care Treatment Plan: Bed Mobility, Concurrent Therapy, Education, Functional Activity Garcia, Functional Strength, Group Therapy, Gait, Safety, Therapeutic Exercise, Transfers Treatment Duration: Dec 09, 2017 Frequency: At least 5 of 7 days/Wk (IRF) Estimated Hrs Per Day: 1.5 hours per day Patient and/or Family Agrees t: Yes Safety Risks/Education Patient Education: Gait Training, Transfer Techniques, Reviewed Precautions, Correct Positioning, Safety Issues Teaching Recipient: Patient Teaching Methods: Demonstration, Discussion Response to Teaching: Reinforcement Needed Time/GCodes Time In: 1100 Time Out: 1200 Total Billed Treatment Time: 60 Total Billed Treatment 1 visit GT 30' EX 30' CHAVA JACKMAN PT Nov 21, 2017 11:54
--- NOTE | 2017-11-21 13:51 | Physical Therapy Daily Note ---
PT Daily Note-Current Subjective Agrees to PT. Expresses concern that his does not think he is working hard enough. Mental Status Patient Orientation: Person, Place, Time, Situation Transfers Functional [place] Measure 0=Not Assessed/NA 4=Minimal Assistance 1=Total Assistance 5=Supervision or Setup 2=Maximal Assistance 6=Modified [place] 3=Moderate Assistance 7=Complete IndependenceIRFPAI Quality Coding Scale 6 Independent with activity with or without an assistive device 5 Patient requires set up or clean up by helper. Patient completes activity by themselves 4 Supervision or touching assist (CGA). [place] provide cues , steadying assist 3 The helper provides less than half the effort to complete the activity 2 The helper provides more than half the effort to complete the activity 1 Dependent. The helper does all the effort to complete an activity 7 Patient refused to complete or attempt activity 9 The patient did not perform the activity before the current illness or injury 88 Not attempted due to Medical conditions or safety concerns Transfers (B, C, W/C) (FIM): 3 Sit to Stand (QC): 3 (mod assist at times and heavy cues for foot placement and to lean forward. ) Also requires heavy cues to square up to the chair before sitting with cues for safety and safe techniques. Occas requires assist to safely lower into the chair. demonstrated to pt correct stand to sit techniques with education on fall risk if not sitting down in a safe manner. Weight Bearing Right Lower Extremity: Right Full Weight Bearing Left Lower Extremity: Left Weight Bearing/Tolerated Gait Training Does the Patient Walk?: Yes Gait (FIM): 2 Distance (FIM): 3=587-95 ft Distance: 50 ft x 4 Gait Assistive Device: FWW very close CGA; 1 LOB episode that required rigid assist to recover. Assessment Current Status: Fair Progress Limited functional gait distance tolerance. PT Short Term Goals Short Term Goals Time Frame: Nov 25, 2017 Transfers (B,C,W/C) (FIM): 4 Gait (FIM): 2 Gait Distance Comment: 75' Gait Level of Assist: 4 Gait Assistive Device: FWW Wheelchair Distance: 150' PT Correction Goals Pattern Grader Cutter Goals PT Pattern Grader Cutter Goals Time Frame: Dec 09, 2017 Transfers (B,C,W/C) (FIM): 5 Sit to Lying (QC): 4 Lying-Sitting on Side/Bed(QC): 4 Sit to Stand (QC): 4 Rollin Roll Left to Right (QC): 4 Chair/Cyv-rx-Nztan Xfer(QC): 4 Car Transfer (QC): 4 Does the Patient Walk: Yes Gait (FIM): 5 Distance: 150' Walk 10 feet (QC): 4 Walk 10ft-Uneven Surface(QC): 4 Walk 50ft with 2 Turns (QC): 4 Walk 150 ft (QC): 4 Gait Level of Assist: 5 Gait Assistive Device: FWW Stairs (FIM): 4 # of Steps: 12 1 Step (curb) (QC): 4 4 Steps (QC): 4 12 Steps (QC): 4 Stairs Level Of Assist: 4 Picking up an Object (QC): 4 PT Plan Problem List Problem List: Activity Tolerance, Functional Strength, Safety, Balance, Gait, Transfer, Bed Mobility Treatment/Plan Treatment Plan: Continue Plan of Care Treatment Plan: Bed Mobility, Concurrent Therapy, Education, Functional Activity Garcia, Functional Strength, Group Therapy, Gait, Safety, Therapeutic Exercise, Transfers Treatment Duration: Dec 09, 2017 Frequency: At least 5 of 7 days/Wk (IRF) Estimated Hrs Per Day: 1.5 hours per day Patient and/or Family Agrees t: Yes Safety Risks/Education Patient Education: Transfer Techniques, Safety Issues Teaching Recipient: Patient Teaching Methods: Demonstration, Discussion Response to Teaching: Reinforcement Needed Time/GCodes Time In: 1300 Time Out: 1330 Total Billed Treatment Time: 30 Total Billed Treatment visit GT 30 TIGRE DRAKE PT Nov 21, 2017 13:51
--- NOTE | 2017-11-21 14:39 | History & Physicial (CHS) ---
REYNA ARNETT MEDICAL STUDENT 11/21/17 1439: HPI History of Present Illness: The pt is 62 yo M w/ a hx of CKD on dialysis, CAD, DM who is in inpatient rehab at [facility] s/p L hip fracture and subsequent L hip hemiarthroplasty at [facility]. About three weeks ago he fell when he was transitioning to his wheelchair following dialysis treatment. At that time, he was a resident of [facility], being placed there after an UT. He has goals to return home w/ his spouse in [place], [place]. The pt is on dialysis Tues//Sat. Pt is on Warfarin and has a supratherapeutic INR of 4.4 here at the hospital. He states this is not a new occurrence and that "they were battling with that at [facility] before they would do my surgery." He denies MALDONADO, dizziness, CP, SOB, fatigue, pallor, hematemesis, increased bruising or bleeding, melena/hematochezia, confusion, weakness, facial droop, or numbness. Source: patient, RN/MD Exam Limitations: no limitations Date seen by provider: Nov 21, 2017 Time Seen by Provider: 12:17 Attending Physician Vitaly Fermin MD PCP Leo Conway MD Consult Date of Admission Nov 18, 2017 at 11:16 Home Medications Home Medications Reviewed patient Home Medication Reconciliation performed by pharmacy medication reconciliations instrumentation engineering technician and/or nursing. Patients Allergies have been reviewed. Allergies Coded Allergies: No Known Drug Allergies (Unverified , 08/01/17) [id number] Hx Patient Social History Marrital Status: Alcohol Use: Denies Use Recreational Drug Use: No Smoking Status: Never a Smoker Type Used: Smokeless Tobacco Recent Foreign Travel: No Contact w/other who traveled: No Recent Hopitalizations: No Recent Infectious Disease Expo: No Physical Abuse Screen: No Sexual Abuse: No Immunizations Up To Date Tetanus Booster (TDap): Unknown Date of Pneumonia Vaccine: Sep 18, 2017 Date of Influenza Vaccine: Sep 18, 2017 Past Medical History CKD, DM, CAD w/ CABGx4 Family Medical History Significant Family History: Heart Disease, Diabetes Review of Systems (CHC) Constitutional: No chills, No fever EENTM: No blurred vision, No epistaxis Respiratory: No cough, No dyspnea on exertion Cardiovascular: No chest pain, No edema Gastrointestinal: No abdominal pain, No nausea Genitourinary: No dysuria, No hematuria Musculoskeletal: No back pain; joint pain (L hip) Skin: No change in color, No dryness, No rash Psychiatric/Neurological: Denies Headache, Denies Numbness, Denies Paresthesia , Denies Weakness Reviewed Test Results Reviewed Test Results Lab Laboratory Tests Test 11/20/17 15:59 11/20/17 21:01 11/21/17 05:20 11/21/17 05:21 Range/Units Glucometer 150 H 136 H 120 H 70-110 MG/DL Prothrombin Time 42.2 H 12.2-14.7 SEC INR Comment 4.4 H 0.8-1.4 Test 11/21/17 12:35 Range/Units Glucometer 85 70-110 MG/DL Physical Exam-(CHC) Physical Exam Vital Signs VS - Last 72 Hours, by Label 11/18/17 11/18/17 11/19/17 11/19/17 18:10 21:00 05:50 09:04 Temp 98.6 97.6 Pulse 77 76 Resp 18 18 B/P (MAP) 139/74 (95) 122/70 (87) Pulse Ox 97 97 O2 Delivery Room Air Room Air Room Air Room Air 11/19/17 11/19/17 11/20/17 11/20/17 17:26 21:00 05:46 08:03 Temp 98.0 97.6 Pulse 86 77 81 Resp 18 18 B/P (MAP) 134/71 (92) 127/75 (92) 119/69 (86) Pulse Ox 97 96 O2 Delivery Room Air Room Air Room Air 11/20/17 11/20/17 11/20/17 11/21/17 09:28 17:15 21:00 05:22 Temp 98.5 98.0 Pulse 84 81 Resp 18 18 B/P (MAP) 158/77 (104) 147/76 (99) Pulse Ox 97 96 O2 Delivery Room Air Room Air Room Air Room Air 11/21/17 09:00 O2 Delivery Room Air Capillary Refill : Less Than 3 Seconds General Appearance: WD/WN, no apparent distress Eyes: Left Eye Normal Inspection (R eye enucleated and sutured closed), Left Eye EOMI HEENT: No pale conjunctivae (R), No pale conjunctivae (L) Neck: non-tender, full range of motion, supple, normal inspection Respiratory: chest non-tender, lungs clear, normal breath sounds, no respiratory distress, no accessory muscle use Cardiovascular: regular rate, rhythm, no edema, no murmur Peripheral Pulses: 2+ Dorsalis Pedis (R), 2+ Left Dors-Pedis (L) Gastrointestinal: normal bowel sounds, non tender, soft, no organomegaly, no pulsatile mass Back: normal inspection, no vertebral tenderness Extremities: normal range of motion, non-tender, normal inspection, no pedal edema, no calf tenderness, normal capillary refill Neurologic/Psychiatric: crew leader II-XII nml as tested, alert, normal mood/affect, oriented x 3; No aphasia, No facial droop; motor weakness (4/5 flexion L hip) Skin: normal color, warm/dry Lymphatic: no adenopathy Assessment/Plan Assessment/Plan Admission Status: Inpatient Order (span 2 midnights) Reason for Inpatient Admission: PT/OT (1) Supratherapeutic INR Status: Acute Assessment & Plan: Pt is on several medications along with Warfarin, most notably, Amiodarone, which is the likely cause of his INR of 4.4 (2.5 two days ago). He does not have any indication of an active bleed, either internal or external. Plan to hold his regular Warfarin dose of 3mg for one day and recheck INR. If INR is still elevated or continues to increase, continue to hold Warfarin. If INR goes above 5, continue to hold Warfarin and give 2.5 mg oral Vitamin K, and recheck. Ultimately, if his INR does not restabilize between 2 and 3, we should consider decreasing his dosage of Warfarin. (2) Hip fracture, left Status: Resolved Assessment & Plan: Dr. Fermin is managing pt's ongoing inpatient physical/ occupational/speech therapy and goals. Clinical Quality Measures DVT/VTE Risk/Contraindication: Risk Factor Score Per Nursin RFS Level Per Nursing on Admit: 4+=Very High Copy Copies To 1: [facility] DUKE ARTEAGA MD 11/23/172057: HPI History of Present Illness: Reviewed Student HPI with patient. Patient is poor historian and not sure why he is on Amiodarone and Coumadin Source: patient Exam Limitations: no limitations Home Medications Allergies Coded Allergies: No Known Drug Allergies (Unverified , 08/01/17) TNU-Cefjvk-Hmisgx Hx Patient Social History Living Status: Lives at home with Past Medical History ESRD on HD CAD s/p CABG IDDM HTN HLD Depression GERD Right Eye Cancer Melanoma Review of Systems (CHC) Constitutional: no symptoms reported EENTM: no symptoms reported, other (Vision loss 2/2 to eye cancer) Respiratory: no symptoms reported Cardiovascular: no symptoms reported Gastrointestinal: no symptoms reported Genitourinary: no symptoms reported Musculoskeletal: joint pain (L hip) Skin: no symptoms reported Psychiatric/Neurological: No Symptoms Reported Physical Exam-([facility]) Physical Exam General Appearance: WD/WN, no apparent distress Neck: non-tender, full range of motion, supple Respiratory: chest non-tender, lungs clear, normal breath sounds, no respiratory distress, no accessory muscle use Cardiovascular: normal peripheral pulses, regular rate, rhythm, no edema, no murmur Gastrointestinal: normal bowel sounds, non tender, soft, no organomegaly Back: normal inspection, no CVA tenderness, no vertebral tenderness Extremities: normal range of motion, normal capillary refill, other (mild left calf swelling) Neurologic/Psychiatric: crew leader II-XII nml as tested, alert, normal mood/affect, oriented x 3, motor weakness (4/5 flexion L hip) Skin: normal color, warm/dry Lymphatic: no adenopathy Assessment/Plan Assessment/Plan (1) Hip fracture, left Status: Resolved Assessment & Plan: Repair at [facility] now in IRF (2) Supratherapeutic INR Status: Acute Assessment & Plan: - Holding Coumadin at this time, will continue to monitor, concerned with drug interactions (3) CAD (coronary artery disease) Status: Chronic Assessment & Plan: - Continue home meds Qualifiers: Qualified Codes: I25.10 - Atherosclerotic heart disease of [place] coronary artery without angina pectoris (4) S/P CABG (coronary artery bypass graft) Status: Chronic (5) ESRD (end stage renal disease) on dialysis Status: Chronic (6) HTN (hypertension) Status: Chronic Assessment & Plan: - Continue home meds Qualifiers: Qualified Codes: I10 - Essential (primary) hypertension (7) HLD (hyperlipidemia) (8) Insulin-dependent diabetes mellitus with renal complications (9) Depression Status: Chronic Qualifiers: Qualified Codes: 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
--- NOTE | 2017-11-21 17:19 | PM & R (SOAP) Progress Note ---
Subjective This was a face to face visit with the patient. Date Seen by Provider: Nov 21, 2017 Time Seen by Provider: 17:10 Subjective/Events-last exam Patient was seen in his room this evening Patient Mod assist for transfers Labs noted Discussed case with RN Patient has Pressure sore left heel with small blackened spot DR Davies Wound care has addressed.Pressure relief boots on Date Identified: Nov 21, 2017 Time Identified: 17:00 Medication Intervention: Pain meds adjusted over this past weekend Review of Systems Musculoskeletal: leg pain Neurological: Weakness Objective Physician Exam Last Set of Vital Signs Vital Signs Date Time Temp Pulse Resp B/P (MAP) Pulse Ox O2 Delivery O2 Flow Rate FiO2 11/21/17 09:00 Room Air 11/21/17 05:22 98.0 81 18 147/76 (99) 96 Capillary Refill : Less Than 3 Seconds I&O Intake and Output 11/21/17 00:00 Intake Total 1560 ml Output Total 0 ml Balance 1560 ml Intake Oral 1560 ml Output Urine Total 0 ml # Bowel Movements 1 General: Alert, Oriented X3, Cooperative, No Acute Distress HEENT: Mucous Memb Moist/[place], Other (enucleation rt eye due to CA) Neck: Supple, No JVD Lungs: Clear to Auscultation Heart: Regular Rate Abdomen: Normal Bowel Sounds, Soft, No Tenderness Extremities: No Edema Skin: Other (Left heel pressure sore) Neuro: Other (Generalized weakness more so left hip) Psych/Mental Status: Mental Status NL Results Lab Data Laboratory Tests 11/18/17 20:50: Glucometer 140H 11/19/17 04:39: Prothrombin Time 27.2H, INR Comment 2.5H 11/19/17 05:34: Glucometer 122H 11/19/17 14:52: Glucometer 89 11/19/17 17:32: Glucometer 73 11/19/17 21:22: Glucometer 127H 11/20/17 06:10: Glucometer 111H 11/20/17 11:02: Glucometer 118H 11/20/17 15:59: Glucometer 150H 11/20/17 21:01: Glucometer 136H 11/21/17 05:20: Prothrombin Time 42.2H, INR Comment 4.4H 11/21/17 05:21: Glucometer 120H 11/21/17 12:35: Glucometer 85 11/21/17 16:39: Glucometer 124H Assessment/Plan Assessment and Plan Displaced left fem neck fracture s/p left hip hemiarthroplasty OSH 11-04-17 ESRD on dialysis TIW IDDM CAD s/p FL and CABG S/P enucleation of rt eye for CA Pressure sore left heel Plan Continue PT/OT/Wound care Team Conference 11-23-17 Co-Morbidities that are continuing to impact the rehab process: (include details ) LUCA SORIA MD Nov 21, 2017 17:19
[2017-11-21 18:33] VITALS: BP 156/73
[2017-11-21] MEDS: DONEPEZIL 10 MG (ARICEPT) TAB PO SCH (20:47)
[2017-11-21] MEDS: ATORVASTATIN 40 MG (LIPITOR) TABLET PO SCH (20:47)
[2017-11-21] MEDS: traZODone 50 MG (DESYREL) TAB PO SCH (20:47)
[2017-11-21] MEDS: inSUlin DETERMIR 1 UNIT/0.01 ML (LEVEMIR) CHARGE PER UNIT SQ SCH (20:48)
[2017-11-22] MEDS: HYDROcodone/APAP 5 MG/325 MG (LORTAB) TAB PO PRN ×3 (01:41→21:45)
[2017-11-22] MEDS: LORazepam 0.5 MG (ATIVAN) TABLET PO PRN ×2 (03:08→20:48)
[2017-11-22 05:08] VITALS: BP 126/69
[2017-11-22 05:29] LABS: INR 5.6 (0.8-1.4); PROTHROMBIN TIME PATIENT 51.3 SEC (12.2-14.7)
[2017-11-22] MEDS: PANTOPRAZOLE 40 MG (PROTONIX) TAB PO SCH (06:06)
[2017-11-22] MEDS: FUROSEMIDE 40 MG (LASIX) TAB PO SCH ×2 (06:06→18:01)
[2017-11-22] MEDS: VENlafaxine XR 75 MG (EFFEXOR XR) CAP PO SCH (06:06)
[2017-11-22] MEDS: inSUlin ASPART (NovoLOG) 1 UNIT/0.01 ML (CHARGE PER UNIT) SC SCH ×3 (06:06→18:01)
[2017-11-22] MEDS: SEVELAMER CARBONATE 800 MG TAB (RENVELA) NON-FORMULARY PO SCH ×3 (06:08→18:02)
[2017-11-22] MEDS: GABAPENTIN 100 MG (NEURONTIN) CAP PO SCH ×3 (13:10→20:45)
[2017-11-22] MEDS: DIVALPROEX 250 MG DELAYED RELEASE (DEPAKOTE) TAB PO SCH ×3 (13:10→20:45)
[2017-11-22] MEDS: ISOSORBIDE DINITRATE 20 MG (ISORDIL) TAB PO SCH (13:42)
[2017-11-22] MEDS: ASPIRIN E.C. 81 MG (ECOTRIN) TAB PO SCH (13:42)
[2017-11-22] MEDS: lisINopril 10 MG (PRINIVIL) TABLET PO SCH (13:43)
[2017-11-22] MEDS: AMIODARONE 200 MG (CORDARONE) TAB PO SCH (13:43)
[2017-11-22] MEDS: CLOPIDOGREL 75 MG (PLAVIX) TABLET PO SCH (13:43)
[2017-11-22] MEDS: SODIUM BICARBONATE 650 MG TABLET (NON-FORMULARY) PO SCH ×2 (13:43→20:45)
[2017-11-22] MEDS: SENNOSIDES 8.6 MG (SENOKOT) TAB PO SCH (13:43)
--- NOTE | 2017-11-22 14:06 | Occupational Ther Daily Note ---
OT Current Status-Daily Note Subjective Pt just back from dialysis. Pt c/o fatigue and pain (10/17). Reported pain to nrsg, nrsg brought medications. Pt agrees to therapy. Mental Status/Objective Patient Orientation: Person, Place, Time, Situation Functional [place] Measure 0=Not Assessed/NA 4=Minimal Assistance 1=Total Assistance 5=Supervision or Setup 2=Maximal Assistance 6=Modified [place] 3=Moderate Assistance 7=Complete [place] ADL-Treatment Pt had blood in Depend and stool, reported to nrsg. OT/PT co-treat for skilled care due to decreased activity tolerance and strength, increased pain. PT working on transfers, ambulation, LE strengthening and mobility. OT working on ADLs, toilet transfers and functional tasks. Pt required encouragement to assist with lower body dressing and to use AE to adhere to hip precautions. Max A and verbal cues using AE to don/doff clothing over feet. Pt states "Pull down my pants" when toileting and cues/encouragement for pt to attempt to complete by self. Functional [place] Measure 0=Not Assessed/NA 4=Minimal Assistance 1=Total Assistance 5=Supervision or Setup 2=Maximal Assistance 6=Modified [place] 3=Moderate Assistance 7=Complete IndependenceIRFPAI Quality Coding Scale 6 Independent with activity with or without an assistive device 5 Patient requires set up or clean up by helper. Patient completes activity by themselves 4 Supervision or touching assist (CGA). [place] provide cues , steadying assist 3 The helper provides less than half the effort to complete the activity 2 The helper provides more than half the effort to complete the activity 1 Dependent. The helper does all the effort to complete an activity 7 Patient refused to complete or attempt activity 9 The patient did not perform the activity before the current illness or injury 88 Not attempted due to Medical conditions or safety concerns Eating (FIM): 5 (Pt had difficulty on some containers to open then was able to open packages. Pt used regular utensils to eat with.) Eating (QC): 5 Lower Body Dressing (FIM): 2 Lower Body Dressing (QC): 2 On/Off Footwear (QC): 2 Toileting (FIM): 2 (Instead of attempting to hike pants down, pt requested assistance. LING encouraged pt to complete. Pt able to cleanse sophia area, assist needed cleansing after BM.) Toileting Hygiene (QC): 2 Transfers (B, C, W/C) (FIM): 3 (Pt requires verbal cues for FWW and hand placement during transfers. Pt's decreased mobility is safety concern for balance.) Toilet/Commode Transfer (FIM): 3 (Using FWW and grabbars, pt is mod A for transfer.) Toilet Transfer (QC): 3 OT Short Term Goals Short Term Goals Transfers (B,C,W/C) (FIM): 4 1=Demonstrate adherence to instructed precautions during ADL tasks. 2=Patient will verbalize/demonstrate understanding of assistive devices/ modifications for ADL. 3=Patient will improve strength/tolerance for activity to enable patient to perform ADL's. OT Courtesy Car Driver Goals Half-Way Goals Time Frame: Dec 09, 2017 Eating (FIM): 7 Eating (QC): 6 Groomin Oral Hygiene (QC): 6 Bathing(FIM): 5 Shower/Bathe Self (QC): 4 Upper Body Dressing(FIM): 6 Upper Body Dressing (QC): 6 Lower Body Dressing(FIM): 5 Lower Body Dressing (QC): 5 On/Off Footwear (QC): 5 Toileting(FIM): 5 Toileting Hygiene (QC): 4 Toilet/Commode Transfer(FIM): 5 Toilet/Commode Transfer (QC): 5 Shower Transfer(FIM): 5 Additional Goals: 1-Demonstrate ADL Tasks, 2-Verbalize Understanding, 3- ImproveStrength/[place] 1=Demonstrate adherence to instructed precautions during ADL tasks. 2=Patient will verbalize/demonstrate understanding of assistive devices/ modifications for ADL. 3=Patient will improve strength/tolerance for activity to enable patient to perform ADL's. OT Education/Plan Discharge Recommendations Plan/Recommendations: Continue POC Treatment Plan/Plan of Care Patient would benefit from OT for education, treatment and training to promote independence in ADL's, mobility, safety and/or upper extremity function for ADL' s. Plan of Care: ADL Retraining, Functional Mobility, Group Exercise/Act as Ind, UE Funct Exercise/Act Treatment Duration: Dec 09, 2017 Frequency: Modified Program (IRF) (21/08) Estimated Hrs Per Day: 1.5 hours per day Agreement: Yes Rehab Potential: Good Time/GCodes Start Time: 13:00 Stop Time: 14:00 Total Time Billed (hr/min): 60 Billed Treatment Time 1 visit-ADL 4 (60 min) co-treat with PT 60 min TIGRE CALDERON Nov 22, 2017 14:06
--- NOTE | 2017-11-22 14:32 | Physical Therapy Daily Note ---
PT Daily Note-Current Subjective Pt agrees to PT/OT co-treat for tx due to fatigue after just returning from Dialysis. Pain Numeric Pain Scale: 9 Location: Left Location Body Site: Hip Pain Description: Ache Mental Status Patient Orientation: Person, Place, Situation Transfers Functional [place] Measure 0=Not Assessed/NA 4=Minimal Assistance 1=Total Assistance 5=Supervision or Setup 2=Maximal Assistance 6=Modified [place] 3=Moderate Assistance 7=Complete IndependenceIRFPAI Quality Coding Scale 6 Independent with activity with or without an assistive device 5 Patient requires set up or clean up by helper. Patient completes activity by themselves 4 Supervision or touching assist (CGA). [place] provide cues , steadying assist 3 The helper provides less than half the effort to complete the activity 2 The helper provides more than half the effort to complete the activity 1 Dependent. The helper does all the effort to complete an activity 7 Patient refused to complete or attempt activity 9 The patient did not perform the activity before the current illness or injury 88 Not attempted due to Medical conditions or safety concerns Scootin Sit to/from Stand: 4 Sit to Stand (QC): 4 Weight Bearing Right Lower Extremity: Right Full Weight Bearing Left Lower Extremity: Left Weight Bearing/Tolerated Gait Training Does the Patient Walk?: Yes Distance (FIM): 1=up to 49 ft Distance: 30' Walk 10 feet (QC): 3 Gait Level of Assist: 3 Gait Persons Needed: 1 Gait Assistive Device: FWW Pt is a little unsteady so SUPERVISOR STITCHING DEPARTMENT assists at Min-Mod A for balance due to fatigue. Exercises Seated Therapy Exercises: Ankle pumps, Long arc quads, Hip flexion, Kicking activity Seated Reps: 15 Treatments Pt transfers and ambulates to restroom using FWW at Min-Mod A. OT assists with ADLs (Dressing, Toileting, Opening Packages) while PT worked on balance, transfers, ambulation & LE strengthening with Seated Ex. Nurse gives meds during tx. Pt orders lunch and is eating at end of tx. Pt has all needs met. Assessment Current Status: Good Progress Pt is gaining strength & independence with tasks although still very fatigued after Dialysis. PT Short Term Goals Short Term Goals Time Frame: Nov 25, 2017 Transfers (B,C,W/C) (FIM): 4 Gait (FIM): 2 Gait Distance Comment: 75' Gait Level of Assist: 4 Gait Assistive Device: FWW Wheelchair Distance: 150' PT Halfway Goals Dispatch Officer Goals PT Halfway Goals Time Frame: Dec 09, 2017 Transfers (B,C,W/C) (FIM): 5 Sit to Lying (QC): 4 Lying-Sitting on Side/Bed(QC): 4 Sit to Stand (QC): 4 Rollin Roll Left to Right (QC): 4 Chair/Ciq-oc-Gubcu Xfer(QC): 4 Car Transfer (QC): 4 Does the Patient Walk: Yes Gait (FIM): 5 Distance: 150' Walk 10 feet (QC): 4 Walk 10ft-Uneven Surface(QC): 4 Walk 50ft with 2 Turns (QC): 4 Walk 150 ft (QC): 4 Gait Level of Assist: 5 Gait Assistive Device: FWW Stairs (FIM): 4 # of Steps: 12 1 Step (curb) (QC): 4 4 Steps (QC): 4 12 Steps (QC): 4 Stairs Level Of Assist: 4 Picking up an Object (QC): 4 PT Plan Problem List Problem List: Activity Tolerance, Functional Strength, Safety, Balance, Gait, Transfer Treatment/Plan Treatment Plan: Continue Plan of Care Treatment Plan: Bed Mobility, Concurrent Therapy, Education, Functional Activity Garcia, Functional Strength, Group Therapy, Gait, Safety, Therapeutic Exercise, Transfers Treatment Duration: Dec 09, 2017 Frequency: At least 5 of 7 days/Wk (IRF) Estimated Hrs Per Day: 1.5 hours per day Patient and/or Family Agrees t: Yes Safety Risks/Education Patient Education: Gait Training, Transfer Techniques, Correct Positioning, Safety Issues Teaching Recipient: Patient Teaching Methods: Discussion Response to Teaching: Verbalize Understanding Time/GCodes Time In: 1300 Time Out: 1400 Total Billed Treatment Time: 60 Total Billed Treatment 1, FA x2 (30m), GT (15m) & EX (15m) Co-treat for 60m with OT G Codes Necessary: DONALD Syed SUPERVISOR STITCHING DEPARTMENT Nov 22, 2017 14:31
[2017-11-22 17:25] VITALS: BP 112/65
[2017-11-22] MEDS ORDERED: PATIENT MAY USE OWN MED,SINGLE MED PO SCH (18:15)
[2017-11-22] MEDS ORDERED: VITAMIN K 1 MG/ML ORAL SOLN 1 ML SYRINGE PO NR (19:45)
--- NOTE | 2017-11-22 19:49 | PM & R (SOAP) Progress Note ---
Subjective This was a face to face visit with the patient. Date Seen by Provider: Nov 22, 2017 Time Seen by Provider: 19:40 Subjective/Events-last exam Patient was seen in his room earlier this afternoon and now RN reports oozing from AV shunt site Pressure dressing applied VitK ordered and hold on Plavix INR elevated Coumadin on hold.Patient min assist for transfers Pressure relief for heel pressure sore Tolerated Dialysis well today otherwise Date Identified: Nov 22, 2017 Time Identified: 19:45 Medication Intervention: Coumadin held aas well as plavix and VIT K ordered Review of Systems Cardiovascular: Other (oozing from AVshunt site pressure dressing applied) Objective Physician Exam Last Set of Vital Signs Vital Signs Date Time Temp Pulse Resp B/P (MAP) Pulse Ox O2 Delivery O2 Flow Rate FiO2 11/22/17 17:25 98.8 80 18 112/65 (81) 97 Room Air Capillary Refill : Less Than 3 Seconds I&O Intake and Output 11/22/17 00:00 Intake Total 1000 ml Output Total 100 ml Balance 900 ml Intake Oral 1000 ml Output Urine Total 100 ml # Bowel Movements 1 General: Alert, Oriented X3, Cooperative, No Acute Distress HEENT: Mucous Memb Moist/[place], Other (enucleation rt eye due to CA) Neck: Supple, No JVD Lungs: Clear to Auscultation Heart: Regular Rate Abdomen: Normal Bowel Sounds, Soft, No Tenderness Extremities: No Edema Skin: Other (Left heel pressure sore) Neuro: Other (Generalized weakness more so left hip) Psych/Mental Status: Mental Status NL Other physical findings oozing from AV site Results Lab Data Laboratory Tests 11/19/17 21:22: Glucometer 127H 11/20/17 06:10: Glucometer 111H 11/20/17 11:02: Glucometer 118H 11/20/17 15:59: Glucometer 150H 11/20/17 21:01: Glucometer 136H 11/21/17 05:20: Prothrombin Time 42.2H, INR Comment 4.4H 11/21/17 05:21: Glucometer 120H 11/21/17 12:35: Glucometer 85 11/21/17 16:39: Glucometer 124H 11/21/17 20:34: Glucometer 127H 11/22/17 04:30: Prothrombin Time 51.3*H, INR Comment 5.6*H 11/22/17 05:22: Glucometer 113H 11/22/17 13:20: Glucometer 104 11/22/17 16:17: Glucometer 166H Current Funtional Status Patient min assist for transfers Assessment/Plan Assessment and Plan Displaced left fem neck fracture s/p Left Hip hemiarthroplasty OSH 11-04-17 ESRD on Dialysis TIW IDDM CAD s/p SD and CABG S/.P enucleation rt eye for CA Pressure sore left heel Supratherapeutic INR 5.7 with oozing blood from AV site Plan Continue to hold Coumadin Hold Plavix VIT K 2.5 mg times 1 pressure dressing to site Recheck INR in AM Team Conference in AM Continue PT/OT/wound care Co-Morbidities that are continuing to impact the rehab process: (include details ) LUCA SORIA MD Nov 22, 2017 19:49
[2017-11-22] MEDS: DONEPEZIL 10 MG (ARICEPT) TAB PO SCH (20:45)
[2017-11-22] MEDS: ATORVASTATIN 40 MG (LIPITOR) TABLET PO SCH (20:45)
[2017-11-22] MEDS: traZODone 50 MG (DESYREL) TAB PO SCH (20:45)
[2017-11-22] MEDS: inSUlin DETERMIR 1 UNIT/0.01 ML (LEVEMIR) CHARGE PER UNIT SQ SCH (20:45)
[2017-11-23 00:39] LABS: INR 3.7 (0.8-1.4)
[2017-11-23 05:46] VITALS: BP 122/68
[2017-11-23] MEDS: VENlafaxine XR 75 MG (EFFEXOR XR) CAP PO SCH (06:48)
[2017-11-23] MEDS: HYDROcodone/APAP 5 MG/325 MG (LORTAB) TAB PO PRN ×4 (06:48→21:14)
[2017-11-23] MEDS: PANTOPRAZOLE 40 MG (PROTONIX) TAB PO SCH (06:49)
[2017-11-23] MEDS: FUROSEMIDE 40 MG (LASIX) TAB PO SCH ×2 (06:49→16:03)
[2017-11-23] MEDS: SEVELAMER CARBONATE 800 MG TAB (RENVELA) NON-FORMULARY PO SCH ×3 (06:49→16:04)
--- NOTE | 2017-11-23 07:39 | PM & R (SOAP) Progress Note ---
Subjective This was a face to face visit with the patient. Date Seen by Provider: Nov 23, 2017 Time Seen by Provider: 07:20 Subjective/Events-last exam Patient was seen in his room this AM Discussed case with RN INR down and bleeding from AV fistula site has slowed with topical treatment as well.Patient mod assist for transfers Patient fatiqued from interrupted sleep last night. Date Identified: Nov 23, 2017 Time Identified: 07:15 Medication Intervention: INR returning to therapeutic level with VIT K provided and Coumadin placed on hold Review of Systems Musculoskeletal: leg pain Neurological: Weakness Objective Physician Exam Last Set of Vital Signs Vital Signs Date Time Temp Pulse Resp B/P (MAP) Pulse Ox O2 Delivery O2 Flow Rate FiO2 11/23/17 05:46 98.2 81 17 122/68 (86) 93 Room Air Capillary Refill : Less Than 3 Seconds I&O Intake and Output 11/23/17 00:00 Intake Total 1180 ml Output Total 200 ml Balance 980 ml Intake Oral 1180 ml Output Urine Total 200 ml General: Alert, Oriented X3, Cooperative, No Acute Distress HEENT: Mucous Memb Moist/[place], Other (enucleation rt eye due to CA) Neck: Supple, No JVD Lungs: Clear to Auscultation Heart: Regular Rate Abdomen: Normal Bowel Sounds, Soft, No Tenderness Extremities: No Edema Skin: Other (Left heel pressure sore) Neuro: Other (Generalized weakness more so left hip) Psych/Mental Status: Mental Status NL Results Lab Data Laboratory Tests 11/20/17 11:02: Glucometer 118H 11/20/17 15:59: Glucometer 150H 11/20/17 21:01: Glucometer 136H 11/21/17 05:20: Prothrombin Time 42.2H, INR Comment 4.4H 11/21/17 05:21: Glucometer 120H 11/21/17 12:35: Glucometer 85 11/21/17 16:39: Glucometer 124H 11/21/17 20:34: Glucometer 127H 11/22/17 04:30: Prothrombin Time 51.3*H, INR Comment 5.6*H, Mean Blood Glucose 146H, Hemoglobin A1c 6.7H 11/22/17 05:22: Glucometer 113H 11/22/17 13:20: Glucometer 104 11/22/17 16:17: Glucometer 166H 11/22/17 20:28: Glucometer 87 11/23/17 00:15: Prothrombin Time 37.0H, INR Comment 3.7H 11/23/17 05:05: Glucometer 131H Assessment/Plan Assessment and Plan Displaced left fem neck fracture s/p left hemiarthroplasty OSH 11-04-17 Supratherapeutic INR with bleeding from AV fistula site improved with Pressure and VIT K ESRD on Dialysis TIW IDDM CAD s/p FL and CABG S/P enucleation rt eye for CA Pressure sore left heel Plan Continue PT/OT/Wound care Team Conference later today see report for full functional update and POC and ELOS Hold Coumadin until INR in Therapeutic range Co-Morbidities that are continuing to impact the rehab process: (include details ) LUCA SORIA MD Nov 23, 2017 07:39
--- NOTE | 2017-11-23 07:46 | Individualized Plan of Care ---
Individualized Plan of Care Rehab Nursing IPOC Order Admission Date Nov 18, 2017 at 11:16 Current Orders Orders Pt Evaluate/Treat Request (11/18/17 09:38) Request Ot Evaluate & Treat (11/18/17 09:38) Request For Cognitive Services (11/18/17 09:38) Ambulate 08,12,20 (11/18/17 10:30) Sequential Compression Device 08,20 (11/18/17 10:30) Dvt/Vte Risk - Notifiy Physici 08 (11/18/17 10:30) Admission Order(Inpt,Obs,Sdc) (11/18/17 10:59) Vital Signs: Routine (Order) 08,16,00 (11/18/17 10:59) Lei Seller-Inpt Rehab Con (11/18/17 10:59) Rehab Nursing Orders-Ipoc (11/18/17 10:59) Cho 60g/M 1snack (16-2000 Tonny) (11/18/17 Dinner) Intake & Output 06,14,22 (11/18/17 10:59) Precautions (Aru) (11/18/17 10:59) Weekly Weight (Lbs) WEEK (11/18/17 10:59) Code/Resuscitation (11/18/17 10:59) Consult Physician (11/18/17 11:02) Hydrocodone/Apap 5/325 Tablet (Lortab 5 (11/18/17 11:15) Isosorbide Dinitrate Tablet (Isordil Tab (11/19/17 09:00) Amiodarone Tablet (Cordarone Tablet) (11/19/17 09:00) Donepezil Tablet (Aricept Tablet) (11/18/17 21:00) Aspirin Enteric Coated Tablet (Ecotrin T (11/19/17 09:00) Clopidogrel Tablet (Plavix Tablet) (11/19/17 09:00) Divalproex Delay Release Tab (Depakote T (11/18/17 13:00) Furosemide Tablet (Lasix Tablet) (11/18/17 17:00) Gabapentin Capsule/Tablet (Neurontin Cap (11/18/17 13:00) Insulin Aspart (Novolog) (Novolog (Charg (11/18/17 16:00) Pantoprazole Tablet (Protonix Tablet) (11/19/17 07:00) Lorazepam Tablet (Ativan Tablet) (11/18/17 11:15) Nitroglycerin 0.4 Mg Btl 25's (Nitrostat (11/18/17 11:15) Sennosides Tablet (Senokot Tablet) (11/19/17 09:00) Pharmacy Communication (Pharmacy Communi (11/18/17 11:15) Sodium Bicarbonate Tablet (Nf) (Sodium B (11/18/17 21:00) Trazodone Tablet (Desyrel Tablet) (11/18/17 21:00) Venlafaxine Xr Capsule (Effexor Xr Capsu (11/19/17 07:00) Insulin Determir (Per Unit) (Levemir (Pe (11/18/17 21:00) Atorvastatin Tablet (Lipitor) (11/18/17 21:00) Warfarin Tablet (Coumadin Tablet) (11/18/17 18:00) Lisinopril Tablet (Zestril Tablet) (11/19/17 09:00) Accucheck Achs ACHS (11/18/17 11:30) Pharmacy Communication (Pharmacy Communi (11/18/17 11:45) Protime With Inr (11/19/17 06:42) Influenza Quad (5+Yoa) 2018- (Afluria (11/18/17 12:45) Cho 60g/M 1snack (16-2000 Tonny) (11/18/17 Lunch) Sevelamer (Non-Formulary) (Renvela (Non- (11/18/17 13:00) Pharmacy Communication (Pharmacy Communi (11/18/17 13:15) Patient Visit (11/18/17 ) Wheelchair Mgmt/Propulsn 15min (11/18/17 ) Functional Activities, Ea 15 (11/18/17 ) Exercise Therap, Ea 15 Min (11/18/17 ) Patient Visit (11/18/17 ) Speech Sound Lang Comp (11/18/17 ) Hydrocodone/Apap 5/325 Tablet (Lortab 5 (11/19/17 11:15) Patient Visit (11/19/17 ) Gait Training, Ea 15 Min (11/19/17 ) Consult Physician (11/19/17 15:40) Dressing Order & Int (Surg/Med UD (11/19/17 15:40) Dressing Order & Int (Surg/Med UD (11/19/17 15:40) Dressing Order & Int (Surg/Med UD (11/19/17 15:40) Bisacodyl Suppository (Dulcolax Supposit (11/20/17 09:45) Protime With Inr (11/21/17 06:00) Patient Visit (11/21/17 ) Exercise Therap, Ea 15 Min (11/21/17 ) Gait Training, Ea 15 Min (11/21/17 ) Patient Visit (11/21/17 ) Gait Training, Ea 15 Min (11/21/17 ) Protime With Inr (11/22/17 05:00) Hemoglobin A1c (11/22/17 05:00) Patient Visit (11/18/17 ) Pt Eval Moderate Complexity (11/18/17 ) Exercise Therap, Ea 15 Min (11/18/17 ) Patient Visit (11/22/17 ) Functional Activities, Ea 15 (11/22/17 ) Gait Training, Ea 15 Min (11/22/17 ) Exercise Therap, Ea 15 Min (11/22/17 ) Patient May Use Own Med,Single (Patient (11/22/17 18:15) Phytonadione Oral Solution (Mephyton Ora (11/22/17 19:45) Protime With Inr (11/23/17 00:00) Rehab Nursing Orders: Ongoing Assess. of Function Status, Disease Management & Educaiton, DVT Prophylaxis, Fall Prevention, Fluid/Electrolyte/Nutrition Mgmt, Infection Prevention, Medication Management & Education, Management of Risks & Complications, Management of Skin Intergrity, Nutrition Management, Pain Management, Patient/Family Support, Safety Management PT IPOC Problem List: Activity Tolerance, Functional Strength, Safety, Balance, Gait, Transfer Treatment Plan: Continue Plan of Care Bed Mobility, Concurrent Therapy, Education, Functional Activity Garcia, Functional Strength, Group Therapy, Gait, Safety, Therapeutic Exercise, Transfers Treatment Duration: Dec 09, 2017 Frequency: At least 5 of 7 days/Wk (IRF) Estimated Hrs Per Day: 1.5 hours per day OT IPOC Problems: Decreased Activ Tolerance, Decreased UE Strength, Dependent Transfers , Impaired Funct Balance, Impaired Self-Care Skills OT Treatment, Training and Edu: Yes Plan of Care: ADL Retraining, Functional Mobility, Group Exercise/Act as Ind, UE Funct Exercise/Act Treatment Duration: Dec 09, 2017 Frequency: Modified Program (IRF) (21/08) Estimated Hrs Per Day: 1.[address] IPOC Speech Therapy Treatment Plan: Discontinue ST Treatment Duration: Nov 23, 2017 Frequency: Modified Program (IRF) (0) Estimated Hrs Per Day: Other (0) Lei Seller/Case Mgmt Lei Seller/Case Managemen: Discharge Planning, Patient/Family Counseling Dietitian/Line Puller Dietitian/Line Puller to monitor nutritional status and make changes and/or recommendations as needed and work with speech pathology on dietary upgrades as the occur. Physician IPOC Medical Issues being managed closely and that require the 24 hour availability of a physician: Supratherapeutic INR with bleeding fro AV fistula site ESRD on Diaylsis TIW IDDM Pressure sore left heel CAD s/pMI C code 08.11 Etiologic DX S/P Unilateral hip fracture Medical Issues: Bowel/Bladder Function, DVT Prophylaxis, Falls Precautions, Infection Protection, Pain Management, Wound Care, Other (List) (as per above) Brief Synthesis of Preadmission Screen, Post-Admission Evaluation, and Therapy Evaluations: 62 yo male who fell at dialysis center sustaining a left hip fracture Had repair at OSH 11-04-17 and referred here for ortho rehab MALDONADO ESRD on Dialysis TIW and Hx of IDDM and CAD Had been Independent until recently and living at home Medical Prognosis: Good Anticipated Length of Stay: 12-09-17 Modified Independent for adls and mobilty skills Anticipated d/c Destination: Home with family and [facility] LUCA SORIA MD Nov 23, 2017 07:46
--- NOTE | 2017-11-23 08:29 | Occupational Ther Daily Note ---
OT Current Status-Daily Note Subjective Pt sleeping in bed, woke to name being called a few times. Pt stated that he did not get to sleep very much last night due to bleeding at dialysis site. Pt encouraged to participate in therapy. Pt did agree to therapy. Mental Status/Objective Patient Orientation: Person, Place, Time, Situation Functional [place] Measure 0=Not Assessed/NA 4=Minimal Assistance 1=Total Assistance 5=Supervision or Setup 2=Maximal Assistance 6=Modified [place] 3=Moderate Assistance 7=Complete [place] ADL-Treatment Pt takes increased time to complete ADLs due to decreased motivation, slow movements and decreased activity tolerance. Pt very anxious about having a bowel movement, requesting medications to assist with BM, reported to nrsg. Pt declined shower and grooming. Functional [place] Measure 0=Not Assessed/NA 4=Minimal Assistance 1=Total Assistance 5=Supervision or Setup 2=Maximal Assistance 6=Modified [place] 3=Moderate Assistance 7=Complete IndependenceIRFPAI Quality Coding Scale 6 Independent with activity with or without an assistive device 5 Patient requires set up or clean up by helper. Patient completes activity by themselves 4 Supervision or touching assist (CGA). [place] provide cues , steadying assist 3 The helper provides less than half the effort to complete the activity 2 The helper provides more than half the effort to complete the activity 1 Dependent. The helper does all the effort to complete an activity 7 Patient refused to complete or attempt activity 9 The patient did not perform the activity before the current illness or injury 88 Not attempted due to Medical conditions or safety concerns Eating (FIM): 5 (Assist to open packages. Pt able to use regular utensils for feed self.) Bathing (FIM): 4 (Sponge bath completed. After set up, pt was able to bathe all areas except lower legs. Pt required encouragement to complete areas by self. Mod A to keep balance in standing while cleansing sophia area/buttocks.) Bathing Location: L Arm, R Arm, L Upper Leg, R Upper Leg, Chest, Abdomen, Buttocks, Perineal Area Shower/Bathe Self (QC): 3 Upper Body (FIM): 5 (After set up, pt able to complete upper body dressing by self.) Upper Body Dressing (QC): 5 Lower Body Dressing (FIM): 4 (Using AE, pt required assist to thread L toe into pant leg then was able to complete donning rest of pants with min A for balance while hiking pants over hips. Pt declined changing socks.) Lower Body Dressing (QC): 3 Toileting (FIM): 4 (Using FWW and BSC, pt required assist in standing for balance while pt cleansed self and manipulated clothing.) Toileting Hygiene (QC): 3 Transfers (B, C, W/C) (FIM): 4 (CGA initially for balance then is able to SPT with FWW with close SBA.) Toilet/Commode Transfer (FIM): 5 (Using FWW and BSC, pt able to complete with close SBA.) Toilet Transfer (QC): 4 Other Treatment Pt completed 2 sets 15 reps of medium resistance theraband exercises. Pt took lengthy recovery breaks between each rep and set. Theraband left in room with instructions to use when down time from therapy. After therapy, pt lying in bed with call light/phone in reach. All needs met in room. OT Short Term Goals Short Term Goals Transfers (B,C,W/C) (FIM): 4 1=Demonstrate adherence to instructed precautions during ADL tasks. 2=Patient will verbalize/demonstrate understanding of assistive devices/ modifications for ADL. 3=Patient will improve strength/tolerance for activity to enable patient to perform ADL's. OT Education Analyst Goals Group Home Goals Time Frame: Dec 09, 2017 Eating (FIM): 7 Eating (QC): 6 Groomin Oral Hygiene (QC): 6 Bathing(FIM): 5 Shower/Bathe Self (QC): 4 Upper Body Dressing(FIM): 6 Upper Body Dressing (QC): 6 Lower Body Dressing(FIM): 5 Lower Body Dressing (QC): 5 On/Off Footwear (QC): 5 Toileting(FIM): 5 Toileting Hygiene (QC): 4 Toilet/Commode Transfer(FIM): 5 Toilet/Commode Transfer (QC): 5 Shower Transfer(FIM): 5 Additional Goals: 1-Demonstrate ADL Tasks, 2-Verbalize Understanding, 3- ImproveStrength/Garcia 1=Demonstrate adherence to instructed precautions during ADL tasks. 2=Patient will verbalize/demonstrate understanding of assistive devices/ modifications for ADL. 3=Patient will improve strength/tolerance for activity to enable patient to perform ADL's. OT Education/Plan Discharge Recommendations Plan/Recommendations: Continue POC Treatment Plan/Plan of Care Patient would benefit from OT for education, treatment and training to promote independence in ADL's, mobility, safety and/or upper extremity function for ADL' s. Plan of Care: ADL Retraining, Functional Mobility, Group Exercise/Act as Ind, UE Funct Exercise/Act Treatment Duration: Dec 09, 2017 Frequency: Modified Program (IRF) (21/08) Estimated Hrs Per Day: 1.5 hours per day Agreement: Yes Rehab Potential: Good Time/GCodes Start Time: 08:00 Stop Time: 10:00 Total Time Billed (hr/min): 120 Billed Treatment Time 1 visit-ADL 6 (90 min) EX 2 (30 min) TIGRE CALDERON Nov 23, 2017 08:29
[2017-11-23] MEDS: DIVALPROEX 250 MG DELAYED RELEASE (DEPAKOTE) TAB PO SCH ×3 (09:28→21:14)
[2017-11-23] MEDS: AMIODARONE 200 MG (CORDARONE) TAB PO SCH (09:28)
[2017-11-23] MEDS: GABAPENTIN 100 MG (NEURONTIN) CAP PO SCH ×3 (09:28→21:14)
[2017-11-23] MEDS: ISOSORBIDE DINITRATE 20 MG (ISORDIL) TAB PO SCH (09:28)
[2017-11-23] MEDS: SENNOSIDES 8.6 MG (SENOKOT) TAB PO SCH (09:28)
[2017-11-23] MEDS: lisINopril 10 MG (PRINIVIL) TABLET PO SCH (09:28)
[2017-11-23] MEDS: SODIUM BICARBONATE 650 MG TABLET (NON-FORMULARY) PO SCH ×2 (09:28→21:13)
[2017-11-23] MEDS: ASPIRIN E.C. 81 MG (ECOTRIN) TAB PO SCH (09:28)
[2017-11-23] MEDS: inSUlin ASPART (NovoLOG) 1 UNIT/0.01 ML (CHARGE PER UNIT) SC SCH ×3 (09:29→15:15)
--- NOTE | 2017-11-23 10:49 | Physical Therapy Daily Note ---
PT Daily Note-Current Subjective Pt. c/o 7/10 pain in mid back at rest and during activity. Pt. explains his back history and complications. Pain Numeric Pain Scale: 7 Location: Medial Location Body Site: Back Pain Description: Throbbing Mental Status Patient Orientation: Normal For Age Attachments: Miranda Catheter, Other-See Comments (clam shell brace) Transfers Functional [place] Measure 0=Not Assessed/NA 4=Minimal Assistance 1=Total Assistance 5=Supervision or Setup 2=Maximal Assistance 6=Modified [place] 3=Moderate Assistance 7=Complete IndependenceIRFPAI Quality Coding Scale 6 Independent with activity with or without an assistive device 5 Patient requires set up or clean up by helper. Patient completes activity by themselves 4 Supervision or touching assist (CGA). [place] provide cues , steadying assist 3 The helper provides less than half the effort to complete the activity 2 The helper provides more than half the effort to complete the activity 1 Dependent. The helper does all the effort to complete an activity 7 Patient refused to complete or attempt activity 9 The patient did not perform the activity before the current illness or injury 88 Not attempted due to Medical conditions or safety concerns Transfers (B, C, W/C) (FIM): 3 Scootin Rollin Supine to/from Sit: 3 Sit to/from Stand: 3 Bed to/from Chair: 3 sit to stand at paralell bars mod assist, pt. pulling self up with bars, w/c to bed mod assist with pt. using w/c arm and bed rail. sit to sup min to mod assist Weight Bearing Right Lower Extremity: Right Full Weight Bearing Left Lower Extremity: Left Weight Bearing/Tolerated Gait Training Does the Patient Walk?: Yes Gait (FIM): 1 Distance (FIM): 1=up to 49 ft (4ftx2 parallel bars mod assist, w/c to f/u) Gait Level of Assist: 3 Gait Persons Needed: 1 Gait Assistive Device: Parallel Bars difficulty with alignment as well as wt shift Wheelchair Training Does the Pt Use a Wheelchair?: Yes Wheelchair (FIM): 2 Wheelchair Distance: 7=813-81 ft (60ftx2) Wheelchair Level of Assist: 4 Type of Wheelchair: Manual fatigues and increases pain c/o with w/c mobility Exercises Supine Ex: Ankle pumps, Quad Set, Rolling, Glut sets, Heel Slides, Short Arc Quads, Hip abd/add Supine Reps: 15 Seated Therapy Exercises: Ankle pumps, Sit to stand, Long arc quads Seated Reps: 10 Treatments rolling for clam shell removal max/mod assist Assessment Current Status: Fair Progress mobility very limited as pt is very kyphotic and has difficulty maintaining stance, gait and w/c both challenging PT Short Term Goals Short Term Goals Time Frame: Nov 25, 2017 Transfers (B,C,W/C) (FIM): 4 Gait (FIM): 2 Gait Distance Comment: 75' Gait Level of Assist: 4 Gait Assistive Device: FWW Wheelchair Distance: 150' PT Primer Powder Blender Wet Goals Primer Powder Blender Wet Goals PT Primer Powder Blender Wet Goals Time Frame: Dec 09, 2017 Transfers (B,C,W/C) (FIM): 5 Sit to Lying (QC): 4 Lying-Sitting on Side/Bed(QC): 4 Sit to Stand (QC): 4 Rollin Roll Left to Right (QC): 4 Chair/Axd-lc-Jvxiz Xfer(QC): 4 Car Transfer (QC): 4 Does the Patient Walk: Yes Gait (FIM): 5 Distance: 150' Walk 10 feet (QC): 4 Walk 10ft-Uneven Surface(QC): 4 Walk 50ft with 2 Turns (QC): 4 Walk 150 ft (QC): 4 Gait Level of Assist: 5 Gait Assistive Device: FWW Stairs (FIM): 4 # of Steps: 12 1 Step (curb) (QC): 4 4 Steps (QC): 4 12 Steps (QC): 4 Stairs Level Of Assist: 4 Picking up an Object (QC): 4 PT Plan Treatment/Plan Treatment Plan: Continue Plan of Care Treatment Plan: Bed Mobility, Concurrent Therapy, Education, Functional Activity Garcia, Functional Strength, Group Therapy, Gait, Safety, Therapeutic Exercise, Transfers Treatment Duration: Dec 09, 2017 Frequency: At least 5 of 7 days/Wk (IRF) Estimated Hrs Per Day: 1.5 hours per day Patient and/or Family Agrees t: Yes Safety Risks/Education Patient Education: Gait Training, Transfer Techniques, Correct Positioning, W/ C Management, Disease Process, Safety Issues Teaching Recipient: Patient Teaching Methods: Demonstration, Discussion Response to Teaching: Verbalize Understanding, Return Demonstration, Reinforcement Needed Time/GCodes Time In: 1000 Time Out: 1100 Total Billed Treatment Time: 60 Total Billed Treatment 1,FA30m,EX20m,WC10m G Codes Necessary: No HANNAH PIMENTEL METAL BALER Nov 23, 2017 10:49
--- NOTE | 2017-11-23 12:51 | Physical Therapy Daily Note ---
PT Daily Note-Current Subjective Pt. in bed, c/o pain in left hip at 8-9/10 and requests pain meds of nurse. Pt. states he needs to take it very slow secondary to pain. Pt. later in rx c/ o he could not have a BM, spent much time on toilet straining Pain Numeric Pain Scale: 9 Location: Left Location Body Site: Hip Pain Description: Pressure Mental Status Patient Orientation: Normal For Age Transfers Functional [place] Measure 0=Not Assessed/NA 4=Minimal Assistance 1=Total Assistance 5=Supervision or Setup 2=Maximal Assistance 6=Modified [place] 3=Moderate Assistance 7=Complete IndependenceIRFPAI Quality Coding Scale 6 Independent with activity with or without an assistive device 5 Patient requires set up or clean up by helper. Patient completes activity by themselves 4 Supervision or touching assist (CGA). [place] provide cues , steadying assist 3 The helper provides less than half the effort to complete the activity 2 The helper provides more than half the effort to complete the activity 1 Dependent. The helper does all the effort to complete an activity 7 Patient refused to complete or attempt activity 9 The patient did not perform the activity before the current illness or injury 88 Not attempted due to Medical conditions or safety concerns Transfers (B, C, W/C) (FIM): 4 Scootin Rollin Supine to/from Sit: 4 Sit to/from Stand: 4 Weight Bearing Right Lower Extremity: Right Full Weight Bearing Left Lower Extremity: Left Weight Bearing/Tolerated Gait Training Does the Patient Walk?: Yes Gait (FIM): 2 Distance (FIM): 9=197-24 ft (60,50) Gait Level of Assist: 4 Gait Persons Needed: 1 Gait Assistive Device: FWW slow, antalgic Exercises Supine Ex: Ankle pumps, Quad Set, Rolling, Glut sets, Heel Slides, Short Arc Quads, Scooting, Straight leg raise (assist), Hip abd/add (assist) Seated Therapy Exercises: Ankle pumps, Sit to stand, Long arc quads Seated Reps: 10 Assessment Current Status: Good Progress pain limited Rx this date PT Short Term Goals Short Term Goals Time Frame: Nov 25, 2017 Transfers (B,C,W/C) (FIM): 4 Gait (FIM): 2 Gait Distance Comment: 75' Gait Level of Assist: 4 Gait Assistive Device: FWW Wheelchair Distance: 150' PT Skilled Nursing Goals Skilled Nursing Goals PT Skilled Nursing Goals Time Frame: Dec 09, 2017 Transfers (B,C,W/C) (FIM): 5 Sit to Lying (QC): 4 Lying-Sitting on Side/Bed(QC): 4 Sit to Stand (QC): 4 Rollin Roll Left to Right (QC): 4 Chair/Oio-xc-Nxquh Xfer(QC): 4 Car Transfer (QC): 4 Does the Patient Walk: Yes Gait (FIM): 5 Distance: 150' Walk 10 feet (QC): 4 Walk 10ft-Uneven Surface(QC): 4 Walk 50ft with 2 Turns (QC): 4 Walk 150 ft (QC): 4 Gait Level of Assist: 5 Gait Assistive Device: FWW Stairs (FIM): 4 # of Steps: 12 1 Step (curb) (QC): 4 4 Steps (QC): 4 12 Steps (QC): 4 Stairs Level Of Assist: 4 Picking up an Object (QC): 4 PT Plan Treatment/Plan Treatment Plan: Continue Plan of Care Treatment Plan: Bed Mobility, Concurrent Therapy, Education, Functional Activity Garcia, Functional Strength, Group Therapy, Gait, Safety, Therapeutic Exercise, Transfers Treatment Duration: Dec 09, 2017 Frequency: At least 5 of 7 days/Wk (IRF) Estimated Hrs Per Day: 1.5 hours per day Patient and/or Family Agrees t: Yes Safety Risks/Education Patient Education: Gait Training, Transfer Techniques, Reviewed Use of Ice, Disease Process, Safety Issues Teaching Recipient: Patient Teaching Methods: Demonstration, Discussion Response to Teaching: Verbalize Understanding, Return Demonstration, Reinforcement Needed Time/GCodes Time In: 1100 Time Out: 1200 Total Billed Treatment Time: 60 Total Billed Treatment 1,GT20m,EX25m,FA15m G Codes Necessary: HANNAH Hernandez FUNDS DEVELOPMENT DIRECTOR Nov 23, 2017 12:51
--- NOTE | 2017-11-23 14:18 | Progress Note (SOAP) ---
REYNA ARNETT MEDICAL STUDENT 11/23/17 1418: Subjective Subjective/Events-last exam Pt was upset this morning that his dialysis site was bleeding throughout the night after having dialysis yesterday morning. He denies any other areas of bleeding or new ecchymoses. Denies CP, abdominal pain, melena, hematochezia, weakness, fatigue. Review of Systems Date Seen by Provider: Nov 23, 2017 Time Seen by Provider: 08:58 General: No Chills, No Night Sweats, No Fatigue, No Malaise HEENT: No Head Aches, No Visual Changes Pulmonary: No Dyspnea, No Cough Cardiovascular: No: Chest Pain, Lt Headedness Gastrointestinal: No: Nausea, Vomiting, Abdominal Pain, Melena, Hematochezia Genitourinary: No Hematuria Neurological: No: Change in speech bleeding from dialysis site Objective Exam Last Set of Vital Signs Vital Signs Date Time Temp Pulse Resp B/P (MAP) Pulse Ox O2 Delivery O2 Flow Rate FiO2 11/23/17 09:00 Room Air 11/23/17 05:46 98.2 81 17 122/68 (86) 93 Capillary Refill : Less Than 3 Seconds I&O Intake and Output 11/23/17 00:00 Intake Total 1180 ml Output Total 200 ml Balance 980 ml Intake Oral 1180 ml Output Urine Total 200 ml General: Alert, Oriented X3, Cooperative, No Acute Distress HEENT: Atraumatic, EOMI, Mucous Memb Moist/[place] Neck: Supple Lungs: Clear to Auscultation, Normal Air Movement Heart: Regular Rate, No Murmurs Abdomen: Normal Bowel Sounds, Soft, No Tenderness, No Hepatosplenomegaly Extremities: No Clubbing, No Cyanosis, Normal Pulses Skin: No Rashes, Other (L arm in clean bandage, no evidence of continued bleeding from dialysis site) Neuro: Normal Speech, Normal Tone, Sensation Intact Psych/Mental Status: Mental Status NL, Mood NL Results/Procedures Lab Laboratory Tests 11/22/17 16:17: Glucometer 166H 11/22/17 20:28: Glucometer 87 11/23/17 00:15: Prothrombin Time 37.0H, INR Comment 3.7H 11/23/17 05:05: Glucometer 131H 11/23/17 11:31: Glucometer 229H Assessment/Plan Assessment/Plan Admission Status: Inpatient Order (span 2 midnights) Reason for Inpatient Admission: Inpatient rehab (1) Supratherapeutic INR Status: Acute Assessment & Plan: Pt's INR was 3.7 this morning, down from 5.6 yesterday after holding Warfarin and 2.5 mg oral vitamin K. Will continue to hold Warfarin and recheck tomorrow. Ultimately, if his INR does not restabilize between 2 and 3, we should consider decreasing his dosage of Warfarin or changing Amiodarone. We may need to consult Cardiology for the latter. (2) Hip fracture, left Status: Resolved Assessment & Plan: Dr. Fermin is managing pt's ongoing inpatient physical/ occupational/speech therapy and goals. Clinical Quality Measures DVT/VTE Risk/Contraindication: Risk Factor Score Per Nursin RFS Level Per Nursing on Admit: 4+=Very High DUKE ARTEAGA MD 11/23/172101: Objective Exam General: Alert, Oriented X3, Cooperative, No Acute Distress HEENT: Mucous Memb Moist/[place] Lungs: Clear to Auscultation, Normal Air Movement Heart: Regular Rate, No Murmurs Abdomen: Normal Bowel Sounds, Soft, No Tenderness Extremities: Normal Pulses Skin: Other (L arm in clean bandage, no evidence of continued bleeding from dialysis site) Neuro: Normal Speech, Normal Tone, Sensation Intact Psych/Mental Status: Mental Status NL, Mood NL Assessment/Plan Assessment/Plan (1) Hip fracture, left Status: Resolved Assessment & Plan: s/p Repair at [place] (2) Supratherapeutic INR Status: Acute Assessment & Plan: - Trending down after Vit K administration, will continue to monitor, Cardiology consulted today for concerns with drug interactions between amiodarone and coumadin (3) HLD (hyperlipidemia) Status: Chronic Qualifiers: Qualified Codes: E78.2 - Mixed hyperlipidemia (4) Insulin-dependent diabetes mellitus with renal complications Status: Chronic Assessment & Plan: - Continue home meds, A1c pending (5) CAD (coronary artery disease) Status: Chronic Qualifiers: Qualified Codes: I25.10 - Atherosclerotic heart disease of [place] coronary artery without angina pectoris (6) Depression Status: Chronic Qualifiers: Qualified Codes: 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
--- NOTE | 2017-11-23 14:59 | Therapy Group Daily Note ---
Therapy Daily Group Note Patient Education Topic Other List Below (memory education, ARU description/expectations) Exercises LE Seated Exercise, UE Exercise Other/Notes Pt transported via w/c to OT/PT group in [facility]. Group consisted of introductions (name, place living, most ornery trick), ARU description/ expectations, UE/LE seated exercises, memory strategy education and memory activity. Pt introduced self appropriately and actively listened to peers. Pt contributed to and initiated conversations throughout group. Pt was able to complete UE/LE exercises, fatigued easily. Verbalized understanding and was able to give examples from personal experience. Pt was able to toss mayorga bags at designated areas from a seated position. Completed memory activity appropriately and was able to match like pictures. Pt then maneuvered w/c back to room and sat in recliner after therapy. Call light/phone in reach, all needs met in room. Start Time: 13:00 Stop Time: 14:20 Total Billed Treatment Time: 80 Total Billed Treatment 1-GRP TIGRE CALDERON Nov 23, 2017 14:59
--- NOTE | 2017-11-23 15:48 | Consultation-Cardiology ---
HPI-Cardiology Cardiology Consultation: Date of Consultation 11/23/17 Time Seen by a Provider: 15:58 Date of Admission 11-18-17 Attending Physician Vitaly Fermin MD Admitting Physician Leo Conway MD Consulting Physician Enma Neri MD HPI: Chief Complaint: CAD INR Management Primary Delivery Person: Dr. Fernandes at [facility] Mr. Stein is a 62 year old male admitted to In pt rehab 231 from [facility]. He has a h/o end stage renal disease for which he is on dialysis 3 times a week. He states following a dialysis treatment he was trying to get himself back into his w/c without assistance and he fell in late October 2017 suffering a left femoral neck fracture. He underwent repair at [facility]. He is a fairly poor historian. He denies any c/o CP, palpitations, syncope, near syncope or dyspnea. We have been consulted for INR management. Review of Systems-Cardiology Review of Systems Constitutional: No chills, No fever; malaise Eyes: No vision change Ears/Nose/Throat: No recent hearing loss Respiratory: As described under HPI Cardiovascular: As described under HPI Gastrointestinal: No constipation, No diarrhea, No nausea, No vomiting Genitourinary: no symptoms reported Musculoskeletal: no symptoms reported Skin: No rash, No ulcerations Psychiatric/Neurological: No anxiety, No depression, No seizure, No focal weakness, No syncope Hematologic: No bleeding abnormalities [id number]-[id number] Hx Patient Social History Marrital Status: Alcohol Use: Denies Use Recreational Drug Use: No Smoking Status: Never a Smoker Type Used: Smokeless Tobacco Recent Foreign Travel: No Recent Infectious Disease Expo: No Physical Abuse Screen: No Sexual Abuse: No Immunizations Up To Date Tetanus Booster (TDap): Unknown Date of Pneumonia Vaccine: Sep 18, 2017 Date of Influenza Vaccine: Sep 18, 2017 Past Medical History PMH As described under Assessment. Allergies and Home Medications Allergies Coded Allergies: No Known Drug Allergies (Unverified , 08/01/17) Home Medications Acetaminophen 500 Mg Tablet, 1,000 MG PO Q6H PRN for PAIN-MILD, (Reported) Amiodarone HCl 200 Mg Tablet, 200 MG PO DAILY, (Reported) Amlodipine Besylate 5 Mg Tablet, 5 MG PO DAILY, (Reported) Aspirin 81 Mg Tablet.dr, 81 MG PO DAILY, (Reported) Atorvastatin Calcium 80 Mg Tablet, 80 MG PO DAILY, (Reported) Bisacodyl 10 Mg Supp.rect, 10 MG RC DAILY PRN for CONSTIPATION-4TH LINE, ( Reported) Clopidogrel Bisulfate 75 Mg Tablet, 75 MG PO DAILY, (Reported) Divalproex Sodium 250 Mg Tablet.dr, 250 MG PO TID, (Reported) Donepezil HCl 10 Mg Tablet, 10 MG PO HS, (Reported) Dulaglutide 0.75 Mg/0.5 Ml Pen.injctr, 0.75 MG SQ Fr, (Reported) Escitalopram Oxalate 10 Mg Tablet, 10 MG PO DAILY, (Reported) Fludrocortisone Acetate 0.1 Mg Tab, 0.1 MG PO DAILY PRN for HYPOTENSION, ( Reported) Furosemide 80 Mg Tablet, 80 MG PO BID, (Reported) Gabapentin 100 Mg Capsule, 100 MG PO TID, (Reported) Insulin Glargine,Hum.rec.anlog 100 Unit/1 Ml Vial, 6 UNIT SQ HS, (Reported) Insulin Lispro 100 Unit/1 Ml Vial, 5 UNIT SQ TID, (Reported) Ipratropium/Albuterol Sulfate 3 Ml Ampul.neb, 3 ML IH Q6H PRN for SHORTNESS OF BREATH, (Reported) Isosorbide Dinitrate 30 Mg Tablet, 30 MG PO DAILY, (Reported) Lansoprazole 30 Mg Capsule.dr, 30 MG PO DAILY, (Reported) Lisinopril 10 Mg Tablet, 10 MG PO DAILY, (Reported) HOLD AND NOTIFY PCP IF SBP LESS THAN 100 AND/OR DBP LESS THAN 60 AND/OR PULSE LESS THAN 60 Loperamide HCl 2 Mg Tablet, 2 MG PO UD PRN for LOOSE STOOLS, (Reported) MAX OF 4 DOSES IN 24 HOURS Lorazepam 0.5 Mg Tablet, 0.5 MG PO Q8H PRN for ANXIETY, (Reported) Mag Hydrox/Al Hydrox/Simeth 30 Ml Oral.susp, 30 ML PO Q4H PRN for INDIGESTION, ( Reported) Magnesium Hydroxide 400 Mg/5 Ml Oral.susp, 30 ML PO Q12H PRN for CONSTIPATION- 7TH LINE, (Reported) Na Phos,M-B/Na Phos,Di-Ba 133 Ml Enema, 133 ML RC DAILY PRN for CONSTIPATION, ( Reported) Nitroglycerin 0.3 Mg Tab.subl, 0.3 MG SL UD PRN for CHEST PAIN, (Reported) Oxycodone HCl 5 Mg Tablet, 5 MG PO 0200,0800,1400,2000, (Reported) Polyvinyl Alcohol/Povidone 15 Ml Drops, 1 DROP OU TID PRN for DRY EYES, ( Reported) Sennosides 8.6 Mg Tablet, 8.6 MG PO DAILY, (Reported) Sevelamer Carbonate 800 Mg Tablet, 1,600 MG PO TID, (Reported) Sodium Bicarbonate 325 Mg Tablet, 325 MG PO BID, (Reported) Trazodone HCl 50 Mg Tablet, 50 MG PO HS, (Reported) Venlafaxine HCl 150 Mg Cap.er.24h, 150 MG PO DAILY, (Reported) Warfarin Sodium 3 Mg Tablet, 3 MG PO 1700, (Reported) Patient Home Medication List Home Medication List Reviewed: Yes Physical Exam-Cardiology Physical Exam Vital Signs/I&O 11/24/17 11/24/17 11/24/17 05:37 12:11 13:40 Temp 97.8 Pulse 80 84 Resp 18 B/P (MAP) 122/65 (84) 139/74 (95) Pulse Ox 97 99 O2 Delivery Room Air Room Air 11/24/17 00:00 Intake Total 400 ml Output Total 0 ml Balance 400 ml Capillary Refill : Less Than 3 Seconds Constitutional: AAO x 3, well-developed, well-nourished HEENT: other (right eye enuculation), hearing is well preserved; No ulceration Neck: No carotid bruit; carotid pulses are 2 + bilaterally Respiratory: No accessory muscle use, No respiratory distress; chest expansion is symmetric, chest is bilaterally symmetric, other (diminished bases bilat) Cardiovascular: regular rate-rhythm; No JVD; S1 and S2, systolic murmur Gastrointestinal: No tender; soft, round, audible bowel sounds Rectal: deferred Extremities: other (bilat pitting and non-pitting edema; LUE AV dialysis fistula with (+) thrill and bruit) Neurologic/Psychiatric: grossly intact Skin: No ulcerations Data Review Labs Laboratory Tests 11/23/17 15:13: Glucometer 186H 11/23/17 21:17: Glucometer 107 11/24/17 05:40: Glucometer 79 11/24/17 06:25: White Blood Count 8.0, Red Blood Count 2.78L, Hemoglobin 7.9L, Hematocrit 25L, Mean Corpuscular Volume 90, Mean Corpuscular Hemoglobin 28, Mean Corpuscular Hemoglobin Concent 32, Red Cell Distribution Width 16.0H, Platelet Count 371, Mean Platelet Volume 9.0, Prothrombin Time 18.5H, INR Comment 1.5H, Sodium Level 132L, Potassium Level 3.7, Chloride Level 91L, Carbon Dioxide Level 26, Anion Gap 15H, Blood Urea Nitrogen 38H, Creatinine 4.56H, Estimat Glomerular Filtration Rate 13, BUN/Creatinine Ratio 8, Glucose Level 77, Calcium Level 10.8H, Magnesium Level 2.3 11/24/17 13:39: Glucometer 88 A/P-Cardiology Assessment/Admission Diagnosis Reports h/o CABG in June 2017 at [facility] in [place] - exact details unknown Echocardiogram of July [address] Fernandes showed LVEF 15-20%. Mild aortic stenosis ; mild MR; trace aortic regurg Reports h/o PE following CABG for which he has been on warfarin tx Supra-therapeutic INR - currently being withheld HTN HLD - statin tx End-stage renal disease for which he is on hemodialysis 3 times a week - followed by Dr. Stephens DM 2 H/O right eye enucleation d/t cancer in the 2005 S/P left femur fracture on 11-03-17; with subsequent repair at [facility] on 11-04-17 H/O chew tobacco use - quit in June 2017 Discussion and Recomendations Request cardiology records from [facility] and CABG facility Supra-therapeutic INR - currently being withheld Monitor lab Clinical Quality Measures DVT/VTE Risk/Contraindication: Risk Factor Score Per Nursin RFS Level Per Nursing on Admit: 4+=Very High ASHLIE CHANDLER Nov 23, 2017 15:48
--- NOTE | 2017-11-23 17:22 | Consultation-Cardiology ---
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 Fernandes at [facility] Mr. Stein is a 62 year old male admitted to In pt rehab 231 from [facility]. He has a h/o end stage renal disease for which he is on dialysis 3 times a week. He states following a dialysis treatment he was trying to get himself back into his w/c without assistance and he fell in late October 2017 suffering a left femoral neck fracture. He underwent repair at [facility]. He is a fairly poor historian. He denies any c/o CP, palpitations, syncope, near syncope or dyspnea. We have been consulted for INR management. Review of Systems-Cardiology Review of Systems Constitutional: No chills, No fever; malaise Eyes: No vision change Ears/Nose/Throat: No recent hearing loss Respiratory: As described under HPI Cardiovascular: As described under HPI Gastrointestinal: No constipation, No diarrhea, No nausea, No vomiting Genitourinary: no symptoms reported Musculoskeletal: no symptoms reported Skin: No rash, No ulcerations Psychiatric/Neurological: No anxiety, No depression, No seizure, No focal weakness, No syncope Hematologic: No bleeding abnormalities LQP-Uegqcy-Sqkffe Hx Patient Social History Marrital Status: Alcohol Use: Denies Use Recreational Drug Use: No Smoking Status: Never a Smoker Type Used: Smokeless Tobacco Recent Foreign Travel: No Recent Infectious Disease Expo: No Physical Abuse Screen: No Sexual Abuse: No Immunizations Up To Date Tetanus Booster (TDap): Unknown Date of Pneumonia Vaccine: Sep 18, 2017 Date of Influenza Vaccine: Sep 18, 2017 Past Medical History PMH As described under Assessment. Family Medical History Family Medical History: He does not report fam h/o early CAD or SCD Allergies and Home Medications Allergies Coded Allergies: No Known Drug Allergies (Unverified , 08/01/17) Home Medications Acetaminophen 500 Mg Tablet, 1,000 MG PO Q6H PRN for PAIN-MILD, (Reported) Amiodarone HCl 200 Mg Tablet, 200 MG PO DAILY, (Reported) Amlodipine Besylate 5 Mg Tablet, 5 MG PO DAILY, (Reported) Aspirin 81 Mg Tablet.dr, 81 MG PO DAILY, (Reported) Atorvastatin Calcium 80 Mg Tablet, 80 MG PO DAILY, (Reported) Bisacodyl 10 Mg Supp.rect, 10 MG RC DAILY PRN for CONSTIPATION-4TH LINE, ( Reported) Clopidogrel Bisulfate 75 Mg Tablet, 75 MG PO DAILY, (Reported) Divalproex Sodium 250 Mg Tablet.dr, 250 MG PO TID, (Reported) Donepezil HCl 10 Mg Tablet, 10 MG PO HS, (Reported) Dulaglutide 0.75 Mg/0.5 Ml Pen.injctr, 0.75 MG SQ Fr, (Reported) Escitalopram Oxalate 10 Mg Tablet, 10 MG PO DAILY, (Reported) Fludrocortisone Acetate 0.1 Mg Tab, 0.1 MG PO DAILY PRN for HYPOTENSION, ( Reported) Furosemide 80 Mg Tablet, 80 MG PO BID, (Reported) Gabapentin 100 Mg Capsule, 100 MG PO TID, (Reported) Insulin Glargine,Hum.rec.anlog 100 Unit/1 Ml Vial, 6 UNIT SQ HS, (Reported) Insulin Lispro 100 Unit/1 Ml Vial, 5 UNIT SQ TID, (Reported) Ipratropium/Albuterol Sulfate 3 Ml Ampul.neb, 3 ML IH Q6H PRN for SHORTNESS OF BREATH, (Reported) Isosorbide Dinitrate 30 Mg Tablet, 30 MG PO DAILY, (Reported) Lansoprazole 30 Mg Capsule.dr, 30 MG PO DAILY, (Reported) Lisinopril 10 Mg Tablet, 10 MG PO DAILY, (Reported) HOLD AND NOTIFY PCP IF SBP LESS THAN 100 AND/OR DBP LESS THAN 60 AND/OR PULSE LESS THAN 60 Loperamide HCl 2 Mg Tablet, 2 MG PO UD PRN for LOOSE STOOLS, (Reported) MAX OF 4 DOSES IN 24 HOURS Lorazepam 0.5 Mg Tablet, 0.5 MG PO Q8H PRN for ANXIETY, (Reported) Mag Hydrox/Al Hydrox/Simeth 30 Ml Oral.susp, 30 ML PO Q4H PRN for INDIGESTION, ( Reported) Magnesium Hydroxide 400 Mg/5 Ml Oral.susp, 30 ML PO Q12H PRN for CONSTIPATION- 7TH LINE, (Reported) Na Phos,M-B/Na Phos,Di-Ba 133 Ml Enema, 133 ML RC DAILY PRN for CONSTIPATION, ( Reported) Nitroglycerin 0.3 Mg Tab.subl, 0.3 MG SL UD PRN for CHEST PAIN, (Reported) Oxycodone HCl 5 Mg Tablet, 5 MG PO 0200,0800,1400,2000, (Reported) Polyvinyl Alcohol/Povidone 15 Ml Drops, 1 DROP OU TID PRN for DRY EYES, ( Reported) Sennosides 8.6 Mg Tablet, 8.6 MG PO DAILY, (Reported) Sevelamer Carbonate 800 Mg Tablet, 1,600 MG PO TID, (Reported) Sodium Bicarbonate 325 Mg Tablet, 325 MG PO BID, (Reported) Trazodone HCl 50 Mg Tablet, 50 MG PO HS, (Reported) Venlafaxine HCl 150 Mg Cap.er.24h, 150 MG PO DAILY, (Reported) Warfarin Sodium 3 Mg Tablet, 3 MG PO 1700, (Reported) Patient Home Medication List Home Medication List Reviewed: Yes Physical Exam-Cardiology Physical Exam Vital Signs/I&O 11/23/17 11/23/17 05:46 09:00 Temp 98.2 Pulse 81 Resp 17 B/P (MAP) 122/68 (86) Pulse Ox 93 O2 Delivery Room Air Room Air 11/23/17 00:00 Intake Total 680 ml Output Total 200 ml Balance 480 ml Capillary Refill : Less Than 3 Seconds Constitutional: AAO x 3, well-developed, well-nourished HEENT: other (right eye enuculation), hearing is well preserved; No ulceration Neck: No carotid bruit; carotid pulses are 2 + bilaterally Respiratory: No accessory muscle use, No respiratory distress; chest expansion is symmetric, chest is bilaterally symmetric, other (diminished bases bilat) Cardiovascular: regular rate-rhythm; No JVD; S1 and S2, systolic murmur Gastrointestinal: No tender; soft, round, audible bowel sounds Rectal: deferred Extremities: other (bilat pitting and non-pitting edema; LUE AV dialysis fistula with (+) thrill and bruit) Neurologic/Psychiatric: grossly intact Skin: No ulcerations Data Review Labs Laboratory Tests 11/22/17 20:28: Glucometer 87 11/23/17 00:15: Prothrombin Time 37.0H, INR Comment 3.7H 11/23/17 05:05: Glucometer 131H 11/23/17 11:31: Glucometer 229H 11/23/17 15:13: Glucometer 186H A/P-Cardiology Assessment/Admission Diagnosis CAD. Reports h/o CABG in June 2017 at [facility] in [place] - exact details unknown Echocardiogram of July [address] Fernandes at [facility] showed LVEF 15-20%. Mild aortic stenosis; mild MR; trace aortic regurg Reports h/o PE following CABG for which he has been on warfarin tx Supra-therapeutic INR - currently being withheld HTN HLD - statin tx End-stage renal disease for which he is on hemodialysis 3 times a week - followed by Dr. Stephens DM 2 H/O right eye enucleation d/t cancer in the 2004 S/P left femur fracture on 11-03-17; with subsequent repair at [facility] on 11-04-17 H/O chew tobacco use - quit in June 2017 Discussion and Recomendations * Request cardiology records from [facility] and CABG facility * Supra-therapeutic INR - currently being withheld * Monitor lab Clinical Quality Measures DVT/VTE Risk/Contraindication: Risk Factor Score Per Nursin RFS Level Per Nursing on Admit: 4+=Very High GALO MCKEE MD FACP FAC CCDS Nov 23, 2017 17:21
[2017-11-23 17:34] VITALS: BP 150/72
[2017-11-23] MEDS: ATORVASTATIN 40 MG (LIPITOR) TABLET PO SCH (21:14)
[2017-11-23] MEDS: traZODone 50 MG (DESYREL) TAB PO SCH (21:14)
[2017-11-23] MEDS: inSUlin DETERMIR 1 UNIT/0.01 ML (LEVEMIR) CHARGE PER UNIT SQ SCH (21:14)
[2017-11-23] MEDS: DONEPEZIL 10 MG (ARICEPT) TAB PO SCH (21:14)
[2017-11-24] MEDS: HYDROcodone/APAP 5 MG/325 MG (LORTAB) TAB PO PRN ×6 (01:18→21:24)
[2017-11-24 05:37] VITALS: BP 122/65
[2017-11-24] MEDS: VENlafaxine XR 75 MG (EFFEXOR XR) CAP PO SCH (06:22)
[2017-11-24] MEDS: FUROSEMIDE 40 MG (LASIX) TAB PO SCH ×2 (06:22→16:25)
[2017-11-24] MEDS: LORazepam 0.5 MG (ATIVAN) TABLET PO PRN ×2 (06:22→21:25)
[2017-11-24] MEDS: SEVELAMER CARBONATE 800 MG TAB (RENVELA) NON-FORMULARY PO SCH ×3 (06:22→17:45)
[2017-11-24] MEDS: PANTOPRAZOLE 40 MG (PROTONIX) TAB PO SCH (06:22)
[2017-11-24] MEDS: inSUlin ASPART (NovoLOG) 1 UNIT/0.01 ML (CHARGE PER UNIT) SC SCH ×3 (06:23→18:17)
[2017-11-24 06:47] LABS: HEMOGLOBIN 7.9 G/DL (13.3-17.7); RED BLOOD COUNT 2.78 10^6/uL (4.35-5.85)
[2017-11-24 06:56] LABS: INR 1.5 (0.8-1.4); PROTHROMBIN TIME PATIENT 18.5 SEC (12.2-14.7)
[2017-11-24 07:02] LABS: CREATININE SERUM 4.56 MG/DL (0.60-1.30); POTASSIUM 3.7 MMOL/L (3.6-5.0)
[2017-11-24 07:03] LABS: CALCIUM 10.8 MG/DL (8.5-10.1); MAGNESIUM 2.3 MG/DL (1.8-2.4)
[2017-11-24 12:11] VITALS: BP 139/74
[2017-11-24] MEDS: ISOSORBIDE DINITRATE 20 MG (ISORDIL) TAB PO SCH (12:13)
[2017-11-24] MEDS: ASPIRIN E.C. 81 MG (ECOTRIN) TAB PO SCH (12:13)
[2017-11-24] MEDS: SENNOSIDES 8.6 MG (SENOKOT) TAB PO SCH (12:14)
[2017-11-24] MEDS: AMIODARONE 200 MG (CORDARONE) TAB PO SCH (12:14)
[2017-11-24] MEDS: GABAPENTIN 100 MG (NEURONTIN) CAP PO SCH ×3 (12:14→21:25)
[2017-11-24] MEDS: SODIUM BICARBONATE 650 MG TABLET (NON-FORMULARY) PO SCH ×2 (12:14→21:25)
[2017-11-24] MEDS: lisINopril 10 MG (PRINIVIL) TABLET PO SCH (12:14)
[2017-11-24] MEDS: DIVALPROEX 250 MG DELAYED RELEASE (DEPAKOTE) TAB PO SCH ×3 (12:15→21:25)
--- NOTE | 2017-11-24 13:07 | Progress Note-Cardiology ---
Cardiology SOAP Progress Note Subjective: No cp or palp or syncope or shortness of breath at rest S/p dialysis this am Objective: I&O/Vital Signs 11/24/17 11/24/17 05:37 12:11 Temp 97.8 Pulse 80 84 Resp 18 B/P (MAP) 122/65 (84) 139/74 (95) Pulse Ox 97 99 O2 Delivery Room Air 11/24/17 00:00 Intake Total 400 ml Output Total 0 ml Balance 400 ml Weight (Pounds): 196 Weight (Ounces): 6.0 Weight (Calculated Kilograms): 88.777549 Constitutional: AAO x 3, well-developed, well-nourished Respiratory: chest expansion is symmetric, chest is bilaterally symmetric, other Cardiovascular: regular rate-rhythm, S1 and S2, systolic murmur Gastrointestional: soft, round, audible bowel sounds Extremities: other Neurologic/Psychiatric: grossly intact Skin: No ulcerations Results/Procedures: Labs Laboratory Tests 11/23/17 15:13: Glucometer 186H 11/23/17 21:17: Glucometer 107 11/24/17 05:40: Glucometer 79 11/24/17 06:25: White Blood Count 8.0, Red Blood Count 2.78L, Hemoglobin 7.9L, Hematocrit 25L, Mean Corpuscular Volume 90, Mean Corpuscular Hemoglobin 28, Mean Corpuscular Hemoglobin Concent 32, Red Cell Distribution Width 16.0H, Platelet Count 371, Mean Platelet Volume 9.0, Prothrombin Time 18.5H, INR Comment 1.5H, Sodium Level 132L, Potassium Level 3.7, Chloride Level 91L, Carbon Dioxide Level 26, Anion Gap 15H, Blood Urea Nitrogen 38H, Creatinine 4.56H, Estimat Glomerular Filtration Rate 13, BUN/Creatinine Ratio 8, Glucose Level 77, Calcium Level 10.8H, Magnesium Level 2.3 A/P: Assessment: CAD. Reports h/o CABG in June 2017 at [facility] in [place] - exact details unknown Echocardiogram of July [address] Fernandes at [facility] showed LVEF 15-20%. Mild aortic stenosis; mild MR; trace aortic regurg Reports h/o PE following CABG for which he has been on warfarin tx Supra-therapeutic INR - currently being withheld HTN HLD - statin tx End-stage renal disease for which he is on hemodialysis 3 times a week - followed by Dr. Stephens DM 2 H/O right eye enucleation d/t cancer in the 2004 S/P left femur fracture on 11-03-17; with subsequent repair at [facility] on 11-04-17 H/O chew tobacco use - quit in June 2017 Plan: * Request cardiology records from [facility] and CABG facility * INR now sub-therapeutic. Resume warfarin is a somewhat lower dose than the dose that led to the supra-therapeutic INR * Monitor lab GALO MCKEE MD FACP FACC CCDS Nov 24, 2017 13:07
--- NOTE | 2017-11-24 14:48 | Behavioral Health Consult ---
Consult- Consult Date Seen by Provider: Nov 24, 2017 Time Seen by Provider: 13:25 CPT Code: 71982 Psychodiagnostic Examination, 76272 +Interactive Complexity, 1 unit(s) Chief Complaint: depression and anxiety Referral: Matt Stein is a 62-year-old, , male referred by Dr. Fermin for a clinical diagnostic assessment. Information for this evaluation was gathered from self-report and medical records. Presenting Problem: The presenting clinical problem is depression and anxiety. Matt denied any depression of anxiety. He reported his thinks he is depressed, but said that is because she is depressed. He denied any sadness or worry. He reported his energy level is low after dialysis, but otherwise his energy level is good. He denied any problems with concentration or memory. He denied any problems with anger. He reported some frustration with trying to do dialysis and complete all his therapies. He reported physical therapy is draining. He reported he feels his rehabilitation is going well, but he wishes it will go quicker. He expressed some concern for his oldest grandson who overdosed last night, but is doing better today. Overall symptoms observed or reported requiring current level of care include anergia, familial stress/strain , irritability, and medical problems. Observations/Mental Status: Matt was sitting in his wheelchair. Overall appearance was unremarkable clinically. Matt appeared to be an adequate historian. Observed gait and gross motor movements indicated a reliance on mechanical assistance (i.e.,walker, wheelchair). In regards to pain, reported leg pain. Hawa general approach to the evaluation was cooperative. Orientation was intact for person, place, time, and situation. Matt evidenced good understanding of the reason for the appointment. Hawa in-session behavior was cooperative. The predominant mood was calm with minimized and controlled affect. Immediate attention and concentration was grossly intact. Memory functioning appeared to be intact. Level of intellectual functioning compared to same age peers was estimated to be in the average range. Thought processes were found to be generally logical, coherent and goal directed. Thought content appeared normal. There was no report or evidence of hallucinations or delusions. Psychomotor functioning was within normal limits. Tone of voice was normal and controlled. Expressive speech was marked by fluent speech and language. Eye contact was good. Insight was fair. Overall, style of interacting during the appointment was appropriate. Current/Previous Mental Health Treatment: Past psychiatric history was reported as went to therapy many years ago when his first thought he had anger problems. He reported having depression four or five years ago when he had to stop working. He stated he worked through the depression on his own. He reported having PTSD related to his job. History of self or other harm: none reported. Medical History: Medical conditions were reported as Chronic end-stage renal disease, hyperlipidemia, hypertension, diabetes mellitus and GERD. Drug allergies: none reported. Recreational Drug Usage: Substance abuse history was reported as none. Educational and Vocational Histories: Matt has been on disability for his health issues. 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 Family and Social Histories: Matt currently lives with his of 24 years in [place], [place]. He reported he has children and grandchildren and they are supportive. He stated his is supportive. He stated they moved to [place] two years ago because cost of living is less. He reported he previously lived in [place], [place]. He stated he lived in [place] until 1982. Strengths/Weaknesses: Strengths/Resources: supportive family Liabilities/Barriers: distrustful and guarded and health problems Summary of Assessment Information/Recommendations: Matt is a 62-year-old male with history of multiple health issues. Following current assessment, presenting problem and symptoms appear consistent with a preliminary diagnosis of F43.20 Adjustment Disorder, Unspecified. Current emotional symptoms are of mild intensity. Overall, prognosis is estimated to be guarded. Matt denied any current mental health symptoms. He did report a history of depression and PTSD, but that he was able to resolve those issues on his own. He was dismissive of any issues with motivation. It is recommended that staff continue to encourage Matt to work on his therapies, however he may be resistant. At this time mental health treatment is not recommended due to his denial of symptoms. ICD-10 Diagnostic Impressions: F43.20 Adjustment Disorder, Unspecified GEE JUNIOR LM Nov 24, 2017 14:48
--- NOTE | 2017-11-24 15:08 | Therapy Group Daily Note ---
Therapy Daily Group Note Patient Education Topic Home Safety Exercises LE Seated Exercise, UE Exercise Other/Notes Pt was with Behavior Health at start of group. Pt transported via w/c to OT[facility]PT group [facility]. Group consisted of introductions (name, place living , have you ever fallen), UE/LE seated exercises, home safety education and pt experiences/strategies for being safe at home.. Pt introduced self appropriately and actively listened to peers. Pt contributed to and initiated conversations throughout group. Pt was able to complete UE/LE exercises, fatigued easily. Verbalized understanding topics and was able to give examples from personal experience. Pt was able to stand for positioning change. Pt verbalized understanding of educational topic and discuss alternatives for home safety . Pt then maneuvered w/c back to room and sat in recliner after therapy. Call light/phone in reach, all needs met in room. Start Time: 13:09 Stop Time: 14:20 Total Billed Treatment Time: 71 Total Billed Treatment 1-GRP TIGRE CALDERON Nov 24, 2017 15:08
[2017-11-24 16:26] VITALS: BP 127/73
[2017-11-24] MEDS: warFARin 2.5 MG (COUMADIN) TAB PO SCH (17:47)
--- NOTE | 2017-11-24 20:03 | PM & R (SOAP) Progress Note ---
Subjective This was a face to face visit with the patient. Date Seen by Provider: Nov 24, 2017 Time Seen by Provider: 19:55 Subjective/Events-last exam Patient was seen in his room this evening Patient Min assist for transfers Appreciate Cardiology note and orders INR 1.5 coumadin dose adjusted .HGB 7.9 Date Identified: Nov 24, 2017 Time Identified: 19:50 Medication Intervention: coumadin dose adjusted Objective Physician Exam Last Set of Vital Signs Vital Signs Date Time Temp Pulse Resp B/P (MAP) Pulse Ox O2 Delivery O2 Flow Rate FiO2 11/24/17 16:26 97.0 77 16 127/73 (91) 98 Room Air Capillary Refill : Less Than 3 Seconds I&O Intake and Output 11/24/17 00:00 Intake Total 700 ml Output Total 0 ml Balance 700 ml Intake Oral 700 ml Output Urine Total 0 ml # Bowel Movements 2 General: Alert, Oriented X3, Cooperative, No Acute Distress HEENT: Mucous Memb Moist/[place] Neck: Supple Lungs: Clear to Auscultation, Normal Air Movement Heart: Regular Rate, No Murmurs Abdomen: Normal Bowel Sounds, Soft, No Tenderness Extremities: Normal Pulses Skin: Other (L arm in clean bandage, no evidence of continued bleeding from dialysis site) Neuro: Normal Speech, Normal Tone, Sensation Intact Psych/Mental Status: Mental Status NL, Mood NL Results Lab Data Laboratory Tests 11/21/17 20:34: Glucometer 127H 11/22/17 04:30: Prothrombin Time 51.3*H, INR Comment 5.6*H, Mean Blood Glucose 146H, Hemoglobin A1c 6.7H 11/22/17 05:22: Glucometer 113H 11/22/17 13:20: Glucometer 104 11/22/17 16:17: Glucometer 166H 11/22/17 20:28: Glucometer 87 11/23/17 00:15: Prothrombin Time 37.0H, INR Comment 3.7H 11/23/17 05:05: Glucometer 131H 11/23/17 11:31: Glucometer 229H 11/23/17 15:13: Glucometer 186H 11/23/17 21:17: Glucometer 107 11/24/17 05:40: Glucometer 79 11/24/17 06:25: White Blood Count 8.0, Red Blood Count 2.78L, Hemoglobin 7.9L, Hematocrit 25L, Mean Corpuscular Volume 90, Mean Corpuscular Hemoglobin 28, Mean Corpuscular Hemoglobin Concent 32, Red Cell Distribution Width 16.0H, Platelet Count 371, Mean Platelet Volume 9.0, Prothrombin Time 18.5H, INR Comment 1.5H, Sodium Level 132L, Potassium Level 3.7, Chloride Level 91L, Carbon Dioxide Level 26, Anion Gap 15H, Blood Urea Nitrogen 38H, Creatinine 4.56H, Estimat Glomerular Filtration Rate 13, BUN/Creatinine Ratio 8, Glucose Level 77, Calcium Level 10.8H, Magnesium Level 2.3 11/24/17 13:39: Glucometer 88 11/24/17 16:24: Glucometer 70 Assessment/Plan Assessment and Plan Displaced left fem neck fracture s/p left hemiarthroplasty OSH 11-04-17 Chronic anticoagulation ESRD on Dialysis TIW IDDM CAD s/p WA and CABG S/P enucleation rt eye for CA Pressure sore left heel Plan Continue PT/OT F/U with PCP and cardiology prn Co-Morbidities that are continuing to impact the rehab process: (include details ) LUCA SORIA MD Nov 24, 2017 20:03
[2017-11-24] MEDS: DONEPEZIL 10 MG (ARICEPT) TAB PO SCH (21:25)
[2017-11-24] MEDS: ATORVASTATIN 40 MG (LIPITOR) TABLET PO SCH (21:25)
[2017-11-24] MEDS: traZODone 50 MG (DESYREL) TAB PO SCH (21:25)
[2017-11-24] MEDS: inSUlin DETERMIR 1 UNIT/0.01 ML (LEVEMIR) CHARGE PER UNIT SQ SCH (21:26)
[2017-11-25] MEDS: HYDROcodone/APAP 5 MG/325 MG (LORTAB) TAB PO PRN ×5 (02:15→22:35)
[2017-11-25 06:00] VITALS: BP 126/69
[2017-11-25] MEDS: PANTOPRAZOLE 40 MG (PROTONIX) TAB PO SCH (06:35)
[2017-11-25] MEDS: FUROSEMIDE 40 MG (LASIX) TAB PO SCH ×2 (06:35→17:35)
[2017-11-25] MEDS: VENlafaxine XR 75 MG (EFFEXOR XR) CAP PO SCH (06:35)
[2017-11-25] MEDS: inSUlin ASPART (NovoLOG) 1 UNIT/0.01 ML (CHARGE PER UNIT) SC SCH ×4 (06:36→17:35)
[2017-11-25] MEDS: SEVELAMER CARBONATE 800 MG TAB (RENVELA) NON-FORMULARY PO SCH ×3 (06:36→17:36)
[2017-11-25 09:20] LABS: INR 1.5 (0.8-1.4); PROTHROMBIN TIME PATIENT 17.7 SEC (12.2-14.7)
--- NOTE | 2017-11-25 09:39 | Progress Note-Cardiology ---
Cardiology SOAP Progress Note Subjective: In bed. Denies any c/o CP, dyspnea, palpitations, syncope or near syncope. Had dialysis yesterday. Objective: I&O/Vital Signs 11/25/17 11/25/17 11/25/17 06:00 08:55 16:00 Temp 98.8 98.0 Pulse 84 76 Resp 18 16 B/P (MAP) 126/69 (88) 137/72 (93) Pulse Ox 93 98 O2 Delivery Room Air Room Air Room Air 11/25/17 00:00 Intake Total 1440 ml Output Total 0 ml Balance 1440 ml Weight (Pounds): 194 Weight (Ounces): 6.0 Weight (Calculated Kilograms): 87.535899 Constitutional: AAO x 3, well-developed, well-nourished Respiratory: chest expansion is symmetric, chest is bilaterally symmetric, other Cardiovascular: regular rate-rhythm, S1 and S2, systolic murmur Gastrointestional: soft, round, audible bowel sounds Extremities: other Neurologic/Psychiatric: grossly intact Skin: No ulcerations Results/Procedures: Labs Laboratory Tests 11/24/17 21:16: Glucometer 96 11/25/17 05:18: Glucometer 124H 11/25/17 09:00: Prothrombin Time 17.7H, INR Comment 1.5H 11/25/17 10:54: Glucometer 92 11/25/17 15:57: Glucometer 163H A/P: Assessment: H/o CAD and ischemic cardiomyopathy. Reports h/o CABG in June 2017 at [facility] in [place] - received SOLIMAN to LAD and SVG to OM1 and SVG to OM2 and SVG to PDA Echocardiogram of July [address] Fernandes at [facility] showed LVEF 15-20%. Mild aortic stenosis; mild MR; trace aortic regurg Reports h/o PE following CABG for which he has been on warfarin tx Supra-therapeutic INR - now sub-therapeutic HTN HLD - statin tx End-stage renal disease for which he is on hemodialysis 3 times a week - followed by Dr. Stephens DM 2 H/O right eye enucleation d/t cancer in the 2004 S/P left femur fracture on 11-03-17; with subsequent repair at [facility] on 11-04-17 H/O chew tobacco use - quit in June 2017 Plan: * Request cardiology records from [facility] and CABG facility * INR now sub-therapeutic. Resume warfarin is a somewhat lower dose than the dose that led to the supra-therapeutic INR * Monitor lab Physician Assessment Physician Assessment No cp or palp or syncope No shortness of breath at rest Gen malaise and weakness is persistent Lungs: good bilat air entry Cor: reg Ext: no c/c/e Labs reviewed A&R * As documented in our note above that I updated (italics) and as noted below * Continue warfarin and monitor labs * Dr Leung covering Cardiology ASHLIE Khan EVENT MANAGER Nov 25, 2017 09:39 GALO MCKEE MD FACP FAC CCDS Nov 25, 2017 16:33
[2017-11-25] MEDS: ISOSORBIDE DINITRATE 20 MG (ISORDIL) TAB PO SCH (10:36)
[2017-11-25] MEDS: GABAPENTIN 100 MG (NEURONTIN) CAP PO SCH ×3 (10:36→20:39)
[2017-11-25] MEDS: DIVALPROEX 250 MG DELAYED RELEASE (DEPAKOTE) TAB PO SCH ×3 (10:37→20:40)
[2017-11-25] MEDS: lisINopril 10 MG (PRINIVIL) TABLET PO SCH (10:37)
[2017-11-25] MEDS: SODIUM BICARBONATE 650 MG TABLET (NON-FORMULARY) PO SCH ×2 (10:38→20:39)
[2017-11-25] MEDS: AMIODARONE 200 MG (CORDARONE) TAB PO SCH (10:38)
[2017-11-25] MEDS: ASPIRIN E.C. 81 MG (ECOTRIN) TAB PO SCH (10:38)
[2017-11-25] MEDS: SENNOSIDES 8.6 MG (SENOKOT) TAB PO SCH (10:39)
--- NOTE | 2017-11-25 11:02 | Physical Therapy Daily Note ---
PT Daily Note-Current Subjective Agrees to PT after encouragement. "which one of you keeps telling the SW I'm not trying." Pain Numeric Pain Scale: 5-Moderate Pain Location: Left Location Body Site: Hip Pain Description: Stabbing Comment: Pt reprots with WB and attempts to walk at end of treatment. Mental Status Patient Orientation: Person, Place, Time, Situation Transfers Functional [place] Measure 0=Not Assessed/NA 4=Minimal Assistance 1=Total Assistance 5=Supervision or Setup 2=Maximal Assistance 6=Modified [place] 3=Moderate Assistance 7=Complete IndependenceIRFPAI Quality Coding Scale 6 Independent with activity with or without an assistive device 5 Patient requires set up or clean up by helper. Patient completes activity by themselves 4 Supervision or touching assist (CGA). [place] provide cues , steadying assist 3 The helper provides less than half the effort to complete the activity 2 The helper provides more than half the effort to complete the activity 1 Dependent. The helper does all the effort to complete an activity 7 Patient refused to complete or attempt activity 9 The patient did not perform the activity before the current illness or injury 88 Not attempted due to Medical conditions or safety concerns Transfers (B, C, W/C) (FIM): 4 Roll Left to Right (QC): 4 Supine to/from Sit: 4 (asssit to lift his trunk to sit up and asssit with his left leg to lie down.) Chair/Grk-lk-Wtzpy Xfer(QC): 4 (close CGA for safety) Requires at least CGA for all for safety purposes. Requires cues for sequencing to mobilize and straighten in bed. Weight Bearing Right Lower Extremity: Right Full Weight Bearing Left Lower Extremity: Left Weight Bearing/Tolerated Gait Training Does the Patient Walk?: Yes Gait (FIM): 2 Distance (FIM): 7=013-15 ft Distance: 125ft; 50 ft and 100 ft. Gait Assistive Device: FWW slow gait and unsteady as he fatigues. Unable to walk the full 125 ft back to his room from the gym due to retorts of left hip pain with WB. Exercises Supine Ex: Ankle pumps, Quad Set, Glut sets, Heel Slides, Short Arc Quads, Straight leg raise, Hip abd/add Supine Reps: 10 (to increase LE strength for functional transfers and gait. ) NuStep Minutes: 15 (LE strength and functional act tolerance progression) Assessment Pt able to tolerate increased gait distance at start of treatment but pain limited gait towards the end of treatment. Transfers are improving as is gait; but still requires asssist with all mobiltiy. PT Short Term Goals Short Term Goals Time Frame: Nov 25, 2017 Transfers (B,C,W/C) (FIM): 4 (met) Gait (FIM): 2 (met) Gait Distance Comment: 75' Gait Level of Assist: 4 Gait Assistive Device: FWW Wheelchair Distance: 150' PT Speed Winder Goals Residential Goals PT Speed Winder Goals Time Frame: Dec 09, 2017 Transfers (B,C,W/C) (FIM): 5 Sit to Lying (QC): 4 Lying-Sitting on Side/Bed(QC): 4 Sit to Stand (QC): 4 Rollin Roll Left to Right (QC): 4 Chair/Czr-bk-Anlnj Xfer(QC): 4 Car Transfer (QC): 4 Does the Patient Walk: Yes Gait (FIM): 5 Distance: 150' Walk 10 feet (QC): 4 Walk 10ft-Uneven Surface(QC): 4 Walk 50ft with 2 Turns (QC): 4 Walk 150 ft (QC): 4 Gait Level of Assist: 5 Gait Assistive Device: FWW Stairs (FIM): 4 # of Steps: 12 1 Step (curb) (QC): 4 4 Steps (QC): 4 12 Steps (QC): 4 Stairs Level Of Assist: 4 Picking up an Object (QC): 4 PT Plan Problem List Problem List: Activity Tolerance, Functional Strength, Safety, Balance, Gait, Transfer, Bed Mobility Treatment/Plan Treatment Plan: Continue Plan of Care Treatment Plan: Bed Mobility, Concurrent Therapy, Education, Functional Activity Garcia, Functional Strength, Group Therapy, Gait, Safety, Therapeutic Exercise, Transfers Treatment Duration: Dec 09, 2017 Frequency: At least 5 of 7 days/Wk (IRF) Estimated Hrs Per Day: 1.5 hours per day Patient and/or Family Agrees t: Yes Safety Risks/Education Patient Education: Transfer Techniques, Safety Issues Teaching Recipient: Patient Teaching Methods: Demonstration, Discussion Response to Teaching: Reinforcement Needed Discharge Recommendations Therapy D/C Recommendations: Physical Therapy Home Care Time/GCodes Time In: 915 Time Out: 1040 Total Billed Treatment Time: 85 Total Billed Treatment visit EX 30 FA 55 TIGRE DRAKE PT Nov 25, 2017 11:02
--- NOTE | 2017-11-25 11:56 | Occupational Ther Daily Note ---
OT Current Status-Daily Note Subjective Pt alert, lying in bed. Pt was worried about his chocolate shake and wanted it before he started therapy. LING encouraged pt to start therapy and would make sure he got it during therapy. Pt c/o pain, when LING asked about when he had his pain meds pt stated he just got it and it hadn't kicked in yet. Mental Status/Objective Functional [place] Measure 0=Not Assessed/NA 4=Minimal Assistance 1=Total Assistance 5=Supervision or Setup 2=Maximal Assistance 6=Modified [place] 3=Moderate Assistance 7=Complete [place] ADL-Treatment Pt able to go from supine to sitting EOB by self using bedrail, when getting back into bed pt is able to lift LE's into bed but requested assist to straighten up. Pt ambulated into bathroom using FWW. Functional [place] Measure 0=Not Assessed/NA 4=Minimal Assistance 1=Total Assistance 5=Supervision or Setup 2=Maximal Assistance 6=Modified [place] 3=Moderate Assistance 7=Complete IndependenceIRFPAI Quality Coding Scale 6 Independent with activity with or without an assistive device 5 Patient requires set up or clean up by helper. Patient completes activity by themselves 4 Supervision or touching assist (CGA). [place] provide cues , steadying assist 3 The helper provides less than half the effort to complete the activity 2 The helper provides more than half the effort to complete the activity 1 Dependent. The helper does all the effort to complete an activity 7 Patient refused to complete or attempt activity 9 The patient did not perform the activity before the current illness or injury 88 Not attempted due to Medical conditions or safety concerns Bathing (FIM): 4 (Using grabbar, long handle sponge, hand held shower and shower bench to complete shower. Assist to cleanse buttocks due to LOB in standing with pt's initial attempt.) Bathing Location: L Arm, R Arm, L Upper Leg, R Upper Leg, L Lower Leg ( including foot), R Lower Leg (including foot), Chest, Abdomen, Perineal Area Shower/Bathe Self (QC): 3 Upper Body (FIM): 5 (After set up, pt able to complete.) Upper Body Dressing (QC): 5 Lower Body Dressing (FIM): 3 (Using AE pt requires mod A for lower body dressing. Assist to get clothing over feet and hiking over hips. Pt was able to doff clothing using AE by self.) Lower Body Dressing (QC): 3 Shower Transfer(FIM): 4 (Min A stand to sit for transfer using FWW, grabbar and shower bench.) Pt takes increased time to complete ADLs due to slow movements and decreased activity tolerance. After therapy, pt lying in bed with call light/phone in reach. All needs met in room. OT Short Term Goals Short Term Goals Transfers (B,C,W/C) (FIM): 4 (met) 1=Demonstrate adherence to instructed precautions during ADL tasks. 2=Patient will verbalize/demonstrate understanding of assistive devices/ modifications for ADL. 3=Patient will improve strength/tolerance for activity to enable patient to perform ADL's. OT Intermediate Goals Body Cleaner Goals Time Frame: Dec 09, 2017 Eating (FIM): 7 Eating (QC): 6 Groomin Oral Hygiene (QC): 6 Bathing(FIM): 5 Shower/Bathe Self (QC): 4 Upper Body Dressing(FIM): 6 Upper Body Dressing (QC): 6 Lower Body Dressing(FIM): 5 Lower Body Dressing (QC): 5 On/Off Footwear (QC): 5 Toileting(FIM): 5 Toileting Hygiene (QC): 4 Toilet/Commode Transfer(FIM): 5 Toilet/Commode Transfer (QC): 5 Shower Transfer(FIM): 5 Additional Goals: 1-Demonstrate ADL Tasks, 2-Verbalize Understanding, 3- ImproveStrength/Garcia 1=Demonstrate adherence to instructed precautions during ADL tasks. 2=Patient will verbalize/demonstrate understanding of assistive devices/ modifications for ADL. 3=Patient will improve strength/tolerance for activity to enable patient to perform ADL's. OT Education/Plan Discharge Recommendations Plan/Recommendations: Continue POC Treatment Plan/Plan of Care Patient would benefit from OT for education, treatment and training to promote independence in ADL's, mobility, safety and/or upper extremity function for ADL' s. Plan of Care: ADL Retraining, Functional Mobility, Group Exercise/Act as Ind, UE Funct Exercise/Act Treatment Duration: Dec 09, 2017 Frequency: Modified Program (IRF) (21/08) Estimated Hrs Per Day: 1.5 hours per day Agreement: Yes Rehab Potential: Good Time/GCodes Start Time: 10:45 Stop Time: 12:00 Total Time Billed (hr/min): 75 Billed Treatment Time 1 visit-ADL 5 (75 min) TIGRE CALDERON Nov 25, 2017 11:56
[2017-11-25] MEDS: LORazepam 0.5 MG (ATIVAN) TABLET PO PRN (12:33)
--- NOTE | 2017-11-25 14:26 | Therapy Group Daily Note ---
Therapy Daily Group Note Patient Education Topic Energy Cons, Other List Below (benefits of exercise) Exercises LE Seated Exercise, UE Exercise Other/Notes Pt. participated in group PT OT session this date. pt. required min assist in out bed. Pt. was social and introduced himself to others and engaged appropriately. Pt. did participate in seated U&L extremity exercise and lead an exercise as per a written illustrated hand out. Pts. were educated on and shared their experience regarding energy conservation nick in home environment. Pts. were also educated in benefits of exercise as it applies to multiple diagnoses. Pt. to room after Rx with min assist and foreman at hand. Start Time: 13:00 Stop Time: 14:10 Total Billed Treatment Time: 70 Total Billed Treatment 1,GRP HANNAH PIMENTEL HOME AGENT Nov 25, 2017 14:26
[2017-11-25 16:00] VITALS: BP 137/72
[2017-11-25] MEDS: warFARin 2.5 MG (COUMADIN) TAB PO SCH (17:38)
--- NOTE | 2017-11-25 17:54 | PM & R (SOAP) Progress Note ---
Subjective This was a face to face visit with the patient. Date Seen by Provider: Nov 25, 2017 Time Seen by Provider: 12:00 Subjective/Events-last exam Patient was seen in his room this noon hour Patient min assist for transfers Appreciate Cardiology note and orders Appreciate INR Date Identified: Nov 25, 2017 Time Identified: 12:00 Medication Intervention: Coumadin dose adjusted Objective Physician Exam Last Set of Vital Signs Vital Signs Date Time Temp Pulse Resp B/P (MAP) Pulse Ox O2 Delivery O2 Flow Rate FiO2 11/25/17 16:00 98.0 76 16 137/72 (93) 98 Room Air Capillary Refill : Less Than 3 Seconds I&O Intake and Output 11/25/17 00:00 Intake Total 1840 ml Output Total 0 ml Balance 1840 ml Intake Oral 1840 ml Output Urine Total 0 ml General: Alert, Oriented X3, Cooperative, No Acute Distress HEENT: Mucous Memb Moist/[place] Neck: Supple Lungs: Clear to Auscultation, Normal Air Movement Heart: Regular Rate, No Murmurs Abdomen: Normal Bowel Sounds, Soft, No Tenderness Extremities: Normal Pulses Skin: Other (L arm in clean bandage, no evidence of continued bleeding from dialysis site) Neuro: Normal Speech, Normal Tone, Sensation Intact Psych/Mental Status: Mental Status NL, Mood NL Results Lab Data Laboratory Tests 11/22/17 20:28: Glucometer 87 11/23/17 00:15: Prothrombin Time 37.0H, INR Comment 3.7H 11/23/17 05:05: Glucometer 131H 11/23/17 11:31: Glucometer 229H 11/23/17 15:13: Glucometer 186H 11/23/17 21:17: Glucometer 107 11/24/17 05:40: Glucometer 79 11/24/17 06:25: White Blood Count 8.0, Red Blood Count 2.78L, Hemoglobin 7.9L, Hematocrit 25L, Mean Corpuscular Volume 90, Mean Corpuscular Hemoglobin 28, Mean Corpuscular Hemoglobin Concent 32, Red Cell Distribution Width 16.0H, Platelet Count 371, Mean Platelet Volume 9.0, Prothrombin Time 18.5H, INR Comment 1.5H, Sodium Level 132L, Potassium Level 3.7, Chloride Level 91L, Carbon Dioxide Level 26, Anion Gap 15H, Blood Urea Nitrogen 38H, Creatinine 4.56H, Estimat Glomerular Filtration Rate 13, BUN/Creatinine Ratio 8, Glucose Level 77, Calcium Level 10.8H, Magnesium Level 2.3 11/24/17 13:39: Glucometer 88 11/24/17 16:24: Glucometer 70 11/24/17 21:16: Glucometer 96 11/25/17 05:18: Glucometer 124H 11/25/17 09:00: Prothrombin Time 17.7H, INR Comment 1.5H 11/25/17 10:54: Glucometer 92 11/25/17 15:57: Glucometer 163H Assessment/Plan Assessment and Plan Displaced left fem neck fracture s/p left Hemiarthroplasty OSH 11-04-17 Subtherapeutic INR Coumadin dose being adjusted ESRD on dialysis TIW IDDM Cad s/p CT S/P enucleation rt eye for CA Pressure sore left heel Plan Continue PT/OT/Wound care F/U with Cardiology PRN Monitor INR and adjust Coumadin dosage Prn Goal return home with spouse at [facility] or better Co-Morbidities that are continuing to impact the rehab process: (include details ) LUCA SORIA MD Nov 25, 2017 17:54
[2017-11-25] MEDS: ATORVASTATIN 40 MG (LIPITOR) TABLET PO SCH (20:39)
[2017-11-25] MEDS: traZODone 50 MG (DESYREL) TAB PO SCH (20:39)
[2017-11-25] MEDS: DONEPEZIL 10 MG (ARICEPT) TAB PO SCH (20:40)
[2017-11-25] MEDS: inSUlin DETERMIR 1 UNIT/0.01 ML (LEVEMIR) CHARGE PER UNIT SQ SCH (20:40)
[2017-11-26 05:16] LABS: INR 1.5 (0.8-1.4); PROTHROMBIN TIME PATIENT 18.3 SEC (12.2-14.7)
[2017-11-26 05:29] VITALS: BP 144/68
[2017-11-26] MEDS: VENlafaxine XR 75 MG (EFFEXOR XR) CAP PO SCH (05:58)
[2017-11-26] MEDS: FUROSEMIDE 40 MG (LASIX) TAB PO SCH ×2 (05:58→16:28)
[2017-11-26] MEDS: PANTOPRAZOLE 40 MG (PROTONIX) TAB PO SCH (05:58)
[2017-11-26] MEDS: SEVELAMER CARBONATE 800 MG TAB (RENVELA) NON-FORMULARY PO SCH ×3 (05:59→17:16)
[2017-11-26] MEDS: HYDROcodone/APAP 5 MG/325 MG (LORTAB) TAB PO PRN ×4 (06:00→20:25)
[2017-11-26] MEDS: inSUlin ASPART (NovoLOG) 1 UNIT/0.01 ML (CHARGE PER UNIT) SC SCH ×3 (06:00→17:18)
--- NOTE | 2017-11-26 09:32 | Physical Therapy Progress Note ---
Therapy Progress Note Patient at dialysis. No PT this morning. CHAVA JACKMAN PT Nov 26, 2017 09:32
[2017-11-26] MEDS: CLOPIDOGREL 75 MG (PLAVIX) TABLET PO SCH (12:44)
[2017-11-26] MEDS: DIVALPROEX 250 MG DELAYED RELEASE (DEPAKOTE) TAB PO SCH ×3 (12:44→20:26)
[2017-11-26] MEDS: GABAPENTIN 100 MG (NEURONTIN) CAP PO SCH ×3 (12:44→20:26)
[2017-11-26] MEDS: SENNOSIDES 8.6 MG (SENOKOT) TAB PO SCH (12:44)
[2017-11-26] MEDS: AMIODARONE 200 MG (CORDARONE) TAB PO SCH (12:44)
[2017-11-26] MEDS: ASPIRIN E.C. 81 MG (ECOTRIN) TAB PO SCH (12:45)
[2017-11-26] MEDS: ISOSORBIDE DINITRATE 20 MG (ISORDIL) TAB PO SCH (12:45)
[2017-11-26] MEDS: lisINopril 10 MG (PRINIVIL) TABLET PO SCH (12:45)
[2017-11-26] MEDS: SODIUM BICARBONATE 650 MG TABLET (NON-FORMULARY) PO SCH ×2 (12:45→20:26)
[2017-11-26] MEDS: warFARin 2.5 MG (COUMADIN) TAB PO SCH (13:23)
[2017-11-26] MEDS ORDERED: warFARin 5 MG (COUMADIN) TAB PO NR ×2 (13:31→18:00)
--- NOTE | 2017-11-26 14:11 | Cardiology Progress Note ---
Cardiology SOAP Progress Note Subjective: No cardiac complaints. Objective: I&O/Vital Signs 11/26/17 05:29 Temp 97.8 Pulse 80 Resp 16 B/P (MAP) 144/68 (93) Pulse Ox 96 O2 Delivery Room Air 11/26/17 00:00 Intake Total 850 ml Balance 850 ml Weight (Pounds): 195 Weight (Ounces): 4.8 Weight (Calculated Kilograms): 88.324312 Constitutional: AAO x 3, well-developed, well-nourished Respiratory: chest expansion is symmetric, chest is bilaterally symmetric, lungs clear to auscultation, other Cardiovascular: regular rate-rhythm, S1 and S2, systolic murmur Gastrointestional: soft, round, audible bowel sounds Extremities: No normal range of motion, No non-tender, No normal inspection, No pedal edema, No calf tenderness, No normal capillary refill, No pelvis stable , No calf tenderness, No inflammation, No pedal edema, No slow capillary refill , No swelling; other; No abrasion, No clubbing, No cyanosis, No ecchymosis, No laceration, No no lower extremity edema bilateral, No significant edema, No tenderness, No wound Neurologic/Psychiatric: no motor/sensory deficits, alert, normal mood/affect, oriented x 3, grossly intact Skin: No normal color, No warm/dry, No cyanosis, No cool, No diaphoresis, No damp, No ecchymosis, No jaundice, No mottled, No pallor, No rash, No tattoos/ piercings, No ulcerations, No rash on exposed areas, No ulcerations on exposed areas, No other Results/Procedures: Labs Laboratory Tests 11/25/17 15:57: Glucometer 163H 11/25/17 20:03: Glucometer 126H 11/26/17 04:45: Prothrombin Time 18.3H, INR Comment 1.5H 11/26/17 05:09: Glucometer 113H 11/26/17 11:49: Glucometer 66L A/P: Assessment/Dx: Assessment: H/o CAD and ischemic cardiomyopathy. Reports h/o CABG in June 2017 at [facility] in [place] - received SOLIMAN to LAD and SVG to OM1 and SVG to OM2 and SVG to PDA Echocardiogram of July [address] Fernandes at [facility] showed LVEF 15-20%. Mild aortic stenosis; mild MR; trace aortic regurg Reports h/o PE following CABG for which he has been on warfarin tx Supra-therapeutic INR - now sub-therapeutic HTN HLD - statin tx End-stage renal disease for which he is on hemodialysis 3 times a week - followed by Dr. Stephens DM 2 H/O right eye enucleation d/t cancer in the 2004 S/P left femur fracture on 11-03-17; with subsequent repair at [facility] on 11-04-17 H/O chew tobacco use - quit in June 2017 Plan: Plan: * Request cardiology records from [facility] and CABG facility * Patient is on warfarin 2.5 mg daily. INR 1.5. Increased dose of warfarin 5 mg tonight. Recheck INR tomorrow. * Monitor lab Thank you for your consultation. Please call me if you have any questions. Chyna Leung MD, FACP, FACC, FSCAI, FHRS, CCDS Interventional Cardiology Cardiac Electrophysiology Vascular Medicine and Endovascular Interventions Shahram LEUNG MD Nov 26, 2017 2:11 pm
[2017-11-26 18:15] VITALS: BP 142/72
[2017-11-26] MEDS: DONEPEZIL 10 MG (ARICEPT) TAB PO SCH (20:25)
[2017-11-26] MEDS: traZODone 50 MG (DESYREL) TAB PO SCH (20:25)
[2017-11-26] MEDS: ATORVASTATIN 40 MG (LIPITOR) TABLET PO SCH (20:26)
[2017-11-26] MEDS: inSUlin DETERMIR 1 UNIT/0.01 ML (LEVEMIR) CHARGE PER UNIT SQ SCH (20:30)
[2017-11-27] MEDS: HYDROcodone/APAP 5 MG/325 MG (LORTAB) TAB PO PRN ×3 (00:21→10:06)
[2017-11-27] MEDS: LORazepam 0.5 MG (ATIVAN) TABLET PO PRN (02:31)
[2017-11-27 05:06] VITALS: BP 125/72
[2017-11-27 06:06] LABS: INR 1.8 (0.8-1.4); PROTHROMBIN TIME PATIENT 21.1 SEC (12.2-14.7)
[2017-11-27] MEDS: PANTOPRAZOLE 40 MG (PROTONIX) TAB PO SCH (06:21)
[2017-11-27] MEDS: FUROSEMIDE 40 MG (LASIX) TAB PO SCH ×2 (06:21→18:18)
[2017-11-27] MEDS: VENlafaxine XR 75 MG (EFFEXOR XR) CAP PO SCH (06:21)
[2017-11-27] MEDS: SEVELAMER CARBONATE 800 MG TAB (RENVELA) NON-FORMULARY PO SCH ×3 (06:46→18:22)
[2017-11-27] MEDS: inSUlin ASPART (NovoLOG) 1 UNIT/0.01 ML (CHARGE PER UNIT) SC SCH ×3 (06:47→18:22)
[2017-11-27] MEDS: SENNOSIDES 8.6 MG (SENOKOT) TAB PO SCH (09:06)
[2017-11-27] MEDS: lisINopril 10 MG (PRINIVIL) TABLET PO SCH (09:06)
[2017-11-27] MEDS: AMIODARONE 200 MG (CORDARONE) TAB PO SCH (09:06)
[2017-11-27] MEDS: GABAPENTIN 100 MG (NEURONTIN) CAP PO SCH ×3 (09:06→21:01)
[2017-11-27] MEDS: DIVALPROEX 250 MG DELAYED RELEASE (DEPAKOTE) TAB PO SCH ×3 (09:06→21:00)
[2017-11-27] MEDS: CLOPIDOGREL 75 MG (PLAVIX) TABLET PO SCH (09:07)
[2017-11-27] MEDS: ISOSORBIDE DINITRATE 20 MG (ISORDIL) TAB PO SCH (09:07)
[2017-11-27] MEDS: ASPIRIN E.C. 81 MG (ECOTRIN) TAB PO SCH (09:07)
[2017-11-27] MEDS: SODIUM BICARBONATE 650 MG TABLET (NON-FORMULARY) PO SCH ×2 (09:07→21:01)
--- NOTE | 2017-11-27 12:40 | Cardiology Progress Note ---
Cardiology SOAP Progress Note Subjective: No cardiac complaints. Objective: I&O/Vital Signs 11/27/17 05:06 Temp 97.8 Pulse 76 Resp 16 B/P (MAP) 125/72 (89) Pulse Ox 95 O2 Delivery Room Air 11/27/17 00:00 Intake Total 800 ml Balance 800 ml Weight (Pounds): 193 Weight (Ounces): 3.2 Weight (Calculated Kilograms): 87.492952 Constitutional: AAO x 3, well-developed, well-nourished Respiratory: chest expansion is symmetric, chest is bilaterally symmetric, lungs clear to auscultation, other Cardiovascular: regular rate-rhythm, S1 and S2, systolic murmur Gastrointestional: soft, round, audible bowel sounds Extremities: No normal range of motion, No non-tender, No normal inspection, No pedal edema, No calf tenderness, No normal capillary refill, No pelvis stable , No calf tenderness, No inflammation, No pedal edema, No slow capillary refill , No swelling; other; No abrasion, No clubbing, No cyanosis, No ecchymosis, No laceration, No no lower extremity edema bilateral, No significant edema, No tenderness, No wound Neurologic/Psychiatric: no motor/sensory deficits, alert, normal mood/affect, oriented x 3, grossly intact Skin: No normal color, No warm/dry, No cyanosis, No cool, No diaphoresis, No damp, No ecchymosis, No jaundice, No mottled, No pallor, No rash, No tattoos/ piercings, No ulcerations, No rash on exposed areas, No ulcerations on exposed areas, No other Results/Procedures: Labs Laboratory Tests 11/26/17 16:18: Glucometer 171H 11/26/17 21:19: Glucometer 140H 11/27/17 05:28: Glucometer 64L 11/27/17 05:47: Prothrombin Time 21.1H, INR Comment 1.8H 11/27/17 06:20: Glucometer 162H 11/27/17 10:56: Glucometer 206H A/P: Assessment/Dx: Assessment: H/o CAD and ischemic cardiomyopathy. Reports h/o CABG in June 2017 at [facility] in [place] - received SOLIMAN to LAD and SVG to OM1 and SVG to OM2 and SVG to PDA Echocardiogram of July [address] Fernandes at [facility] showed LVEF 15-20%. Mild aortic stenosis; mild MR; trace aortic regurg Reports h/o PE following CABG for which he has been on warfarin tx Supra-therapeutic INR - now sub-therapeutic HTN HLD - statin tx End-stage renal disease for which he is on hemodialysis 3 times a week - followed by Dr. Stephens DM 2 H/O right eye enucleation d/t cancer in the 2004 S/P left femur fracture on 11-03-17; with subsequent repair at [facility] on 11-04-17 H/O chew tobacco use - quit in June 2017 Plan: Plan: * Continue CAD management. * Patient was given 5 mg of warfarin last night. INR still 1.8. Will repeat 5 mg of warfarin tonight and hopefully INR will be 2.0 tomorrow. Then he can go back to warfarin 2.5 mg daily. * Monitor lab Thank you for your consultation. Please call me if you have any questions. Chyna Leung MD, FACP, FACC, FSCAI, FHRS, CCDS Interventional Cardiology Cardiac Electrophysiology Vascular Medicine and Endovascular Interventions Shahram LEUNG MD Nov 27, 2017 12:40
[2017-11-27 17:50] VITALS: BP 127/63
[2017-11-27] MEDS ORDERED: warFARin 5 MG (COUMADIN) TAB PO NR (18:00)
[2017-11-27] MEDS: DONEPEZIL 10 MG (ARICEPT) TAB PO SCH (21:00)
[2017-11-27] MEDS: traZODone 50 MG (DESYREL) TAB PO SCH (21:00)
[2017-11-27] MEDS: ATORVASTATIN 40 MG (LIPITOR) TABLET PO SCH (21:01)
[2017-11-27] MEDS: BISACODYL 10 MG SUPP (DULCOLAX) PR PRN (21:02)
[2017-11-27] MEDS: inSUlin DETERMIR 1 UNIT/0.01 ML (LEVEMIR) CHARGE PER UNIT SQ SCH (21:03)
[2017-11-28] MEDS: BISACODYL 10 MG SUPP (DULCOLAX) PR PRN (00:45)
[2017-11-28] MEDS: LORazepam 0.5 MG (ATIVAN) TABLET PO PRN (02:26)
[2017-11-28] MEDS: HYDROcodone/APAP 5 MG/325 MG (LORTAB) TAB PO PRN ×3 (02:26→20:40)
[2017-11-28 05:02] LABS: INR 2.4 (0.8-1.4); PROTHROMBIN TIME PATIENT 26.3 SEC (12.2-14.7)
[2017-11-28 05:40] VITALS: BP 144/79
[2017-11-28] MEDS: inSUlin ASPART (NovoLOG) 1 UNIT/0.01 ML (CHARGE PER UNIT) SC SCH ×3 (06:39→17:00)
[2017-11-28] MEDS: FUROSEMIDE 40 MG (LASIX) TAB PO SCH ×2 (06:39→17:00)
[2017-11-28] MEDS: SEVELAMER CARBONATE 800 MG TAB (RENVELA) NON-FORMULARY PO SCH ×3 (06:39→17:00)
[2017-11-28] MEDS: VENlafaxine XR 75 MG (EFFEXOR XR) CAP PO SCH (06:39)
[2017-11-28] MEDS: PANTOPRAZOLE 40 MG (PROTONIX) TAB PO SCH (06:39)
[2017-11-28] MEDS: lisINopril 10 MG (PRINIVIL) TABLET PO SCH (08:15)
[2017-11-28] MEDS: CLOPIDOGREL 75 MG (PLAVIX) TABLET PO SCH (08:15)
[2017-11-28] MEDS: ASPIRIN E.C. 81 MG (ECOTRIN) TAB PO SCH (08:16)
[2017-11-28] MEDS: SODIUM BICARBONATE 650 MG TABLET (NON-FORMULARY) PO SCH ×2 (08:16→20:39)
[2017-11-28] MEDS: ISOSORBIDE DINITRATE 20 MG (ISORDIL) TAB PO SCH (08:16)
[2017-11-28] MEDS: AMIODARONE 200 MG (CORDARONE) TAB PO SCH (08:16)
[2017-11-28] MEDS: GABAPENTIN 100 MG (NEURONTIN) CAP PO SCH ×3 (08:16→20:39)
[2017-11-28] MEDS: DIVALPROEX 250 MG DELAYED RELEASE (DEPAKOTE) TAB PO SCH ×3 (08:16→20:39)
[2017-11-28] MEDS: SENNOSIDES 8.6 MG (SENOKOT) TAB PO SCH (08:17)
--- NOTE | 2017-11-28 09:04 | Physical Therapy Daily Note ---
PT Daily Note-Current Subjective Pt. agrees to Rx but state she has had a bad night but did gave a "huge" BM in the night. States he really wants to go home from here and that his can help him there. Pt. c/o fatigue with activity. Declines attempt at stairs Pain Numeric Pain Scale: 4 Location: Left Location Body Site: Ankle Pain Description: Ache Mental Status Patient Orientation: Person, Place, Time, Situation Transfers Functional [place] Measure 0=Not Assessed/NA 4=Minimal Assistance 1=Total Assistance 5=Supervision or Setup 2=Maximal Assistance 6=Modified [place] 3=Moderate Assistance 7=Complete IndependenceIRFPAI Quality Coding Scale 6 Independent with activity with or without an assistive device 5 Patient requires set up or clean up by helper. Patient completes activity by themselves 4 Supervision or touching assist (CGA). [place] provide cues , steadying assist 3 The helper provides less than half the effort to complete the activity 2 The helper provides more than half the effort to complete the activity 1 Dependent. The helper does all the effort to complete an activity 7 Patient refused to complete or attempt activity 9 The patient did not perform the activity before the current illness or injury 88 Not attempted due to Medical conditions or safety concerns Transfers (B, C, W/C) (FIM): 4 Scootin Rollin Supine to/from Sit: 5 Sit to/from Stand: 4 (pt. plopped usafely x 4 during stand to sit) Weight Bearing Right Lower Extremity: Right Full Weight Bearing Left Lower Extremity: Left Weight Bearing/Tolerated Gait Training Does the Patient Walk?: Yes Gait (FIM): 4 Distance (FIM): 3=150 ft (x2) Gait Level of Assist: 4 Gait Persons Needed: 1 Gait Assistive Device: FWW toe in on left, slow, heavy weight bearing on FWW, fatigued and required more assist at end of 150 ft Stair Training declines trial of steps Exercises Supine Ex: Bridging, Ankle pumps, Quad Set, Rolling, Glut sets, Heel Slides, Short Arc Quads, Scooting, Straight leg raise, Hip abd/add Supine Reps: 15 Seated Therapy Exercises: Ankle pumps, Sit to stand, Long arc quads Seated Reps: 12 Treatments much practice and eduction on sup to sit and sit to sup from both left and right , all SBA Assessment Current Status: Good Progress pt. when fatigued and turning to approach chair to sit becam rigid and plopped back hard requiring mod assist to prevent hard fall PT Short Term Goals Short Term Goals Time Frame: Nov 25, 2017 Transfers (B,C,W/C) (FIM): 4 (met) Gait (FIM): 2 (met) Gait Distance Comment: 75' Gait Level of Assist: 4 Gait Assistive Device: FWW Wheelchair Distance: 150' PT Senior Living Goals Director Decision Support Goals PT Director Decision Support Goals Time Frame: Dec 09, 2017 Transfers (B,C,W/C) (FIM): 5 Sit to Lying (QC): 4 Lying-Sitting on Side/Bed(QC): 4 Sit to Stand (QC): 4 Rollin Roll Left to Right (QC): 4 Chair/Rzt-ys-Jlppy Xfer(QC): 4 Car Transfer (QC): 4 Does the Patient Walk: Yes Gait (FIM): 5 Distance: 150' Walk 10 feet (QC): 4 Walk 10ft-Uneven Surface(QC): 4 Walk 50ft with 2 Turns (QC): 4 Walk 150 ft (QC): 4 Gait Level of Assist: 5 Gait Assistive Device: FWW Stairs (FIM): 4 # of Steps: 12 1 Step (curb) (QC): 4 4 Steps (QC): 4 12 Steps (QC): 4 Stairs Level Of Assist: 4 Picking up an Object (QC): 4 PT Plan Treatment/Plan Treatment Plan: Continue Plan of Care Treatment Plan: Bed Mobility, Concurrent Therapy, Education, Functional Activity Garcia, Functional Strength, Group Therapy, Gait, Safety, Therapeutic Exercise, Transfers Treatment Duration: Dec 09, 2017 Frequency: At least 5 of 7 days/Wk (IRF) Estimated Hrs Per Day: 1.5 hours per day Patient and/or Family Agrees t: Yes Safety Risks/Education Patient Education: Gait Training, Transfer Techniques, Correct Positioning, Disease Process, Safety Issues Teaching Recipient: Patient Teaching Methods: Demonstration, Discussion Response to Teaching: Verbalize Understanding, Return Demonstration, Reinforcement Needed Time/GCodes Time In: 800 Time Out: 900 Total Billed Treatment Time: 60 Total Billed Treatment 1,GT20m,EX15m,FA25m G Codes Necessary: HANANH Hernandez MANAGER STRATEGY & ACCOUNT Nov 28, 2017 09:04
--- NOTE | 2017-11-28 09:48 | Progress Note-Hospitalist ---
Subjective HPI/CC On Admission Date Seen by Provider: Nov 28, 2017 Time Seen by Provider: 09:30 Subjective/Events-last exam Patient in a better mood today No bleeding from the dialysis site INR 2.4 Will restart Coumadin at 2.5 mg Bowels are moving Review of Systems General: Malaise Objective Exam Vital Signs Vital Signs Date Time Temp Pulse Resp B/P (MAP) Pulse Ox O2 Delivery O2 Flow Rate FiO2 11/28/17 05:40 97.6 86 16 144/79 (100) 94 Room Air Capillary Refill : Less Than 3 Seconds General Appearance: No Apparent Distress, WD/WN, Chronically ill HEENT: PERRL/EOMI, Moist Mucous Membranes Neck: Full Range of Motion, Normal Inspection, Non Tender, Supple, Carotid Bruit Respiratory: Chest Non Tender, Lungs Clear, Normal Breath Sounds, No Accessory Muscle Use, No Respiratory Distress Cardiovascular: Regular Rate, Rhythm, No Edema, No Gallop, No JVD, Normal Peripheral Pulses, Systolic Murmur Gastrointestinal: Normal Bowel Sounds, No Organomegaly, No Pulsatile Mass, Non Tender, Soft Back: Normal Inspection, No CVA Tenderness, No Vertebral Tenderness Extremity: Normal Capillary Refill, Normal Inspection, Normal Range of Motion, Non Tender, No Calf Tenderness, No Pedal Edema Neurologic/Psychiatric: Alert, Oriented x3, No Motor/Sensory Deficits, Depressed Affect Skin: Normal Color, Warm/Dry Lymphatic: No Adenopathy Results/Procedures Lab Patient resulted labs reviewed. Assessment/Plan Assessment and Plan Assess & Plan/Chief Complaint Assessment: Left hip fracture Debility End-stage renal disease on hemodialysis CAD history of CABG Plan: Hemodialysis on schedule Restart Coumadin Monitor closely Diagnosis/Problems Diagnosis/Problems (1) Hip fracture, left Status: Resolved Qualifiers: Encounter type: subsequent encounter Fracture type: closed Fracture healing: with routine healing Qualified Codes: S72.002D - Fracture of unspecified part of neck of left femur, subsequent encounter for closed fracture with routine healing (2) Supratherapeutic INR Status: Resolved (3) CAD (coronary artery disease) Status: Chronic Qualifiers: Coronary Disease-Associated Artery/Lesion type: [place] artery [place] vs. transplanted heart: [place] heart Associated angina: without angina Qualified Codes: I25.10 - Atherosclerotic heart disease of [place] coronary artery without angina pectoris (4) Depression Status: Chronic Qualifiers: Depression Type: major depressive disorder Major depression recurrence: recurrent Active/Remission status: currently active Major depression episode severity: mild Qualified Codes: F33.0 - Major depressive disorder, recurrent , mild (5) HTN (hypertension) Status: Chronic Qualifiers: Hypertension type: essential hypertension Qualified Codes: I10 - Essential (primary) hypertension (6) ESRD (end stage renal disease) on dialysis Status: Chronic (7) HLD (hyperlipidemia) Status: Chronic Qualifiers: Hyperlipidemia type: mixed hyperlipidemia Qualified Codes: E78.2 - Mixed hyperlipidemia (8) Insulin-dependent diabetes mellitus with renal complications Status: Chronic (9) S/P CABG (coronary artery bypass graft) Status: Chronic Clinical Quality Measures DVT/VTE Risk/Contraindication: Risk Factor Score Per Nursin RFS Level Per Nursing on Admit: 4+=Very High SEGUN DODGE DO Nov 28, 2017 09:48
--- NOTE | 2017-11-28 10:54 | Occupational Ther Daily Note ---
OT Current Status-Daily Note Subjective Pt alert, sitting in recliner. Pt agrees to therapy. No c/o pain at this time. Mental Status/Objective Patient Orientation: Person, Place, Time, Situation Functional [place] Measure 0=Not Assessed/NA 4=Minimal Assistance 1=Total Assistance 5=Supervision or Setup 2=Maximal Assistance 6=Modified [place] 3=Moderate Assistance 7=Complete [place] ADL-Treatment Pt agrees to shower. During shower, pt standing to transfer from bench to w/c and knees buckled. Pt had hold of grabbars so was able to lower self to bench with assist of LING. Pt sat on shower bench for recovery break then transferred without incident to w/c. Pt takes increased time to complete ADLs. After therapy, pt sitting in recliner with call light/phone in reach. All needs met in room. Functional [place] Measure 0=Not Assessed/NA 4=Minimal Assistance 1=Total Assistance 5=Supervision or Setup 2=Maximal Assistance 6=Modified [place] 3=Moderate Assistance 7=Complete IndependenceIRFPAI Quality Coding Scale 6 Independent with activity with or without an assistive device 5 Patient requires set up or clean up by helper. Patient completes activity by themselves 4 Supervision or touching assist (CGA). [place] provide cues , steadying assist 3 The helper provides less than half the effort to complete the activity 2 The helper provides more than half the effort to complete the activity 1 Dependent. The helper does all the effort to complete an activity 7 Patient refused to complete or attempt activity 9 The patient did not perform the activity before the current illness or injury 88 Not attempted due to Medical conditions or safety concerns Grooming (FIM): 6 (At w/c level, pt able to complete by self.) Oral Hygiene (QC): 6 Bathing (FIM): 5 (Supervision. Using grabbar, hand held shower, long handle sponge and shower bench pt able to complete with close supervision.) Bathing Location: L Arm, R Arm, L Upper Leg, R Upper Leg, L Lower Leg ( including foot), R Lower Leg (including foot), Chest, Abdomen, Buttocks, Perineal Area Shower/Bathe Self (QC): 4 Upper Body (FIM): 5 (After set up, pt able to complete.) Upper Body Dressing (QC): 5 Lower Body Dressing (FIM): 3 (Pt required encouragement to complete using AE instead of someone else doing it for him. Verbal and physical cues when using AE to don clothing over feet then assist to hike over hips in standing. Due to weak LE's, pt required more assistance in standing.) Lower Body Dressing (QC): 3 Toileting (FIM): 5 (Using grabbars and FWW, pt able to complete cleansing in sitting. Encouragement) Toileting Hygiene (QC): 4 Transfers (B, C, W/C) (FIM): 5 (Close Supervision for SPT.) Toilet/Commode Transfer (FIM): 4 (CGA using FWW and grabbars.) Toilet Transfer (QC): 4 Shower Transfer(FIM): 2 OT Short Term Goals Short Term Goals Transfers (B,C,W/C) (FIM): 4 (met) 1=Demonstrate adherence to instructed precautions during ADL tasks. 2=Patient will verbalize/demonstrate understanding of assistive devices/ modifications for ADL. 3=Patient will improve strength/tolerance for activity to enable patient to perform ADL's. OT Alf Goals Alf Goals Time Frame: Dec 09, 2017 Eating (FIM): 7 Eating (QC): 6 Groomin Oral Hygiene (QC): 6 Bathing(FIM): 5 Shower/Bathe Self (QC): 4 Upper Body Dressing(FIM): 6 Upper Body Dressing (QC): 6 Lower Body Dressing(FIM): 5 Lower Body Dressing (QC): 5 On/Off Footwear (QC): 5 Toileting(FIM): 5 Toileting Hygiene (QC): 4 Toilet/Commode Transfer(FIM): 5 Toilet/Commode Transfer (QC): 5 Shower Transfer(FIM): 5 Additional Goals: 1-Demonstrate ADL Tasks, 2-Verbalize Understanding, 3- ImproveStrength/[place]arcia 1=Demonstrate adherence to instructed precautions during ADL tasks. 2=Patient will verbalize/demonstrate understanding of assistive devices/ modifications for ADL. 3=Patient will improve strength/tolerance for activity to enable patient to perform ADL's. OT Education/Plan Discharge Recommendations Plan/Recommendations: Continue POC Treatment Plan/Plan of Care Patient would benefit from OT for education, treatment and training to promote independence in ADL's, mobility, safety and/or upper extremity function for ADL' s. Plan of Care: ADL Retraining, Functional Mobility, Group Exercise/Act as Ind, UE Funct Exercise/Act Treatment Duration: Dec 09, 2017 Frequency: Modified Program (IRF) (21/08) Estimated Hrs Per Day: 1.5 hours per day Agreement: Yes Rehab Potential: Good Time/GCodes Start Time: 09:30 Stop Time: 11:00 Total Time Billed (hr/min): 90 Billed Treatment Time 1 visit-ADL 6 (90 min) TIGRE CALDERON Nov 28, 2017 10:54
--- NOTE | 2017-11-28 11:43 | Cardiology Progress Note ---
Cardiology SOAP Progress Note Subjective: No cardiac complaints. Objective: I&O/Vital Signs 11/28/17 05:40 Temp 97.6 Pulse 86 Resp 16 B/P (MAP) 144/79 (100) Pulse Ox 94 O2 Delivery Room Air 11/28/17 00:00 Intake Total 975 ml Balance 975 ml Weight (Pounds): 189 Weight (Ounces): 5.4 Weight (Calculated Kilograms): 85.774296 Constitutional: AAO x 3, well-developed, well-nourished Respiratory: chest expansion is symmetric, chest is bilaterally symmetric, lungs clear to auscultation, other Cardiovascular: regular rate-rhythm, S1 and S2, systolic murmur Gastrointestional: soft, round, audible bowel sounds Extremities: No normal range of motion, No non-tender, No normal inspection, No pedal edema, No calf tenderness, No normal capillary refill, No pelvis stable , No calf tenderness, No inflammation, No pedal edema, No slow capillary refill , No swelling; other; No abrasion, No clubbing, No cyanosis, No ecchymosis, No laceration, No no lower extremity edema bilateral, No significant edema, No tenderness, No wound Neurologic/Psychiatric: no motor/sensory deficits, alert, normal mood/affect, oriented x 3, grossly intact Skin: No normal color, No warm/dry, No cyanosis, No cool, No diaphoresis, No damp, No ecchymosis, No jaundice, No mottled, No pallor, No rash, No tattoos/ piercings, No ulcerations, No rash on exposed areas, No ulcerations on exposed areas, No other Results/Procedures: Labs Laboratory Tests 11/27/17 15:31: Glucometer 215H 11/27/17 21:03: Glucometer 177H 11/28/17 04:35: Prothrombin Time 26.3H, INR Comment 2.4H 11/28/17 05:23: Glucometer 149H 11/28/17 11:20: Glucometer 82 A/P: Assessment/Dx: Assessment: H/o CAD and ischemic cardiomyopathy. Reports h/o CABG in June 2017 at [facility] in [place] - received SOLIMAN to LAD and SVG to OM1 and SVG to OM2 and SVG to PDA Echocardiogram of July [address] Fernandes at [facility] showed LVEF 15-20%. Mild aortic stenosis; mild MR; trace aortic regurg Reports h/o PE following CABG for which he has been on warfarin tx Supra-therapeutic INR - now sub-therapeutic HTN HLD - statin tx End-stage renal disease for which he is on hemodialysis 3 times a week - followed by Dr. Stephens DM 2 H/O right eye enucleation d/t cancer in the 2004 S/P left femur fracture on 11-03-17; with subsequent repair at [facility] on 11-04-17 H/O chew tobacco use - quit in June 2017 Plan: Plan: * Continue CAD management. * Patient was given 5 mg of warfarin last night. INR 2.4. warfarin 2.5 mg daily. * Monitor lab Thank you for your consultation. Please call me if you have any questions. Chyna Leung MD, FACP, FACC, FSCAI, FHRS, CCDS Interventional Cardiology Cardiac Electrophysiology Vascular Medicine and Endovascular Interventions Shahram LEUNG MD Nov 28, 2017 11:43 am
--- NOTE | 2017-11-28 15:10 | Physical Therapy Daily Note ---
PT Daily Note-Current Subjective Pt. states he will not get out of bed. States he has so much pain in his left lateral thigh close to his knee. Pt. declines any out of bed activity secondary to pain. Nurse was called to assess pts. leg. Pain Numeric Pain Scale: 8 Location: Left (lateral) Location Body Site: Thigh Pain Description: Stabbing Comment: pt. c/o exquisite pain, tender to touch at above described area Transfers Functional [place] Measure 0=Not Assessed/NA 4=Minimal Assistance 1=Total Assistance 5=Supervision or Setup 2=Maximal Assistance 6=Modified [place] 3=Moderate Assistance 7=Complete IndependenceIRFPAI Quality Coding Scale 6 Independent with activity with or without an assistive device 5 Patient requires set up or clean up by helper. Patient completes activity by themselves 4 Supervision or touching assist (CGA). Spicer provide cues , steadying assist 3 The helper provides less than half the effort to complete the activity 2 The helper provides more than half the effort to complete the activity 1 Dependent. The helper does all the effort to complete an activity 7 Patient refused to complete or attempt activity 9 The patient did not perform the activity before the current illness or injury 88 Not attempted due to Medical conditions or safety concerns Rollin Weight Bearing Right Lower Extremity: Right Full Weight Bearing Left Lower Extremity: Left Weight Bearing/Tolerated Exercises Supine Ex: Bridging, Ankle pumps, Quad Set, Rolling, Glut sets, Heel Slides, Short Arc Quads, Scooting (up in bed x4 using bed head rails), Straight leg raise, Hip abd/add Supine Reps: 10 (x2) Treatments left lateral distal thigh appears like cellulitis, red, pitting edema, not warm , slight swelling in specific area Assessment Current Status: Good Progress, Fair Progress nursing communicated with regarding findings PT Short Term Goals Short Term Goals Time Frame: Nov 25, 2017 Transfers (B,C,W/C) (FIM): 4 (met) Gait (FIM): 2 (met) Gait Distance Comment: 75' Gait Level of Assist: 4 Gait Assistive Device: FWW Wheelchair Distance: 150' PT Custodial Goals Custodial Goals PT Civil Designer Goals Time Frame: Dec 09, 2017 Transfers (B,C,W/C) (FIM): 5 Sit to Lying (QC): 4 Lying-Sitting on Side/Bed(QC): 4 Sit to Stand (QC): 4 Rollin Roll Left to Right (QC): 4 Chair/Ntq-hv-Zcece Xfer(QC): 4 Car Transfer (QC): 4 Does the Patient Walk: Yes Gait (FIM): 5 Distance: 150' Walk 10 feet (QC): 4 Walk 10ft-Uneven Surface(QC): 4 Walk 50ft with 2 Turns (QC): 4 Walk 150 ft (QC): 4 Gait Level of Assist: 5 Gait Assistive Device: FWW Stairs (FIM): 4 # of Steps: 12 1 Step (curb) (QC): 4 4 Steps (QC): 4 12 Steps (QC): 4 Stairs Level Of Assist: 4 Picking up an Object (QC): 4 PT Plan Treatment/Plan Treatment Plan: Continue Plan of Care Treatment Plan: Bed Mobility, Concurrent Therapy, Education, Functional Activity Garcia, Functional Strength, Group Therapy, Gait, Safety, Therapeutic Exercise, Transfers Treatment Duration: Dec 09, 2017 Frequency: At least 5 of 7 days/Wk (IRF) Estimated Hrs Per Day: 1.5 hours per day Patient and/or Family Agrees t: Yes Time/GCodes Time In: 1435 Time Out: 1505 Total Billed Treatment Time: 30 Total Billed Treatment 1,FA10m, EX20m G Codes Necessary: No HANNAH PIMENTEL [employer]OR SERVICES SPECIALIST Nov 28, 2017 15:10
[2017-11-28 15:42] LABS: BASOPHILS % (AUTO) 0 % (0-10); EOSINOPHILS # (AUTO) 0.1 10^3/uL (0.0-0.3); EOSINOPHILS % (AUTO) 1 % (0-10); HEMATOCRIT 26 % (40-54); HEMOGLOBIN 8.2 G/DL (13.3-17.7); LYMPHOCYTES # (AUTO) 1.3 X 10^3 (1.0-4.0); LYMPHOCYTES % (AUTO) 16 % (12-44); MEAN CORPUSCULAR HEMOGLOBIN 29 PG (25-34); MEAN CORPUSCULAR HGB CONC 32 G/DL (32-36); MEAN CORPUSCULAR VOLUME 91 FL (80-99); MEAN PLATELET VOLUME 9.2 FL (7.4-10.4); MONOCYTES % (AUTO) 13 % (0-12); NEUTROPHILS # (AUTO) 5.4 X 10^3 (1.8-7.8); NEUTROPHILS % (AUTO) 69 % (42-75); PLATELET COUNT 312 10^3/uL (130-400); RED BLOOD COUNT 2.86 10^6/uL (4.35-5.85); RED CELL DISTRIBUTION WIDTH 16.9 % (10.0-14.5); WHITE BLOOD COUNT 7.8 10^3/uL (4.3-11.0)
[2017-11-28 16:02] LABS: ALBUMIN 2.9 GM/DL (3.2-4.5); BILIRUBIN,TOTAL 0.7 MG/DL (0.1-1.0); CALCIUM 10.4 MG/DL (8.5-10.1); CREATININE SERUM 4.26 MG/DL (0.60-1.30)
[2017-11-28] MEDS: warFARin 2.5 MG (COUMADIN) TAB PO SCH (17:00)
[2017-11-28 19:09] VITALS: BP 133/77
--- NOTE | 2017-11-28 19:17 | Diagnostic Imaging Report ---
PROCEDURE: US left lower extremity venous. TECHNIQUE: Multiple real-time grayscale images were obtained over the left lower extremity in various projections. Additional duplex Doppler and color Doppler images were also obtained. INDICATION: Pain. FINDINGS: The femoropopliteal deep venous system is patent. Cyst in the popliteal fossa measures 3.8 cm. Laterally in the thigh in the region of complaint is an elongated nonvascularized hypoechoic process measuring 15 cm in length with maximal width of 4.6 cm. This may be hematoma or other fluid collection. There is some generalized subcutaneous edema. IMPRESSION: Negative for venous thrombus. Large elongated complex lateral thigh collection may be hematoma or other fluid collection. 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 Dictated by: Dictated on workstation # [id number]
--- NOTE | 2017-11-28 19:21 | PM & R (SOAP) Progress Note ---
Subjective This was a face to face visit with the patient. Date Seen by Provider: Nov 28, 2017 Time Seen by Provider: 06:50 Subjective/Events-last exam Patient was seen in hisroom this evening C/O severe pain and tenderness left thigh which is swollen and tender to touch Doppler done but rsults pending Will check XRAY for alignment.Patient min assist for transfers Date Identified: Nov 28, 2017 Time Identified: 16:45 Medication Intervention: Coumadin dose being adjusted for therapeutic INR INR 2.4 Review of Systems Musculoskeletal: leg pain Objective Physician Exam Last Set of Vital Signs Vital Signs Date Time Temp Pulse Resp B/P (MAP) Pulse Ox O2 Delivery O2 Flow Rate FiO2 11/28/17 19:09 97.3 78 14 133/77 (95) 99 Room Air Capillary Refill : Less Than 3 Seconds I&O Intake and Output 11/28/17 00:00 Intake Total 1175 ml Balance 1175 ml Intake Oral 1175 ml # Voids 2 # Urine Diapers 1 # Bowel Movements 2 General: Alert, Oriented X3, Cooperative, No Acute Distress HEENT: Mucous Memb Moist/[place] Neck: Supple Lungs: Clear to Auscultation, Normal Air Movement Heart: Regular Rate, No Murmurs Abdomen: Normal Bowel Sounds, Soft, No Tenderness Extremities: Normal Pulses, Other (Left thigh quite swollen tight and tender) Skin: Other (L arm in clean bandage, no evidence of continued bleeding from dialysis site) Neuro: Normal Speech, Normal Tone, Sensation Intact Psych/Mental Status: Mental Status NL, Mood NL Results Lab Data Laboratory Tests 11/25/17 20:03: Glucometer 126H 11/26/17 04:45: Prothrombin Time 18.3H, INR Comment 1.5H 11/26/17 05:09: Glucometer 113H 11/26/17 11:49: Glucometer 66L 11/26/17 16:18: Glucometer 171H 11/26/17 21:19: Glucometer 140H 11/27/17 05:28: Glucometer 64L 11/27/17 05:47: Prothrombin Time 21.1H, INR Comment 1.8H 11/27/17 06:20: Glucometer 162H 11/27/17 10:56: Glucometer 206H 11/27/17 15:31: Glucometer 215H 11/27/17 21:03: Glucometer 177H 11/28/17 04:35: Prothrombin Time 26.3H, INR Comment 2.4H 11/28/17 05:23: Glucometer 149H 11/28/17 11:20: Glucometer 82 11/28/17 15:35: White Blood Count 7.8, Red Blood Count 2.86L, Hemoglobin 8.2L, Hematocrit 26L, Mean Corpuscular Volume 91, Mean Corpuscular Hemoglobin 29, Mean Corpuscular Hemoglobin Concent 32, Red Cell Distribution Width 16.9H, Platelet Count 312, Mean Platelet Volume 9.2, Neutrophils (%) (Auto) 69, Lymphocytes (%) (Auto) 16, Monocytes (%) (Auto) 13H, Eosinophils (%) (Auto) 1, Basophils (%) (Auto) 0, Neutrophils # (Auto) 5.4, Lymphocytes # (Auto) 1.3, Monocytes # (Auto) 1.0, Eosinophils # (Auto) 0.1, Basophils # (Auto) 0.0, Sodium Level 130L, Potassium Level 4.0, Chloride Level 88L, Carbon Dioxide Level 25, Anion Gap 17H, Blood Urea Nitrogen 39H, Creatinine 4.26H, Estimat Glomerular Filtration Rate 14, BUN/ Creatinine Ratio 9, Glucose Level 189H, Calcium Level 10.4H, Corrected Calcium 11.3H, Total Bilirubin 0.7, Aspartate Amino Transf (AST/SGOT) 18, Alanine Aminotransferase (ALT/SGPT) 9, Alkaline Phosphatase 172H, Total Protein 7.0, Albumin 2.9L Assessment/Plan Assessment and Plan Displaced left fem neck fracture s/p Left hemiarthroplasty OSH 11-04-17 Swollen Left thigh with tenderness and erythema ESRD on Dialysis TIW IDDM CAD s/p NE S/P enucleation rt eye for CA Pressure sore left heel Chronic anticoagulation with therapeutic INR Plan Continue PT/OT Check on doppler study results Check Xray :eft HIP and femur see orders Team Conference 11-30-17 Co-Morbidities that are continuing to impact the rehab process: (include details ) LUCA SORIA MD Nov 28, 2017 19:21
--- NOTE | 2017-11-28 19:26 | PM & R (SOAP) Progress Note ---
Subjective This was a face to face visit with the patient. Date Seen by Provider: Nov 28, 2017 Time Seen by Provider: 06:50 Subjective/Events-last exam Patient was seen in her room this evening Patient CGA for transfers Bed to w/c Labs noted Objective Physician Exam Last Set of Vital Signs Vital Signs Date Time Temp Pulse Resp B/P (MAP) Pulse Ox O2 Delivery O2 Flow Rate FiO2 11/28/17 19:09 97.3 78 14 133/77 (95) 99 Room Air Capillary Refill : Less Than 3 Seconds I&O Intake and Output 11/28/17 00:00 Intake Total 1175 ml Balance 1175 ml Intake Oral 1175 ml # Voids 2 # Urine Diapers 1 # Bowel Movements 2 General: Alert, Oriented X3, Cooperative, No Acute Distress HEENT: Mucous Memb Moist/[place] Neck: Supple Lungs: Clear to Auscultation, Normal Air Movement Heart: Regular Rate, No Murmurs Abdomen: Normal Bowel Sounds, Soft, No Tenderness Extremities: Normal Pulses, Other (Left thigh quite swollen tight and tender) Skin: Other (L arm in clean bandage, no evidence of continued bleeding from dialysis site) Neuro: Normal Speech, Normal Tone, Sensation Intact Psych/Mental Status: Mental Status NL, Mood NL Results Lab Data Laboratory Tests 11/25/17 20:03: Glucometer 126H 11/26/17 04:45: Prothrombin Time 18.3H, INR Comment 1.5H 11/26/17 05:09: Glucometer 113H 11/26/17 11:49: Glucometer 66L 11/26/17 16:18: Glucometer 171H 11/26/17 21:19: Glucometer 140H 11/27/17 05:28: Glucometer 64L 11/27/17 05:47: Prothrombin Time 21.1H, INR Comment 1.8H 11/27/17 06:20: Glucometer 162H 11/27/17 10:56: Glucometer 206H 11/27/17 15:31: Glucometer 215H 11/27/17 21:03: Glucometer 177H 11/28/17 04:35: Prothrombin Time 26.3H, INR Comment 2.4H 11/28/17 05:23: Glucometer 149H 11/28/17 11:20: Glucometer 82 11/28/17 15:35: White Blood Count 7.8, Red Blood Count 2.86L, Hemoglobin 8.2L, Hematocrit 26L, Mean Corpuscular Volume 91, Mean Corpuscular Hemoglobin 29, Mean Corpuscular Hemoglobin Concent 32, Red Cell Distribution Width 16.9H, Platelet Count 312, Mean Platelet Volume 9.2, Neutrophils (%) (Auto) 69, Lymphocytes (%) (Auto) 16, Monocytes (%) (Auto) 13H, Eosinophils (%) (Auto) 1, Basophils (%) (Auto) 0, Neutrophils # (Auto) 5.4, Lymphocytes # (Auto) 1.3, Monocytes # (Auto) 1.0, Eosinophils # (Auto) 0.1, Basophils # (Auto) 0.0, Sodium Level 130L, Potassium Level 4.0, Chloride Level 88L, Carbon Dioxide Level 25, Anion Gap 17H, Blood Urea Nitrogen 39H, Creatinine 4.26H, Estimat Glomerular Filtration Rate 14, BUN/ Creatinine Ratio 9, Glucose Level 189H, Calcium Level 10.4H, Corrected Calcium 11.3H, Total Bilirubin 0.7, Aspartate Amino Transf (AST/SGOT) 18, Alanine Aminotransferase (ALT/SGPT) 9, Alkaline Phosphatase 172H, Total Protein 7.0, Albumin 2.9L Assessment/Plan Assessment and Plan CHF myopathy with prox lower limb weakness improving HX of falls COPD Nausea/constipation resolved Active tobaccoism DM HTN Diabetic PN CAD s/p CABG Anemia Hyponatremia Plan Continue PT/OT Team Conference 11-30-17 Co-Morbidities that are continuing to impact the rehab process: (include details ) LUCA SORIA MD Nov 28, 2017 19:26
[2017-11-28] MEDS: ATORVASTATIN 40 MG (LIPITOR) TABLET PO SCH (20:39)
[2017-11-28] MEDS: traZODone 50 MG (DESYREL) TAB PO SCH (20:39)
[2017-11-28] MEDS: DONEPEZIL 10 MG (ARICEPT) TAB PO SCH (20:39)
[2017-11-28] MEDS: inSUlin DETERMIR 1 UNIT/0.01 ML (LEVEMIR) CHARGE PER UNIT SQ SCH (20:40)
[2017-11-28] MEDS ORDERED: fentaNYL PATCH 25 MCG (DURAGESIC) TD SCH (21:00)
--- NOTE | 2017-11-28 21:04 | Consultation ---
History of Present Illness History of Present Illness Patient Consulted On(haim/time) 11/28/17 20:59 Time Seen by Provider: 20:16 History of Present Illness Surgery asked to consult regarding left leg pain; r/o cellulitis. Pt states he noticed the left leg pain yesterday. He denies any trauma to that area; states he has only done physical therapy. He is not sure if it is getting worse; rates the pain as 3 out of 10 if he is not moving and no one touches it. He states there is pain even with light touch. He denies warmth in the area. Allergies and Home Medications Allergies Coded Allergies: No Known Drug Allergies (Unverified , 08/01/17) Home Medications Acetaminophen 500 Mg Tablet, 1,000 MG PO Q6H PRN for PAIN-MILD, (Reported) Amiodarone HCl 200 Mg Tablet, 200 MG PO DAILY, (Reported) Amlodipine Besylate 5 Mg Tablet, 5 MG PO DAILY, (Reported) Aspirin 81 Mg Tablet.dr, 81 MG PO DAILY, (Reported) Atorvastatin Calcium 80 Mg Tablet, 80 MG PO DAILY, (Reported) Bisacodyl 10 Mg Supp.rect, 10 MG RC DAILY PRN for CONSTIPATION-4TH LINE, ( Reported) Clopidogrel Bisulfate 75 Mg Tablet, 75 MG PO DAILY, (Reported) Divalproex Sodium 250 Mg Tablet.dr, 250 MG PO TID, (Reported) Donepezil HCl 10 Mg Tablet, 10 MG PO HS, (Reported) Dulaglutide 0.75 Mg/0.5 Ml Pen.injctr, 0.75 MG SQ Fr, (Reported) Escitalopram Oxalate 10 Mg Tablet, 10 MG PO DAILY, (Reported) Fludrocortisone Acetate 0.1 Mg Tab, 0.1 MG PO DAILY PRN for HYPOTENSION, ( Reported) Furosemide 80 Mg Tablet, 80 MG PO BID, (Reported) Gabapentin 100 Mg Capsule, 100 MG PO TID, (Reported) Insulin Glargine,Hum.rec.anlog 100 Unit/1 Ml Vial, 6 UNIT SQ HS, (Reported) Insulin Lispro 100 Unit/1 Ml Vial, 5 UNIT SQ TID, (Reported) Ipratropium/Albuterol Sulfate 3 Ml Ampul.neb, 3 ML IH Q6H PRN for SHORTNESS OF BREATH, (Reported) Isosorbide Dinitrate 30 Mg Tablet, 30 MG PO DAILY, (Reported) Lansoprazole 30 Mg Capsule.dr, 30 MG PO DAILY, (Reported) Lisinopril 10 Mg Tablet, 10 MG PO DAILY, (Reported) HOLD AND NOTIFY PCP IF SBP LESS THAN 100 AND/OR DBP LESS THAN 60 AND/OR PULSE LESS THAN 60 Loperamide HCl 2 Mg Tablet, 2 MG PO UD PRN for LOOSE STOOLS, (Reported) MAX OF 4 DOSES IN 24 HOURS Lorazepam 0.5 Mg Tablet, 0.5 MG PO Q8H PRN for ANXIETY, (Reported) Mag Hydrox/Al Hydrox/Simeth 30 Ml Oral.susp, 30 ML PO Q4H PRN for INDIGESTION, ( Reported) Magnesium Hydroxide 400 Mg/5 Ml Oral.susp, 30 ML PO Q12H PRN for CONSTIPATION- 7TH LINE, (Reported) Na Phos,M-B/Na Phos,Di-Ba 133 Ml Enema, 133 ML RC DAILY PRN for CONSTIPATION, ( Reported) Nitroglycerin 0.3 Mg Tab.subl, 0.3 MG SL UD PRN for CHEST PAIN, (Reported) Oxycodone HCl 5 Mg Tablet, 5 MG PO 0200,0800,1400,2000, (Reported) Polyvinyl Alcohol/Povidone 15 Ml Drops, 1 DROP OU TID PRN for DRY EYES, ( Reported) Sennosides 8.6 Mg Tablet, 8.6 MG PO DAILY, (Reported) Sevelamer Carbonate 800 Mg Tablet, 1,600 MG PO TID, (Reported) Sodium Bicarbonate 325 Mg Tablet, 325 MG PO BID, (Reported) Trazodone HCl 50 Mg Tablet, 50 MG PO HS, (Reported) Venlafaxine HCl 150 Mg Cap.er.24h, 150 MG PO DAILY, (Reported) Warfarin Sodium 3 Mg Tablet, 3 MG PO 1700, (Reported) Patient Home Medication List Home Medication List Reviewed: Yes Past Njbltaa-Qfzfsl-Txljyd Hx Patient Social History Alcohol Use: Denies Use Recreational Drug Use: No Smoking Status: Never a Smoker Type Used: Smokeless Tobacco Recent Foreign Travel: No Contact w/Someone Who Travel: No Recent Infectious Disease Expo: No Recent Hopitalizations: No Physical Abuse Screen: No Sexual Abuse: No Immunizations Up To Date Tetanus Booster (TDap): Unknown Date of Pneumonia Vaccine: Sep 18, 2017 Date of Influenza Vaccine: Sep 18, 2017 Seasonal Allergies Seasonal Allergies: No Surgeries History of Surgeries: Yes Surgeries: Arteriovenous Shunt, Cardiac, CABG, Dialysis, Eye Surgery, Orthopedic, Vascular Surgery Respiratory History of Respiratory Disorde: No Cardiovascular History of Cardiac Disorders: Yes (CABG) Cardiac Disorders: Chronic Edema/Swelling, Coronary Artery Disease, Heart Attack, High Cholesterol, Hypertension Neurological History of Neurological Disord: Yes Neurological Disorders: Neuropathy Reproductive System Sexually Transmitted Disease: No HIV/AIDS: No Genitourinary History of Genitourinary Disor: Yes Genitourinary Disorders: Renal Failure, Dialysis Gastrointestinal History of Gastrointestinal Di: Yes Gastrointestinal Disorders: Gastroesophageal Reflux Musculoskeletal History of Musculoskeletal Dis: Yes (BILATERAL SHOULDER SURGERIES) Musculoskeletal Disorders: Arthritis, Fractures Endocrine History of Endocrine Disorders: Yes (IDDM --DX AGE 38, ON DIALYSIS SINCE 2016) Endocrine Disorders: Diabetes, Non-Insulin dep HEENT History of HEENT Disorders: Yes (RIGHT EYE REMOVED FOR CANCER) Loss of Vision: Right Hearing Impairment: Denies Cancer History of Cancer: Yes (RIGHT EYE REMOVED FOR CANCER) Psychosocial History of Psychiatric Problem: Yes Behavioral Health Disorders: Anxiety, Depression Integumentary History of Skin or Integumenta: No Blood Transfusions History of Blood Disorders: Yes (ANEMIA) Adverse Reaction to a Blood Tr: No Family Medical History Significant Family History: Heart Disease, Diabetes Review of Systems-General Constitutional: No chills, No diaphoresis; malaise, weakness EENTM: hearing loss, vision loss; No mouth pain, No mouth swelling, No epistaxis Respiratory: No cough, No dyspnea on exertion, No hemoptysis Cardiovascular: No chest pain, No palpitations Gastrointestinal: No abdominal pain; constipation; No hematemesis, No jaundice Genitourinary: No dysuria, No frequency, No hematuria Musculoskeletal: joint pain, joint swelling, muscle pain, muscle stiffness Skin: change in color; No change in hair/nails, No pruritus Psychiatric/Neurological: Anxiety, Depressed; Denies Seizure; Tingling ( neruopathy) Other pt does take blood thinners, states he can bruise easily, plus he is on dialysis Physical Exam-General Problems Physical Exam Vital Signs Vital Signs - First Documented 11/22/17 05:08 Temp 97.9 Pulse 74 Resp 18 B/P (MAP) 126/69 (88) Pulse Ox 95 O2 Delivery Room Air Capillary Refill : Less Than 3 Seconds General Appearance: WD/WN, no apparent distress Eyes: Right Eye Other (sewn shut); Left Eye PERRL, Left Eye EOMI HEENT: pharynx normal; No scleral icterus (R), No scleral icterus (L) Neck: non-tender, full range of motion, supple, normal inspection Respiratory: chest non-tender, lungs clear, normal breath sounds, no respiratory distress, no accessory muscle use Cardiovascular: regular rate, rhythm, no murmur Gastrointestinal: normal bowel sounds, non tender, soft, no organomegaly, no pulsatile mass Back: no CVA tenderness, no vertebral tenderness Extremities: no calf tenderness, normal capillary refill, other (decreased ROM (secondary to recent surgery). Left lateral aspect is very tender to even light touch) Neurologic/Psychiatric: normal mood/affect, oriented x 3 Skin: normal color, warm/dry, other (left lateral thigh, minimal erythema) Lymphatic: no adenopathy (neck, axilla or groin) Data Review Labs Laboratory Tests 11/27/17 21:03: Glucometer 177H 11/28/17 04:35: Prothrombin Time 26.3H, INR Comment 2.4H 11/28/17 05:23: Glucometer 149H 11/28/17 11:20: Glucometer 82 11/28/17 15:35: White Blood Count 7.8, Red Blood Count 2.86L, Hemoglobin 8.2L, Hematocrit 26L, Mean Corpuscular Volume 91, Mean Corpuscular Hemoglobin 29, Mean Corpuscular Hemoglobin Concent 32, Red Cell Distribution Width 16.9H, Platelet Count 312, Mean Platelet Volume 9.2, Neutrophils (%) (Auto) 69, Lymphocytes (%) (Auto) 16, Monocytes (%) (Auto) 13H, Eosinophils (%) (Auto) 1, Basophils (%) (Auto) 0, Neutrophils # (Auto) 5.4, Lymphocytes # (Auto) 1.3, Monocytes # (Auto) 1.0, Eosinophils # (Auto) 0.1, Basophils # (Auto) 0.0, Sodium Level 130L, Potassium Level 4.0, Chloride Level 88L, Carbon Dioxide Level 25, Anion Gap 17H, Blood Urea Nitrogen 39H, Creatinine 4.26H, Estimat Glomerular Filtration Rate 14, BUN/ Creatinine Ratio 9, Glucose Level 189H, Calcium Level 10.4H, Corrected Calcium 11.3H, Total Bilirubin 0.7, Aspartate Amino Transf (AST/SGOT) 18, Alanine Aminotransferase (ALT/SGPT) 9, Alkaline Phosphatase 172H, Total Protein 7.0, Albumin 2.9L 11/28/17 20:07: Glucometer 87 Assessment/Plan Assessment/Plan Assessment/Plan Left Lateral thigh pain and fluid collection - most likely hematoma DM, HTN, ESRD S/P L total hip Doppler of left leg shows no DVT, there is a popliteal fossa cyst and fluid collection in left lateral thigh (radiologist thinks) is hematoma. It does not appear to be a cellulitis, because there is not much inflammation surrounding the collection. Would recommend watching and if it spreads or erythema gets worse; than either percutaneous drainage or open I&D. Will follow along, thank you for this consult. Clinical Quality Measures DVT/VTE Risk/Contraindication: Risk Factor Score Per Nursin RFS Level Per Nursing on Admit: 4+=Very High LUCA MORAN DO Nov 28, 2017 21:04
--- NOTE | 2017-11-28 21:47 | Diagnostic Imaging Report ---
INDICATION: Left hip pain, two months post surgery. TECHNIQUE: Two views of the left hip. CORRELATION STUDY: 11/03/2017. FINDINGS: Interval placement of unipolar left hip arthroplasty. Hardware is intact. Bony structures appear intact. Diffuse bony demineralization. Visualized portions of the left hemipelvis appear unremarkable. Rather extensive vascular calcification. IMPRESSION: 1. Surgical change of unipolar left hip arthroplasty. Negative for acute bony abnormality. Dictated by: Dictated on workstation # [id number]
--- NOTE | 2017-11-28 21:51 | Diagnostic Imaging Report ---
INDICATION: Left thigh swollen and tender. Postoperative. TECHNIQUE: AP and lateral views of left femur at 08:50 p.m. CORRELATION STUDY: None. FINDINGS: Postop change of unipolar hip prosthesis. Hardware is intact. Alignment is anatomic. The remainder of the femur is intact. There is joint space narrowing at the knee. Some soft tissue swelling is present. Dense vascular calcification. IMPRESSION: 1. Postop change of unipolar left hip arthroplasty. Negative for acute bony abnormality. Dictated by: Dictated on workstation # [id number]
[2017-11-29] MEDS: BISACODYL 10 MG SUPP (DULCOLAX) PR PRN (00:22)
[2017-11-29] MEDS: HYDROcodone/APAP 5 MG/325 MG (LORTAB) TAB PO PRN ×5 (00:41→19:32)
[2017-11-29 05:10] VITALS: BP 135/79
[2017-11-29 06:09] LABS: INR 2.9 (0.8-1.4); PROTHROMBIN TIME PATIENT 30.1 SEC (12.2-14.7)
[2017-11-29] MEDS: FUROSEMIDE 40 MG (LASIX) TAB PO SCH ×2 (06:33→16:05)
[2017-11-29] MEDS: VENlafaxine XR 75 MG (EFFEXOR XR) CAP PO SCH (06:33)
[2017-11-29] MEDS: PANTOPRAZOLE 40 MG (PROTONIX) TAB PO SCH (06:34)
[2017-11-29] MEDS: SEVELAMER CARBONATE 800 MG TAB (RENVELA) NON-FORMULARY PO SCH ×3 (07:22→16:06)
[2017-11-29] MEDS: inSUlin ASPART (NovoLOG) 1 UNIT/0.01 ML (CHARGE PER UNIT) SC SCH ×3 (07:22→16:06)
[2017-11-29 08:43] VITALS: BP 133/76
[2017-11-29] MEDS: DIVALPROEX 250 MG DELAYED RELEASE (DEPAKOTE) TAB PO SCH ×3 (08:44→20:27)
[2017-11-29] MEDS: GABAPENTIN 100 MG (NEURONTIN) CAP PO SCH ×3 (08:44→20:23)
[2017-11-29] MEDS: SENNOSIDES 8.6 MG (SENOKOT) TAB PO SCH (08:44)
[2017-11-29] MEDS: SODIUM BICARBONATE 650 MG TABLET (NON-FORMULARY) PO SCH ×2 (08:44→20:23)
[2017-11-29] MEDS: AMIODARONE 200 MG (CORDARONE) TAB PO SCH (08:45)
[2017-11-29] MEDS: ISOSORBIDE DINITRATE 20 MG (ISORDIL) TAB PO SCH (08:45)
[2017-11-29] MEDS: ASPIRIN E.C. 81 MG (ECOTRIN) TAB PO SCH (08:45)
[2017-11-29] MEDS: lisINopril 10 MG (PRINIVIL) TABLET PO SCH (08:45)
[2017-11-29] MEDS: CLOPIDOGREL 75 MG (PLAVIX) TABLET PO SCH (08:46)
[2017-11-29] MEDS: warFARin 2.5 MG (COUMADIN) TAB PO SCH (09:16)
--- NOTE | 2017-11-29 10:04 | Progress Note-Hospitalist ---
Subjective HPI/CC On Admission Date Seen by Provider: Nov 29, 2017 Time Seen by Provider: 10:00 Subjective/Events-last exam Refusing dialysis due to left thigh pain from hematoma Dr Bennett may pursue I&D via IR Reviewed xrays and USG and labs Review of Systems Musculoskeletal: leg pain Objective Exam Vital Signs Vital Signs Date Time Temp Pulse Resp B/P (MAP) Pulse Ox O2 Delivery O2 Flow Rate FiO2 11/29/17 09:32 Room Air 11/29/17 08:43 77 133/76 (95) 11/29/17 05:10 97.9 18 96 Capillary Refill : Less Than 3 Seconds General Appearance: No Apparent Distress, WD/WN, Chronically ill Respiratory: Chest Non Tender, Lungs Clear, Normal Breath Sounds, No Accessory Muscle Use, No Respiratory Distress Cardiovascular: Regular Rate, Rhythm, No Edema, No Gallop, No JVD, Normal Peripheral Pulses, Systolic Murmur Neurologic/Psychiatric: Alert, Oriented x3, No Motor/Sensory Deficits, Normal Mood/Affect Results/Procedures Lab Laboratory Tests 11/28/17 15:35 Patient resulted labs reviewed. Assessment/Plan Assessment and Plan Assess & Plan/Chief Complaint Assessment: Acute left lateral thigh hematoma Left hip fracture Debility End-stage renal disease on hemodialysis CAD history of CABG Coumadin maintenance Plan: Hemodialysis tomorrow if he agrees Hold Coumadin today Monitor closely IR for I&D? Diagnosis/Problems Diagnosis/Problems (1) Hematoma of thigh Status: Acute Qualifiers: Encounter type: initial encounter Laterality: left Qualified Codes: S70.12XA - Contusion of left thigh, initial encounter (2) Hip fracture, left Status: Resolved Qualifiers: Encounter type: subsequent encounter Fracture type: closed Fracture healing: with routine healing Qualified Codes: S72.002D - Fracture of unspecified part of neck of left femur, subsequent encounter for closed fracture with routine healing (3) Supratherapeutic INR Status: Resolved (4) CAD (coronary artery disease) Status: Chronic Qualifiers: Coronary Disease-Associated Artery/Lesion type: [place] artery [place] vs. transplanted heart: [place] heart Associated angina: without angina Qualified Codes: I25.10 - Atherosclerotic heart disease of [place] coronary artery without angina pectoris (5) Depression Status: Chronic Qualifiers: Depression Type: major depressive disorder Major depression recurrence: recurrent Active/Remission status: currently active Major depression episode severity: mild Qualified Codes: F33.0 - Major depressive disorder, recurrent , mild (6) HTN (hypertension) Status: Chronic Qualifiers: Hypertension type: essential hypertension Qualified Codes: I10 - Essential (primary) hypertension (7) ESRD (end stage renal disease) on dialysis Status: Chronic (8) HLD (hyperlipidemia) Status: Chronic Qualifiers: Hyperlipidemia type: mixed hyperlipidemia Qualified Codes: E78.2 - Mixed hyperlipidemia (9) Insulin-dependent diabetes mellitus with renal complications Status: Chronic (10) S/P CABG (coronary artery bypass graft) Status: Chronic (11) Leg pain, left Status: Acute Clinical Quality Measures DVT/VTE Risk/Contraindication: Risk Factor Score Per Nursin RFS Level Per Nursing on Admit: 4+=Very High SEGUN DODGE DO Nov 29, 2017 10:04
--- NOTE | 2017-11-29 10:23 | Physical Therapy Daily Note ---
PT Daily Note-Current Subjective Pt reports "something needs to be done about this leg." Referring to his left leg. Reports he hurts too bad to do anything. Declines any OOB activity with PT at this time. He does agree to R LE ther ex in bed. Pain Numeric Pain Scale: 6 (Pt resting in bed with eyes closed when this therapist entered) Location: Left Location Body Site: Thigh Pain Description: Ache Comment: Generalized left thigh pain that limits movement of his leg. 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 Patient completes activity by themselves 4 Supervision or touching assist (CGA). [place] provide cues , steadying assist 3 The helper provides less than half the effort to complete the activity 2 The helper provides more than half the effort to complete the activity 1 Dependent. The helper does all the effort to complete an activity 7 Patient refused to complete or attempt activity 9 The patient did not perform the activity before the current illness or injury 88 Not attempted due to Medical conditions or safety concerns Weight Bearing Right Lower Extremity: Right Full Weight Bearing Left Lower Extremity: Left Weight Bearing/Tolerated Exercises Supine Ex: Ankle pumps (R and L), Quad Set (R and L), Glut sets, Heel Slides ( Right), Short Arc Quads (right), Straight leg raise (right), Hip abd/add (right) Supine Reps: 15 (to promote LE strength and circulation. Provide physical activity as tolerated as he reports too much pain to get out of bed. ) Treatments Applied cold pack to left thigh. Edema noted left thigh region with slight redness on lateral aspect; slight edema noted in lower leg as well. Nursing aware. Assessment Pt's participation limited this date. He only agrees to bed exercises primarily on the right. Limited tolerance on the left. Pt resting quietly before and after treatment. PT Short Term Goals Short Term Goals Time Frame: Nov 25, 2017 Transfers (B,C,W/C) (FIM): 4 (met) Gait (FIM): 2 (met) Gait Distance Comment: 75' Gait Level of Assist: 4 Gait Assistive Device: FWW Wheelchair Distance: 150' PT Business Segment Manager Goals Business Segment Manager Goals PT Mcfp Goals Time Frame: Dec 09, 2017 Transfers (B,C,W/C) (FIM): 5 Sit to Lying (QC): 4 Lying-Sitting on Side/Bed(QC): 4 Sit to Stand (QC): 4 Rollin Roll Left to Right (QC): 4 Chair/Loj-pn-Bkyas Xfer(QC): 4 Car Transfer (QC): 4 Does the Patient Walk: Yes Gait (FIM): 5 Distance: 150' Walk 10 feet (QC): 4 Walk 10ft-Uneven Surface(QC): 4 Walk 50ft with 2 Turns (QC): 4 Walk 150 ft (QC): 4 Gait Level of Assist: 5 Gait Assistive Device: FWW Stairs (FIM): 4 # of Steps: 12 1 Step (curb) (QC): 4 4 Steps (QC): 4 12 Steps (QC): 4 Stairs Level Of Assist: 4 Picking up an Object (QC): 4 PT Plan Problem List Problem List: Activity Tolerance, Functional Strength, Safety, Balance, Gait, Transfer Treatment/Plan Treatment Plan: Continue Plan of Care Treatment Plan: Bed Mobility, Concurrent Therapy, Education, Functional Activity Garcia, Functional Strength, Group Therapy, Gait, Safety, Therapeutic Exercise, Transfers Treatment Duration: Dec 09, 2017 Frequency: At least 5 of 7 days/Wk (IRF) Estimated Hrs Per Day: 1.5 hours per day Patient and/or Family Agrees t: Yes Safety Risks/Education Education on importance of continued strengthening and activity to reduce risk of decline in mobility Time/GCodes Time In: 945 Time Out: 1015 Total Billed Treatment Time: 30 Total Billed Treatment visit EX 30 TIGRE DRAKE PT Nov 29, 2017 10:23
--- NOTE | 2017-11-29 11:55 | Physical Therapy Daily Note ---
PT Daily Note-Current Subjective Pt laying Supine in bed upon arrival. Pt agrees to PT/OT co-treat due to fatigue. Pt did not go to Dialysis this morning. Transfers Functional [place] Measure 0=Not Assessed/NA 4=Minimal Assistance 1=Total Assistance 5=Supervision or Setup 2=Maximal Assistance 6=Modified [place] 3=Moderate Assistance 7=Complete IndependenceIRFPAI Quality Coding Scale 6 Independent with activity with or without an assistive device 5 Patient requires set up or clean up by helper. Patient completes activity by themselves 4 Supervision or touching assist (CGA). [place] provide cues , steadying assist 3 The helper provides less than half the effort to complete the activity 2 The helper provides more than half the effort to complete the activity 1 Dependent. The helper does all the effort to complete an activity 7 Patient refused to complete or attempt activity 9 The patient did not perform the activity before the current illness or injury 88 Not attempted due to Medical conditions or safety concerns Weight Bearing Right Lower Extremity: Right Full Weight Bearing Left Lower Extremity: Left Weight Bearing/Tolerated Exercises Supine Ex: Ankle pumps, Quad Set, Glut sets, Heel Slides, Straight leg raise, Hip abd/add Supine Reps: 15 (2 sets) Treatments [place] with PT for skilled care due to increased pain and decreased activity tolerance. PT worked on Supine bed exercises. OT worked on UE Ex with resistance. After therapy, pt lying in bed with call light/phone in reach. All needs met in room. Assessment Current Status: Fair Progress Pt reports pain throughout tx. Pt fatigues easily and falls asleep at one point during tx but awakens by saying pt's name. Pt asks PT/OT to "report he is working with Therapy even when he is hurting". PT Short Term Goals Short Term Goals Time Frame: Nov 25, 2017 Transfers (B,C,W/C) (FIM): 4 (met) Gait (FIM): 2 (met) Gait Distance Comment: 75' Gait Level of Assist: 4 Gait Assistive Device: FWW Wheelchair Distance: 150' PT Ortho Rn Goals Fdc Goals PT Fdc Goals Time Frame: Dec 09, 2017 Transfers (B,C,W/C) (FIM): 5 Sit to Lying (QC): 4 Lying-Sitting on Side/Bed(QC): 4 Sit to Stand (QC): 4 Rollin Roll Left to Right (QC): 4 Chair/Ilk-rt-Edubo Xfer(QC): 4 Car Transfer (QC): 4 Does the Patient Walk: Yes Gait (FIM): 5 Distance: 150' Walk 10 feet (QC): 4 Walk 10ft-Uneven Surface(QC): 4 Walk 50ft with 2 Turns (QC): 4 Walk 150 ft (QC): 4 Gait Level of Assist: 5 Gait Assistive Device: FWW Stairs (FIM): 4 # of Steps: 12 1 Step (curb) (QC): 4 4 Steps (QC): 4 12 Steps (QC): 4 Stairs Level Of Assist: 4 Picking up an Object (QC): 4 PT Plan Problem List Problem List: Activity Tolerance, Functional Strength, Safety Treatment/Plan Treatment Plan: Continue Plan of Care Treatment Plan: Bed Mobility, Concurrent Therapy, Education, Functional Activity Garcia, Functional Strength, Group Therapy, Gait, Safety, Therapeutic Exercise, Transfers Treatment Duration: Dec 09, 2017 Frequency: At least 5 of 7 days/Wk (IRF) Estimated Hrs Per Day: 1.5 hours per day Patient and/or Family Agrees t: Yes Safety Risks/Education Patient Education: Transfer Techniques, Correct Positioning, Safety Issues Teaching Recipient: Patient Teaching Methods: Discussion Response to Teaching: Verbalize Understanding Time/GCodes Time In: 1100 Time Out: 1200 Total Billed Treatment Time: 60 Total Billed Treatment 1, EX x2 (30m) & FA x2 (30m) G Codes Necessary: DONALD Syed RECREATION TEACHER Nov 29, 2017 11:55
--- NOTE | 2017-11-29 11:58 | Occupational Ther Daily Note ---
OT Current Status-Daily Note Subjective Pt alert, lying in bed. Pt did fall asleep throughout therapy, woke to name. Pt stated "I hope you write down that I worked for therapy even though I am hurting." Pt already had pain medications prior to therapy. Mental Status/Objective Patient Orientation: Person, Place, Time, Situation Functional [place] Measure 0=Not Assessed/NA 4=Minimal Assistance 1=Total Assistance 5=Supervision or Setup 2=Maximal Assistance 6=Modified [place] 3=Moderate Assistance 7=Complete [place] ADL-Treatment Functional [place] Measure 0=Not Assessed/NA 4=Minimal Assistance 1=Total Assistance 5=Supervision or Setup 2=Maximal Assistance 6=Modified [place] 3=Moderate Assistance 7=Complete IndependenceIRFPAI Quality Coding Scale 6 Independent with activity with or without an assistive device 5 Patient requires set up or clean up by helper. Patient completes activity by themselves 4 Supervision or touching assist (CGA). [place] provide cues , steadying assist 3 The helper provides less than half the effort to complete the activity 2 The helper provides more than half the effort to complete the activity 1 Dependent. The helper does all the effort to complete an activity 7 Patient refused to complete or attempt activity 9 The patient did not perform the activity before the current illness or injury 88 Not attempted due to Medical conditions or safety concerns Other Treatment Pt took increased time to complete UE exercises in supine, slow movements, falling asleep and extended recovery breaks. Medium resistance theraband UE exercises, 5 exercises 10 reps each. [place] tricia exercises against gravity, 3 exercises 10 reps each. Cot[place] with PT for skilled care due to increased pain and decreased activity tolerance. PT worked on LE bed exercises. After therapy , pt lying in bed with call light/phone in reach. All needs met in room. OT Short Term Goals Short Term Goals Transfers (B,C,W/C) (FIM): 4 (met) 1=Demonstrate adherence to instructed precautions during ADL tasks. 2=Patient will verbalize/demonstrate understanding of assistive devices/ modifications for ADL. 3=Patient will improve strength/tolerance for activity to enable patient to perform ADL's. OT Facility Service Manager Goals Facility Service Manager Goals Time Frame: Dec 09, 2017 Eating (FIM): 7 Eating (QC): 6 Groomin Oral Hygiene (QC): 6 Bathing(FIM): 5 Shower/Bathe Self (QC): 4 Upper Body Dressing(FIM): 6 Upper Body Dressing (QC): 6 Lower Body Dressing(FIM): 5 Lower Body Dressing (QC): 5 On/Off Footwear (QC): 5 Toileting(FIM): 5 Toileting Hygiene (QC): 4 Toilet/Commode Transfer(FIM): 5 Toilet/Commode Transfer (QC): 5 Shower Transfer(FIM): 5 Additional Goals: 1-Demonstrate ADL Tasks, 2-Verbalize Understanding, 3- ImproveStrength/Garcia 1=Demonstrate adherence to instructed precautions during ADL tasks. 2=Patient will verbalize/demonstrate understanding of assistive devices/ modifications for ADL. 3=Patient will improve strength/tolerance for activity to enable patient to perform ADL's. OT Education/Plan Discharge Recommendations Plan/Recommendations: Continue POC Treatment Plan/Plan of Care Patient would benefit from OT for education, treatment and training to promote independence in ADL's, mobility, safety and/or upper extremity function for ADL' s. Plan of Care: ADL Retraining, Functional Mobility, Group Exercise/Act as Ind, UE Funct Exercise/Act Treatment Duration: Dec 09, 2017 Frequency: Modified [place] (IRF) (21/08) Estimated Hrs Per Day: 1.5 hours per day Agreement: Yes Rehab Potential: Good Time/GCodes Start Time: 11:00 Stop Time: 12:00 Total Time Billed (hr/min): 60 Billed Treatment Time 1 visit-EX 4 (60 min) cotreat 60 min TIGRE CALDERON Nov 29, 2017 11:58
--- NOTE | 2017-11-29 13:30 | Cardiology Progress Note ---
Cardiology SOAP Progress Note Subjective: No cardiac complaints. Complaints of discomfort in the left thigh. Objective: I&O/Vital Signs 11/29/17 11/29/17 11/29/17 05:10 08:43 09:32 Temp 97.9 Pulse 80 77 Resp 18 B/P (MAP) 135/79 (97) 133/76 (95) Pulse Ox 96 O2 Delivery Room Air Room Air 11/29/17 00:00 Intake Total 1100 ml Balance 1100 ml Weight (Pounds): 191 Weight (Ounces): 11.2 Weight (Calculated Kilograms): 86.735246 Constitutional: AAO x 3, well-developed, well-nourished Respiratory: chest expansion is symmetric, chest is bilaterally symmetric, lungs clear to auscultation, other Cardiovascular: regular rate-rhythm, S1 and S2, systolic murmur Gastrointestional: soft, round, audible bowel sounds Extremities: No normal range of motion, No non-tender, No normal inspection, No pedal edema, No calf tenderness, No normal capillary refill, No pelvis stable , No calf tenderness, No inflammation, No pedal edema, No slow capillary refill , No swelling; other; No abrasion, No clubbing, No cyanosis, No ecchymosis, No laceration, No no lower extremity edema bilateral, No significant edema, No tenderness, No wound Neurologic/Psychiatric: no motor/sensory deficits, alert, normal mood/affect, oriented x 3, grossly intact Skin: No normal color, No warm/dry, No cyanosis, No cool, No diaphoresis, No damp, No ecchymosis, No jaundice, No mottled, No pallor, No rash, No tattoos/ piercings, No ulcerations, No rash on exposed areas, No ulcerations on exposed areas, No other Results/Procedures: Labs Laboratory Tests 11/28/17 15:35: White Blood Count 7.8, Red Blood Count 2.86L, Hemoglobin 8.2L, Hematocrit 26L, Mean Corpuscular Volume 91, Mean Corpuscular Hemoglobin 29, Mean Corpuscular Hemoglobin Concent 32, Red Cell Distribution Width 16.9H, Platelet Count 312, Mean Platelet Volume 9.2, Neutrophils (%) (Auto) 69, Lymphocytes (%) (Auto) 16, Monocytes (%) (Auto) 13H, Eosinophils (%) (Auto) 1, Basophils (%) (Auto) 0, Neutrophils # (Auto) 5.4, Lymphocytes # (Auto) 1.3, Monocytes # (Auto) 1.0, Eosinophils # (Auto) 0.1, Basophils # (Auto) 0.0, Sodium Level 130L, Potassium Level 4.0, Chloride Level 88L, Carbon Dioxide Level 25, Anion Gap 17H, Blood Urea Nitrogen 39H, Creatinine 4.26H, Estimat Glomerular Filtration Rate 14, BUN/ Creatinine Ratio 9, Glucose Level 189H, Calcium Level 10.4H, Corrected Calcium 11.3H, Total Bilirubin 0.7, Aspartate Amino Transf (AST/SGOT) 18, Alanine Aminotransferase (ALT/SGPT) 9, Alkaline Phosphatase 172H, Total Protein 7.0, Albumin 2.9L 11/28/17 20:07: Glucometer 87 11/29/17 05:10: Prothrombin Time 30.1H, INR Comment 2.9H 11/29/17 05:11: Glucometer 69L 11/29/17 10:59: Glucometer 103 A/P: Assessment/Dx: Assessment: Complains of discomfort in the left thigh: I spoke to the nurse and asked her to speak to the surgeon for evaluation and treatment. H/o CAD and ischemic cardiomyopathy. Reports h/o CABG in June 2017 at [facility] in [place] - received SOLIMAN to LAD and SVG to OM1 and SVG to OM2 and SVG to PDA Echocardiogram of July [address] Fernandes at [facility] showed LVEF 15-20%. Mild aortic stenosis; mild MR; trace aortic regurg Reports h/o PE following CABG for which he has been on warfarin tx HTN HLD - statin tx End-stage renal disease for which he is on hemodialysis 3 times a week - followed by Dr. Stephens DM 2 H/O right eye enucleation d/t cancer in the 2004 S/P left femur fracture on 11-03-17; with subsequent repair at [facility] on 11-04-17 H/O chew tobacco use - quit in June 2017 Plan: Plan: * Continue CAD management. * INR 2.9. Hold warfarin tonight. * Monitor lab Thank you for your consultation. Please call me if you have any questions. Chyna Leung MD, FACP, FACC, FSCAI, FHRS, CCDS Interventional Cardiology Cardiac Electrophysiology Vascular Medicine and Endovascular Interventions Shahram LEUNG MD Nov 29, 2017 1:30 pm
--- NOTE | 2017-11-29 14:36 | PM & R (SOAP) Progress Note ---
Subjective This was a face to face visit with the patient. Date Seen by Provider: Nov 29, 2017 Time Seen by Provider: 08:10 Subjective/Events-last exam Patient was seen in his room today Patient cancelled his dialysis today due to left thigh pain Has a hematoma Coumadin on hold -INR 2.9 Rdiologist doesnt feel that aspiration would be helpful patient declined Therapy today due to pain from hematoma discussed with RN and SW Discussed case with DR bennett last evening. Date Identified: Nov 29, 2017 Time Identified: 14:30 Medication Intervention: Coumadin on hold due to Left thigh hematoma Review of Systems Musculoskeletal: leg pain Objective Physician Exam Last Set of Vital Signs Vital Signs Date Time Temp Pulse Resp B/P (MAP) Pulse Ox O2 Delivery O2 Flow Rate FiO2 11/29/17 09:32 Room Air 11/29/17 08:43 77 133/76 (95) 11/29/17 05:10 97.9 18 96 Capillary Refill : Less Than 3 Seconds I&O Intake and Output 11/29/17 00:00 Intake Total 1450 ml Balance 1450 ml Intake Oral 1450 ml # Urine Diapers 1 # Bowel Movements 3 General: Alert, Oriented X3, Cooperative, No Acute Distress HEENT: Mucous Memb Moist/[place] Neck: Supple Lungs: Clear to Auscultation, Normal Air Movement Heart: Regular Rate, No Murmurs Abdomen: Normal Bowel Sounds, Soft, No Tenderness Extremities: Normal Pulses, Other (Left thigh quite swollen tight and tender) Skin: Other (L arm in clean bandage, no evidence of continued bleeding from dialysis site) Neuro: Normal Speech, Normal Tone, Sensation Intact Psych/Mental Status: Mental Status NL, Mood NL Results Lab Data Laboratory Tests 11/26/17 16:18: Glucometer 171H 11/26/17 21:19: Glucometer 140H 11/27/17 05:28: Glucometer 64L 11/27/17 05:47: Prothrombin Time 21.1H, INR Comment 1.8H 11/27/17 06:20: Glucometer 162H 11/27/17 10:56: Glucometer 206H 11/27/17 15:31: Glucometer 215H 11/27/17 21:03: Glucometer 177H 11/28/17 04:35: Prothrombin Time 26.3H, INR Comment 2.4H 11/28/17 05:23: Glucometer 149H 11/28/17 11:20: Glucometer 82 11/28/17 15:35: White Blood Count 7.8, Red Blood Count 2.86L, Hemoglobin 8.2L, Hematocrit 26L, Mean Corpuscular Volume 91, Mean Corpuscular Hemoglobin 29, Mean Corpuscular Hemoglobin Concent 32, Red Cell Distribution Width 16.9H, Platelet Count 312, Mean Platelet Volume 9.2, Neutrophils (%) (Auto) 69, Lymphocytes (%) (Auto) 16, Monocytes (%) (Auto) 13H, Eosinophils (%) (Auto) 1, Basophils (%) (Auto) 0, Neutrophils # (Auto) 5.4, Lymphocytes # (Auto) 1.3, Monocytes # (Auto) 1.0, Eosinophils # (Auto) 0.1, Basophils # (Auto) 0.0, Sodium Level 130L, Potassium Level 4.0, Chloride Level 88L, Carbon Dioxide Level 25, Anion Gap 17H, Blood Urea Nitrogen 39H, Creatinine 4.26H, Estimat Glomerular Filtration Rate 14, BUN/ Creatinine Ratio 9, Glucose Level 189H, Calcium Level 10.4H, Corrected Calcium 11.3H, Total Bilirubin 0.7, Aspartate Amino Transf (AST/SGOT) 18, Alanine Aminotransferase (ALT/SGPT) 9, Alkaline Phosphatase 172H, Total Protein 7.0, Albumin 2.9L 11/28/17 20:07: Glucometer 87 11/29/17 05:10: Prothrombin Time 30.1H, INR Comment 2.9H 11/29/17 05:11: Glucometer 69L 11/29/17 10:59: Glucometer 103 11/29/17 13:12: Glucometer 107 Assessment/Plan Assessment and Plan CHF myopathy with prox lower limb weakness improving hematoma left thigh with Therapy and coumadin on hold for today Hx of falls COPD Nausea/constipation resolved Active tobaccoism DM HTN Diabetic PN CAD s/p CABG Anemia Hyponatremia Plan Hold on therapy and coumadin today as per above F/U with DR Bennett Team Conference tomorrow Discuss discharge options with Team/SW if patient no longer able to participate in therapies Co-Morbidities that are continuing to impact the rehab process: (include details ) LUCA SORIA MD Nov 29, 2017 14:36
[2017-11-29] MEDS ORDERED: MILK OF MAGNESIA 400 MG/5 ML 30 ML UDC PO PRN (15:30)
[2017-11-29] MEDS ORDERED: POLYETHYLENE GLYCOL 17 GM (MIRALAX) PACK PO PRN (15:30)
[2017-11-29 16:30] VITALS: BP 136/85
[2017-11-29] MEDS: DONEPEZIL 10 MG (ARICEPT) TAB PO SCH (20:23)
[2017-11-29] MEDS: traZODone 50 MG (DESYREL) TAB PO SCH (20:27)
[2017-11-29] MEDS: ATORVASTATIN 40 MG (LIPITOR) TABLET PO SCH (20:27)
--- NOTE | 2017-11-29 21:03 | Progress Note ---
Subjective Time Seen by a Provider: 13:21 Subjective/Events-last exam Pt seen and examined, he states the pain is worse and refused to do anything today. He states it is 10 out of 10 and was so bad he wouldn't get out of bed to go to dialysis. He is refusing to eat also; states can't eat because it will raise his sugar. Review of Systems General: No Chills, No Night Sweats Pulmonary: No Dyspnea, No Cough Cardiovascular: No: Chest Pain, Palpitations Gastrointestinal: No: Nausea, Vomiting Musculoskeletal: leg pain Objective Exam Vital Signs Date Time Temp Pulse Resp B/P (MAP) Pulse Ox O2 Delivery O2 Flow Rate FiO2 11/29/17 16:30 96.1 74 16 136/85 (102) 93 Room Air 11/29/17 09:32 Room Air 11/29/17 08:43 77 133/76 (95) 11/29/17 05:10 97.9 80 18 135/79 (97) 96 Room Air I & O 11/29/17 07:00 Intake Total 1300 ml Output Total 200 ml Balance 1100 ml Capillary Refill : Less Than 3 Seconds General Appearance: No Apparent Distress, Chronically ill HEENT: Moist Mucous Membranes Neck: Carotid Bruit Respiratory: Chest Non Tender, Lungs Clear, Normal Breath Sounds, No Accessory Muscle Use, No Respiratory Distress Cardiovascular: Regular Rate, Rhythm, Normal Peripheral Pulses, Systolic Murmur Peripheral Pulses: 2+ Dorsalis Pedis (R), 2+ Left Dors-Pedis (L) Gastrointestinal: normal bowel sounds, non tender, soft, no organomegaly, no pulsatile mass Extremity: Normal Capillary Refill, Normal Inspection, No Calf Tenderness, No Pedal Edema, Swelling (pt appears to have edema down entire left leg), Other ( pt has pain and very light erythema on lateral aspect of left thigh, erythema has not changed since yesterday. Pain appears worse) Neurologic/Psychiatric: Alert, Oriented x3, Depressed Affect Skin: Normal Color, Warm/Dry Results Lab Laboratory Tests 11/29/17 05:10: Prothrombin Time 30.1H, INR Comment 2.9H 11/29/17 05:11: Glucometer 69L 11/29/17 10:59: Glucometer 103 11/29/17 13:12: Glucometer 107 11/29/17 16:28: Glucometer 141H 10/23/18 20:32: Glucometer 169H Assessment/Plan Assessment/Plan Assessment/Plan Left Lateral thigh pain and fluid collection - most likely hematoma DM, HTN, ESRD S/P L total hip Even though the pain is worse, I do not think the erythema is worse. This collection of fluid may also relate to his recent hip surgery; I will call the orthopedic surgeon to have him come look at it. I did discuss possible needle drainage with the radiologist; he thinks this is a very bad idea, because he will not be able to get the hematoma out. I also think a large incision to I&D this area is a bad idea. I will try and explain this better to the pt. Doppler of left leg shows no DVT, there is a popliteal fossa cyst and fluid collection in left lateral thigh (radiologist thinks) is hematoma. It does not appear to be a cellulitis, because there is not much inflammation surrounding the collection. Clinical Quality Measures DVT/VTE Risk/Contraindication: Risk Factor Score Per Nursin RFS Level Per Nursing on Admit: 4+=Very High LUCA MORAN DO Nov 29, 2017 21:03
[2017-11-29] MEDS: inSUlin DETERMIR 1 UNIT/0.01 ML (LEVEMIR) CHARGE PER UNIT SQ SCH (21:26)
[2017-11-30] MEDS: HYDROcodone/APAP 5 MG/325 MG (LORTAB) TAB PO PRN ×3 (03:55→20:16)
[2017-11-30] MEDS: inSUlin ASPART (NovoLOG) 1 UNIT/0.01 ML (CHARGE PER UNIT) SC SCH ×3 (04:49→17:09)
[2017-11-30] MEDS: FUROSEMIDE 40 MG (LASIX) TAB PO SCH ×2 (04:49→17:40)
[2017-11-30] MEDS: PANTOPRAZOLE 40 MG (PROTONIX) TAB PO SCH (04:49)
[2017-11-30] MEDS: VENlafaxine XR 75 MG (EFFEXOR XR) CAP PO SCH (04:49)
[2017-11-30] MEDS: SEVELAMER CARBONATE 800 MG TAB (RENVELA) NON-FORMULARY PO SCH ×3 (04:50→17:40)
[2017-11-30 05:37] LABS: INR 3.1 (0.8-1.4); PROTHROMBIN TIME PATIENT 32.2 SEC (12.2-14.7)
[2017-11-30 06:16] VITALS: BP 158/93
[2017-11-30] MEDS: ISOSORBIDE DINITRATE 20 MG (ISORDIL) TAB PO SCH (11:17)
[2017-11-30] MEDS: CLOPIDOGREL 75 MG (PLAVIX) TABLET PO SCH (11:19)
[2017-11-30] MEDS: AMIODARONE 200 MG (CORDARONE) TAB PO SCH (11:19)
[2017-11-30] MEDS: ASPIRIN E.C. 81 MG (ECOTRIN) TAB PO SCH (11:19)
[2017-11-30] MEDS: GABAPENTIN 100 MG (NEURONTIN) CAP PO SCH ×3 (11:19→20:14)
[2017-11-30] MEDS: DIVALPROEX 250 MG DELAYED RELEASE (DEPAKOTE) TAB PO SCH ×3 (11:19→20:13)
[2017-11-30] MEDS: SENNOSIDES 8.6 MG (SENOKOT) TAB PO SCH (11:19)
[2017-11-30] MEDS: lisINopril 10 MG (PRINIVIL) TABLET PO SCH (11:20)
[2017-11-30] MEDS: SODIUM BICARBONATE 650 MG TABLET (NON-FORMULARY) PO SCH ×2 (11:22→20:13)
--- NOTE | 2017-11-30 13:25 | Cardiology Progress Note ---
Cardiology SOAP Progress Note Subjective: Still complaining of pain in the left lower extremity in the thigh. Objective: I&O/Vital Signs 11/30/17 11/30/17 06:16 09:00 Temp 98.5 Pulse 73 Resp 19 B/P (MAP) 158/93 (114) Pulse Ox 98 98 O2 Delivery Room Air Room Air 11/30/17 00:00 Intake Total 780 ml Balance 780 ml Weight (Pounds): 191 Weight (Ounces): 11.2 Weight (Calculated Kilograms): 86.096343 Constitutional: AAO x 3, well-developed, well-nourished Respiratory: chest expansion is symmetric, chest is bilaterally symmetric, lungs clear to auscultation, other Cardiovascular: regular rate-rhythm, S1 and S2, systolic murmur Gastrointestional: soft, round, audible bowel sounds Extremities: No normal range of motion, No non-tender, No normal inspection, No pedal edema, No calf tenderness, No normal capillary refill, No pelvis stable , No calf tenderness, No inflammation, No pedal edema, No slow capillary refill , No swelling; other; No abrasion, No clubbing, No cyanosis, No ecchymosis, No laceration, No no lower extremity edema bilateral, No significant edema, No tenderness, No wound Neurologic/Psychiatric: no motor/sensory deficits, alert, normal mood/affect, oriented x 3, grossly intact Skin: No normal color, No warm/dry, No cyanosis, No cool, No diaphoresis, No damp, No ecchymosis, No jaundice, No mottled, No pallor, No rash, No tattoos/ piercings, No ulcerations, No rash on exposed areas, No ulcerations on exposed areas, No other Results/Procedures: Labs Laboratory Tests 11/29/17 16:28: Glucometer 141H 11/29/17 20:32: Glucometer 169H 11/30/17 04:42: Glucometer 122H 11/30/17 05:15: Prothrombin Time 32.2H, INR Comment 3.1H 11/30/17 10:58: Glucometer 72 A/P: Assessment/Dx: Assessment: Complains of discomfort in the left thigh: I spoke to the nurse and asked her to speak to the surgeon () for evaluation and treatment. I also spoke to Dr. Fermin and conveyed my concern about the discomfort in the left thigh. I 'm told that there is an abscess and doesn't require needle aspiration at this point in time. I will defer to Dr. Fermin and Dr. Bennett. Hold warfarin. H/o CAD and ischemic cardiomyopathy. Reports h/o CABG in June 2017 at [facility] in [place] - received SOLIMAN to LAD and SVG to OM1 and SVG to OM2 and SVG to PDA Echocardiogram of July [address] Fernandes at [facility] showed LVEF 15-20%. Mild aortic stenosis; mild MR; trace aortic regurg Reports h/o PE following CABG for which he has been on warfarin tx HTN HLD - statin tx End-stage renal disease for which he is on hemodialysis 3 times a week - followed by Dr. Stephens DM 2 H/O right eye enucleation d/t cancer in the 2004 S/P left femur fracture on 11-03-17; with subsequent repair at [facility] on 11-04-17 H/O chew tobacco use - quit in June [address] Neri as an outpatient. within a week of discharge. Plan: Plan: * Continue CAD management. * INR 2.9. Hold warfarin. * Monitor lab Thank you for your consultation. Please call me if you have any questions. Chyna Leung MD, FACP, FACC, FSCAI, FHRS, CCDS Interventional Cardiology Cardiac Electrophysiology Vascular Medicine and Endovascular Interventions Shahram LEUNG MD Nov 30, 2017 1:25 pm
--- NOTE | 2017-11-30 14:47 | Occupational Ther Daily Note ---
OT Current Status-Daily Note Subjective Pt sitting in w/c talking on phone. Pt agrees to therapy. Pt states that he wants to walk out of here, but needs more pain meds so he can use his L leg. When LING and DIE FORGER attempted to make pt understand that he needs to work on stairs, lower body dressing using AE and other functional daily tasks, pt continued to state that all he needs is more pain meds and will not use AE. LING and DIE FORGER attempted to explain that pt has hip precautions and is not able to bend or cross LE's, pt is adamant that LING and DIE FORGER are not listening to him because if he has enough pain medication he is able to bend over or cross LE's. Then pt states that he is not able to ambulate to bathroom because it hurts to put wt on L LE. Mental Status/Objective Patient Orientation: Person, Place, Time, Situation Functional [place] Measure 0=Not Assessed/NA 4=Minimal Assistance 1=Total Assistance 5=Supervision or Setup 2=Maximal Assistance 6=Modified [place] 3=Moderate Assistance 7=Complete [place] ADL-Treatment OT/PT co-treat for skilled care due to decreased activity tolerance, pain and motivation. PT worked on LE strengthening, transfers and w/c mobility. OT worked on functional tasks, toilet transfers and UE exercises to increase strength and activity tolerance for daily functional tasks. Pt took increased time to complete all tasks during therapy due to poor activity tolerance. Pt using w/c arms to pull self to stand even after verbal cues to push up from appropriate surface, mod A, then required assist to pull hips into chair/ surface when he was unable to pivot feet. Pt required encouragement to pull pants down over R hips for toileting then assisted with L hip. Pt requested to stay on toilet so he could have BM. Pt instructed to use call light when finished. Nrsg notified. Functional [place] Measure 0=Not Assessed/NA 4=Minimal Assistance 1=Total Assistance 5=Supervision or Setup 2=Maximal Assistance 6=Modified [place] 3=Moderate Assistance 7=Complete IndependenceIRFPAI Quality Coding Scale 6 Independent with activity with or without an assistive device 5 Patient requires set up or clean up by helper. Patient completes activity by themselves 4 Supervision or touching assist (CGA). [place] provide cues , steadying assist 3 The helper provides less than half the effort to complete the activity 2 The helper provides more than half the effort to complete the activity 1 Dependent. The helper does all the effort to complete an activity 7 Patient refused to complete or attempt activity 9 The patient did not perform the activity before the current illness or injury 88 Not attempted due to Medical conditions or safety concerns Other Treatment Dowel Jesus exercises with 10# wt attached 3 sets 10 reps. OT Short Term Goals Short Term Goals Transfers (B,C,W/C) (FIM): 4 (met) 1=Demonstrate adherence to instructed precautions during ADL tasks. 2=Patient will verbalize/demonstrate understanding of assistive devices/ modifications for ADL. 3=Patient will improve strength/tolerance for activity to enable patient to perform ADL's. OT Skilled Nursing Goals Service Assistant Goals Time Frame: Dec 09, 2017 Eating (FIM): 7 Eating (QC): 6 Groomin Oral Hygiene (QC): 6 Bathing(FIM): 5 Shower/Bathe Self (QC): 4 Upper Body Dressing(FIM): 6 Upper Body Dressing (QC): 6 Lower Body Dressing(FIM): 5 Lower Body Dressing (QC): 5 On/Off Footwear (QC): 5 Toileting(FIM): 5 Toileting Hygiene (QC): 4 Toilet/Commode Transfer(FIM): 5 Toilet/Commode Transfer (QC): 5 Shower Transfer(FIM): 5 Additional Goals: 1-Demonstrate ADL Tasks, 2-Verbalize Understanding, 3- ImproveStrength/Garcia 1=Demonstrate adherence to instructed precautions during ADL tasks. 2=Patient will verbalize/demonstrate understanding of assistive devices/ modifications for ADL. 3=Patient will improve strength/tolerance for activity to enable patient to perform ADL's. OT Education/Plan Discharge Recommendations Plan/Recommendations: Continue POC Treatment Plan/Plan of Care Patient would benefit from OT for education, treatment and training to promote independence in ADL's, mobility, safety and/or upper extremity function for ADL' s. Plan of Care: ADL Retraining, Functional Mobility, Group Exercise/Act as Ind, UE Funct Exercise/Act Treatment Duration: Dec 09, 2017 Frequency: Modified Program (IRF) (21/08) Estimated Hrs Per Day: 1.5 hours per day Agreement: Yes Rehab Potential: Good Time/GCodes Start Time: 13:00 Stop Time: 14:30 Total Time Billed (hr/min): 90 Billed Treatment Time 1 visit-FA 4 (67 min) EX 2 (23 min) co-treat with PT 90 min TIGRE CALDERON Nov 30, 2017 14:47
--- NOTE | 2017-11-30 15:29 | Physical Therapy Daily Note ---
PT Daily Note-Current Subjective Pt sitting in w/c talking on phone. Pt agrees to therapy. Pt states that he wants to walk out of here, but needs more pain meds so he can use his L leg. When LING and BUILDING GUARD DEPUTY SHERIFF attempted to make pt understand that he needs to work on stairs, lower body dressing using AE and other functional daily tasks, pt continued to state that all he needs is more pain meds and will not use AE. LING and BUILDING GUARD DEPUTY SHERIFF attempted to explain that pt has hip precautions and is not able to bend or cross LE's, pt is adamant that LING and BUILDING GUARD DEPUTY SHERIFF are not listening to him because if he has enough pain medication he is able to bend over or cross LE's. Then pt states that he is not able to ambulate to bathroom because it hurts to put wt on L LE. Mental Status Patient Orientation: Person, Place Pt does not comply with VC given during tx over safety items and claims BUILDING GUARD DEPUTY SHERIFF & LING are not listening to pt. Transfers Functional [place] Measure 0=Not Assessed/NA 4=Minimal Assistance 1=Total Assistance 5=Supervision or Setup 2=Maximal Assistance 6=Modified [place] 3=Moderate Assistance 7=Complete IndependenceIRFPAI Quality Coding Scale 6 Independent with activity with or without an assistive device 5 Patient requires set up or clean up by helper. Patient completes activity by themselves 4 Supervision or touching assist (CGA). [place] provide cues , steadying assist 3 The helper provides less than half the effort to complete the activity 2 The helper provides more than half the effort to complete the activity 1 Dependent. The helper does all the effort to complete an activity 7 Patient refused to complete or attempt activity 9 The patient did not perform the activity before the current illness or injury 88 Not attempted due to Medical conditions or safety concerns Scootin Rollin Supine to/from Sit: 3 Sit to/from Stand: 2 Sit to Lying (QC): 3 Sit to Stand (QC): 2 Chair/Uuj-wf-Fitpb Xfer(QC): 2 Bed to/from Chair: 2 Weight Bearing Right Lower Extremity: Right Full Weight Bearing Left Lower Extremity: Left Weight Bearing/Tolerated Gait Training Does the Patient Walk?: No and Walking Goal IS indicated Exercises Supine Ex: Ankle pumps, Quad Set, Hip abd/add Supine Reps: 15 Seated Therapy Exercises: Sit to stand NuStep Minutes: 11 NuStep Workload: 3 Treatments OT/PT co-treat for skilled care due to decreased activity tolerance, pain and motivation. PT worked on LE strengthening, transfers and w/c mobility. OT worked on functional tasks, toilet transfers and UE exercises to increase strength and activity tolerance for daily functional tasks. Pt took increased time to complete all tasks during therapy due to poor activity tolerance. Pt using w/c arms to pull self to stand even after verbal cues to push up from appropriate surface, mod A, then required assist to pull hips into chair/ surface when he was unable to pivot feet. Pt required encouragement to pull pants down over R hips for toileting then assisted with L hip. Pt requested to stay on toilet so he could have BM. Pt instructed to use call light when finished. Nrsg notified. Assessment Current Status: Poor Progress Pt is inappropriate with BUILDING GUARD DEPUTY SHERIFF during tx. Pt does not comply with VC given for safe transfers and hip precautions. PT Short Term Goals Short Term Goals Time Frame: Nov 25, 2017 Transfers (B,C,W/C) (FIM): 4 (met) Gait (FIM): 2 (met) Gait Distance Comment: 75' Gait Level of Assist: 4 Gait Assistive Device: FWW Wheelchair Distance: 150' PT Shuttlecock Assembler Goals Assisted Goals PT Assisted Goals Time Frame: Dec 09, 2017 Transfers (B,C,W/C) (FIM): 5 Sit to Lying (QC): 4 Lying-Sitting on Side/Bed(QC): 4 Sit to Stand (QC): 4 Rollin Roll Left to Right (QC): 4 Chair/Plr-dd-Snjyu Xfer(QC): 4 Car Transfer (QC): 4 Does the Patient Walk: Yes Gait (FIM): 5 Distance: 150' Walk 10 feet (QC): 4 Walk 10ft-Uneven Surface(QC): 4 Walk 50ft with 2 Turns (QC): 4 Walk 150 ft (QC): 4 Gait Level of Assist: 5 Gait Assistive Device: FWW Stairs (FIM): 4 # of Steps: 12 1 Step (curb) (QC): 4 4 Steps (QC): 4 12 Steps (QC): 4 Stairs Level Of Assist: 4 Picking up an Object (QC): 4 PT Plan Problem List Problem List: Activity Tolerance, Functional Strength, Safety, Balance, Gait, Transfer Treatment/Plan Treatment Plan: Continue Plan of Care Treatment Plan: Bed Mobility, Concurrent Therapy, Education, Functional Activity Garcia, Functional Strength, Group Therapy, Gait, Safety, Therapeutic Exercise, Transfers Treatment Duration: Dec 09, 2017 Frequency: At least 5 of 7 days/Wk (IRF) Estimated Hrs Per Day: 1.5 hours per day Patient and/or Family Agrees t: Yes Safety Risks/Education Patient Education: Gait Training, Transfer Techniques, Reviewed Precautions, Correct Positioning, Safety Issues Teaching Recipient: Patient Teaching Methods: Demonstration, Discussion Response to Teaching: Reinforcement Needed Time/GCodes Time In: 1300 Time Out: 1430 Total Billed Treatment Time: 90 Total Billed Treatment 1, EX (22m), FA x5 (68m) G Codes Necessary: DONALD Syed BUILDING GUARD DEPUTY SHERIFF Nov 30, 2017 15:29
--- NOTE | 2017-11-30 17:03 | PM & R (SOAP) Progress Note ---
Subjective This was a face to face visit with the patient. Date Seen by Provider: Nov 30, 2017 Time Seen by Provider: 16:45 Subjective/Events-last exam Patient was seen in his room this afternoon Swelling appears to be a bit less and should decrease gradually.Team Conference held earlier today and patient is having difficulty participating in full program SW looking into transfer back to [place] as patients spouse may not be able to provide the amount of assistance the patient currently requires. Date Identified: Nov 30, 2017 Time Identified: 16:00 Medication Intervention: Adjustment in coumadin and pain meds as needed Review of Systems Musculoskeletal: leg pain Objective Physician Exam Last Set of Vital Signs Vital Signs Date Time Temp Pulse Resp B/P (MAP) Pulse Ox O2 Delivery O2 Flow Rate FiO2 11/30/17 09:00 98 Room Air 11/30/17 06:16 98.5 73 19 158/93 (114) Capillary Refill : Less Than 3 Seconds I&O Intake and Output 11/30/17 00:00 Intake Total 980 ml Output Total 200 ml Balance 780 ml Intake Oral 980 ml Output Urine Total 200 ml # Urine Diapers 1 # Bowel Movements 1 General: Alert, Oriented X3, Cooperative, No Acute Distress HEENT: Mucous Memb Moist/[place] Neck: Supple Lungs: Clear to Auscultation, Normal Air Movement Heart: Regular Rate, No Murmurs Abdomen: Normal Bowel Sounds, Soft, No Tenderness Extremities: Normal Pulses, Other (Left thigh quite swollen tight and tender) Skin: Other (L arm in clean bandage, no evidence of continued bleeding from dialysis site) Neuro: Normal Speech, Normal Tone, Sensation Intact Psych/Mental Status: Mental Status NL, Mood NL Results Lab Data Laboratory Tests 11/27/17 21:03: Glucometer 177H 11/28/17 04:35: Prothrombin Time 26.3H, INR Comment 2.4H 11/28/17 05:23: Glucometer 149H 11/28/17 11:20: Glucometer 82 11/28/17 15:35: White Blood Count 7.8, Red Blood Count 2.86L, Hemoglobin 8.2L, Hematocrit 26L, Mean Corpuscular Volume 91, Mean Corpuscular Hemoglobin 29, Mean Corpuscular Hemoglobin Concent 32, Red Cell Distribution Width 16.9H, Platelet Count 312, Mean Platelet Volume 9.2, Neutrophils (%) (Auto) 69, Lymphocytes (%) (Auto) 16, Monocytes (%) (Auto) 13H, Eosinophils (%) (Auto) 1, Basophils (%) (Auto) 0, Neutrophils # (Auto) 5.4, Lymphocytes # (Auto) 1.3, Monocytes # (Auto) 1.0, Eosinophils # (Auto) 0.1, Basophils # (Auto) 0.0, Sodium Level 130L, Potassium Level 4.0, Chloride Level 88L, Carbon Dioxide Level 25, Anion Gap 17H, Blood Urea Nitrogen 39H, Creatinine 4.26H, Estimat Glomerular Filtration Rate 14, BUN/ Creatinine Ratio 9, Glucose Level 189H, Calcium Level 10.4H, Corrected Calcium 11.3H, Total Bilirubin 0.7, Aspartate Amino Transf (AST/SGOT) 18, Alanine Aminotransferase (ALT/SGPT) 9, Alkaline Phosphatase 172H, Total Protein 7.0, Albumin 2.9L 11/28/17 20:07: Glucometer 87 11/29/17 05:10: Prothrombin Time 30.1H, INR Comment 2.9H 11/29/17 05:11: Glucometer 69L 11/29/17 10:59: Glucometer 103 11/29/17 13:12: Glucometer 107 11/29/17 16:28: Glucometer 141H 11/29/17 20:32: Glucometer 169H 11/30/17 04:42: Glucometer 122H 11/30/17 05:15: Prothrombin Time 32.2H, INR Comment 3.1H 11/30/17 10:58: Glucometer 72 11/30/17 15:57: Glucometer 51*L Assessment/Plan Assessment and Plan Displaced left fem neck fracture s/p left Hip repair OSH 11-04-[address] thigh [address] hall managing ESRD on Dialysis TIW missed yesterday and had today IDDM CADs/p [place] S/P enucleation rt eye for CA Pressure sore left heel Chronic anticoagulation Plan PT/OT as tolerated F/U with SW re possible discharge back to [place] if unable to participate fully in therapies Team Conference held earlier today-see report for full functional update and POC and ELOS Co-Morbidities that are continuing to impact the rehab process: (include details ) LUCA SORIA MD Nov 30, 2017 17:03
--- NOTE | 2017-11-30 17:25 | Diagnostic Imaging Report ---
PATIENT HISTORY: Lateral left thigh hematoma. TECHNIQUE: High-resolution grayscale and color Doppler ultrasound performed of the soft tissues of the lateral left thigh. COMPARISON: Ultrasound from 11/28/2017. FINDINGS: Redemonstrated is a complex fluid collection in the soft tissues of the lateral left thigh, now measuring approximately 18 x 8.6 cm, previously measured 15 x 4.6 cm. No internal flow is seen. IMPRESSION: Complex fluid collection in the lateral left thigh has the appearance of a hematoma, and measures increased in size compared to 11/28/2017. No internal blood flow is seen. Dictated by: Dictated on workstation # [id number]
[2017-11-30] MEDS ORDERED: warFARin 2.5 MG (COUMADIN) TAB PO SCH (18:00)
--- NOTE | 2017-11-30 18:06 | Progress Note-Hospitalist ---
Subjective HPI/CC On Admission Date Seen by Provider: Nov 30, 2017 Time Seen by Provider: 13:00 Subjective/Events-last exam Patient went to HD today after refusing to go yesterday Left thigh hematoma still causes a lot of pain and he can't participate like he needs to for IRF criteria Dr Bennett will call Dr Pedro Luis Harris at [place] who performed the left hip fx repair and confer with him Review of Systems Musculoskeletal: leg pain Objective Exam Vital Signs Vital Signs Date Time Temp Pulse Resp B/P (MAP) Pulse Ox O2 Delivery O2 Flow Rate FiO2 11/30/17 09:00 98 Room Air 11/30/17 06:16 98.5 73 19 158/93 (114) Capillary Refill : Less Than 3 Seconds General Appearance: No Apparent Distress, WD/WN, Chronically ill Respiratory: Chest Non Tender, Lungs Clear, Normal Breath Sounds, No Accessory Muscle Use, No Respiratory Distress Cardiovascular: Regular Rate, Rhythm, No Edema, No Gallop, No JVD, No Murmur, Normal Peripheral Pulses Extremity: Other (left thigh pain on palpation) Neurologic/Psychiatric: Alert, Oriented x3, No Motor/Sensory Deficits, Normal Mood/Affect Skin: Normal Color, Warm/Dry Results/Procedures Lab Patient resulted labs reviewed. Assessment/Plan Assessment and Plan Assess & Plan/Chief Complaint Assessment: Acute left lateral thigh hematoma Left hip fracture Debility End-stage renal disease on hemodialysis CAD history of CABG Coumadin maintenance Plan: Hemodialysis on schedule Monitor closely Dr Bennett will call Dr Pedro Luis Harris at [place] to see what the treatment would be for the hematoma Diagnosis/Problems Diagnosis/Problems (1) Hematoma of thigh Status: Acute Qualifiers: Encounter type: initial encounter Laterality: left Qualified Codes: S70.12XA - Contusion of left thigh, initial encounter (2) Hip fracture, left Status: Resolved Qualifiers: Encounter type: subsequent encounter Fracture type: closed Fracture healing: with routine healing Qualified Codes: S72.002D - Fracture of unspecified part of neck of left femur, subsequent encounter for closed fracture with routine healing (3) Supratherapeutic INR Status: Resolved (4) CAD (coronary artery disease) Status: Chronic Qualifiers: Coronary Disease-Associated Artery/Lesion type: [place] artery [place] vs. transplanted heart: [place] heart Associated angina: without angina Qualified Codes: I25.10 - Atherosclerotic heart disease of [place] coronary artery without angina pectoris (5) Depression Status: Chronic Qualifiers: Depression Type: major depressive disorder Major depression recurrence: recurrent Active/Remission status: currently active Major depression episode severity: mild Qualified Codes: F33.0 - Major depressive disorder, recurrent , mild (6) HTN (hypertension) Status: Chronic Qualifiers: Hypertension type: essential hypertension Qualified Codes: I10 - Essential (primary) hypertension (7) ESRD (end stage renal disease) on dialysis Status: Chronic (8) HLD (hyperlipidemia) Status: Chronic Qualifiers: Hyperlipidemia type: mixed hyperlipidemia Qualified Codes: E78.2 - Mixed hyperlipidemia (9) Insulin-dependent diabetes mellitus with renal complications Status: Chronic (10) S/P CABG (coronary artery bypass graft) Status: Chronic (11) Leg pain, left Status: Acute Clinical Quality Measures DVT/VTE Risk/Contraindication: Risk Factor Score Per Nursin RFS Level Per Nursing on Admit: 4+=Very High SEGUN DODGE DO Nov 30, 2017 18:06
[2017-11-30 18:40] VITALS: BP 125/83
[2017-11-30] MEDS: ATORVASTATIN 40 MG (LIPITOR) TABLET PO SCH (20:13)
[2017-11-30] MEDS: traZODone 50 MG (DESYREL) TAB PO SCH (20:14)
[2017-11-30] MEDS: DONEPEZIL 10 MG (ARICEPT) TAB PO SCH (20:14)
[2017-11-30] MEDS: inSUlin DETERMIR 1 UNIT/0.01 ML (LEVEMIR) CHARGE PER UNIT SQ SCH (20:14)
[2017-12-01] MEDS: inSUlin ASPART (NovoLOG) 1 UNIT/0.01 ML (CHARGE PER UNIT) SC SCH ×2 (05:31→12:32)
[2017-12-01] MEDS: VENlafaxine XR 75 MG (EFFEXOR XR) CAP PO SCH (05:31)
[2017-12-01] MEDS: SEVELAMER CARBONATE 800 MG TAB (RENVELA) NON-FORMULARY PO SCH ×2 (05:31→12:29)
[2017-12-01] MEDS: FUROSEMIDE 40 MG (LASIX) TAB PO SCH (05:31)
[2017-12-01] MEDS: PANTOPRAZOLE 40 MG (PROTONIX) TAB PO SCH (05:31)
[2017-12-01 05:54] VITALS: BP 113/65
[2017-12-01] MEDS: HYDROcodone/APAP 5 MG/325 MG (LORTAB) TAB PO PRN (06:18)
[2017-12-01 06:55] LABS: INR 2.8 (0.8-1.4); PROTHROMBIN TIME PATIENT 29.9 SEC (12.2-14.7)
[2017-12-01] MEDS ORDERED: FENT1PAT8 TD (11:21)
[2017-12-01] MEDS ORDERED: LORA0.5T PO (11:21)
[2017-12-01] MEDS ORDERED: ACHD5005 PO (11:21)
[2017-12-01] MEDS: CLOPIDOGREL 75 MG (PLAVIX) TABLET PO SCH (12:22)
[2017-12-01] MEDS: AMIODARONE 200 MG (CORDARONE) TAB PO SCH (12:22)
[2017-12-01] MEDS: DIVALPROEX 250 MG DELAYED RELEASE (DEPAKOTE) TAB PO SCH ×2 (12:23→12:25)
[2017-12-01] MEDS: lisINopril 10 MG (PRINIVIL) TABLET PO SCH (12:23)
[2017-12-01] MEDS: SENNOSIDES 8.6 MG (SENOKOT) TAB PO SCH (12:23)
[2017-12-01] MEDS: GABAPENTIN 100 MG (NEURONTIN) CAP PO SCH ×2 (12:23→12:25)
[2017-12-01] MEDS: SODIUM BICARBONATE 650 MG TABLET (NON-FORMULARY) PO SCH (12:23)
[2017-12-01] MEDS: ASPIRIN E.C. 81 MG (ECOTRIN) TAB PO SCH (12:23)
[2017-12-01] MEDS: ISOSORBIDE DINITRATE 20 MG (ISORDIL) TAB PO SCH (12:23)
--- NOTE | 2017-12-01 12:51 | PM & R (SOAP) Progress Note ---
Subjective This was a face to face visit with the patient. Date Seen by Provider: Dec 01, 2017 Time Seen by Provider: 12:45 Subjective/Events-last exam Patient was seen in his room this afternoon Case discussed staff Patient to go back to [facility] for ongoing care as patient not making progress with therapies at this time Left Thigh still tight and tender and patient has RXS for D patch and hydrocodone.Coumadin remains on hold Patient just back from Dialysis this AM .abs reviewed Date Identified: Dec 01, 2017 Time Identified: 12:00 Medication Intervention: Coumadin remains on hold Review of Systems Musculoskeletal: leg pain Objective Physician Exam Last Set of Vital Signs Vital Signs Date Time Temp Pulse Resp B/P (MAP) Pulse Ox O2 Delivery O2 Flow Rate FiO2 12/01/17 05:54 97.7 76 18 113/65 (81) 97 Room Air Capillary Refill : Less Than 3 Seconds I&O Intake and Output 12/01/17 00:00 Intake Total 680 ml Output Total 25 ml Balance 655 ml Intake Oral 680 ml Output Urine Total 25 ml # Urine Diapers 1 # Bowel Movements 1 General: Alert, Oriented X3, Cooperative, No Acute Distress HEENT: Mucous Memb Moist/[place] Neck: Supple Lungs: Clear to Auscultation, Normal Air Movement Heart: Regular Rate, No Murmurs Abdomen: Normal Bowel Sounds, Soft, No Tenderness Extremities: Normal Pulses, Other (Left thigh quite swollen tight and tender) Skin: Other (L arm in clean bandage, no evidence of continued bleeding from dialysis site) Neuro: Normal Speech, Normal Tone, Sensation Intact Psych/Mental Status: Mental Status NL, Mood NL Results Lab Data Laboratory Tests 11/28/17 15:35: White Blood Count 7.8, Red Blood Count 2.86L, Hemoglobin 8.2L, Hematocrit 26L, Mean Corpuscular Volume 91, Mean Corpuscular Hemoglobin 29, Mean Corpuscular Hemoglobin Concent 32, Red Cell Distribution Width 16.9H, Platelet Count 312, Mean Platelet Volume 9.2, Neutrophils (%) (Auto) 69, Lymphocytes (%) (Auto) 16, Monocytes (%) (Auto) 13H, Eosinophils (%) (Auto) 1, Basophils (%) (Auto) 0, Neutrophils # (Auto) 5.4, Lymphocytes # (Auto) 1.3, Monocytes # (Auto) 1.0, Eosinophils # (Auto) 0.1, Basophils # (Auto) 0.0, Sodium Level 130L, Potassium Level 4.0, Chloride Level 88L, Carbon Dioxide Level 25, Anion Gap 17H, Blood Urea Nitrogen 39H, Creatinine 4.26H, Estimat Glomerular Filtration Rate 14, BUN/ Creatinine Ratio 9, Glucose Level 189H, Calcium Level 10.4H, Corrected Calcium 11.3H, Total Bilirubin 0.7, Aspartate Amino Transf (AST/SGOT) 18, Alanine Aminotransferase (ALT/SGPT) 9, Alkaline Phosphatase 172H, Total Protein 7.0, Albumin 2.9L 11/28/17 20:07: Glucometer 87 11/29/17 05:10: Prothrombin Time 30.1H, INR Comment 2.9H 11/29/17 05:11: Glucometer 69L 11/29/17 10:59: Glucometer 103 11/29/17 13:12: Glucometer 107 11/29/17 16:28: Glucometer 141H 11/29/17 20:32: Glucometer 169H 11/30/17 04:42: Glucometer 122H 11/30/17 05:15: Prothrombin Time 32.2H, INR Comment 3.1H 11/30/17 10:58: Glucometer 72 11/30/17 15:57: Glucometer 51*L 11/30/17 17:06: Glucometer 48*L 11/30/17 18:32: Glucometer 92 11/30/17 20:49: Glucometer 181H 12/01/17 04:49: Glucometer 155H 12/01/17 06:11: Prothrombin Time 29.9H, INR Comment 2.8H Assessment/Plan Assessment and Plan Back to SNU today for ongoing care and therapies F/U with DR Conway [facility] staff Discharge meds reviewed See orders Co-Morbidities that are continuing to impact the rehab process: (include details ) LUCA SORIA MD Dec 01, 2017 12:51
--- NOTE | 2017-12-01 13:31 | Therapy Team Discharge Summary ---
Therapy Discharge Summary Discharge Recommendations Date of Discharge 12/01/2017 Therapy D/C Recommendations: Physical Therapy Home Care Physical Therapy This patient was seen on ARU post transfer from LT facility to this ARU. Pt had had a recent fall and sustained a left femoral neck fracture and had a hemiarthroplasty. Prior to fall, he was mod indep with functional mobiltiy. Upon admit to this facility, pt needed much assist with functional transfers and bed mobility and was significantly limited in his gait distance. He reported he was limited by pain. Treatment consisted of LE functional strengthening, gait training, transfers and mobility. His progress was limited and at last visit was requiring max assist for transfers and was not ambulatory. Throughout the course of his stay on this unit, pt needed much encouragement to participate and often was resistant to skilled therapy intervention. At the end of his stay, he was reporting increased left upper leg pain, Dr. Bennett was consulted but no follow up action taken. No goals met. Limited functional progress or motivation. Pt to return to [facility] for continued therapy services. DC PT. Occupational Therapy Decreased Activ Tolerance, Decreased UE Strength, Dependent Transfers, Impaired Funct Balance, Impaired Self-Care Skills PT Mold Sander Goals Mold Sander Goals PT Custodial Goals Time Frame: Dec 09, 2017 Transfers (B,C,W/C) (FIM): 5 (unmet; scored 2) Roll Left to Right (QC): 4 Sit to Lying (QC): 4 Lying-Sitting on Side/Bed(QC): 4 Sit to Stand (QC): 4 Chair/Web-pz-Curfc Xfer(QC): 4 Car Transfer (QC): 4 Does the Patient Walk: Yes Gait (FIM): 5 (unmet) Distance: 150' Walk 10 feet (QC): 4 Walk 10ft-Uneven Surface(QC): 4 Walk 50ft with 2 Turns (QC): 4 Walk 150 ft (QC): 4 Gait Level of Assist: 5 Gait Assistive Device: FWW Stairs (FIM): 4 (unmet) # of Steps: 12 1 Step (curb) (QC): 4 4 Steps (QC): 4 12 Steps (QC): 4 Stairs Level Of Assist: 4 Picking up an Object (QC): 4 OT Mold Sander Goals Custodial Goals Time Frame: Dec 09, 2017 Eating (FIM): 7 Eating (QC): 6 Oral Hygiene (QC): 6 Grooming(FIM): 6 Bathing(FIM): 5 Shower/Bathe Self (QC): 4 Upper Body Dressing(FIM): 6 Upper Body Dressing (QC): 6 Lower Body Dressing(FIM): 5 Lower Body Dressing (QC): 5 On/Off Footwear (QC): 5 Toileting(FIM): 5 Toileting Hygiene (QC): 4 Toilet/Commode Transfer(FIM): 5 Toilet/Commode Transfer (QC): 5 Shower Transfer(FIM): 5 Additional Goals: 1-Demonstrate ADL Tasks, 2-Verbalize Understanding, 3- ImproveStrength/Garcia 1=Demonstrate adherence to instructed precautions during ADL tasks. 2=Patient will verbalize/demonstrate understanding of assistive devices/ modifications for ADL. 3=Patient will improve strength/tolerance for activity to enable patient to perform ADL's. Speech Custodial Goals Custodial Goals no LTGs established as skilled ST not indicated. TIGRE DRAKE PT Dec 01, 2017 13:31
--- NOTE | 2017-12-02 13:16 | Therapy Team Discharge Summary ---
Therapy Discharge Summary Discharge Recommendations Date of Discharge Dec 01, 2017 at 15:00 Therapy D/C Recommendations: Physical Therapy Home Care Occupational Therapy Pt admitted to ARU with diagnosis of left hip fracture s/p hemiarthroplasty. On admission pt required max assist with LE dressing, mod assist with bathing, and min assist with transfers. Pt's progress was limited by motivation and participation. Pt made minimal progress and by discharge is requiring supervision for UE dressing and toileting, modified independent with grooming, min assist with toilet transfer, and max assist with shower transfers. Pt met goal for grooming, but did not meet any other goals. Pt discharged to [facility] for continued care. D/C ARU OT. Decreased Activ Tolerance, Decreased UE Strength, Dependent Transfers, Impaired Funct Balance, Impaired Self-Care Skills PT Care Home Goals Underwriting Clerk Goals PT Underwriting Clerk Goals Time Frame: Dec 09, 2017 Transfers (B,C,W/C) (FIM): 5 (unmet; scored 2) Roll Left to Right (QC): 4 Sit to Lying (QC): 4 Lying-Sitting on Side/Bed(QC): 4 Sit to Stand (QC): 4 Chair/Xxn-pp-Jtzkr Xfer(QC): 4 Car Transfer (QC): 4 Does the Patient Walk: Yes Gait (FIM): 5 (unmet) Distance: 150' Walk 10 feet (QC): 4 Walk 10ft-Uneven Surface(QC): 4 Walk 50ft with 2 Turns (QC): 4 Walk 150 ft (QC): 4 Gait Level of Assist: 5 Gait Assistive Device: FWW Stairs (FIM): 4 (unmet) # of Steps: 12 1 Step (curb) (QC): 4 4 Steps (QC): 4 12 Steps (QC): 4 Stairs Level Of Assist: 4 Picking up an Object (QC): 4 OT Care Home Goals Care Home Goals Time Frame: Dec 09, 2017 Eating (FIM): 7 Eating (QC): 6 Oral Hygiene (QC): 6 Grooming(FIM): 6 Bathing(FIM): 5 Shower/Bathe Self (QC): 4 Upper Body Dressing(FIM): 6 Upper Body Dressing (QC): 6 Lower Body Dressing(FIM): 5 Lower Body Dressing (QC): 5 On/Off Footwear (QC): 5 Toileting(FIM): 5 Toileting Hygiene (QC): 4 Toilet/Commode Transfer(FIM): 5 Toilet/Commode Transfer (QC): 5 Shower Transfer(FIM): 5 Additional Goals: 1-Demonstrate ADL Tasks, 2-Verbalize Understanding, 3- ImproveStrength/Garcia 1=Demonstrate adherence to instructed precautions during ADL tasks. 2=Patient will verbalize/demonstrate understanding of assistive devices/ modifications for ADL. 3=Patient will improve strength/tolerance for activity to enable patient to perform ADL's. Speech Underwriting Clerk Goals Care Home Goals no LTGs established as skilled ST not indicated. REGINA SIDHU OT Dec 02, 2017 13:16
== END 2017-12-01 15:00 | DRG 559 ==
PROVIDERS: ADMIT Physical Medicine & Rehabilitation; ATTEND Physical Medicine & Rehabilitation
DX: S72.002D Fracture of unspecified part of neck of left femur, subsequent encounter for closed fracture with routine healing (principal); Z96.642 Presence of left artificial hip joint; I12.0 Hypertensive chronic kidney disease with stage 5 chronic kidney disease or end stage renal disease; N18.6 End stage renal disease; E11.22 Type 2 diabetes mellitus with diabetic chronic kidney disease; L76.21 Postprocedural hemorrhage of skin and subcutaneous tissue following a dermatologic procedure; I25.5 Ischemic cardiomyopathy; L89.629 Pressure ulcer of left heel, unspecified stage; E78.5 Hyperlipidemia, unspecified; F32.9 Major depressive disorder, single episode, unspecified; K21.9 Gastro-esophageal reflux disease without esophagitis; I25.10 Atherosclerotic heart disease of native coronary artery without angina pectoris; F17.210 Nicotine dependence, cigarettes, uncomplicated; I25.2 Old myocardial infarction; I08.0 Rheumatic disorders of both mitral and aortic valves; Z90.01 Acquired absence of eye; Z99.2 Dependence on renal dialysis; Z85.840 Personal history of malignant neoplasm of eye; Z85.820 Personal history of malignant melanoma of skin; Z95.1 Presence of aortocoronary bypass graft
CPT/HCPCS: 36415; 73502; 73552; 76881; 80048; 80053; 82962; 83036; 83735; 85025; 85027; 85610

== ENCOUNTER 2017-12-02 05:59 | Day surgery (SDC) | payer MEDICARE, MEDICAID ==
[~2017-12-02] VITALS: Ht 170.2 cm; Wt 91.7 kg
[~2017-12-02 05:59] MED LIST changes: +ACET-2267 PO; +ACHD5005 PO; +AMLO5TAB7 PO; +ASPI-983 PO; +ATOR80TA64 PO; +BISA10SU58 RC; +CLOP75TA69 PO; +DIVA250T2 PO; +DONE10TA12 PO; +DULA0.75 SQ; +ESCI10TA PO; +FENT1PAT8 TD; +FURO80TA3 PO; +HYDR-4226 PO; +INSU100V SQ; +INSU100V6 SQ; +IPRA3AMP31 IH; +ISOS30TA8 PO; +LANS30CA43 PO; +LISI10TA2 PO; +LOPE2TAB34 PO; +LORA0.5T PO; +MAG30ORA2 PO; +MAGN400O7 PO; +NA P133E22 RC; +NITR0.3T SL; -NITROGLYCERIN 0.4 MG SL TABS BTL 25'S SL PRN; +OXYC-529 PO; +POLY15DR14 OU; +SENN-140 PO; +SEVE800T7 PO; +SODI325T PO; +TRAM50TA2 PO; +TRAZ-189 PO; +VENL150C98 PO; +WARF3TAB56 PO
[2017-12-02 06:15] VITALS: BP 146/77
--- OUTSIDE RECORDS SUMMARY | 2017-12-02 06:30 | XMS REPORT ---
Author Author SHERWIN CARVAJAL [facility] Address [address] [place] [address] Care Team Providers Care Electrical Products Sales Engineer Name Role Phone SHERWIN CARVAJAL Unavailable PROBLEMS Type Condition ICD9-CM Code [id number] Code Onset Dates Condition Status SNOMED Code Problem Dialysis patient Z99.2 Active 527833173 Problem End stage kidney disease N18.6 Active 05122561 Problem Rheumatoid arthritis, involving unspecified site, unspecified rheumatoid factor presence M06.9 Active 29453428 Problem Anxiety F41.9 Active 30113813 Problem Other depression F32.89 Active 61350103 Problem Gastroesophageal reflux disease without esophagitis K21.9 Active 124827956 Problem Hyperlipidemia, unspecified hyperlipidemia type E78.5 Active 50888165 Problem Type 2 diabetes mellitus with hyperglycemia, without long-term current use of insulin E11.65 Active 62658760 Problem Essential hypertension I10 Active 80280958 Problem Coronary artery disease involving coronary bypass graft of [place] heart without angina 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 Active 029954024 ALLERGIES No Information ENCOUNTERS Encounter Location Date Diagnosis [address] [place] [id number] [facility] [place] [id number] Nov, [place] [address] [place] [id number] [place] [address] Nov, [place] [address] [place] [address] Nov, Closed fracture of left hip, sequela S72.002S and Other depression F32.89 [place] [address] [place] [address] Nov, Encounter for examination for admission to [facility] Z02.2 [place] [address] [place] [address] Nov, [facility] [address] [address] Oct, [facility] [address] [address] Oct, Encounter for [facility] Z02.2 [facility] [address] [id number] Oct, Weakness R53.1 ; Dialysis patient Z99.2 ; Essential hypertension I10 ; Rheumatoid arthritis, involving unspecified site, unspecified rheumatoid factor presence M06.9 and Gastroesophageal reflux disease without esophagitis K21.9 [place] [address] [address] Sep, [place] [address] [address] Sep, [place] [address] [address] Sep, [facility] [address] [address] Sep, Encounter for examination for admission to [facility] Z02.2 and Anxiety F41.9 [facility] [address] [id number] Sep, Gross hematuria R31.0 ; Coronary artery disease involving coronary bypass graft of [place] heart without angina 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 ; Arthralgia, unspecified joint M25.50 ; Essential hypertension I10 ; Rheumatoid arthritis, involving unspecified site, unspecified rheumatoid factor presence M06.9 ; Type 2 diabetes mellitus with hyperglycemia, without long-term current use of insulin E11.65 and Dialysis patient Z99.2 [place] [address] [address] Sep, [place] [address] [place] [address] Sep, Encounter for examination for admission to [facility] Z02.2 [facility] [address] [id number] Sep, Gross hematuria R31.0 [facility] [address] [address] Aug, [facility] [address] [place] [address] Aug, [facility] [address] [place] [id number] Aug, Fall, subsequent encounter W19.XXXD and Dialysis patient Z99.2 [facility] [address] [address] Aug, [place] [address] [place] [address] Aug, [facility] [address] [place] [id number] Aug, Encounter for examination for admission to [facility] Z02.2 ; Other acute pulmonary embolism without acute cor pulmonale I26.99 ; Arthralgia, unspecified joint M25.50 ; Coronary artery disease involving coronary bypass graft of [place] heart without angina 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 ; Essential hypertension I10 and Hyperlipidemia, unspecified hyperlipidemia type E78.5 [place] [address] [place] [address] Aug, Rheumatoid arthritis, involving unspecified site, unspecified rheumatoid factor presence M06.9 [place] [address] [address] Aug, [place] [address] [place] [address] Aug, Encounter for examination for admission to [facility] Z02.2 [place] [address], [place] [address] Jul, [place] [address] [address] Jul, [place] [address] [place] [address] Jul, Anxiety F41.9 [facility] [address] [facility] [id number] [address] Jul, IMMUNIZATIONS No Known Immunizations SOCIAL HISTORY Never Assessed REASON FOR VISIT Sent Prescriptions PLAN OF CARE VITAL SIGNS MEDICATIONS Unknown [...]
--- OUTSIDE RECORDS SUMMARY | 2017-12-02 06:30 | XMS REPORT ---
Author Author SHERWIN CARVAJAL [facility] Address [address] [place] [address] Care Team Providers Care Platform Material Handling Supervisor Name Role Phone SHERWIN CARVAJAL Unavailable PROBLEMS Type Condition ICD9-CM Code FNM18-ZM Code Onset Dates Condition Status SNOMED Code Problem Dialysis patient Z99.2 Active 680418747 Problem End stage kidney disease N18.6 Active 04597021 Problem Rheumatoid arthritis, involving unspecified site, unspecified rheumatoid factor presence M06.9 Active 40382022 Problem Anxiety F41.9 Active 28229899 Problem Other depression F32.89 Active 31753707 Problem Gastroesophageal reflux disease without esophagitis K21.9 Active 917204576 Problem Hyperlipidemia, unspecified hyperlipidemia type E78.5 Active 65001968 Problem Type 2 diabetes mellitus with hyperglycemia, without long-term current use of insulin E11.65 Active 77497949 Problem Essential hypertension I10 Active 82901096 Problem Coronary artery disease involving coronary bypass 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 angina 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 Active 135244961 ALLERGIES No Information ENCOUNTERS Encounter Location Date Diagnosis [address] [place] [address] [facility] [place] [id number] Nov, [place] [address] [place] [id number] [place] [address] Nov, [place] [address] [place] [address] Nov, Closed fracture of left hip, sequela S72.002S and Other depression F32.89 [place] [address] [place] [address] Nov, Encounter for examination for admission to skilled nursing Z02.2 [place] [address] [place] [address] Nov, [facility] [address] [address] Oct, [facility] [address] [address] Oct, Encounter for examination for admission to skilled nursing Z02.2 [facility] [address] [id number] Oct, Weakness R53.1 ; Dialysis patient Z99.2 ; Essential hypertension I10 ; Rheumatoid arthritis, involving unspecified site, unspecified rheumatoid factor presence M06.9 and Gastroesophageal reflux disease without esophagitis K21.9 [place] [address] [address] Sep, [place] [address] [address] Sep, [place] [address] [address] Sep, [facility] [address] [address] Sep, Encounter for examination for admission to skilled nursing Z02.2 and Anxiety F41.9 [facility] [address] [id number] Sep, Gross hematuria R31.0 ; Coronary artery disease involving coronary bypass 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 angina 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 ; Arthralgia, unspecified joint M25.50 ; Essential hypertension I10 ; Rheumatoid arthritis, involving unspecified site, unspecified rheumatoid factor presence M06.9 ; Type 2 diabetes mellitus with hyperglycemia, without long-term current use of insulin E11.65 and Dialysis patient Z99.2 [place] [address] [address] Sep, [place] [address] [address] Sep, Encounter for examination for admission to skilled nursing Z02.2 [facility] [address] [id number] Sep, Gross hematuria R31.0 [facility] [address] [address] Aug, [facility] [address] [place] [address]- [address] Aug, [facility] [address] [place] [id number] Aug, Fall, subsequent encounter W19.XXXD and Dialysis patient Z99.2 [facility] [address] [address] Aug, [place] [address] [place] [address]- [address] Aug, [facility] [address] [place] [id number] Aug, Encounter for examination for admission to skilled nursing Z02.2 ; Other acute pulmonary embolism without acute cor pulmonale I26.99 ; Arthralgia, unspecified joint M25.50 ; Coronary artery disease involving coronary bypass 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 angina 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 ; Essential hypertension I10 and Hyperlipidemia, unspecified hyperlipidemia type E78.5 [place] [address] [place] [address]- [address] Aug, Rheumatoid arthritis, involving unspecified site, unspecified rheumatoid factor presence M06.9 [place] [address] [address] Aug, [place] [address] [place] [address] 56[address]- 9[address] Aug, Encounter for examination for admission to skilled nursing Z02.2 [place] [address] [address] Jul, [place] [address] [address] Jul, [place] [address] [place] [address]181- 10[address] Jul, Anxiety F41.9 [facility] [address] [facility] [id number] [place] [address] Jul, IMMUNIZATIONS No Known Immunizations SOCIAL HISTORY Never Assessed REASON FOR VISIT Controlled Med Refill PLAN OF CARE VITAL SIGNS MEDICATIONS Medication Instructions Dosage Frequency Start Date End Date Duration Status Hydrocodone-Acetaminophen 5-325 MG Orally 3 times a day 1 tablet 8h 10 Nov Active RESULTS No Results PROCEDURES No Known [...]
--- OUTSIDE RECORDS SUMMARY | 2017-12-02 06:30 | XMS REPORT ---
Author Author ROBERT PALAFOX [facility] Address [address] [place] [address] Care Team Providers Care Supervisor [employer] Name Role Phone ROBERT PALAFOX Unavailable PROBLEMS Type Condition ICD9-CM Code HMQ39-OU Code Onset Dates Condition Status SNOMED Code Problem Dialysis patient Z99.2 Active 348102677 Problem End stage kidney disease N18.6 Active 57052551 Problem Rheumatoid arthritis, involving unspecified site, unspecified rheumatoid factor presence M06.9 Active 95366129 Problem Anxiety F41.9 Active 94406671 Problem Other depression F32.89 Active 71772449 Problem Gastroesophageal reflux disease without esophagitis K21.9 Active 173596950 Problem Hyperlipidemia, unspecified hyperlipidemia type E78.5 Active 09654540 Problem Type 2 diabetes mellitus with hyperglycemia, without long-term current use of insulin E11.65 Active 01194856 Problem Essential hypertension I10 Active 10095744 Problem Coronary artery disease involving coronary bypass graft of [place] heart without angina 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 Active 661349777 ALLERGIES No Information ENCOUNTERS Encounter Location Date Diagnosis [place] [id number] [place] [phone] Nov, [facility] [id number] [place] [address] Nov, Closed fracture of left hip, sequela S72.002S and Other depression F32.89 [facility] [address] [place] [id number] [place] [address] Nov, Encounter for examination for admission to retirement Z02.2 [facility] [id number] [place] [address] Nov, [facility] [id number] [place] [address] Oct, [facility] [address] [facility] [id number] [address] Oct, Encounter for examination for admission to retirement Z02.2 [facility] [address] [place] [id number] Oct, Weakness R53.1 ; Dialysis patient Z99.2 ; Essential hypertension I10 ; Rheumatoid arthritis, involving unspecified site, unspecified rheumatoid factor presence M06.9 and Gastroesophageal reflux disease without esophagitis K21.9 [place] [address] [id number] [address] Sep, [place] [address] [facility] [id number] [place] [address] Sep, [place] [address] [place] [id number] [address] Sep, [place] [address] [place] [id number] [place] [address] Sep, Encounter for examination for admission to retirement Z02.2 and Anxiety F41.9 [facility] [address] [place] [id number] Sep, Gross hematuria R31.0 ; Coronary artery disease involving coronary bypass graft of [place] heart without angina 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 ; Arthralgia, unspecified joint M25.50 ; Essential hypertension I10 ; Rheumatoid arthritis, involving unspecified site, unspecified rheumatoid factor presence M06.9 ; Type 2 diabetes mellitus with hyperglycemia, without long-term current use of insulin E11.65 and Dialysis patient Z99.2 [place] [address] [facility] [id number] [address] Sep, [place] [address] [facility] [id number] [address] Sep, Encounter for examination for admission to retirement Z02.2 [facility] [address] [place] [id number] Sep, Gross hematuria R31.0 [place] [address] [address] Aug, [facility] [address] [address] Aug, [facility] [address] [place] [id number] Aug, Fall, subsequent encounter W19.XXXD and Dialysis patient Z99.2 [facility] [address] [address] Aug, [facility] [address] [place] [id number] [address] Aug, [facility] [address] [place] [id number] Aug, Encounter for examination for admission to retirement Z02.2 ; Other acute pulmonary embolism without acute cor pulmonale I26.99 ; Arthralgia, unspecified joint M25.50 ; Coronary artery disease involving coronary bypass graft of [place] heart without angina 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 ; Essential hypertension I10 and Hyperlipidemia, unspecified hyperlipidemia type E78.5 [facility] [address] [address] Aug, Rheumatoid arthritis, involving unspecified site, unspecified rheumatoid factor presence M06.9 [facility] [address] [address] Aug, [facility] [address] [address] Aug, Encounter for examination for admission to retirement Z02.2 [facility] [address] [address] Jul, [facility] [address] [address] Jul, [facility] [address] [place] [id number] [address] Jul, Anxiety F41.9 [facility] [address] [place] [id number] [address] Jul, IMMUNIZATIONS No Known Immunizations SOCIAL HISTORY Never Assessed REASON FOR VISIT Elevated INR PLAN OF CARE VITAL SIGNS MEDICATIONS Unknown [...]
[2017-12-02] MEDS ORDERED: NS IV 500 ML 500 ML IV PRN (07:18)
--- NOTE | 2017-12-02 07:25 | Progress Note-Pre Operative ---
Pre-Operative Progress Note H&P Reviewed The H&P was reviewed, patient examined and no changes noted. Time Seen by Provider: 07:22 Date H&P Reviewed: Dec 02, 2017 Time H&P Reviewed: 07:23 Pre-Operative Diagnosis: left thigh fluid collection LUCA MORAN DO Dec 02, 2017 07:25
[2017-12-02] MEDS ORDERED: FAMOTIDINE 20MG/2ML IV (PEPCID) IV ONE (07:30)
[2017-12-02] MEDS ORDERED: LIDOCAINE/EPI 1%-1:200,000 (XYLOCAINE) 10 ML VIAL ONE (07:32)
[2017-12-02] MEDS ORDERED: ONDANSETRON 4 MG/2 ML (SDV) Z0FRAN ONE (07:39)
[2017-12-02] MEDS ORDERED: proPOfol 200 MG/20 ML (DIPRIVAN) VIAL IV ONE (07:39)
[2017-12-02] MEDS ORDERED: SEVOFLURANE (ULTANE) 15 ML INHAL SOLN ONE (07:39)
[2017-12-02] MEDS ORDERED: LIDOCAINE PF 2% 5 ML (XYLOCAINE) VIAL ONE (07:39)
[2017-12-02] MEDS ORDERED: MIDAZOLAM 2 MG/2 ML (VERSED) VIAL ONE (07:39)
[2017-12-02] MEDS ORDERED: fentaNYL INJECTION 100 MCG/2 ML AMP ONE (07:39)
[2017-12-02 08:47] LABS: CALCIUM 11.1 MG/DL (8.5-10.1); CREATININE SERUM 3.17 MG/DL (0.60-1.30); POTASSIUM 3.8 MMOL/L (3.6-5.0)
[2017-12-02] MEDS ORDERED: ceFAZolin 1,000 MG/10 ML (ANCEF) VIAL ONE (09:09)
--- NOTE | 2017-12-02 09:28 | Progress Note-Post Operative ---
Post-Operative Progess Note Surgeon (s)/Quality Assurance Monitor Body (s) Surgeon LUCA MORAN DO Quality Assurance Monitor Body: Armani Rausch MSIII Pre-Operative Diagnosis left thigh fluid collection Post-Operative Diagnosis Hematoma Procedure & Operative Findings Date of Procedure 12/02/17 Procedure Performed/Findings I&D left thigh hematoma Anesthesia Type GET Estimated Blood Loss Estimated blood loss (mL): scant Specimens/Packing Specimens Removed blood clot LUCA MORAN DO Dec 02, 2017 09:28
--- NOTE | 2017-12-02 09:31 | Discharge Inst-Surgical ---
Discharge Inst-Surgical Depart Medication/Instructions New, Converted or Re-Newed RX: Other (no rx needed) Patient Instructions Follow up Appt: Make appointment for 1 week. Instructions: No lifting greater than 10 pounds. No strenuous activity. May shower in 24 hours, no tub bath or soaking. Use incentive spirometer at home as directed. No Smoking Skin/Wound Care: May remove bandages. You need to leave the cresencio in place and come in for removal Symptoms to Report: Appetite Changes, Extremity Discoloration, Numbness/Tingling, Swelling Increased , Bleeding Excessive, Eyesight Changes, Pain Increased, Urine Color Change, Constipation(Persistent), Fever over 101 degree F, Pain/Pressure in chest, Urinating Difficulty, Cough Up/Vomit Blood, Heart Beat Irreg/Pounding, Pain/ Pressure in jaw, Vaginal Bleeding Increase, Cramps in feet or legs, Lightheadedness, Pain/Pressure in shoulder, Diarrhea(Persistent), Memory Changes Suddenly, Questions/Concerns, Weight gain consecutive days, Dizziness/ Fainting, Nausea/Vomiting, Shortness of Breath, Weight gain over 2 pounds If questions or concerns contact your physician Or seek help at emergency department. Diet Discharge Diet: ADA Diet, Other Diet (REnal) If Any Problems/Questions/Issu: Contact Your Physician, Go to Emergency Room Skin/Wound Care Infection Signs and Symptoms: Increased Redness, Foul Odor of Wound, Increased Drainage, Skin Itchy or Has a Rash, Increased Swelling, Temperature Above 101 F Wound Care Comment: Change dressing daily, expect some bleeding. Bathing Instructions: Shower Operative Area Clean and Dry: Keep Incision Clean/Dry LUCA MORAN DO Dec 02, 2017 09:31
[2017-12-02] MEDS ORDERED: EPINEPHrine INJECTION 1 MG/ML AMP ONE (09:33)
[2017-12-02] MEDS ORDERED: MEPERIDINE (DEMEROL) INJ 50 MG/ML IVP ONE (09:45)
[2017-12-02] MEDS ORDERED: ONDANSETRON 4 MG/2 ML (SDV) Z0FRAN IVP PRN (09:45)
[2017-12-02] MEDS ORDERED: morphine INJ 10 MG/ML 1ML (SYR OR VIAL) IVP ONE (09:45)
[2017-12-02 10:35] VITALS: BP 132/71
[2017-12-02 11:05] VITALS: BP 115/86
[2017-12-02 11:35] VITALS: BP 131/68
[2017-12-02 12:00] VITALS: BP 131/68
--- NOTE | 2017-12-02 13:11 | Anesthesia-General Post-Op ---
General Patient Condition Mental Status/LOC: Same as Preop Cardiovascular: Satisfactory Nausea/Vomiting: Absent Respiratory: Satisfactory Pain: Controlled Complications: Absent Post Op Complications Complications None Follow Up Care/Instructions Patient Instructions None needed. Anesthesia/Patient Condition Patient Condition Patient was seen this morning after the procedure and he was doing well, no complaints, stable vital signs, no apparent adverse anesthesia problems. MARTINA COMBS DO Dec 02, 2017 13:11
--- NOTE | 2017-12-02 15:09 | OPERATIVE REPORT ---
DATE OF SERVICE: 12/02/2017 PREOPERATIVE DIAGNOSIS: Left thigh fluid collection. POSTOPERATIVE DIAGNOSIS: Left thigh hematoma and pain. PROCEDURE: Incision and drainage of a submuscular hematoma. SURGEON: Vitaly Bennett DO. 911 DISPATCHER: MILEY Dsouza. SPECIMEN: Blood clot. BLOOD LOSS: Scant. FLUIDS: Per anesthesia. POSTOPERATIVE CONDITION: Stable. INDICATION FOR PROCEDURE: The patient is a 62-year-old male who had a few weeks ago, was in rehab and his leg was having pain, progressively getting more painful, had an ultrasound which showed a fluid collection and then the repeat ultrasound showed a larger fluid collection. The patient was complaining that he could not walk because of the pain and elected to try and remove this fluid collection to see if it was hematoma or abscess. FINDINGS: The patient had a large submuscular hematoma. PROCEDURE NOTE: After informed consent was obtained, the patient was brought to the operating room, placed on the table in supine position. He was sterilely prepped and draped in normal fashion. Local lidocaine then used to infiltrate the skin and then made an incision with #10 blade, carried down through the skin into the subcutaneous tissue and then using Bovie electrocautery went through the iliotibial band down underneath the muscle, immediately got a little bit of liquid clot and then started suctioning around and using blunt dissection to break up the clot and remove this clot. The incision was approximately 8 cm long, but the clot was 18 cm. It went from about 8 cm above the knee and went up towards the hip. Most likely, this is from his previous hip surgery, flushed with saline, suctioned this out, able to start pulling large clot out. Actually, we first went in the muscle, it was a little bit almost dusky, but started pinking up a little bit after we removed the clot. He did have some pressure here, although the inner thigh which was more edematous looking a little bit better. Once we got as much clot out we could and it flushes much and then we were not getting more clot, at this point, then elected to close the incision, closing the iliotibial band loosely with a 2-0 Vicryl with four interrupted sutures and closed the skin with loose cresencio very far apart so we could allow some drainage. Area was then cleaned and dried and a dressing placed. The patient tolerated procedure and transferred to recovery room in stable condition. Sponge and needle counts were correct at the end of the case. Job ID: [id number] DocumentID: [id number] Dictated Date: 12/02/2017 10:38:27 Transfer Man Date: 12/02/2017 13:03:48 Dictated By: VITALY BENNETT DO
== END 2017-12-02 12:00 ==
LOC: SDC 05:59
PROVIDERS: ATTEND Surgery
DX: M79.81 Nontraumatic hematoma of soft tissue (principal); I12.0 Hypertensive chronic kidney disease with stage 5 chronic kidney disease or end stage renal disease; N18.6 End stage renal disease; E11.22 Type 2 diabetes mellitus with diabetic chronic kidney disease; E11.40 Type 2 diabetes mellitus with diabetic neuropathy, unspecified; I25.10 Atherosclerotic heart disease of native coronary artery without angina pectoris; K21.9 Gastro-esophageal reflux disease without esophagitis; Z79.01 Long term (current) use of anticoagulants; Z79.82 Long term (current) use of aspirin; Z79.4 Long term (current) use of insulin; Z95.1 Presence of aortocoronary bypass graft; Z99.2 Dependence on renal dialysis
CPT/HCPCS: 36415; 80048; 82962; 87081; 94664

== ENCOUNTER → 2017-12-31 | Outpatient (CLI) | payer MEDICARE, MEDICAID ==
[~2017-12-31] MED LIST changes: +OXYC10TA7 PO; -SENN-140 PO; +SENN-141 PO
[2017-12-31 13:47] LABS: INR 2.1 (0.8-1.4); PROTHROMBIN TIME PATIENT 23.7 SEC (12.2-14.7)
== END ==
LOC: LABNPT 13:27
PROVIDERS: ATTEND Nurse Practitioner Community Health
DX: Z51.81 Encounter for therapeutic drug level monitoring (principal); Z79.01 Long term (current) use of anticoagulants
CPT/HCPCS: 85610

== ENCOUNTER 2018-01-09 17:48 | Emergency (ER) | payer MEDICARE, MEDICAID ==
[~2018-01-09] VITALS: Ht 182.9 cm; Wt 84.8 kg
[~2018-01-09 17:48] MED LIST changes: -OXYC10TA7 PO
[2018-01-09] MEDS ORDERED: fentaNYL INJECTION 100 MCG/2 ML AMP IVP ONE ×2 (18:00→19:00)
--- NOTE | 2018-01-09 18:08 | ED Fall/Injury ---
General Chief Complaint: Trauma-Non Activation Stated Complaint: FALLS Source: patient Exam Limitations: no limitations History of Present Illness Date Seen by Provider: Jan 09, 2018 Time Seen by Provider: 17:50 Initial Comments Patient presents to ER by EMS from [facility] with a chief complaint that Tuesday, 2 days ago he was using the call light to get out of bed and into his wheelchair with which he normally ambulates and transfers with two- person assist. Only one staff member came and he asked them to bring a second staff member but they said they could do it so they attempted but he fell backwards into his right twisting around and landing on his left hip. He did bruise up his elbow because on Coumadin they had put some dressings on his forearm and elbow but he's had pain in his left hip and inability to stand on it. He has a history of many years ago at [place] having his hip fractured but he doesn't that it was replaced just pinned or fixed. He is on the Coumadin after his CABG and multiple heart surgeries at a major hospital in [place]. He has a mortgage loan underwriter sees mostly following at [facility] but he does not know who they are and he knows he has an appointment coming up in about a month. He says that had a difficult time maintaining a normal INR with him recently. He states his last blood sugar was 118 before dinner. He's having no nausea just 9 out of 10 pain in his left hip; worse on movement. He has ability to feel his toes. He says is always had more swelling on his left leg and the right. He does not feel like the swelling is neither leg is worse now than baseline. He's been taking all of his medications as prescribed. Since Tuesday he's been treating his pain unsuccessfully with oxycodone. Dialysis on , , Sat. Allergies and Home Medications Allergies Coded Allergies: No Known Drug Allergies (Unverified , 08/01/17) Home Medications Acetaminophen 500 Mg Tablet, 1,000 MG PO Q6H PRN for PAIN-MILD, (Reported) Amiodarone HCl 200 Mg Tablet, 200 MG PO DAILY, (Reported) Aspirin 81 Mg Tablet.dr, 81 MG PO DAILY, (Reported) Atorvastatin Calcium 80 Mg Tablet, 80 MG PO DAILY, (Reported) Bisacodyl 10 Mg Supp.rect, 10 MG RC DAILY PRN for CONSTIPATION-4TH LINE, ( Reported) Clopidogrel Bisulfate 75 Mg Tablet, 75 MG PO DAILY, (Reported) Divalproex Sodium 250 Mg Tablet.dr, 250 MG PO TID, (Reported) Donepezil HCl 10 Mg Tablet, 10 MG PO HS, (Reported) Dulaglutide 0.75 Mg/0.5 Ml Pen.injctr, 0.75 MG SQ Fr, (Reported) Escitalopram Oxalate 10 Mg Tablet, 10 MG PO DAILY, (Reported) Fentanyl 1 Each Patch.td72, 25 MCG TD Q72H Prescribed by: LUCA SORIA on 12/01/171120 Fludrocortisone Acetate 0.1 Mg Tab, 0.1 MG PO DAILY PRN for HYPOTENSION, ( Reported) Furosemide 80 Mg Tablet, 80 MG PO BID, (Reported) Gabapentin 100 Mg Capsule, 100 MG PO TID, (Reported) Hydrocodone Bit/Acetaminophen 1 Tab Tab, 2 TAB PO Q4H PRN for PAIN-MODERATE Prescribed by: LUCA SORIA on 12/01/171120 Insulin Glargine,Hum.rec.anlog 100 Unit/1 Ml Vial, 6 UNIT SQ HS, (Reported) Insulin Lispro 100 Unit/1 Ml Vial, 5 UNIT SQ TID, (Reported) Ipratropium/Albuterol Sulfate 3 Ml Ampul.neb, 3 ML IH Q6H PRN for SHORTNESS OF BREATH, (Reported) Isosorbide Dinitrate 30 Mg Tablet, 30 MG PO DAILY, (Reported) Lansoprazole 30 Mg Capsule.dr, 30 MG PO DAILY, (Reported) Lisinopril 10 Mg Tablet, 10 MG PO DAILY, (Reported) HOLD AND NOTIFY PCP IF SBP LESS THAN 100 AND/OR DBP LESS THAN 60 AND/OR PULSE LESS THAN 60 Lorazepam 0.5 Mg Tablet, 0.5 MG PO Q8H PRN for ANXIETY Prescribed by: LUCA SORIA on 12/01/171120 Mag Hydrox/Al Hydrox/Simeth 30 Ml Oral.susp, 30 ML PO Q4H PRN for INDIGESTION, ( Reported) Magnesium Hydroxide 400 Mg/5 Ml Oral.susp, 30 ML PO Q12H PRN for CONSTIPATION- 7TH LINE, (Reported) Na Phos,M-B/Na Phos,Di-Ba 133 Ml Enema, 133 ML RC DAILY PRN for CONSTIPATION, ( Reported) Nitroglycerin 0.3 Mg Tab.subl, 0.3 MG SL UD PRN for CHEST PAIN, (Reported) Polyvinyl Alcohol/Povidone 15 Ml Drops, 1 DROP OU TID PRN for DRY EYES, ( Reported) Sennosides 8.6 Mg Tablet, 8.6 MG PO DAILY, (Reported) Sevelamer Carbonate 800 Mg Tablet, 1,600 MG PO TID, (Reported) Sodium Bicarbonate 325 Mg Tablet, 325 MG PO BID, (Reported) Trazodone HCl 50 Mg Tablet, 50 MG PO HS, (Reported) Venlafaxine HCl 150 Mg Cap.er.24h, 150 MG PO DAILY, (Reported) Patient Home Medication List Home Medication List Reviewed: Yes Review of Systems Review of Systems Constitutional: No chills, No diaphoresis, No fever, No malaise Eyes: Denies Blindness, Denies Blurred Vision Ears, Nose, Mouth, Throat: denies ear pain, denies ear discharge Respiratory: No cough, No phlegm, No short of breath Cardiovascular: No chest pain; edema, Hx of Intervention; No palpitations; vascular heart diseas Gastrointestinal: No abdominal pain, No constipation, No diarrhea, No dysphagia , No nausea Genitourinary: No discharge, No dysuria Musculoskeletal: see HPI; No back pain; joint pain (Left hip) Past Vonvcyr-Zedoui-Suggew Hx Patient Social History Alcohol Use: Denies Use Recreational Drug Use: No Smoking Status: Never a Smoker Type Used: Smokeless Tobacco Recent Hopitalizations: No Immunizations Up To Date Tetanus Booster (TDap): Unknown Date of Pneumonia Vaccine: Sep 18, 2017 Date of Influenza Vaccine: Sep 18, 2017 Seasonal Allergies Seasonal Allergies: No Past Medical History Surgeries: Yes Arteriovenous Shunt, Cardiac, CABG, Dialysis, Eye Surgery, Orthopedic, Vascular Surgery Respiratory: No Cardiac: Yes (CABG) Chronic Edema/Swelling, Coronary Artery Disease, Heart Attack, High Cholesterol , Hypertension Neurological: Yes Neuropathy Reproductive Disorders: No Sexually Transmitted Disease: No HIV/AIDS: No Genitourinary: Yes Renal Failure, Dialysis Gastrointestinal: Yes Gastroesophageal Reflux Musculoskeletal: Yes (BILATERAL SHOULDER SURGERIES) Arthritis, Fractures Endocrine: Yes (IDDM --DX AGE 38, ON DIALYSIS SINCE 2016) Diabetes, Non-Insulin dep HEENT: Yes (RIGHT EYE REMOVED FOR CANCER) Loss of Vision: Right Hearing Impairment: Denies Cancer: Yes (RIGHT EYE REMOVED FOR CANCER) Did You Recieve Any Treatments: Yes What Type of Treatment Did You: Surgical Intervention Psychosocial: Yes Anxiety, Depression Integumentary: No Blood Disorders: Yes (ANEMIA) Adverse Reaction/Blood Tranf: No Family Medical History Heart Disease, Diabetes Physical Exam Vital Signs Vital Signs - First Documented 01/09/18 17:53 Temp 97.8 Pulse 76 Resp 18 B/P (MAP) 110/60 (77) Pulse Ox 66 O2 Delivery Room Air Capillary Refill : Height, Weight, BMI Height: 5'7.00" Weight: 202lbs. 1.0oz. 91.406239ju; 31.7 BMI Method:Stated General Appearance: WD/WN, mild distress HEENT: normal ENT inspection, TMs normal, pharynx normal, other (Atraumatic without hemotympanum, thapa sign or raccoon eyes; historical right eye enucleation) Neck: non-tender, full range of motion, supple, normal inspection Cardiovascular: normal peripheral pulses, regular rate, rhythm, no edema Respiratory: chest non-tender, lungs clear, normal breath sounds, no respiratory distress, no accessory muscle use Peripheral Pulses: 1+ Dorsalis Pedis (R), 1+ Left Dors-Pedis (L); 2+ Radial Pulses (R), 2+ Radial Pulses (L) Gastrointestinal: normal bowel sounds, non tender, soft Neurologic/Psychiatric: no motor/sensory deficits, alert, normal mood/affect, oriented x 3 Skin: ecchymosis (Multiple and various states of healing on both upper extremities) [place] Coma Score Best Eye Response: (4) Open Spontaneously Best Verbal Response: (5) Oriented Best Motor Response: (6) Obeys Commands [place] Total: 15 Progress/Results/Core Measures Results/Orders Lab Results Laboratory Tests Test 01/09/18 17:05 Range/Units White Blood Count 6.3 4.3-11.0 10^3/uL Red Blood Count 3.82 L 4.35-5.85 10^6/uL Hemoglobin 10.9 L 13.3-17.7 G/DL Hematocrit 36 L 40-54 % Mean Corpuscular Volume 95 80-99 FL Mean Corpuscular Hemoglobin 29 25-34 PG Mean Corpuscular Hemoglobin Concent 30 L 32-36 G/DL Red Cell Distribution Width 19.5 H 10.0-14.5 % Platelet Count 193 130-400 10^3/uL Mean Platelet Volume 10.0 7.4-10.4 FL Neutrophils (%) (Auto) 64 42-75 % Lymphocytes (%) (Auto) 17 12-44 % Monocytes (%) (Auto) 16 H 0-12 % Eosinophils (%) (Auto) 3 0-10 % Basophils (%) (Auto) 0 0-10 % Neutrophils # (Auto) 4.0 1.8-7.8 X 10^3 Lymphocytes # (Auto) 1.1 1.0-4.0 X 10^3 Monocytes # (Auto) 1.0 0.0-1.0 X 10^3 Eosinophils # (Auto) 0.2 0.0-0.3 10^3/uL Basophils # (Auto) 0.0 0.0-0.1 10^3/uL Prothrombin Time 36.5 H 12.2-14.7 SEC INR Comment 3.6 H 0.8-1.4 Activated Partial Thromboplast Time 67 H 24-35 SEC Sodium Level 137 135-145 MMOL/L Potassium Level 5.2 H 3.6-5.0 MMOL/L Chloride Level 93 L 98-107 MMOL/L Carbon Dioxide Level 31 21-32 MMOL/L Anion Gap 13 5-14 MMOL/L Blood Urea Nitrogen 34 H 7-18 MG/DL Creatinine 5.22 H 0.60-1.30 MG/DL Estimat Glomerular Filtration Rate 11 BUN/Creatinine Ratio 7 Glucose Level 74 70-105 MG/DL Calcium Level 10.3 H 8.5-10.1 MG/DL Corrected Calcium 10.6 H 8.5-10.1 MG/DL Total Bilirubin 0.7 0.1-1.0 MG/DL Aspartate Amino Transf (AST/SGOT) 14 5-34 U/L Alanine Aminotransferase (ALT/SGPT) 11 0-55 U/L Alkaline Phosphatase 164 H 40-136 U/L B-Type Natriuretic Peptide 9431.1 H <100.0 PG/ML Total Protein 7.9 6.4-8.2 GM/DL Albumin 3.6 3.2-4.5 GM/DL Valproic Acid (Depakene) Level 40.0 L 50.0-100.0 UG/ML My Orders Orders - BRIAN KAMINSKI BNP (12/3/18 17:57) Cbc With Automated Diff (01/09/18 17:57) Comprehensive Metabolic Panel (01/09/18 17:57) Valproic Acid (01/09/18 17:57) Chest 1 View, Ap/Pa Only (01/09/18 17:57) Femur, Left, 2 Views (01/09/18 17:57) Hip, Left, 2 Views (01/09/18 17:57) Fentanyl Injection (Sublimaze Injection (01/09/18 18:00) Protime With Inr (01/09/18 18:00) Partial Thromboplastin Time (01/09/18 18:00) Fentanyl Injection (Sublimaze Injection (01/09/18 19:00) Medications Given in ED Current Medications Medications Dose Ordered Sig/Marshall Route Start Time Stop Time Status Last Admin Dose Admin Fentanyl Citrate 50 mcg ONCE ONCE IVP 01/09/18 19:00 01/09/18 19:01 DC 01/09/18 19:18 50 MCG Fentanyl Citrate 75 mcg ONCE ONCE IVP 01/09/18 18:00 01/09/18 18:01 DC 01/09/18 18:15 75 MCG Vital Signs/I&O 01/09/18 17:53 Temp 97.8 Pulse 76 Resp 18 B/P (MAP) 110/60 (77) Pulse Ox 66 O2 Delivery Room Air Progress Progress Note : Time: 18:15 Progress Note Get some x-rays of his femur and left hip. Basic lab, BNP and we'll start with some fentanyl 75 g for his pain. He is denying any nausea. Diagnostic Imaging Diagonstic Imaging: Xray Plain Films/CT/US/NM/MRI: chest (1v) Comments [facility] [place] NAME: GRACE ORELLANA Kyler [facility] REC#: [id number] PT STATUS: REG ER : 1955 PHYSICIAN: BRIAN KAMINSKI MD ADMIT DATE: 01/09/18/ER Draft Date of Exam:01/09/18 CHEST 1 VIEW, AP/PA ONLY EXAMINATION: Portable chest. INDICATION: Fall. Left hip and femoral pain. COMPARISON: Comparison is made with a prior chest radiograph from August 01, 2017. Correlation also made with CT chest from August 23, 2017. FINDINGS: Patient is status post previous sternotomy and coronary artery bypass grafting. There is enlargement of the cardiac silhouette. There appears to be a possible small effusion, and there are some chronic regions of parenchymal distortion within the lateral left lung. There are surgical clips in the left axilla. The right lung appears clear. There is no evidence of pneumothorax. No acute fracture is evident. IMPRESSION: 1. Operative changes of previous coronary artery bypass grafting with stable enlargement of the cardiac silhouette. 2. Prior CT study demonstrated a left pleural effusion which appears to be improved. There are some regions of linear density within the lateral left chest that are likely chronic regions of parenchymal distortion and scarring. 3. No acute fracture. 4. No acute cardiopulmonary process evident. Dictated on workstation # [id number] Dict: 01/09/181852 Trans: 01/09/181857 [id number] Interpreted by: JERICHO GARCIA MD Electronically signed by: Reviewed: Reviewed by Me Diagonstic Imaging: Xray Plain Films/CT/US/NM/MRI: pelvis (left femur) Comments [facility] [place] NAME: GRACE ORELLANA [facility] REC#: [id number] PT STATUS: REG ER : 1955 PHYSICIAN: BRIAN KAMINSKI MD ADMIT DATE: 01/09/18/ER Draft Date of Exam:01/09/18 HIP, LEFT, 2 VIEWS INDICATION: Left hip pain, status post fall. AP and oblique views of the left hip are obtained at 7:01 p.m. and compared to the prior study of 11/28/2017. The left hip prosthesis appears in good alignment with no device loosening. There is an area of lucency in the left proximal femur just below the greater trochanter, which was not present on previous study of 11/28/2017 and is suspicious for an acute fracture. There are diffuse vascular calcifications noted. IMPRESSION: Left hip prosthesis in good alignment. There is a new area of lucency in the left proximal femur just below the left greater trochanter, suspicious for nondisplaced fracture. Dictated on workstation # [id number] Dict: 01/09/181856 Trans: 01/09/181905 [facility] [id number] Interpreted by: ANTHONY LINDSEY MD Electronically signed by: [facility] [place] [place] NAME: GRACE ORELLANA [facility] REC#: [id number] PT STATUS: REG ER : 1955 PHYSICIAN: BRIAN KAMINSKI MD ADMIT DATE: 01/09/18/ER Draft Date of Exam:01/09/18 FEMUR, LEFT, 2 VIEWS INDICATION: Fall with left hip and femur pain. AP and lateral views of the left femur are obtained at 6:59 p.m. and compared to the hip study from the same time. FINDINGS: Left hip prosthesis appears in good alignment. There is a linear lucency just inferior to the left greater trochanter, suspicious for a nondisplaced fracture. The mid and distal femoral shaft are intact. There are diffuse vascular calcifications noted. IMPRESSION: Well-aligned left hip prosthesis. There is an area of linear lucency in the left proximal femur just below the greater trochanter, suspicious for a nondisplaced fracture. This is better visualized on the oblique left hip view. Dictated on workstation # [id number] Dict: 01/09/181899 Trans: 01/09/181906 [id number] Interpreted by: ANTHONY LINDSEY MD Electronically signed by: Reviewed: Reviewed by Me Consults : Consults Notes Dr. Goddard, orthopedic surgery at [place], [place] after discussing the fracture states this is usually a very stable fracture and since the stent was in good position he would recommend a walker or wheelchair bound and follow-up this week or next in the clinic. Departure Impression Primary Impression: Closed femur fracture Qualified Codes: S72.115A - Nondisplaced fracture of greater trochanter of left femur, initial encounter for closed fracture Disposition: 01 HOME, SELF-CARE Condition: Improved Departure-Patient Inst. Decision time for Depature: 19:40 Referrals: CHERYL LANDRY MD (PCP/Family) Primary Care Physician Patient Instructions: Femur Fracture (DC) Add. Discharge Instructions: No weightbearing left leg. Use wheelchair to get around. And fall precautions. Tomorrow morning call [place]opedic surgery and request a follow-up appointment. Oxycodone 10 mg 1 tablet every 6 hours as needed for pain. All discharge instructions reviewed with patient and/or family. Voiced understanding. Scripts Oxycodone HCl (Oxycodone HCl) 10 Mg Tablet 10 MG PO Q6H PRN for BREAKTHROUGH PAIN for 7 Days, #28 TAB 0 Refills Prov: BRIAN KAMINSKI 01/09/18 Copy Copies To 1: DANNI BROTHERS DO BRIAN KAMINSKI Jan 09, 2018 18:08
[2018-01-09 18:11] LABS: BASOPHILS % (AUTO) 0 % (0-10); EOSINOPHILS # (AUTO) 0.2 10^3/uL (0.0-0.3); EOSINOPHILS % (AUTO) 3 % (0-10); HEMATOCRIT 36 % (40-54); HEMOGLOBIN 10.9 G/DL (13.3-17.7); LYMPHOCYTES # (AUTO) 1.1 X 10^3 (1.0-4.0); LYMPHOCYTES % (AUTO) 17 % (12-44); MEAN CORPUSCULAR HEMOGLOBIN 29 PG (25-34); MEAN CORPUSCULAR HGB CONC 30 G/DL (32-36); MEAN CORPUSCULAR VOLUME 95 FL (80-99); MONOCYTES % (AUTO) 16 % (0-12); NEUTROPHILS % (AUTO) 64 % (42-75); PLATELET COUNT 193 10^3/uL (130-400); RED BLOOD COUNT 3.82 10^6/uL (4.35-5.85); RED CELL DISTRIBUTION WIDTH 19.5 % (10.0-14.5); WHITE BLOOD COUNT 6.3 10^3/uL (4.3-11.0)
[2018-01-09 18:23] LABS: INR 3.6 (0.8-1.4); PROTHROMBIN TIME PATIENT 36.5 SEC (12.2-14.7)
[2018-01-09 18:30] LABS: ALBUMIN 3.6 GM/DL (3.2-4.5); BILIRUBIN,TOTAL 0.7 MG/DL (0.1-1.0); CALCIUM 10.3 MG/DL (8.5-10.1); CREATININE SERUM 5.22 MG/DL (0.60-1.30); POTASSIUM 5.2 MMOL/L (3.6-5.0); TOTAL PROTEIN 7.9 GM/DL (6.4-8.2)
--- NOTE | 2018-01-09 18:59 | Diagnostic Imaging Report ---
EXAMINATION: Portable chest. INDICATION: Fall. Left hip and femoral pain. COMPARISON: Comparison is made with a prior chest radiograph from August 01, 2017. Correlation also made with CT chest from August 23, 2017. FINDINGS: Patient is status post previous sternotomy and coronary artery bypass grafting. There is enlargement of the cardiac silhouette. There appears to be a possible small effusion, and there are some chronic regions of parenchymal distortion within the lateral left lung. There are surgical clips in the left axilla. The right lung appears clear. There is no evidence of pneumothorax. No acute fracture is evident. IMPRESSION: 1. Operative changes of previous coronary artery bypass grafting with stable enlargement of the cardiac silhouette. 2. Prior CT study demonstrated a left pleural effusion which appears to be improved. There are some regions of linear density within the lateral left chest that are likely chronic regions of parenchymal distortion and scarring. 3. No acute fracture. 4. No acute cardiopulmonary process evident. Dictated by: Dictated on workstation # [id number]
--- NOTE | 2018-01-09 19:07 | Diagnostic Imaging Report ---
INDICATION: Fall with left hip and femur pain. AP and lateral views of the left femur are obtained at 6:59 p.m. and compared to the hip study from the same time. FINDINGS: Left hip prosthesis appears in good alignment. There is a linear lucency just inferior to the left greater trochanter, suspicious for a nondisplaced fracture. The mid and distal femoral shaft are intact. There are diffuse vascular calcifications noted. IMPRESSION: Well-aligned left hip prosthesis. There is an area of linear lucency in the left proximal femur just below the greater trochanter, suspicious for a nondisplaced fracture. This is better visualized on the oblique left hip view. Dictated by: Dictated on workstation # [id number]
--- NOTE | 2018-01-09 19:07 | Diagnostic Imaging Report ---
INDICATION: Left hip pain, status post fall. AP and oblique views of the left hip are obtained at 7:01 p.m. and compared to the prior study of 11/28/2017. The left hip prosthesis appears in good alignment with no device loosening. There is an area of lucency in the left proximal femur just below the greater trochanter, which was not present on previous study of 11/28/2017 and is suspicious for an acute fracture. There are diffuse vascular calcifications noted. IMPRESSION: Left hip prosthesis in good alignment. There is a new area of lucency in the left proximal femur just below the left greater trochanter, suspicious for nondisplaced fracture. Dictated by: Dictated on workstation # [id number]
[2018-01-09] MEDS ORDERED: OXYC10TA7 PO (19:46)
[2018-01-09] MEDS ORDERED: RX-OXYCODONE/APAP 5-325 MG #4 TAB PK PO PRN (20:00)
[2018-01-09 20:20] VITALS: BP 90/62
--- OUTSIDE RECORDS SUMMARY | 2018-01-09 21:31 | XMS REPORT ---
Author Author SHERWIN CARVAJAL [facility] Address [address] [place] [address] Care Team Providers Care Chicken Buyer Name Role Phone SHERWIN CARVAJAL Unavailable PROBLEMS Type Condition ICD9-CM Code PAZ60-UH Code Onset Dates Condition Status SNOMED Code Problem End stage kidney disease N18.6 Active 18307711 Problem Hyperlipidemia, unspecified hyperlipidemia type E78.5 Active 97034649 Problem Essential hypertension I10 Active 08502633 Problem Anxiety F41.9 Active 67963228 Problem Dialysis patient Z99.2 Active 741363743 Problem Rheumatoid arthritis, involving unspecified site, unspecified rheumatoid factor presence M06.9 Active 70271597 Problem Type 2 diabetes mellitus with hyperglycemia, without long-term current use of insulin E11.65 Active 03301607 Problem Primary insomnia F51.01 Active 0386457 Problem Current use of terminal system operator anticoagulation Z79.01 Active 789096300 Problem Gastroesophageal reflux disease without esophagitis K21.9 Active 983615903 Problem Coronary artery disease involving coronary bypass graft of deering heart without angina 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 Active 965897635 Problem Drug induced constipation K59.03 Active 421854946292470 Problem Other depression F32.89 Active 14902060 ALLERGIES No Information ENCOUNTERS Encounter Location Date Diagnosis [place] [address], [place] [address] Dec, Adverse effect of other opioids, initial encounter T40.2X5A [place] [address] [place] [address]41- 7762 Dec, Closed fracture of left hip, sequela S72.002S [facility] [id number], [place] [address] Dec, Closed fracture of left hip, sequela S72.002S [place] [id number] [place] [address] 95565- 0382 Dec, Closed fracture of left hip, sequela S72.002S [facility] [id number] [place] [address] 70308- 9486 Dec, Via [facility] [address] [place] [id number] Dec, Closed fracture of left hip, sequela S72.002S ; Dialysis patient Z99.2 ; Current use of terminal system operator anticoagulation Z79.01 ; Decubitus ulcer of left heel, stage 2 L89.622 ; Anxiety F41.9 ; Drug induced constipation K59.03 and Primary insomnia F51.01 [facility] [id number] [place] [address] 55285- 8059 Dec, [facility] [id number] [place] [address] 97501- 8865 Dec, [facility] [id number] [place] [address] 29513- 8683 Nov, Adverse effect of other opioids, initial encounter T40.2X5A and Drug induced constipation K59.03 Via [facility] [address] [place] [id number] Nov, [facility] [id number] [place] [address] 38298- 1018 Nov, [facility] [id number] [place] [address] 37769- 3068 Nov, Closed fracture of left hip, sequela S72.002S and Other depression F32.89 [facility] [id number] [place] [address] 51621- 5379 Nov, Encounter for examination for admission to halfway Z02.2 [facility] [id number] [place] [address] 56304- 7324 Nov, [facility] [id number] [place] [address] 39607- 4744 Oct, [facility] [address], [place] [address] 12 Oct, 2017 Encounter for examination for admission to halfway Z02.2 [facility] [employer] [address] [place] [id number] 04 Oct, 2017 Weakness R53.1 ; Dialysis patient Z99.2 ; Essential hypertension I10 ; Rheumatoid arthritis, involving unspecified site, unspecified rheumatoid factor presence M06.9 and Gastroesophageal reflux disease without esophagitis K21.9 [place] [address], [place] [address] Sep, [place] [address], [place] [address] Sep, [place] [address] [place] [address] 79851- 8079 Sep, [place] [address], [place] [address] 47[address] Sep, Encounter for examination for admission to halfway Z02.2 and Anxiety F41.9 [facility] [address] [place] [id number] Sep, Gross hematuria R31.0 ; Coronary artery disease involving coronary bypass graft of deering heart without angina 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 ; Arthralgia, unspecified joint M25.50 ; Essential hypertension I10 ; Rheumatoid arthritis, involving unspecified site, unspecified rheumatoid factor presence M06.9 ; Type 2 diabetes mellitus with hyperglycemia, without long-term current use of insulin E11.65 and Dialysis patient Z99.2 [place] [address], [place] [address] Sep, [place] [address], [place] [address] Sep, Encounter for examination for admission to halfway Z02.2 Via [facility] [address] [place] [id number] Sep, Gross hematuria R31.0 [place] [address], [place] [address] Aug, [facility] [address], [place] [address] Aug, Via [facility] [employer] [address] [place] [id number] Aug, Fall, subsequent encounter W19.XXXD and Dialysis patient Z99.2 [place] [address], [place] [address] 0[address] Aug, [place] [address], [place] [address] 4[address] 16 Aug, 2017 Via [employer] [address] [place] [id number] Aug, Encounter for examination for admission to halfway Z02.2 ; Other acute pulmonary embolism without acute cor pulmonale I26.99 ; Arthralgia, unspecified joint M25.50 ; Coronary artery disease involving coronary bypass graft of deering heart without angina 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 ; Essential hypertension I10 and Hyperlipidemia, unspecified hyperlipidemia type E78.5 [place] [address], [place] [address] 0[address] Aug, Rheumatoid arthritis, involving unspecified site, unspecified rheumatoid factor presence M06.9 [place] [address], [place] [address] Aug, [place] [address], [place] [address] 1607 Aug, Encounter for examination for admission to halfway Z02.2 [place] [address], [place] [address] Jul, [place] [address] [address], [place] [address] 0[address] Jul, [place] [address], [place] [address] 5258 Jul, Anxiety F41.9 [place] [address], [place] [address] Jul, IMMUNIZATIONS No Known Immunizations SOCIAL HISTORY Never Assessed REASON FOR VISIT medication reconciliation--PA request PLAN OF CARE VITAL SIGNS MEDICATIONS Medication Instructions Dosage Frequency Start Date End Date Duration Status Senna Plus 8.6-50 MG Orally twice a day 2 tablets 12h 16 Jan, 2018 30 days Active RESULTS No Results PROCEDURES [...]
--- OUTSIDE RECORDS SUMMARY | 2018-01-09 21:32 | XMS REPORT ---
Author Author SHERWIN CARVAJAL Organization [facility] Address [address] [place] [address] Care Team Providers Care Professional Services Manager Name Role Phone SHERWIN CARVAJAL Unavailable PROBLEMS Type Condition ICD9-CM Code UUX82-NJ Code Onset Dates Condition Status SNOMED Code Problem End stage kidney disease N18.6 Active 55436797 Problem Hyperlipidemia, unspecified hyperlipidemia type E78.5 Active 83427360 Problem Essential hypertension I10 Active 30161639 Problem Anxiety F41.9 Active 73337355 Problem Dialysis patient Z99.2 Active 569467792 Problem Rheumatoid arthritis, involving unspecified site, unspecified rheumatoid factor presence M06.9 Active 37781024 Problem Type 2 diabetes mellitus with hyperglycemia, without long-term current use of insulin E11.65 Active 36924992 Problem Primary insomnia F51.01 Active 4576564 Problem 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 [id number], [place] [address] Dec, Closed fracture of left hip, sequela S72.002S [facility] [id number], [place] [address] Dec, Closed fracture of left hip, sequela S72.002S [facility] [id number], [place] [address] Dec, Closed fracture of left hip, sequela S72.002S 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 [address], [place] [address] 16 Dec, 2017 [facility] [id number] [place] [address] 16077- 2440 Dec, [facility] [id number] [place] [address] 84306- 3072 17 Nov, 2017 Adverse effect of other opioids, initial encounter T40.2X5A and Drug induced constipation K59.03 [facility] [address] [place] [id number] Nov, [facility] [address], [place] [address] Nov, [facility] [id number] [place] [address] 88941- 4524 Nov, Closed fracture of left hip, sequela S72.002S and Other depression F32.89 [facility] [address], [place] [address] 7645 Nov, Encounter for examination for admission to usp Z02.2 [facility] [address], [place] [address] Nov, [facility] [id number] [place] [address] 34468- 0631 Oct, [facility] [id number] [place] [address] 68635- 1836 Oct, Encounter for examination for admission to usp Z02.2 [facility] [address] [place] [id number] Oct, Weakness R53.1 ; Dialysis patient Z99.2 ; Essential hypertension I10 ; Rheumatoid arthritis, involving unspecified site, unspecified rheumatoid factor presence M06.9 and Gastroesophageal reflux disease without esophagitis K21.9 [facility] [address], [place] [address] 98[address] Sep, [place] [id number] [place] [address] 22068- 1848 Sep, [place] [address] [place] [address] 42441- 5014 Sep, [place] [address] [id number] [place] [address] 53061- 5515 Sep, Encounter for examination for admission to usp Z02.2 and Anxiety F41.9 Via [facility] [employer] [address] [place] [id number] Sep, Gross hematuria R31.0 ; Coronary artery disease involving coronary bypass graft of qagan tayagungin heart without angina 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 ; Arthralgia, unspecified joint M25.50 ; Essential hypertension I10 ; Rheumatoid arthritis, involving unspecified site, unspecified rheumatoid factor presence M06.9 ; Type 2 diabetes mellitus with hyperglycemia, without long-term current use of insulin E11.65 and Dialysis patient Z99.2 [place] [address], [place] [address]- 0974 Sep, [place] [id number], [place] [address]- 8782 Sep, Encounter for examination for admission to usp Z02.2 Via [facility] [employer] [address] [place] [id number] Sep, Gross hematuria R31.0 [place] [id number], [place] [address]- 0[address] Aug, [place] [address] [id number], [place] [address]- 12[address] Aug, [facility] [address] [place] [id number] 24 Aug, 2017 Fall, subsequent encounter W19.XXXD and Dialysis patient Z99.2 [place] [address], [place] [address]- 5980 Aug, [place] [address], [place] [address]- 5[address] 16 Aug, 2017 Via [facility] [address] [place] [id number] 12 Aug, 2017 Encounter for examination for admission to usp Z02.2 ; Other acute pulmonary embolism without acute cor pulmonale I26.99 ; Arthralgia, unspecified joint M25.50 ; Coronary artery disease involving coronary bypass graft of qagan tayagungin heart without angina 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 ; Essential hypertension I10 and Hyperlipidemia, unspecified hyperlipidemia type E78.5 [place] [address], [place] [address]- 9517 Aug, Rheumatoid arthritis, involving unspecified site, unspecified rheumatoid factor presence M06.9 [place] [address] [place] [address] 59284- 3246 Aug, [place] [address] [place] [address] [id number] [place] [address] 79721- 0007 03 Aug, 2017 Encounter for examination for admission to usp Z02.2 [place] [address], [place] [address]- 5747 Jul, [place] [address] [place] [id number] [place] [address] 73075- 3138 Jul, [place] [address] [place] [address] 29855- 9477 Jul, Anxiety F41.9 [place] [address] [id number] [place] [address] 57269- 7825 Jul, IMMUNIZATIONS No Known Immunizations SOCIAL HISTORY Never Assessed REASON FOR VISIT Controlled Med Refill PLAN OF CARE VITAL SIGNS MEDICATIONS Medication Instructions Dosage Frequency Start Date End Date Duration Status Oxycodone HCl 5 MG Orally every 6 hrs 1 tablet 6h 27 Dec, 2018 28 days Active Aleve 220 MG Orally every 12 hrs 1 tablet with food or milk as needed 12h Dec, Active RESULTS No Results PROCEDURES No Known [...]
--- OUTSIDE RECORDS SUMMARY | 2018-01-09 21:32 | XMS REPORT ---
Author Author SHERWIN CARVAJAL [facility] Address [address] [place] [address] Care Team Providers Care Fringe Maker Name Role Phone SHERWIN CARVAJAL Unavailable PROBLEMS Type Condition ICD9-CM Code QOK86-OH Code Onset Dates Condition Status SNOMED Code Problem End stage kidney disease N18.6 Active 01507880 Problem Hyperlipidemia, unspecified hyperlipidemia type E78.5 Active 22194445 Problem Essential hypertension I10 Active 51479807 Problem Anxiety F41.9 Active 99325825 Problem Dialysis patient Z99.2 Active 235958192 Problem Rheumatoid arthritis, involving unspecified site, unspecified rheumatoid factor presence M06.9 Active 14441083 Problem Type 2 diabetes mellitus with hyperglycemia, without long-term current use of insulin E11.65 Active 66853604 Problem Primary insomnia F51.01 Active 1966366 Problem 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 Active 650709009 Problem Gastroesophageal reflux disease without esophagitis K21.9 Active 086263419 Problem Coronary artery disease involving coronary bypass graft of [place] heart without angina 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 Active 455631708 Problem Drug induced constipation K59.03 Active 942533114065268 Problem Other depression F32.89 Active 57848743 ALLERGIES No Information ENCOUNTERS Encounter Location Date Diagnosis [address] [place] [address] [address] [place] [id number] Dec, Closed fracture of left hip, sequela S72.002S ; Dialysis patient Z99.2 ; 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 ; Decubitus ulcer of left heel, stage 2 L89.622 ; Anxiety F41.9 ; Drug induced constipation K59.03 and Primary insomnia F51.01 [facility] [address] [facility] [id number] [address] Dec, [facility] [id number] [place] [address] 39949- 3095 Dec, [facility] [id number] [place] [address] 79760- 1127 Nov, Adverse effect of other opioids, initial encounter T40.2X5A and Drug induced constipation K59.03 [facility] [address] [place] [id number] Nov, [facility] [id number] [place] [address] 40426- 4759 Nov, [facility] [id number] [place] [address] 64837- 3832 Nov, Closed fracture of left hip, sequela S72.002S and Other depression F32.89 [facility] [id number] [place] [address] 47834- 6997 Nov, Encounter for examination for admission to half-way Z02.2 [facility] [id number] [place] [address] 26330- 5464 Nov, [facility] [id number] [place] [address] 31162- 6330 Oct, [facility] [id number] [place] [address] 24792- 0742 Oct, Encounter for examination for admission to half-way Z02.2 Via [facility] [address] [place] [id number] Oct, Weakness R53.1 ; Dialysis patient Z99.2 ; Essential hypertension I10 ; Rheumatoid arthritis, involving unspecified site, unspecified rheumatoid factor presence M06.9 and Gastroesophageal reflux disease without esophagitis K21.9 [facility] [id number] [place] [address] 31218- 1272 Sep, [facility] [id number] [place] [address] 98006- 0900 Sep, [facility] [id number] [place] [address] 11465- 2874 Sep, [facility] [id number], [place] [address]- 6528 14 Sep, 2017 Encounter for examination for admission to half-way Z02.2 and Anxiety F41.9 [facility] [address] [place] [id number] Sep, Gross hematuria R31.0 ; Coronary artery disease involving coronary bypass graft of chehalis heart without angina 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 ; Arthralgia, unspecified joint M25.50 ; Essential hypertension I10 ; Rheumatoid arthritis, involving unspecified site, unspecified rheumatoid factor presence M06.9 ; Type 2 diabetes mellitus with hyperglycemia, without long-term current use of insulin E11.65 and Dialysis patient Z99.2 [place] [address] [id number] [address]- 3[address] Sep, [place] [address] [id number], [place] [address] 8003 Sep, Encounter for examination for admission to half-way Z02.2 [facility] [address] [place] [id number] Sep, Gross hematuria R31.0 [place] [address] [id number] [address]- [address] Aug, [place] [address] [id number], [place] [address]- 5963 Aug, [facility] [address] [place] [id number] Aug, Fall, subsequent encounter W19.XXXD and Dialysis patient Z99.2 [place] [address] [id number], [place] [address]- 7393 Aug, [place] [address] [id number], [place] [address]- 2866 Aug, [facility] [address] [place] [id number] Aug, Encounter for examination for admission to half-way Z02.2 ; Other acute pulmonary embolism without acute cor pulmonale I26.99 ; Arthralgia, unspecified joint M25.50 ; Coronary artery disease involving coronary bypass graft of chehalis heart without angina 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 ; Essential hypertension I10 and Hyperlipidemia, unspecified hyperlipidemia type E78.5 [place] [id number] [place] [address] 12439- 9588 Aug, Rheumatoid arthritis, involving unspecified site, unspecified rheumatoid factor presence M06.9 [place] [id number] [place] [address] 32446- 8672 Aug, [place] [address] 24[address]- 7530 Aug, Encounter for examination for admission to half-way Z02.2 [place] [address] 11923- 1603 Jul, [place] [id number] [place] [address] 51373- 3043 Jul, [place] [id number] [place] [address] 61651- 4482 Jul, Anxiety F41.9 [place] [id number] [place] [address] 74724- 2258 Jul, IMMUNIZATIONS No Known Immunizations SOCIAL HISTORY Never Assessed REASON FOR VISIT Hospital f/u PLAN OF CARE Activity Details Follow Up prn Reason: VITAL SIGNS MEDICATIONS Medication Instructions Dosage Frequency Start Date End Date Duration Status Plavix 75 MG Orally Once a day 1 tablet 24h Active Venlafaxine HCl ER 150 MG Orally Once a day 1 capsule with food 24h 11 Aug Active Senna Plus 8.6-50 MG Orally twice a day 1 tablet as needed 12h 16 Jan, 2018 30 days Active Atorvastatin Calcium 80 MG Orally Once a day 1 tablet 24h 14 Sep, 2017 30 day(s) Active Zolpidem Tartrate 5 MG Orally Once a day 1 tablet at bedtime 24h Dec, 28 days Active Gabapentin 100 mg Orally Three times a day 1 capsule 8h 30 days Active Prevacid 30 MG Orally Once a day 1 capsule 24h Active Tylenol Extra Strength 500 mg Orally every 6 hrs 2 tablets as needed 6h 26 Oct, 2017 Active Dulcolax 10 MG Rectal Once a day 1 suppository as needed 24h Active Humalog 100 UNIT/ML Subcutaneous 3 times a day 5 units 8h Active Isosorbide Mononitrate ER 30 MG Orally Once a day 1 tablet in the morning 24h 30 days Active Dulaglutide 0.75 MG/0.5ML Subcutaneous once weekly 0.75mg Jul, Active Zofran 4 MG Orally every 4-6 hours as needed 1tablets 16 Dec, 2017 30 day(s) Active Artificial Tear to right eye 3 times a day 2 gtts 8h Active Sodium Bicarbonate 325 MG Orally 2 times a day 1 tablet 12h 30 days Active Lisinopril 10 mg Orally Once a day 1 tablet 24h Active Lasix 80 MG Orally twice a day 1 tablet 12h 30 days Active Aricept 10 mg Orally Once a day 1 tablet at bedtime 24h 30 days Active Ipratropium-Albuterol 0.5-2.5 (3) MG/3ML Inhalation every 6 hrs 3 ml as needed 6h Active Coumadin 3 MG Orally Once a day 1 tablet 24h Active Lantus 100 UNIT/ML Subcutaneous Once a day 6 units 24h Active Ativan 0.5 MG Orally at bedtime 1 tablet Jul, 28 days Active Mylanta 200-200-20 MG/5ML Orally every 4hrs 30 ml as needed Oct, Active Colace 100 MG Orally Once a day 1 capsule 24h Dec, 30 day(s) Active Nitrostat 0.4 MG Active Amiodarone HCl 200 mg Orally Once a day 1 tablet 24h 30 days Active Lexapro 10 mg Orally Once a day 1 tablet 24h 11 Nov, 2017 30 day(s) Active Depakote 250 MG Orally 3 times a day 1 tablet 8h 30 days Active Imodium A-D 2 MG Orally PRN 1 tablet as needed after each loose still. Not to exceed 4 doses in 24hrs Oct, Active Aspirin EC 81 MG Orally Once a day 1 tablet 24h Active RESULTS No Results PROCEDURES Procedure Date Ordered Result Body Site Significant Complication (25 mins) Dec 27, 2017 INSTRUCTIONS MEDICATIONS ADMINISTERED No Known Medications [...]
--- OUTSIDE RECORDS SUMMARY | 2018-01-09 21:32 | XMS REPORT ---
Author Author SHERWIN CARVAJAL Organization [facility] Address [address] [place] [address] Care Team Providers Care Cardiothoracic Surgeon Name Role Phone SHERWIN CARVAJAL Unavailable PROBLEMS Type Condition ICD9-CM Code ZFR56-GO Code Onset Dates Condition Status SNOMED Code Problem End stage kidney disease N18.6 Active 30250326 Problem Hyperlipidemia, unspecified hyperlipidemia type E78.5 Active 30968790 Problem Essential hypertension I10 Active 51994202 Problem Anxiety F41.9 Active 74182293 Problem Dialysis patient Z99.2 Active 206363246 Problem Rheumatoid arthritis, involving unspecified site, unspecified rheumatoid factor presence M06.9 Active 70457061 Problem Type 2 diabetes mellitus with hyperglycemia, without long-term current use of insulin E11.65 Active 17761086 Problem Primary insomnia F51.01 Active 7312772 Problem 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 Active 453567173 Problem Gastroesophageal reflux disease without esophagitis K21.9 Active 314544228 Problem Coronary artery disease involving coronary bypass graft of habematolel heart without angina 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 Active 125269327 Problem Drug induced constipation K59.03 Active 165665818345580 Problem Other depression F32.89 Active 75275975 ALLERGIES No Information ENCOUNTERS Encounter Location Date Diagnosis [facility] [id number] [address] Dec, Closed fracture of left hip, sequela S72.002S [facility] [id number] [address] Dec, Closed fracture of left hip, sequela S72.002S [facility] [id number] [address] Dec, Closed fracture of left hip, sequela S72.002S [facility] [address] [address] Dec, Via [facility] [address] [place] [id number] Dec, Closed fracture of left hip, sequela S72.002S ; Dialysis patient Z99.2 ; 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 ; Decubitus ulcer of left heel, stage 2 L89.622 ; Anxiety F41.9 ; Drug induced constipation K59.03 and Primary insomnia F51.01 [facility] [address] [address] 16 Dec, 2017 [facility] [id number] [place] [address]164- 1739 Dec, [facility] [id number] [place] [address] 47[address]- 9348 17 Nov, 2017 Adverse effect of other opioids, initial encounter T40.2X5A and Drug induced constipation K59.03 [address] [facility] [address] [place] [id number] Nov, [facility] [address] [address] Nov, [facility] [id number] [place] [address]3776- 4878 Nov, Closed fracture of left hip, sequela S72.002S and Other depression F32.89 [facility] [address] [address] Nov, Encounter for examination for admission to penitentiary Z02.2 [facility] [address] [address] Nov, [facility] [id number] [place] [address] 68216- 3084 Oct, [facility] [id number] [place] [address]60- 0937 Oct, Encounter for examination for admission to penitentiary Z02.2 [facility] [address] [place] [id number] Oct, Weakness R53.1 ; Dialysis patient Z99.2 ; Essential hypertension I10 ; Rheumatoid arthritis, involving unspecified site, unspecified rheumatoid factor presence M06.9 and Gastroesophageal reflux disease without esophagitis K21.9 [facility] [address] [address] Sep, [place] [id number] [place] [address]896- 3001 Sep, [place] [address] [place] [address] 06279- 0776 Sep, [place] [id number] [place] [address] 74619- 4963 Sep, Encounter for examination for admission to penitentiary Z02.2 and Anxiety F41.9 Via [facility] [address] [place] [id number] Sep, Gross hematuria R31.0 ; Coronary artery disease involving coronary bypass graft of habematolel heart without angina 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 ; Arthralgia, unspecified joint M25.50 ; Essential hypertension I10 ; Rheumatoid arthritis, involving unspecified site, unspecified rheumatoid factor presence M06.9 ; Type 2 diabetes mellitus with hyperglycemia, without long-term current use of insulin E11.65 and Dialysis patient Z99.2 [place] [address] [address] Sep, [place] [id number] [address] Sep, Encounter for examination for admission to penitentiary Z02.2 Via [facility] [address] [place] [id number] Sep, Gross hematuria R31.0 [place] [id number] [address] Aug, [place] [id number] [address] Aug, Via [facility] [employer] [address] [place] [id number] 24 Aug, 2017 Fall, subsequent encounter W19.XXXD and Dialysis patient Z99.2 [facility] [address] [address] Aug, [place] [address] [place] [address] 26299- 9586 16 Aug, 2017 Via [facility] [address] [place] [id number] Aug, Encounter for examination for admission to penitentiary Z02.2 ; Other acute pulmonary embolism without acute cor pulmonale I26.99 ; Arthralgia, unspecified joint M25.50 ; Coronary artery disease involving coronary bypass graft of habematolel heart without angina 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 ; Essential hypertension I10 and Hyperlipidemia, unspecified hyperlipidemia type E78.5 [place] [address] [address] Aug, Rheumatoid arthritis, involving unspecified site, unspecified rheumatoid factor presence M06.9 [place] [address] [place] [address] 84666- 6849 Aug, [place] [id number] [place] [address] 87168- 2121 03 Aug, 2017 Encounter for examination for admission to penitentiary Z02.2 [place] [address] [address] Jul, [place] [id number] [place] [address] 91325- 9942 Jul, [place] [address] [place] [address] 93267- 5709 Jul, Anxiety F41.9 [place] [id number] [place] [address] 60611- 7524 Jul, IMMUNIZATIONS No Known Immunizations SOCIAL HISTORY Never Assessed REASON FOR VISIT decrease pain meds PLAN OF CARE VITAL SIGNS MEDICATIONS Unknown [...]
--- OUTSIDE RECORDS SUMMARY | 2018-01-09 21:32 | XMS REPORT ---
Author Author SHERWIN CARVAJAL Organization [facility] Address [address] [place] [address] Care Team Providers Care Liquor Store Manager Name Role Phone SHERWIN CARVAJAL Unavailable PROBLEMS Type Condition ICD9-CM Code IXV82-QY Code Onset Dates Condition Status SNOMED Code Problem End stage kidney disease N18.6 Active 02821095 Problem Hyperlipidemia, unspecified hyperlipidemia type E78.5 Active 73977229 Problem Essential hypertension I10 Active 96639790 Problem Anxiety F41.9 Active 74669009 Problem Dialysis patient Z99.2 Active 483057773 Problem Rheumatoid arthritis, involving unspecified site, unspecified rheumatoid factor presence M06.9 Active 32360137 Problem Type 2 diabetes mellitus with hyperglycemia, without long-term current use of insulin E11.65 Active 48311768 Problem Primary insomnia F51.01 Active 0640292 Problem Current use of medical terminologist anticoagulation Z79.01 Active 973432717 Problem Gastroesophageal reflux disease without esophagitis K21.9 Active 246224727 Problem Coronary artery disease involving coronary bypass graft of anvik heart without angina 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 Active 295637019 Problem Drug induced constipation K59.03 Active 566600618747023 Problem Other depression F32.89 Active 79810490 ALLERGIES No Information ENCOUNTERS Encounter Location Date Diagnosis [facility] [id number] [address] Dec, Closed fracture of left hip, sequela S72.002S [facility] [id number], [place] [address] Dec, Closed fracture of left hip, sequela S72.002S [facility] [id number], [place] [address] Dec, Closed fracture of left hip, sequela S72.002S [facility] [address] [address] Dec, Via [facility] [address] [place] [id number] Dec, Closed fracture of left hip, sequela S72.002S ; Dialysis patient Z99.2 ; Current use of medical terminologist anticoagulation Z79.01 ; Decubitus ulcer of left heel, stage 2 L89.622 ; Anxiety F41.9 ; Drug induced constipation K59.03 and Primary insomnia F51.01 [facility] [address], [place] [address] 16 Dec, 2017 [facility] [id number] [place] [address] 08932- 8242 Dec, [facility] [id number] [place] [address] 44660- 3229 17 Nov, 2017 Adverse effect of other opioids, initial encounter T40.2X5A and Drug induced constipation K59.03 Via [employer] [address] [place] [id number] Nov, [facility] [address], [place] [address] Nov, [facility] [id number] [place] [address] 33673- 2212 Nov, Closed fracture of left hip, sequela S72.002S and Other depression F32.89 [facility] [address], [place] [address]- 74[address] Nov, Encounter for examination for admission to half-way Z02.2 [facility] [address], [place] [address]- 7[address] Nov, [facility] [id number] [place] [address] 57609- 4251 Oct, [facility] [id number] [place] [address] 64794- 8247 Oct, Encounter for examination for admission to half-way Z02.2 Via [employer] [address] [place] [id number] Oct, Weakness R53.1 ; Dialysis patient Z99.2 ; Essential hypertension I10 ; Rheumatoid arthritis, involving unspecified site, unspecified rheumatoid factor presence M06.9 and Gastroesophageal reflux disease without esophagitis K21.9 [facility] [address], [place] [address]- 4[address] Sep, [place] [address] [id number] [place] [address] 85624- 9013 Sep, [place] [address] [place] [address] 24235- 7081 Sep, [place] [id number] [place] [address] 30150- 7721 Sep, Encounter for examination for admission to half-way Z02.2 and Anxiety F41.9 Via [facility] [employer] [address] [place] [place] [id number] Sep, Gross hematuria R31.0 ; Coronary artery disease involving coronary bypass graft of anvik heart without angina 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 ; Arthralgia, unspecified joint M25.50 ; Essential hypertension I10 ; Rheumatoid arthritis, involving unspecified site, unspecified rheumatoid factor presence M06.9 ; Type 2 diabetes mellitus with hyperglycemia, without long-term current use of insulin E11.65 and Dialysis patient Z99.2 [place] [address], [place] [address]- 8980 Sep, [place] [id number] [address]- 4044 Sep, Encounter for examination for admission to half-way Z02.2 Via [facility] [place] [employer] [address] [place] [place] [id number] Sep, Gross hematuria R31.0 [place] [id number], [place] [address]- [address] Aug, [place] [id number], [place] [address]- [address]471 Aug, [facility] [address] [place] [place] [id number] 24 Aug, 2017 Fall, subsequent encounter W19.XXXD and Dialysis patient Z99.2 [address], [place] [address]- 1768 Aug, [place] [address], [place] [address]- 3867 16 Aug, 2017 Via [facility] [address] [place] [id number] Aug, Encounter for examination for admission to half-way Z02.2 ; Other acute pulmonary embolism without acute cor pulmonale I26.99 ; Arthralgia, unspecified joint M25.50 ; Coronary artery disease involving coronary bypass graft of anvik heart without angina 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 ; Essential hypertension I10 and Hyperlipidemia, unspecified hyperlipidemia type E78.5 [address], [place] [address]- 7783 Aug, Rheumatoid arthritis, involving unspecified site, unspecified rheumatoid factor presence M06.9 [address], [place] [address]- 6310 Aug, [place] [id number] [place] [address] 73956- 6643 Aug, Encounter for examination for admission to half-way Z02.2 [place], [place] [address]- 5998 Jul, [place] [id number] [place] [address] 99483- 2571 Jul, [address] [place] [address] [place] [address] 94938- 5184 Jul, Anxiety F41.9 [place] [id number] [place] [address] 24340- 0806 Jul, IMMUNIZATIONS No Known Immunizations SOCIAL HISTORY Never Assessed REASON FOR VISIT Controlled Med Refill PLAN OF CARE VITAL SIGNS MEDICATIONS Medication Instructions Dosage Frequency Start Date End Date Duration Status Oxycodone HCl 5 MG Orally every 6 hrs 1 tablet 6h 11 Nov, 2018 28 days Active RESULTS No Results PROCEDURES [...]
--- OUTSIDE RECORDS SUMMARY | 2018-01-09 21:32 | XMS REPORT ---
Author Author SHERWIN CARVAJAL [facility] Address [address] [place] [address] Care Team Providers Care Clarity Developer Name Role Phone SHERWIN CARVAJAL Unavailable PROBLEMS Type Condition ICD9-CM Code HHV09-EJ Code Onset Dates Condition Status SNOMED Code Problem Rheumatoid arthritis, involving unspecified site, unspecified rheumatoid factor presence M06.9 Active 39945273 Problem Type 2 diabetes mellitus with hyperglycemia, without long-term current use of insulin E11.65 Active 73792881 Problem End stage kidney disease N18.6 Active 75281797 Problem Anxiety F41.9 Active 08398636 Problem Dialysis patient Z99.2 Active 910978263 Problem Drug induced constipation K59.03 Active 067447478475099 Problem Other depression F32.89 Active 91629997 Problem Coronary artery disease involving coronary bypass graft of emmonak heart without angina 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 Active 933157229 Problem Hyperlipidemia, unspecified hyperlipidemia type E78.5 Active 41976414 Problem Gastroesophageal reflux disease without esophagitis K21.9 Active 815682665 Problem Essential hypertension I10 Active 15896209 ALLERGIES No Information ENCOUNTERS Encounter Location Date Diagnosis Via [facility] [employer] [address] [place] [id number] Dec, [facility] [address] [facility] [id number] [place] [address]- 4[address] Dec, [facility] [address] [facility] [id number] [place] [address]- 0976 Nov, Adverse effect of other opioids, initial encounter T40.2X5A and Drug induced constipation K59.03 Via [facility] [employer] [address] [place] [id number] Nov, [facility] [address] [facility] [id number] [place] [address]- 0657 Nov, [place] [address]- 6038 Nov, Closed fracture of left hip, sequela S72.002S and Other depression F32.89 [place] [address] [address]- 5546 Nov, Encounter for examination for admission to shelter Z02.2 [place] [id number] [place] [address] 88208- 3949 Nov, [place] [id number] [place] [address] 42856- 8493 Oct, [place] [id number] [place] [address] 11263- 1216 Oct, Encounter for examination for admission to shelter Z02.2 Via [facility] [employer] [address] [place] [id number] Oct, Weakness R53.1 ; Dialysis patient Z99.2 ; Essential hypertension I10 ; Rheumatoid arthritis, involving unspecified site, unspecified rheumatoid factor presence M06.9 and Gastroesophageal reflux disease without esophagitis K21.9 [place] [address] [place] [address] 46078- 0448 Sep, [place] [address] [place] [address] 10328- 9809 Sep, [place] [address] [address]- 6643 Sep, [place] [address] [place] [address] 35972- 8955 Sep, Encounter for examination for admission to shelter Z02.2 and Anxiety F41.9 Via [employer] [address] [place] [address] Sep, Gross hematuria R31.0 ; Coronary artery disease involving coronary bypass graft of emmonak heart without angina 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 ; Arthralgia, unspecified joint M25.50 ; Essential hypertension I10 ; Rheumatoid arthritis, involving unspecified site, unspecified rheumatoid factor presence M06.9 ; Type 2 diabetes mellitus with hyperglycemia, without long-term current use of insulin E11.65 and Dialysis patient Z99.2 [facility] [address] [facility] [id number] [place] [address]- 1177 Sep, [facility] [address] [facility] [id number] [place] [address]- 6153 Sep, Encounter for examination for admission to shelter Z02.2 [facility] [address] [place] [id number] Sep, Gross hematuria R31.0 [place] [address] [address]- 5097 Aug, [place] [address] [place] [address] 78316- 9616 Aug, Via [employer] [address] [place] [id number] Aug, Fall, subsequent encounter W19.XXXD and Dialysis patient Z99.2 [place] [address] [address]- 9362 Aug, [place] [address] [address]- 3866 Aug, [facility] [employer] [address] [place] [id number] Aug, Encounter for examination for admission to shelter Z02.2 ; Other acute pulmonary embolism without acute cor pulmonale I26.99 ; Arthralgia, unspecified joint M25.50 ; Coronary artery disease involving coronary bypass graft of emmonak heart without angina 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 ; Essential hypertension I10 and Hyperlipidemia, unspecified hyperlipidemia type E78.5 [place] [address] [address]- 7403 Aug, Rheumatoid arthritis, involving unspecified site, unspecified rheumatoid factor presence M06.9 [place] [address] [address]- 2501 Aug, [place] [address] [address]- 8918 Aug, Encounter for examination for admission to shelter Z02.2 [facility] [address] [address]- 1390 Jul, [facility] [address] [address]- 2990 Jul, [facility] [address] [address]- 1919 Jul, Anxiety F41.9 [facility] [address] [address]- 1878 Jul, IMMUNIZATIONS No Known Immunizations SOCIAL HISTORY Never Assessed REASON FOR VISIT Controlled Med Refill 12/14/17 PLAN OF CARE VITAL SIGNS MEDICATIONS Unknown [...]
--- OUTSIDE RECORDS SUMMARY | 2018-01-09 21:32 | XMS REPORT ---
Author Author SHERWIN CARVAJAL [facility] Address [address] [place] [address] Care Team Providers Care Web Content Producer Name Role Phone SHERWIN CARVAJAL Unavailable PROBLEMS Type Condition ICD9-CM Code MYT56-OD Code Onset Dates Condition Status SNOMED Code Problem End stage kidney disease N18.6 Active 68946087 Problem Hyperlipidemia, unspecified hyperlipidemia type E78.5 Active 18356315 Problem Essential hypertension I10 Active 77802710 Problem Anxiety F41.9 Active 12558540 Problem Dialysis patient Z99.2 Active 019901298 Problem Rheumatoid arthritis, involving unspecified site, unspecified rheumatoid factor presence M06.9 Active 81726978 Problem Type 2 diabetes mellitus with hyperglycemia, without long-term current use of insulin E11.65 Active 58860623 Problem Primary insomnia F51.01 Active 5271812 Problem Current use of correction officer head anticoagulation Z79.01 Active 644804062 Problem Gastroesophageal reflux disease without esophagitis K21.9 Active 399973960 Problem Coronary artery disease involving coronary bypass graft of ugashik heart without angina 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 Active 515332662 Problem Drug induced constipation K59.03 Active 777271077033627 Problem Other depression F32.89 Active 63690174 ALLERGIES No Information ENCOUNTERS Encounter Location Date Diagnosis [facility] [address] [facility] [id number] [address] Dec, Closed fracture of left hip, sequela S72.002S [facility] [address] [facility] [id number] [address] Dec, [facility] [address] [facility] [place] [id number] Dec, Closed fracture of left hip, sequela S72.002S ; Dialysis patient Z99.2 ; Current use of custodial anticoagulation Z79.01 ; Decubitus ulcer of left heel, stage 2 L89.622 ; Anxiety F41.9 ; Drug induced constipation K59.03 and Primary insomnia F51.01 [place] [id number] [place] [address] Dec, [facility] [id number] [place] [address] Dec, [place] [address] [address] Nov, Adverse effect of other opioids, initial encounter T40.2X5A and Drug induced constipation K59.03 Via [facility] [employer] [address] [id number] Nov, [place] [address] [address] Nov, [place] [id number] [place] [address] Nov, Closed fracture of left hip, sequela S72.002S and Other depression F32.89 [place] [id number] [place] [address] Nov, Encounter for examination for admission to fci Z02.2 [place] [id number] [place] [address] Nov, [place] [id number] [place] [address] 4047 Oct, [place] [id number] [place] [address] Oct, Encounter for examination for admission to fci Z02.2 Via [facility] [employer] [address] [id number] Oct, Weakness R53.1 ; Dialysis patient Z99.2 ; Essential hypertension I10 ; Rheumatoid arthritis, involving unspecified site, unspecified rheumatoid factor presence M06.9 and Gastroesophageal reflux disease without esophagitis K21.9 [place] [id number] [place] [address] Sep, [facility] [id number] [address] Sep, [facility] [address] [address] Sep, [facility] [address] [address] Sep, Encounter for examination for admission to fci Z02.2 and Anxiety F41.9 Via [facility] [address] [place] [id number] Sep, Gross hematuria R31.0 ; Coronary artery disease involving coronary bypass graft of ugashik heart without angina 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 ; Arthralgia, unspecified joint M25.50 ; Essential hypertension I10 ; Rheumatoid arthritis, involving unspecified site, unspecified rheumatoid factor presence M06.9 ; Type 2 diabetes mellitus with hyperglycemia, without long-term current use of insulin E11.65 and Dialysis patient Z99.2 [place] [address] [address] Sep, [place] [address] [address] Sep, Encounter for examination for admission to fci Z02.2 [facility] [address] [place] [id number] Sep, Gross hematuria R31.0 [place] [id number] [address] Aug, [place] [id number] [address] Aug, Via [employer] [facility] [address] [place] [id number] Aug, Fall, subsequent encounter W19.XXXD and Dialysis patient Z99.2 [facility] [address] [facility] [id number] [address] Aug, [facility] [id number] [place] [address] Aug, Via [employer] [facility] [address] [place] [id number] Aug, Encounter for examination for admission to fci Z02.2 ; Other acute pulmonary embolism without acute cor pulmonale I26.99 ; Arthralgia, unspecified joint M25.50 ; Coronary artery disease involving coronary bypass graft of ugashik heart without angina 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 ; Essential hypertension I10 and Hyperlipidemia, unspecified hyperlipidemia type E78.5 [place] [address] [place] [address] 35671[address] Aug, Rheumatoid arthritis, involving unspecified site, unspecified rheumatoid factor presence M06.9 [place] [id number] [place] [address] 66[address] 47[address] Aug, [place] [id number] [place] [address] 08820- 5[address] Aug, Encounter for examination for admission to fci Z02.2 [place] [id number] [place] [address] 9[address]- [address] Jul, [place] [id number] [place] [address] 7[address]33- [address] Jul, [place] [id number] [place] [address] 8[address]- 655[address] Jul, Anxiety F41.9 [place] [address] [place] [address]- [address] Jul, IMMUNIZATIONS No Known Immunizations SOCIAL HISTORY Never Assessed REASON FOR VISIT Hypoglycemia PLAN OF CARE VITAL SIGNS MEDICATIONS Unknown [...]
== END 2018-01-09 20:25 | disposition home or self-care (01) ==
LOC: EDUNIT# 17:48 → ER 17:50
DX: S72.115A Nondisplaced fracture of greater trochanter of left femur, initial encounter for closed fracture (principal); I25.10 Atherosclerotic heart disease of native coronary artery without angina pectoris; I25.2 Old myocardial infarction; E78.00 Pure hypercholesterolemia, unspecified; E11.40 Type 2 diabetes mellitus with diabetic neuropathy, unspecified; E11.22 Type 2 diabetes mellitus with diabetic chronic kidney disease; I12.0 Hypertensive chronic kidney disease with stage 5 chronic kidney disease or end stage renal disease; N18.6 End stage renal disease; K21.9 Gastro-esophageal reflux disease without esophagitis; F41.9 Anxiety disorder, unspecified; F32.9 Major depressive disorder, single episode, unspecified; D64.9 Anemia, unspecified; R40.2142 Coma scale, eyes open, spontaneous, at arrival to emergency department; R40.2252 Coma scale, best verbal response, oriented, at arrival to emergency department; R40.2362 Coma scale, best motor response, obeys commands, at arrival to emergency department; Z96.642 Presence of left artificial hip joint; Z82.49 Family history of ischemic heart disease and other diseases of the circulatory system; Z99.2 Dependence on renal dialysis; Z95.1 Presence of aortocoronary bypass graft; Z79.01 Long term (current) use of anticoagulants; Z79.82 Long term (current) use of aspirin; Z79.02 Long term (current) use of antithrombotics/antiplatelets; Z79.51 Long term (current) use of inhaled steroids; Z79.4 Long term (current) use of insulin; Z98.890 Other specified postprocedural states; W06.XXXA Fall from bed, initial encounter; X50.1XXA Overexertion from prolonged static or awkward postures, initial encounter
CPT/HCPCS: 36415; 71045; 73502; 73552; 80053; 80164; 83880; 85025; 85610; 85730

== ENCOUNTER → 2018-01-23 | Outpatient (CLI) | payer MEDICARE, MEDICAID ==
[~2018-01-23] MED LIST changes: +OXYC10TA7 PO
--- NOTE | 2018-01-23 19:43 | Diagnostic Imaging Report ---
INDICATION: Left heel chronic wound. TIME OF EXAM: 2:51 PM 2 views of the left calcaneus were obtained. FINDINGS: There is a large plantar calcaneal spur. There appears to be a skin ulcer of the heel. No definite soft tissue gas is seen. Underlying bony structures appear to be fairly well maintained. No definite osseous destructive changes are seen to suggest osteomyelitis although the os calcis view does show some slight indistinction involving the posterior cortex of the calcaneus. Extensive vascular calcifications are present. No fractures are seen. IMPRESSION: Skin ulcer. There is some slight indistinctness to the posterior cortex of the calcaneus. Possibility of osteomyelitis cannot be entirely excluded. If this continues to be a clinical concern, three-phase bone scan or MRI could be performed for further evaluation. Dictated by: Dictated on workstation # [id number]
== END ==
LOC: RAD 14:02
PROVIDERS: ATTEND Nurse Practitioner
DX: E10.621 Type 1 diabetes mellitus with foot ulcer (principal); L97.429 Non-pressure chronic ulcer of left heel and midfoot with unspecified severity
CPT/HCPCS: 73650

== ENCOUNTER → 2018-01-23 | Outpatient (CLI) | payer MEDICARE, MEDICAID | LOC: WOUNDCARE 12:17 | PROVIDERS: ATTEND Nurse Practitioner | DX: E10.621 Type 1 diabetes mellitus with foot ulcer (principal); L97.429 Non-pressure chronic ulcer of left heel and midfoot with unspecified severity | CPT/HCPCS: 99213 ==

== ENCOUNTER → 2018-02-10 | Outpatient (CLI) | payer MEDICARE, MEDICAID | LOC: WOUNDCARE 14:14 | PROVIDERS: ATTEND Surgery | DX: E11.621 Type 2 diabetes mellitus with foot ulcer (principal); L89.620 Pressure ulcer of left heel, unstageable | CPT/HCPCS: 99212 ==

== ENCOUNTER → 2018-02-13 | Outpatient (CLI) | payer MEDICARE, MEDICAID ==
[2018-02-13 17:32] LABS: BILIRUBIN,URINE NEGATIVE (NEGATIVE); CLARITY,URINE MUCOUS; GLUCOSE, URINE (UA) NEGATIVE (NEGATIVE); KETONES,URINE 1+ (NEGATIVE); LEUKOCYTE ESTERASE ,URINE 3+ (NEGATIVE); NITRITE,URINE NEGATIVE (NEGATIVE); PH,URINE 6 (5-9); PROTEIN,URINE 4+ (NEGATIVE); UROBILINOGEN,URINE NORMAL (NORMAL)
[2018-02-13 17:59] LABS: COLOR,URINE RED
[2018-02-13 18:03] LABS: RBC,URINE 25-50 /HPF; WBC,URINE TNTC /HPF
[2018-02-13 18:04] LABS: BACTERIA,URINE LARGE /HPF
== END ==
LOC: CVS 17:23
PROVIDERS: ATTEND Internal Medicine
DX: N39.0 Urinary tract infection, site not specified (principal); N19 Unspecified kidney failure
CPT/HCPCS: 81000; 87077; 87088; 87186

== ENCOUNTER → 2018-02-19 | Outpatient (CLI) | payer MEDICARE, MEDICAID ==
[2018-02-19 17:41] LABS: INR 2.5 (0.8-1.4); PROTHROMBIN TIME PATIENT 26.9 SEC (12.2-14.7)
== END ==
LOC: CVS 17:19
PROVIDERS: ATTEND Internal Medicine
DX: Z51.81 Encounter for therapeutic drug level monitoring (principal); Z79.01 Long term (current) use of anticoagulants
CPT/HCPCS: 85610

== ENCOUNTER → 2018-02-20 | Outpatient (CLI) | payer MEDICARE, MEDICAID | LOC: WOUNDCARE 14:30 | PROVIDERS: ATTEND Surgery | DX: E11.621 Type 2 diabetes mellitus with foot ulcer (principal); L89.620 Pressure ulcer of left heel, unstageable; N18.6 End stage renal disease | CPT/HCPCS: 99212 ==

== ENCOUNTER → 2018-02-25 | Outpatient (CLI) | payer MEDICARE, MEDICAID ==
[2018-02-25 07:26] LABS: INR 3.3 (0.8-1.4); PROTHROMBIN TIME PATIENT 33.8 SEC (12.2-14.7)
== END ==
LOC: LABNPT 06:57
PROVIDERS: ATTEND Internal Medicine
DX: Z51.81 Encounter for therapeutic drug level monitoring (principal); Z79.01 Long term (current) use of anticoagulants
CPT/HCPCS: 85610

== ENCOUNTER → 2018-03-06 | Outpatient (CLI) | payer MEDICARE, MEDICAID ==
[~2018-03-06] MED LIST changes: -AMLO5TAB7 PO; +AMLO5TAB9 PO
== END ==
LOC: WOUNDCARE 14:05
PROVIDERS: ATTEND Surgery
DX: E11.621 Type 2 diabetes mellitus with foot ulcer (principal); L89.620 Pressure ulcer of left heel, unstageable; N18.6 End stage renal disease
CPT/HCPCS: 99212

== ENCOUNTER → 2018-03-20 | Outpatient (CLI) | payer MEDICARE, MEDICAID | LOC: WOUNDCARE 14:22 | PROVIDERS: ATTEND Surgery | DX: E11.621 Type 2 diabetes mellitus with foot ulcer (principal); L89.620 Pressure ulcer of left heel, unstageable; N18.6 End stage renal disease | CPT/HCPCS: 99212 ==

== ENCOUNTER → 2018-04-10 | Outpatient (CLI) | payer MEDICARE, MEDICAID | LOC: WOUNDCARE 14:31 | PROVIDERS: ATTEND Surgery | DX: E11.621 Type 2 diabetes mellitus with foot ulcer (principal); L89.620 Pressure ulcer of left heel, unstageable; N18.6 End stage renal disease | CPT/HCPCS: 99212 ==

== ENCOUNTER → 2018-04-24 | Outpatient (CLI) | payer MEDICARE, MEDICAID | LOC: WOUNDCARE 14:37 | PROVIDERS: ATTEND Surgery | DX: E11.621 Type 2 diabetes mellitus with foot ulcer (principal); L89.620 Pressure ulcer of left heel, unstageable; N18.6 End stage renal disease | CPT/HCPCS: 99212 ==

== ENCOUNTER 2018-05-05 13:42 | Emergency (ER) | payer MEDICARE, MEDICAID ==
[~2018-05-05] VITALS: Ht 172.7 cm; Wt 88.5 kg
[2018-05-05] MEDS ORDERED: oxyCODONE/APAP 5/325MG (PERCOCET 5) TABLET PO ONE (14:45)
--- NOTE | 2018-05-05 14:46 | ED Lower Extremity ---
General Chief Complaint: Lower Extremity Stated Complaint: POSSIBLE BROKEN LEG Nursing Triage Note: pt presents with left leg pain x several weeks. pt reports falling on leg two separate time within the past 10 weeks and c/o pain progressively getting worse. pt took one hydrocodone one hour ago for pain. Nursing Sepsis Screen: No Definite Risk Source: patient Exam Limitations: no limitations History of Present Illness Date Seen by Provider: May 05, 2018 Time Seen by Provider: 14:44 Initial Comments This ESRD hemodialysis pt presents To ER from [facility] with left hip/thigh pain x5 weeks after falling in his room 5 weeks ago. . Pain never improved. Had "mobile xrays" last week showing a left acetabulum fracture. pain persists despite 7.5/ 325mg hydrocodone/apap 1 hour ago. Onset: other Severity: moderate Pain/Injury Location: left hip Method of Injury: fell Allergies and Home Medications Allergies Coded Allergies: No Known Drug Allergies (Unverified , 08/01/17) Home Medications Acetaminophen 500 Mg Tablet, 1,000 MG PO Q6H PRN for PAIN-MILD, (Reported) Amiodarone HCl 200 Mg Tablet, 200 MG PO DAILY, (Reported) Aspirin 81 Mg Tablet.dr, 81 MG PO DAILY, (Reported) Atorvastatin Calcium 80 Mg Tablet, 80 MG PO DAILY, (Reported) Bisacodyl 10 Mg Supp.rect, 10 MG RC DAILY PRN for CONSTIPATION-4TH LINE, ( Reported) Clopidogrel Bisulfate 75 Mg Tablet, 75 MG PO DAILY, (Reported) Divalproex Sodium 250 Mg Tablet.dr, 250 MG PO TID, (Reported) Donepezil HCl 10 Mg Tablet, 10 MG PO HS, (Reported) Dulaglutide 0.75 Mg/0.5 Ml Pen.injctr, 0.75 MG SQ Fr, (Reported) Escitalopram Oxalate 10 Mg Tablet, 10 MG PO DAILY, (Reported) Fentanyl 1 Each Patch.td72, 25 MCG TD Q72H Prescribed by: LUCA SORIA on 12/01/17 112 Fludrocortisone Acetate 0.1 Mg Tab, 0.1 MG PO DAILY PRN for HYPOTENSION, ( Reported) Furosemide 80 Mg Tablet, 80 MG PO BID, (Reported) Gabapentin 100 Mg Capsule, 100 MG PO TID, (Reported) Hydrocodone Bit/Acetaminophen 1 Tab Tab, 2 TAB PO Q4H PRN for PAIN-MODERATE Prescribed by: LUCA SORIA on 12/01/17 1121 Insulin Glargine,Hum.rec.anlog 100 Unit/1 Ml Vial, 6 UNIT SQ HS, (Reported) Insulin Lispro 100 Unit/1 Ml Vial, 5 UNIT SQ TID, (Reported) Ipratropium/Albuterol Sulfate 3 Ml Ampul.neb, 3 ML IH Q6H PRN for SHORTNESS OF BREATH, (Reported) Isosorbide Dinitrate 30 Mg Tablet, 30 MG PO DAILY, (Reported) Lansoprazole 30 Mg Capsule.dr, 30 MG PO DAILY, (Reported) Lisinopril 10 Mg Tablet, 10 MG PO DAILY, (Reported) HOLD AND NOTIFY PCP IF SBP LESS THAN 100 AND/OR DBP LESS THAN 60 AND/OR PULSE LESS THAN 60 Lorazepam 0.5 Mg Tablet, 0.5 MG PO Q8H PRN for ANXIETY Prescribed by: LUCA SORIA on 12/01/17 1121 Mag Hydrox/Al Hydrox/Simeth 30 Ml Oral.susp, 30 ML PO Q4H PRN for INDIGESTION, ( Reported) Magnesium Hydroxide 400 Mg/5 Ml Oral.susp, 30 ML PO Q12H PRN for CONSTIPATION- 7TH LINE, (Reported) Na Phos,M-B/Na Phos,Di-Ba 133 Ml Enema, 133 ML RC DAILY PRN for CONSTIPATION, ( Reported) Nitroglycerin 0.3 Mg Tab.subl, 0.3 MG SL UD PRN for CHEST PAIN, (Reported) Oxycodone HCl 10 Mg Tablet, 10 MG PO Q6H PRN for BREAKTHROUGH PAIN Prescribed by: BRIAN KAMINSKI on 01/09/18 194 Oxycodone HCl/Acetaminophen 1 Each Tablet, 1 TAB PO Q4H Prescribed by: BREE AMEZQUITA on 05/05/18 1647 Polyvinyl Alcohol/Povidone 15 Ml Drops, 1 DROP OU TID PRN for DRY EYES, ( Reported) Sennosides 8.6 Mg Tablet, 8.6 MG PO DAILY, (Reported) Sevelamer Carbonate 800 Mg Tablet, 1,600 MG PO TID, (Reported) Sodium Bicarbonate 325 Mg Tablet, 325 MG PO BID, (Reported) Trazodone HCl 50 Mg Tablet, 50 MG PO HS, (Reported) Venlafaxine HCl 150 Mg Cap.er.24h, 150 MG PO DAILY, (Reported) Patient Home Medication List Home Medication List Reviewed: Yes Review of Systems Constitutional: see HPI EENTM: see HPI Respiratory: no symptoms reported Cardiovascular: no symptoms reported Genitourinary: no symptoms reported Musculoskeletal: see HPI Skin: no symptoms reported Psychiatric/Neurological: No Symptoms Reported Past Yrcdrhn-Ntkfjt-Diiwal Hx Patient Social History Alcohol Use: Denies Use Recreational Drug Use: No Smoking Status: Never a Smoker Type Used: Smokeless Tobacco Recent Foreign Travel: No Contact w/Someone Who Travel: No Recent Infectious Disease Expo: No Recent Hopitalizations: No Immunizations Up To Date Tetanus Booster (TDap): Unknown Date of Pneumonia Vaccine: Sep 18, 2017 Date of Influenza Vaccine: Sep 18, 2017 Seasonal Allergies Seasonal Allergies: No Past Medical History Surgeries: Yes Arteriovenous Shunt, Cardiac, CABG, Dialysis, Eye Surgery, Orthopedic, Vascular Surgery Respiratory: No Cardiac: Yes (CABG) Chronic Edema/Swelling, Coronary Artery Disease, Heart Attack, High Cholesterol , Hypertension Neurological: Yes Neuropathy Reproductive Disorders: No Sexually Transmitted Disease: No HIV/AIDS: No Genitourinary: Yes Renal Failure, Dialysis Gastrointestinal: Yes Gastroesophageal Reflux Musculoskeletal: Yes (BILATERAL SHOULDER SURGERIES) Arthritis, Fractures Endocrine: Yes (IDDM --DX AGE 38, ON DIALYSIS SINCE 2016) Diabetes, Non-Insulin dep HEENT: Yes (RIGHT EYE REMOVED FOR CANCER) Loss of Vision: Right Hearing Impairment: Denies Cancer: Yes (RIGHT EYE REMOVED FOR CANCER) Did You Recieve Any Treatments: Yes What Type of Treatment Did You: Surgical Intervention Psychosocial: Yes Anxiety, Depression Integumentary: No Blood Disorders: Yes (ANEMIA) Adverse Reaction/Blood Tranf: No Family Medical History Heart Disease, Diabetes Physical Exam Vital Signs Vital Signs - First Documented 05/05/18 13:50 Temp 98.1 Pulse 86 Resp 18 B/P (MAP) 116/70 (85) Pulse Ox 96 O2 Delivery Room Air Capillary Refill : Less Than 3 Seconds Height, Weight, BMI Height: 5'8.00" Weight: 195lbs. 1.0oz. 88.587046xw; 31.7 BMI Method:Actual General Appearance: WD/WN, no apparent distress HEENT: PERRL/EOMI, normal ENT inspection Neck: non-tender, full range of motion Respiratory: no respiratory distress, no accessory muscle use Hips: right hip non-tender; left hip normal inspection, left hip pain, left hip soft tissue tenderness Legs: bilateral leg non-tender, bilateral leg normal inspection, bilateral leg normal range of motion Knees: bilateral knee non-tender, bilateral knee normal inspection, bilateral knee normal range of motion Ankles: bilateral ankle non-tender, bilateral ankle normal inspection, bilateral ankle normal range of motion Neurologic/Psychiatric: alert, normal mood/affect, oriented x 3 Skin: normal color, warm/dry Progress/Results/Core Measures Results/Orders My Orders Orders - BREE AMEZQUITA APRN Femur, Left, 2 Views (05/05/18 14:43) Pelvis With Left Hip 2-3 Views (05/05/18 14:43) Oxycodone/Apap 5/325mg Tablet (Percocet (05/05/18 14:45) Ct Pelvis Wo (05/05/18 15:29) Ketorolac Injection (Toradol Injection) (05/05/18 16:30) Medications Given in ED Current Medications Medications Dose Ordered Sig/Marshall Route Start Time Stop Time Status Last Admin Dose Admin Ketorolac Tromethamine 60 mg ONCE ONCE IM 05/05/18 16:30 05/05/18 16:31 DC 05/05/18 16:30 60 MG Oxycodone/ Acetaminophen 1 tab ONCE ONCE PO 05/05/18 14:45 05/05/18 14:46 DC 05/05/18 14:54 1 TAB Vital Signs/I&O 05/05/18 13:50 Temp 98.1 Pulse 86 Resp 18 B/P (MAP) 116/70 (85) Pulse Ox 96 O2 Delivery Room Air Blood Pressure Mean: 85 Departure Communication (Admissions) Dr Rivera has reviewed the ct images and discussed with me. States there is callus formation around this. Recommends walker, discharge back to nursing facility. Follow up with [facility] for an extensive surgery IF he is a surgical candidate. Impression Primary Impression: Acetabulum fracture, left Qualified Codes: S32.402A - Unspecified fracture of left acetabulum, initial encounter for closed fracture Disposition: HOME, SELF-CARE Condition: Stable Departure-Patient Inst. Decision time for Depature: 16:43 Referrals: CHERYL LANDRY MD (PCP/Family) Primary Care Physician Patient Instructions: Hip Fracture Add. Discharge Instructions: 1. Return to ER for any concerns 2. Stop the hydrocodone. Use the percocet instead. Call [facility] on Tuesday at [phone] to make an appointment for follow up. In the meantime, use a walker for any walking. All discharge instructions reviewed with patient and/or family. Voiced understanding. Scripts Oxycodone HCl/Acetaminophen (Percocet 10-325 mg Tablet) 1 Each Tablet 1 TAB PO Q4H MDD 3 TABS, #90 TAB Prov: BREE AMEZQUITA APRN 05/05/18 Copy Copies To 1: CHERYL LANDRY MD, PETER J APRN May 05, 2018 14:46
--- OUTSIDE RECORDS SUMMARY | 2018-05-05 15:05 | XMS REPORT ---
Author Author SHERWIN CARVAJAL Organization [facility] Address [address] [place] [address] Care Team Providers Care General Manager Name Role Phone SHERWIN CARVAJAL Unavailable PROBLEMS Type Condition ICD9-CM Code VHZ48-DZ Code Onset Dates Condition Status SNOMED Code Problem End stage kidney disease N18.6 Active 71994573 Problem Hyperlipidemia, unspecified hyperlipidemia type E78.5 Active 84833433 Problem Essential hypertension I10 Active 14739255 Problem Anxiety F41.9 Active 82784452 Problem Dialysis patient Z99.2 Active 110060939 Problem Rheumatoid arthritis, involving unspecified site, unspecified rheumatoid factor presence M06.9 Active 38742155 Problem Type 2 diabetes mellitus with hyperglycemia, without long-term current use of insulin E11.65 Active 88731448 Problem Primary insomnia F51.01 Active 5842969 Problem Current use of oysterman anticoagulation Z79.01 Active 747375417 Problem Gastroesophageal reflux disease without esophagitis K21.9 Active 177555860 Problem Coronary artery disease involving coronary bypass graft of poarch heart without angina 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 Active 912007310 Problem Drug induced constipation K59.03 Active 735026988804575 Problem Other depression F32.89 Active 11392147 ALLERGIES No Information ENCOUNTERS Encounter Location Date Diagnosis [facility] [id number] [address] Jan, 2018 [facility] [id number] [address] Jan, Anxiety F41.9 [facility] [address] [address] Jan, [facility] [id number] [address] Jan, [facility] [address], [place] [address] Jan, [facility] [address], [place] [address] Jan, [facility] [address] [place] [address] Dec, Adverse effect of other opioids, initial encounter T40.2X5A [facility] [address] [place] [address]- [address] Dec, Closed fracture of left hip, sequela S72.002S [facility] [address] [place] [address]656- 0069 Dec, Closed fracture of left hip, sequela S72.002S [facility] [address] [place] [address] 42[address]- 8283 Dec, Closed fracture of left hip, sequela S72.002S [facility] [address] [place] [address]- [address] Dec, Via [employer] [address] [place] [id number] Dec, Closed fracture of left hip, sequela S72.002S ; Dialysis patient Z99.2 ; Current use of usp anticoagulation Z79.01 ; Decubitus ulcer of left heel, stage 2 L89.622 ; Anxiety F41.9 ; Drug induced constipation K59.03 and Primary insomnia F51.01 [facility] [address], [place] [address] Dec, [facility] [address] [place] [address] 10[address]- 9625 Dec, [facility] [address] [place] [address] 7[address]- 6[address] Nov, Adverse effect of other opioids, initial encounter T40.2X5A and Drug induced constipation K59.03 [facility] [address] [place] [id number] Nov, [place] [address], [place] [address] Nov, [place] [id number] [place] [address]- 6[address] Nov, Closed fracture of left hip, sequela S72.002S and Other depression F32.89 [place] [id number] [place] [address]- 1463 Nov, Encounter for examination for admission to fdc Z02.2 [place] [id number] [place] [address]- 0[address] Nov, [place] [id number] [place] [address]- 2157 Oct, [place] [id number] [place] [address]- 55[address] Oct, Encounter for examination for admission to fdc Z02.2 [facility] [address] [place] [id number] Oct, Weakness R53.1 ; Dialysis patient Z99.2 ; Essential hypertension I10 ; Rheumatoid arthritis, involving unspecified site, unspecified rheumatoid factor presence M06.9 and Gastroesophageal reflux disease without esophagitis K21.9 [place] [address], [place] [address]- [address] Sep, [place] [address], [place] [address]- [address] Sep, [place] [address], [place] [address]- [address] Sep, [place] [address] [place] [address]- [address] Sep, Encounter for examination for admission to fdc Z02.2 and Anxiety F41.9 [facility] [address] [place] [id number] Sep, Gross hematuria R31.0 ; Coronary artery disease involving coronary bypass graft of poarch heart without angina 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 ; Arthralgia, unspecified joint M25.50 ; Essential hypertension I10 ; Rheumatoid arthritis, involving unspecified site, unspecified rheumatoid factor presence M06.9 ; Type 2 diabetes mellitus with hyperglycemia, without long-term current use of insulin E11.65 and Dialysis patient Z99.2 [place] [address], [place] [address] Sep, [place] [address] [address] Sep, Encounter for examination for admission to fdc Z02.2 Via [facility] [employer] [address] [place] [id number] Sep, Gross hematuria R31.0 [place] [address], [place] [address] Aug, [place] [id number] [place] [address]- [address] Aug, Via [employer] [address] [place] [id number] Aug, Fall, subsequent encounter W19.XXXD and Dialysis patient Z99.2 [place] [address], [place] [address]- [address] Aug, [place] [id number], [place] [address]- 67[address] Aug, [facility] [employer] [facility] [address] [place] [id number] Aug, Encounter for examination for admission to fdc Z02.2 ; Other acute pulmonary embolism without acute cor pulmonale I26.99 ; Arthralgia, unspecified joint M25.50 ; Coronary artery disease involving coronary bypass graft of poarch heart without angina 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 ; Essential hypertension I10 and Hyperlipidemia, unspecified hyperlipidemia type E78.5 [place] [id number], [place] [address] Aug, Rheumatoid arthritis, involving unspecified site, unspecified rheumatoid factor presence M06.9 [place] [id number], [place] [address]- [address] Aug, [facility] [address], [place] [address] 6[address] Aug, Encounter for examination for admission to fdc Z02.2 [facility] [id number], [place] [address] Jul, [facility] [address], [place] [address] Jul, [facility] [id number], [place] [address] Jul, Anxiety F41.9 [place] [id number], [place] [address] Jul, IMMUNIZATIONS No Known Immunizations SOCIAL HISTORY Never Assessed REASON FOR VISIT penitentiary Narc Refill PLAN OF CARE VITAL SIGNS MEDICATIONS Unknown [...]
--- OUTSIDE RECORDS SUMMARY | 2018-05-05 15:05 | XMS REPORT ---
Author Author CHERYL LANDRY Organization [facility] Address [address] [place] [address] Care Team Providers Care Supervising Fire Marshal Name Role Phone CHERYL LANDRY Unavailable PROBLEMS Type Condition ICD9-CM Code EVN86-JE Code Onset Dates Condition Status SNOMED Code Problem End stage kidney disease N18.6 Active 47731889 Problem Hyperlipidemia, unspecified hyperlipidemia type E78.5 Active 27208722 Problem Essential hypertension I10 Active 20593236 Problem Anxiety F41.9 Active 30717663 Problem Dialysis patient Z99.2 Active 519122346 Problem Rheumatoid arthritis, involving unspecified site, unspecified rheumatoid factor presence M06.9 Active 91650537 Problem Type 2 diabetes mellitus with hyperglycemia, without long-term current use of insulin E11.65 Active 00653693 Problem Primary insomnia F51.01 Active 2019278 Problem Current use of adjunct faculty for medical terminology anticoagulation Z79.01 Active 401836069 Problem Gastroesophageal reflux disease without esophagitis K21.9 Active 639873118 Problem Coronary artery disease involving coronary bypass graft of stockbridge heart without angina 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 Active 021179549 Problem Drug induced constipation K59.03 Active 503134332882673 Problem Other depression F32.89 Active 54080870 ALLERGIES No Information ENCOUNTERS Encounter Location Date Diagnosis [facility] [id number] [place] [address] 32345- 4124 Jan, [facility] [address], [place] [address] 4[address] Jan, [facility] [id number] [place] [address] 72532- 8774 Jan, [facility] [id number] [place] [address] 83833- 8690 Dec, Adverse effect of other opioids, initial encounter T40.2X5A [place] [address] [place] [address] 45290- 5211 Dec, Closed fracture of left hip, sequela S72.002S [facility] [id number] [place] [address] 13798- 7542 Dec, Closed fracture of left hip, sequela S72.002S [facility] [id number] [place] [address] 95634- 6100 Dec, Closed fracture of left hip, sequela S72.002S [facility] [address] [place] [address] 85687- 8045 Dec, [facility] [address] [place] [id number] Dec, Closed fracture of left hip, sequela S72.002S ; Dialysis patient Z99.2 ; Current use of adjunct faculty for medical terminology anticoagulation Z79.01 ; Decubitus ulcer of left heel, stage 2 L89.622 ; Anxiety F41.9 ; Drug induced constipation K59.03 and Primary insomnia F51.01 [facility] [id number] [place] [address] 26348- 1412 Dec, [facility] [id number] [place] [address] 55665- 7218 Dec, [facility] [id number] [place] [address] 39461- 5743 Nov, Adverse effect of other opioids, initial encounter T40.2X5A and Drug induced constipation K59.03 [facility] [address] [place] [id number] Nov, [facility] [id number] [place] [address] 42138- 8308 Nov, [facility] [id number] [place] [address] 37684- 6694 Nov, Closed fracture of left hip, sequela S72.002S and Other depression F32.89 [facility] [id number] [place] [address] 11947- 2338 Nov, Encounter for examination for admission to jail Z02.2 [facility] [address], [place] [address] 4032 Nov, [facility] [address], [place] [address]- 6384 Oct, [facility] [address], [place] [address]- 6563 Oct, Encounter for examination for admission to jail Z02.2 [facility] [address] [place] [id number] Oct, Weakness R53.1 ; Dialysis patient Z99.2 ; Essential hypertension I10 ; Rheumatoid arthritis, involving unspecified site, unspecified rheumatoid factor presence M06.9 and Gastroesophageal reflux disease without esophagitis K21.9 [place] [address], [place] [address]- 4323 Sep, [place] [address], [place] [address]- 7826 Sep, [facility] [address], [place] [address]- 0835 Sep, [place] [address], [place] [address] 8948 Sep, Encounter for examination for admission to jail Z02.2 and Anxiety F41.9 [facility] [address] [place] [id number] Sep, Gross hematuria R31.0 ; Coronary artery disease involving coronary bypass graft of stockbridge heart without angina 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 ; Arthralgia, unspecified joint M25.50 ; Essential hypertension I10 ; Rheumatoid arthritis, involving unspecified site, unspecified rheumatoid factor presence M06.9 ; Type 2 diabetes mellitus with hyperglycemia, without long-term current use of insulin E11.65 and Dialysis patient Z99.2 [place] [address], [place] [address]- 8274 Sep, [place] [address], [place] [address]- 6068 Sep, Encounter for examination for admission to jail Z02.2 [facility] [address] [place] [id number] Sep, Gross hematuria R31.0 [facility] [address] [facility] [id number] [address] 2078 Aug, [facility] [address], [place] [address]- 1081 Aug, [facility] [address] [place] [id number] Aug, Fall, subsequent encounter W19.XXXD and Dialysis patient Z99.2 [place] [address], [place] [address]- 7385 Aug, [place] [address], [place] [address] 4167 Aug, Via [employer] [facility] [address] [place] [id number] Aug, Encounter for examination for admission to jail Z02.2 ; Other acute pulmonary embolism without acute cor pulmonale I26.99 ; Arthralgia, unspecified joint M25.50 ; Coronary artery disease involving coronary bypass graft of stockbridge heart without angina 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 ; Essential hypertension I10 and Hyperlipidemia, unspecified hyperlipidemia type E78.5 [facility] [id number], [place] [address]- 7883 Aug, Rheumatoid arthritis, involving unspecified site, unspecified rheumatoid factor presence M06.9 [facility] [id number], [place] [address]- 5077 Aug, [facility] [id number], [place] [address]- 9317 Aug, Encounter for examination for admission to jail Z02.2 [facility] [id number], [place] [address]- 6676 Jul, [facility] [id number] [address]- 5687 Jul, [facility] [address] [facility] [id number] [place] [address]- 9180 Jul, Anxiety F41.9 [facility] [address] [facility] [id number] [place] [address] Jul, IMMUNIZATIONS No Known Immunizations SOCIAL HISTORY Never Assessed REASON FOR VISIT retirement PLAN OF CARE VITAL SIGNS MEDICATIONS Medication Instructions Dosage Frequency Start Date End Date Duration Status Warfarin Sodium 3 MG Orally Once a day on Tue, Tue 0.5 tablet Jan, 30 day(s) Active Coumadin 3 MG Orally Once a day on , Tue, , Sat, Sun 1 tablet Active RESULTS No Results PROCEDURES No Known [...]
--- OUTSIDE RECORDS SUMMARY | 2018-05-05 15:05 | XMS REPORT ---
Author Author SHERWIN CARVAJAL Organization [facility] Address [address] [place] [address] Care Team Providers Care Senior Enterprise Architect Name Role Phone SHERWIN CARVAJAL Unavailable PROBLEMS Type Condition ICD9-CM Code BTB79-JQ Code Onset Dates Condition Status SNOMED Code Problem End stage kidney disease N18.6 Active 35532510 Problem Hyperlipidemia, unspecified hyperlipidemia type E78.5 Active 53098772 Problem Essential hypertension I10 Active 38484591 Problem Anxiety F41.9 Active 36897905 Problem Dialysis patient Z99.2 Active 238457307 Problem Rheumatoid arthritis, involving unspecified site, unspecified rheumatoid factor presence M06.9 Active 64903447 Problem Type 2 diabetes mellitus with hyperglycemia, without long-term current use of insulin E11.65 Active 09656025 Problem Primary insomnia F51.01 Active 0927693 Problem 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 Active 592368552 Problem Gastroesophageal reflux disease without esophagitis K21.9 Active 609253077 Problem 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 Active 268916840 Problem Drug induced constipation K59.03 Active 564343259784922 Problem Other depression F32.89 Active 44052666 ALLERGIES No Information ENCOUNTERS Encounter Location Date Diagnosis [place] [id number] [place] [id number] [place] [address] 81534- 6084 Jan, Primary insomnia F51.01 [facility] [address], [place] [address]- 5426 Jan, [place] [id number] [place] [address] 05886- 5172 Jan, Anxiety F41.9 [facility] [id number] [place] [address] 25894- 7588 Jan, [place] [address] [address]- 5777 Jan, [facility] [id number] [place] [address] 43666- 5132 Jan, [facility] [address] [place] [address] 18833- 2189 Jan, [facility] [id number] [place] [address] 57258- 8515 Dec, Adverse effect of other opioids, initial encounter T40.2X5A [facility] [address] [place] [address] 00591- 1017 Dec, Closed fracture of left hip, sequela S72.002S [facility] [address] [place] [address] 81697- 9411 Dec, Closed fracture of left hip, sequela S72.002S [facility] [address] [place] [address] 30598- 6679 Dec, Closed fracture of left hip, sequela S72.002S [facility] [address] [place] [address] 90537- 4540 Dec, Via [facility] [address] [place] [id number] Dec, Closed fracture of left hip, sequela S72.002S ; Dialysis patient Z99.2 ; 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 ; Decubitus ulcer of left heel, stage 2 L89.622 ; Anxiety F41.9 ; Drug induced constipation K59.03 and Primary insomnia F51.01 [facility] [address] [address]- 5636 Dec, [facility] [id number] [place] [address] 05218- 1485 Dec, [facility] [address], [place] [address]- 5218 Nov, Adverse effect of other opioids, initial encounter T40.2X5A and Drug induced constipation K59.03 [facility] [address] [place] [id number] Nov, [facility] [id number] [address]- 7270 Nov, [facility] [address], [place] [address]- 5884 Nov, Closed fracture of left hip, sequela S72.002S and Other depression F32.89 [facility] [address], [place] [address]- 5670 Nov, Encounter for examination for admission to care home Z02.2 [place] [id number] [place] [address] 04054- 9819 Nov, [place] [id number] [place] [address] 16718- 3269 Oct, [facility] [id number] [place] [address] 49971- 2294 Oct, Encounter for examination for admission to care home Z02.2 [facility] [address] [place] [id number] Oct, Weakness R53.1 ; Dialysis patient Z99.2 ; Essential hypertension I10 ; Rheumatoid arthritis, involving unspecified site, unspecified rheumatoid factor presence M06.9 and Gastroesophageal reflux disease without esophagitis K21.9 [place] [address], [place] [address]- 6318 Sep, [facility] [address], [place] [address]- 8641 Sep, [facility] [address], [place] [address]- 0481 Sep, [facility] [address], [place] [address]- 3951 Sep, Encounter for examination for admission to care home Z02.2 and Anxiety F41.9 [facility] [address] [place] [id number] Sep, Gross hematuria R31.0 ; 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 ; Arthralgia, unspecified joint M25.50 ; Essential hypertension I10 ; Rheumatoid arthritis, involving unspecified site, unspecified rheumatoid factor presence M06.9 ; Type 2 diabetes mellitus with hyperglycemia, without long-term current use of insulin E11.65 and Dialysis patient Z99.2 [place] [address], [place] [address]- 3587 Sep, [place] [address] [place] [address] 62452- 9250 Sep, Encounter for examination for admission to care home Z02.2 [facility] [address] [place] [id number] Sep, Gross hematuria R31.0 [place] [address], [place] [address]- 1920 Aug, [place] [address], [place] [address]- 0952 Aug, [facility] [employer] [address] [place] [id number] Aug, Fall, subsequent encounter W19.XXXD and Dialysis patient Z99.2 [place] [address], [place] [address]- 2017 Aug, [place] [address], [place] [address]- 1480 Aug, [facility] [address] [place] [id number] Aug, Encounter for examination for admission to care home Z02.2 ; Other acute pulmonary embolism without acute cor pulmonale I26.99 ; Arthralgia, unspecified joint M25.50 ; 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 ; Essential hypertension I10 and Hyperlipidemia, unspecified hyperlipidemia type E78.5 [place] [address] [place] [address] 79191- 6642 Aug, Rheumatoid arthritis, involving unspecified site, unspecified rheumatoid factor presence M06.9 [facility] [id number], [place] [address]- 3415 Aug, [facility] [address], [place] [address]- 0671 Aug, Encounter for examination for admission to care home Z02.2 [facility] [address], [place] [address]- 7639 Jul, [facility] [address], [place] [address]- 2393 Jul, [facility] [address], [place] [address]- 3853 Jul, Anxiety F41.9 [place] [address], [place] [address]- 3092 Jul, IMMUNIZATIONS No Known Immunizations SOCIAL HISTORY Never Assessed REASON FOR VISIT longterm Narc Refill PLAN OF CARE VITAL SIGNS MEDICATIONS Medication Instructions Dosage Frequency Start Date End Date Duration Status Zolpidem Tartrate 5 MG Orally Once a day 1 tablet at bedtime 24h Dec, 28 days Active RESULTS No Results PROCEDURES [...]
--- OUTSIDE RECORDS SUMMARY | 2018-05-05 15:05 | XMS REPORT ---
Author Author SHERWIN CARVAJAL Organization [facility] Address [address] [place] [address] Care Team Providers Care Molder Machine Tender Name Role Phone SHERWIN CARVAJAL Unavailable PROBLEMS Type Condition ICD9-CM Code GJT11-FT Code Onset Dates Condition Status SNOMED Code Problem End stage kidney disease N18.6 Active 52861713 Problem Hyperlipidemia, unspecified hyperlipidemia type E78.5 Active 33208381 Problem Essential hypertension I10 Active 05615465 Problem Anxiety F41.9 Active 87686491 Problem Dialysis patient Z99.2 Active 231477482 Problem Rheumatoid arthritis, involving unspecified site, unspecified rheumatoid factor presence M06.9 Active 38294074 Problem Type 2 diabetes mellitus with hyperglycemia, without long-term current use of insulin E11.65 Active 35731477 Problem Primary insomnia F51.01 Active 4824342 Problem 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 Active 534128250 Problem Gastroesophageal reflux disease without esophagitis K21.9 Active 367552765 Problem Coronary artery disease involving coronary bypass graft of hughes heart without angina 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 Active 886767053 Problem Drug induced constipation K59.03 Active 449077869106453 Problem Other depression F32.89 Active 64792141 ALLERGIES No Information ENCOUNTERS Encounter Location Date Diagnosis [facility] [id number], [place] [address]- 7580 Jan, Anxiety F41.9 [facility] [address], [place] [address]- 1113 Jan, [facility] [address] [place] [address] 46815- 1884 Jan, [facility] [id number], [place] [address]- 7578 Jan, [facility] [id number], [place] [address]- 1683 Jan, [facility] [id number] [place] [address] 83103- 7609 Dec, Adverse effect of other opioids, initial encounter T40.2X5A [facility] [address], [place] [address]- 1683 Dec, Closed fracture of left hip, sequela S72.002S [facility] [id number] [place] [address] 02472- 2939 Dec, Closed fracture of left hip, sequela S72.002S [facility] [id number] [place] [address] 22398- 7855 Dec, Closed fracture of left hip, sequela S72.002S [facility] [id number] [place] [address] 17153- 8402 Dec, Via [facility] [address] [place] [id number] Dec, Closed fracture of left hip, sequela S72.002S ; Dialysis patient Z99.2 ; 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 ; Decubitus ulcer of left heel, stage 2 L89.622 ; Anxiety F41.9 ; Drug induced constipation K59.03 and Primary insomnia F51.01 [facility] [address], [place] [address]- 6834 Dec, [facility] [address] [place] [address] 24030- 2918 Dec, [facility] [address] [place] [address] 02094- 1514 Nov, Adverse effect of other opioids, initial encounter T40.2X5A and Drug induced constipation K59.03 [facility] [address] [place] [id number] Nov, [facility] [address] [place] [address] 39442- 5321 Nov, [place] [address], [place] [address]- 6779 Nov, Closed fracture of left hip, sequela S72.002S and Other depression F32.89 [place] [address], [place] [address]- 2284 Nov, Encounter for examination for admission to correction Z02.2 [place] [id number] [place] [address] 71009- 6549 Nov, [place] [id number] [place] [address] 40687- 6739 Oct, [place] [id number] [place] [address] 61482- 2204 Oct, Encounter for examination for admission to correction Z02.2 [facility] [address] [place] [id number] Oct, Weakness R53.1 ; Dialysis patient Z99.2 ; Essential hypertension I10 ; Rheumatoid arthritis, involving unspecified site, unspecified rheumatoid factor presence M06.9 and Gastroesophageal reflux disease without esophagitis K21.9 [place] [address], [place] [address]- 8414 Sep, [place] [address] [place] [address] 53421- 6385 Sep, [place] [address], [place] [address]- 2219 Sep, [place] [address] [place] [address] 31162- 9191 Sep, Encounter for examination for admission to correction Z02.2 and Anxiety F41.9 [facility] [address] [place] [id number] Sep, Gross hematuria R31.0 ; Coronary artery disease involving coronary bypass graft of hughes heart without angina 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 ; Arthralgia, unspecified joint M25.50 ; Essential hypertension I10 ; Rheumatoid arthritis, involving unspecified site, unspecified rheumatoid factor presence M06.9 ; Type 2 diabetes mellitus with hyperglycemia, without long-term current use of insulin E11.65 and Dialysis patient Z99.2 [facility] [address] [facility] [id number] [address]- 4920 Sep, [facility] [address] [facility] [id number], [place] [address]- 4713 Sep, Encounter for examination for admission to correction Z02.2 [facility] [employer] [address] [place] [id number] Sep, Gross hematuria R31.0 [place] [address] [facility] [id number], [place] [address]- 8919 Aug, [place] [address] [facility] [id number], [place] [address]- 1309 Aug, [facility] [address] [place] [id number] Aug, Fall, subsequent encounter W19.XXXD and Dialysis patient Z99.2 [place] [address] [facility] [id number], [place] [address]- 4779 Aug, [place] [address] [facility] [id number], [place] [address]- 7894 Aug, [facility] [address] [place] [id number] Aug, Encounter for examination for admission to correction Z02.2 ; Other acute pulmonary embolism without acute cor pulmonale I26.99 ; Arthralgia, unspecified joint M25.50 ; Coronary artery disease involving coronary bypass graft of hughes heart without angina 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 ; Essential hypertension I10 and Hyperlipidemia, unspecified hyperlipidemia type E78.5 [place] [address] [facility] [id number], [place] [address]- 0973 Aug, Rheumatoid arthritis, involving unspecified site, unspecified rheumatoid factor presence M06.9 [place] [address] [facility] [id number], [place] [address]- 5937 Aug, [place] [address], [place] [address]- 8634 Aug, Encounter for examination for admission to correction Z02.2 [place] [address], [place] [address]- 9157 Jul, [facility] [id number], [place] [address]- 3091 Jul, [place] [address], [place] [address]- 0548 Jul, Anxiety F41.9 [place] [id number], [place] [address]- 7778 Jul, IMMUNIZATIONS No Known Immunizations SOCIAL HISTORY Never Assessed REASON FOR VISIT medication change--AL PLAN OF CARE VITAL SIGNS MEDICATIONS Medication Instructions Dosage Frequency Start Date End Date Duration Status Ativan 0.5 MG Orally at bedtime 0.5 tablet Jul, 28 days Active RESULTS No Results [...]
--- OUTSIDE RECORDS SUMMARY | 2018-05-05 15:05 | XMS REPORT ---
Author Author CHERYL LANDRY [facility] Address [address] [place] [address] Care Team Providers Care Stiff Leg Derrick Operator Name Role Phone CHERYL LANDRY Unavailable PROBLEMS Type Condition ICD9-CM Code [id number] Code Onset Dates Condition Status SNOMED Code Problem End stage kidney disease N18.6 Active 01923271 Problem Hyperlipidemia, unspecified hyperlipidemia type E78.5 Active 23737289 Problem Essential hypertension I10 Active 23411741 Problem Anxiety F41.9 Active 64359730 Problem Dialysis patient Z99.2 Active 897232423 Problem Rheumatoid arthritis, involving unspecified site, unspecified rheumatoid factor presence M06.9 Active 29755514 Problem Type 2 diabetes mellitus with hyperglycemia, without long-term current use of insulin E11.65 Active 74356608 Problem Primary insomnia F51.01 Active 2187820 Problem 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 Active 197703523 Problem Gastroesophageal reflux disease without esophagitis K21.9 Active 710829503 Problem Coronary artery disease involving coronary bypass graft of [place] heart without angina 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 Active 697714417 Problem Drug induced constipation K59.03 Active 923158833004165 Problem Other depression F32.89 Active 50981764 ALLERGIES No Information ENCOUNTERS Encounter Location Date Diagnosis [facility] [id number], [place] [address] 14 Jan, 2018 [facility] [id number], [place] [address] Jan, Anxiety F41.9 [facility] [address], [place] [address] Jan, [facility] [id number] [address] Jan, [facility] [id number] [place] [address]12[address] 2038 Jan, [facility] [address], [place] [address] Jan, [facility] [id number] [place] [address] 69508- [address]341 Dec, Adverse effect of other opioids, initial encounter T40.2X5A [facility] [id number] [place] [address] 70835- 4426 Dec, Closed fracture of left hip, sequela S72.002S [facility] [id number] [place] [address] 28372- 5630 Dec, Closed fracture of left hip, sequela S72.002S [facility] [id number] [place] [address] 62263- 3803 Dec, Closed fracture of left hip, sequela S72.002S [facility] [id number] [place] [address]33- 6540 Dec, [facility] [address] [place] [id number] Dec, Closed fracture of left hip, sequela S72.002S ; Dialysis patient Z99.2 ; Current use of fci anticoagulation Z79.01 ; Decubitus ulcer of left heel, stage 2 L89.622 ; Anxiety F41.9 ; Drug induced constipation K59.03 and Primary insomnia F51.01 [facility] [id number] [place] [address] 65267- 8933 Dec, [facility] [id number] [place] [address] 97706- 3066 Dec, [facility] [id number] [place] [address] 05231- 3164 Nov, Adverse effect of other opioids, initial encounter T40.2X5A and Drug induced constipation K59.03 [facility] [address] [place] [id number] Nov, [place] [address], [place] [address] Nov, [place] [id number] [place] [address] 14642- 4213 Nov, Closed fracture of left hip, sequela S72.002S and Other depression F32.89 [place] [address], [place] [address] Nov, Encounter for examination for admission to [facility] Z02.2 [place] [id number] [place] [address] 75138- 3817 Nov, [place] [id number] [place] [address] 28260- 8014 Oct, [place] [id number] [place] [address] 75076- 2723 Oct, Encounter for examination for admission to [facility] Z02.2 [facility] [address] [place] [id number] Oct, Weakness R53.1 ; Dialysis patient Z99.2 ; Essential hypertension I10 ; Rheumatoid arthritis, involving unspecified site, unspecified rheumatoid factor presence M06.9 and Gastroesophageal reflux disease without esophagitis K21.9 [place] [address], [place] [address] Sep, [place] [address], [place] [address] Sep, [place] [address], [place] [address] Sep, [place] [id number] [place] [address] 48253- 1900 Sep, Encounter for examination for admission to [facility] Z02.2 and Anxiety F41.9 [facility] [address] [place] [id number] Sep, Gross hematuria R31.0 ; Coronary artery disease involving coronary bypass graft of navajo heart without angina 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 ; Arthralgia, unspecified joint M25.50 ; Essential hypertension I10 ; Rheumatoid arthritis, involving unspecified site, unspecified rheumatoid factor presence M06.9 ; Type 2 diabetes mellitus with hyperglycemia, without long-term current use of insulin E11.65 and Dialysis patient Z99.2 [place] [address], [place] [address] Sep, [place] [address], [place] [address] Sep, Encounter for examination for admission to mcc Z02.2 Via [email or web address] [employer] [facility] [address] [place] [id number] Sep, Gross hematuria R31.0 [place] [id number] [place] [address] 18602- 3895 Aug, [place] [address], [place] [address] Aug, [facility] [facility] [address] [place] [id number] Aug, Fall, subsequent encounter W19.XXXD and Dialysis patient Z99.2 [place] [address], [place] [address] Aug, [place] [id number] [address] Aug, [facility] [address] [place] [id number] Aug, Encounter for examination for admission to [facility] Z02.2 ; Other acute pulmonary embolism without acute cor pulmonale I26.99 ; Arthralgia, unspecified joint M25.50 ; Coronary artery disease involving coronary bypass graft of nav[place] heart without angina 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 ; Essential hypertension I10 and Hyperlipidemia, unspecified hyperlipidemia type E78.5 [place] [address], [place] [address] Aug, Rheumatoid arthritis, involving unspecified site, unspecified rheumatoid factor presence M06.9 [place] [address], [place] [address] Aug, [facility] [address], [place] [address] Aug, Encounter for examination for admission to mcc Z02.2 [facility] [address], [place] [address] Jul, [facility] [id number] [place] [address] 90067- 7189 Jul, [facility] [id number] [place] [address] 96200- 7738 Jul, Anxiety F41.9 [place] [address], [place] [address] Jul, IMMUNIZATIONS No Known Immunizations SOCIAL HISTORY Never Assessed REASON FOR VISIT senior living PLAN OF CARE VITAL SIGNS MEDICATIONS Unknown [...]
--- OUTSIDE RECORDS SUMMARY | 2018-05-05 15:06 | XMS REPORT ---
Author Author SHERWIN CARVAJAL Organization [facility] Address [address] [place] [address] Care Team Providers Care International Sales Representative Name Role Phone SHERWIN CARVAJAL Unavailable PROBLEMS Type Condition ICD9-CM Code [id number] Code Onset Dates Condition Status SNOMED Code Problem End stage kidney disease N18.6 Active 66736515 Problem Hyperlipidemia, unspecified hyperlipidemia type E78.5 Active 79436568 Problem Essential hypertension I10 Active 97182469 Problem Anxiety F41.9 Active 00481554 Problem Dialysis patient Z99.2 Active 822427313 Problem Rheumatoid arthritis, involving unspecified site, unspecified rheumatoid factor presence M06.9 Active 44491565 Problem Type 2 diabetes mellitus with hyperglycemia, without long-term current use of insulin E11.65 Active 19986606 Problem Primary insomnia F51.01 Active 6290977 Problem 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 Active 781987456 Problem Gastroesophageal reflux disease without esophagitis K21.9 Active 038879368 Problem Coronary artery disease involving coronary bypass graft of [place] heart without angina 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 Active 996912388 Problem Drug induced constipation K59.03 Active 360438489706725 Problem Other depression F32.89 Active 02168895 ALLERGIES No Information ENCOUNTERS Encounter Location Date Diagnosis [place] [address] [address] Jan, [place] [address] [address] Dec, Adverse effect of other opioids, initial encounter T40.2X5A [place] [address] [place] [address] 07874- 3912 Dec, Closed fracture of left hip, sequela S72.002S [place] [address] [place] [address] 45796- 9947 Dec, Closed fracture of left hip, sequela S72.002S [facility] [address] [place] [address] 28873- 6384 Dec, Closed fracture of left hip, sequela S72.002S [facility] [address] [place] [address] 04892- 3445 Dec, [facility] [employer] [address] [place] [address] Dec, Closed fracture of left hip, sequela S72.002S ; Dialysis patient Z99.2 ; 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 ; Decubitus ulcer of left heel, stage 2 L89.622 ; Anxiety F41.9 ; Drug induced constipation K59.03 and Primary insomnia F51.01 [facility] [id number] [place] [address] 27639- 9334 Dec, [facility] [id number] [place] [address] 11121- 3039 Dec, [facility] [id number] [place] [address] 86520- 1160 Nov, Adverse effect of other opioids, initial encounter T40.2X5A and Drug induced constipation K59.03 [facility] [employer] [address] [place] [id number] Nov, [facility] [id number] [place] [address] 67840- 4907 Nov, [facility] [id number] [place] [address] 64535- 5395 Nov, Closed fracture of left hip, sequela S72.002S and Other depression F32.89 [facility] [id number] [place] [address] 18266- 2552 Nov, Encounter for examination for admission to jail Z02.2 [facility] [id number] [place] [address] 47976- 0756 05 Nov, 2017 [facility] [address] [address]- 3974 Oct, [facility] [address] [address]- [address] Oct, Encounter for examination for admission to jail Z02.2 [facility] [address] [id number] Oct, Weakness R53.1 ; Dialysis patient Z99.2 ; Essential hypertension I10 ; Rheumatoid arthritis, involving unspecified site, unspecified rheumatoid factor presence M06.9 and Gastroesophageal reflux disease without esophagitis K21.9 [place] [address] [address]- 6279 Sep, [place] [id number] [place] [address] 78810- 6125 Sep, [place] [id number] [place] [address] 59515- 7306 Sep, [place] [id number] [place] [address] 30857- 0858 Sep, Encounter for examination for admission to jail Z02.2 and Anxiety F41.9 [facility] [address] [place] [id number] Sep, Gross hematuria R31.0 ; Coronary artery disease involving coronary bypass graft of [place] heart without angina 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 ; Arthralgia, unspecified joint M25.50 ; Essential hypertension I10 ; Rheumatoid arthritis, involving unspecified site, unspecified rheumatoid factor presence M06.9 ; Type 2 diabetes mellitus with hyperglycemia, without long-term current use of insulin E11.65 and Dialysis patient Z99.2 [place] [address] [address]- 7605 Sep, [place] [address] [place] [address] 88038- 3997 Sep, Encounter for examination for admission to jail Z02.2 [facility] [address] [id number] Sep, Gross hematuria R31.0 [facility] [address] [address]- 1067 Aug, [facility] [address] [place] [address] 64139- 6449 Aug, [facility] [address] [place] [id number] Aug, Fall, subsequent encounter W19.XXXD and Dialysis patient Z99.2 [facility] [address] [place] [address] 17884- 7338 Aug, [place] [address] [place] [address] 00346- 4891 Aug, [facility] [address] [place] [id number] Aug, Encounter for examination for admission to jail Z02.2 ; Other acute pulmonary embolism without acute cor pulmonale I26.99 ; Arthralgia, unspecified joint M25.50 ; Coronary artery disease involving coronary bypass graft of [place] heart without angina 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 ; Essential hypertension I10 and Hyperlipidemia, unspecified hyperlipidemia type E78.5 [place] [address] [place] [address] 46442- 9648 Aug, Rheumatoid arthritis, involving unspecified site, unspecified rheumatoid factor presence M06.9 [facility] [address] [address]- 6228 Aug, [facility] [address] [address]- 0617 Aug, Encounter for examination for admission to jail Z02.2 [facility] [address] [address]- 1578 Jul, [facility] [id number] [place] [address] 64375- 2527 Jul, [facility] [address] [address]- 3[address] 21 Roly, 2018 Anxiety F41.9 [facility] [address] [facility] [id number] [address]- [address] Jul, IMMUNIZATIONS No Known Immunizations SOCIAL HISTORY Never Assessed REASON FOR VISIT assisted Fall PLAN OF CARE VITAL SIGNS MEDICATIONS Unknown [...]
--- NOTE | 2018-05-05 15:41 | Diagnostic Imaging Report ---
INDICATION: Left buttock pain. TIME OF EXAM: 03:11 p.m. FINDINGS: Postop changes of left hip arthroplasty are noted. Long-stem femoral component is well-seated in the medullary canal. There appears to be some interruption of the iliopectineal line on the left suggestive of a left acetabular fracture. This is not seen on prior pelvis radiographs. Right hip is intact. The SI joints and symphysis are non-widened. IMPRESSION: There are findings suspicious for a left acetabular fracture. CT would be useful for further evaluation. Dictated by: Dictated on workstation # [id number]
--- NOTE | 2018-05-05 15:42 | Diagnostic Imaging Report ---
INDICATION: Left buttock pain. TIME OF EXAM: 3:14 p.m. FINDINGS: Multiple views of the left hip demonstrate postop changes of left hip arthroplasty. The long stem femoral component appears to be well centered in the medullary canal. Femoroacetabular alignment is normal. Alignment at the hip and knee is normal. Questionable minimal interruption of the acetabular iliopectineal line is noted but not as well seen as on the pelvis radiographs. Alignment at the knee is normal. There is chondrocalcinosis in the medial and lateral compartments. Femoropopliteal vascular calcifications are noted. IMPRESSION: The left hip appears to be intact. There is questionable interruption of the iliopectineal line, best seen on the pelvis radiographs and suspicious for acetabular fracture. CT would be useful for further evaluation. Dictated by: Dictated on workstation # [id number]
[2018-05-05] MEDS ORDERED: KETOROLAC 60 MG/2 ML VIAL IM ONE (16:30)
--- NOTE | 2018-05-05 16:38 | Diagnostic Imaging Report ---
EXAM: CT pelvis without contrast. DATE: May 05, 2018. INDICATION: 62-year-old male, evaluation for left hip fracture. COMPARISON: Radiographs of May 05, 2018 and March 12, 2017. TECHNIQUE: Axial CT images of the pelvis were obtained without contrast. Coronal and sagittal reformats were obtained and provided. FINDINGS: There is a left total hip prosthesis. The inferior aspect of the femoral stem is not in the [id number] of imaging. The hardware components themselves appear to be intact. The femoral head component of the prosthesis is superiorly subluxed and essentially dislocated posteriorly. The patient's diomede acetabulum is present. There is a comminuted displaced left acetabular fracture which includes involvement of the left anterior acetabulum on axial image 155 and adjacent sequential images. There is also involvement of the medial left acetabular wall and most likely the posterior acetabulum as well. There is streak artifact from the left hip prosthesis which does cause limitations of the evaluation. The medial acetabular wall is displaced medially by up to at least 12 mm. There is also acetabular wall ?. There is abnormal angulation of bone at the fracture site. There is periosteal reaction adjacent to the fracture suggesting this may be subacute in age. There is a mildly displaced mildly angulated fracture of the left inferior pubic ramus on axial image 213 with some adjacent periosteal reaction. This also may be subacute in age. The pubic symphysis is normally aligned. There is chondrocalcinosis. The sacroiliac joints are normally aligned. There are bilateral sacroiliac degenerative changes. There are degenerative changes of the lower lumbar spine. The right hip is not dislocated. There are vascular calcifications. There are limitations for soft tissue assessment given the streak artifact. There is a moderate to large volume of stool in the rectum and distal sigmoid colon. There is question of nodularity along the wall of the distal sigmoid colon. Correlation with recent colonoscopy would be recommended. Superior endplate concavity of L4 may potentially relate to a large Schmorl's node. There are severe disc degenerative changes at L3-L4 with diffuse disc bulge. There is also ligamentum flavum hypertrophy and severe spinal stenosis at this level. The bones appear demineralized. IMPRESSION: 1. The left hip prosthesis is superiorly displaced and posteriorly dislocated. 2. Comminuted displaced left acetabular fracture as described above with adjacent periosteal reaction suggesting this is most likely subacute in age. 3. Mildly displaced and mildly angulated fracture of the left inferior pubic ramus with mild adjacent periosteal reaction suggesting this is also most likely subacute in age. 4. Severe disc degenerative changes at L4-L5 with ligamentum flavum hypertrophy and severe spinal stenosis. 5. The bones appear demineralized. 6. Question nodular wall thickening along the distal sigmoid colon. Correlation with recent colonoscopy is recommended. Dictated by: Dictated on workstation # [id number]
[2018-05-05] MEDS ORDERED: OXYC1TAB12 PO (16:47)
[2018-05-05 16:52] VITALS: BP 113/68
== END 2018-05-05 17:00 | disposition home or self-care (01) ==
LOC: EDUNIT# 13:42 → ER 13:44
DX: S32.402A Unspecified fracture of left acetabulum, initial encounter for closed fracture (principal); I25.10 Atherosclerotic heart disease of native coronary artery without angina pectoris; I25.2 Old myocardial infarction; E78.00 Pure hypercholesterolemia, unspecified; I12.0 Hypertensive chronic kidney disease with stage 5 chronic kidney disease or end stage renal disease; N18.6 End stage renal disease; E11.22 Type 2 diabetes mellitus with diabetic chronic kidney disease; E11.40 Type 2 diabetes mellitus with diabetic neuropathy, unspecified; K21.9 Gastro-esophageal reflux disease without esophagitis; F41.9 Anxiety disorder, unspecified; F32.9 Major depressive disorder, single episode, unspecified; Z85.840 Personal history of malignant neoplasm of eye; Z95.1 Presence of aortocoronary bypass graft; Z99.2 Dependence on renal dialysis; Z79.82 Long term (current) use of aspirin; Z79.02 Long term (current) use of antithrombotics/antiplatelets; Z79.4 Long term (current) use of insulin; W18.30XA Fall on same level, unspecified, initial encounter
CPT/HCPCS: 72192; 73552

== ENCOUNTER → 2018-05-08 | Outpatient (CLI) | payer MEDICARE, MEDICAID ==
[~2018-05-08] MED LIST changes: +OXYC1TAB12 PO
== END ==
LOC: WOUNDCARE 14:12
PROVIDERS: ATTEND Surgery
DX: L89.620 Pressure ulcer of left heel, unstageable (principal); E11.621 Type 2 diabetes mellitus with foot ulcer; L97.422 Non-pressure chronic ulcer of left heel and midfoot with fat layer exposed; N18.6 End stage renal disease
CPT/HCPCS: 99212